=== PATIENT | female | born 1945 | race Caucasian/White ===

== ENCOUNTER 2017-03-22 11:49 | Inpatient (IN) | payer BC, OTHER ==
[~2017-03-22] VITALS: Ht 167.6 cm; Wt 63.1 kg
[~2017-03-22 11:49] MED LIST: AMOX500T PO; BENA20TA14 PO; METF-384 PO; METO50TA16 PO; VENL-273 PO; WLLSR150 PO
--- NOTE | 2017-03-22 13:03 | DIAGNOSTIC IMAGING REPORT ---
CHEST ONE VIEW PORTABLE CLINICAL HISTORY: Sepsis dyspnea COMPARISON STUDY: 08/24/2016 FINDINGS: Moderate stable cardiomegaly. Central catheters in the superior vena cava. Increased bilateral interstitial prominence. Potential developing parenchymal infiltrate medial right base. IMPRESSION: Developing interstitial edema versus interstitial inflammatory change throughout both hemithoraces and medial right base Electronically signed by: Adan Santana M.D. 03/22/2017 1:02 PM Dictated Date/Time: 03/22/2017 12:58 PM
[2017-03-22] MEDS ORDERED: BUPR75TA20 PO (13:14)
[2017-03-22] MEDS ORDERED: VNTHFA/IN INH (13:14)
[2017-03-22] MEDS ORDERED: METO25TA56 PO (13:14)
[2017-03-22] MEDS ORDERED: LIDO1CRE TOP (13:14)
[2017-03-22] MEDS ORDERED: MAGN400T6 PO (13:14)
[2017-03-22] MEDS ORDERED: SENN-61 PO (13:14)
[2017-03-22] MEDS ORDERED: ALPR-411 PO (13:14)
[2017-03-22] MEDS ORDERED: FRS/40 PO (13:14)
[2017-03-22] MEDS ORDERED: NICO7DIS7 TD (13:14)
[2017-03-22] MEDS ORDERED: LEVO-17 PO (13:14)
[2017-03-22] MEDS ORDERED: VENL-271 PO (13:14)
[2017-03-22] MEDS ORDERED: ACET-1256 PO (13:14)
[2017-03-22] MEDS ORDERED: INSDGI SC (13:17)
[2017-03-22 13:27] LABS: BASO % 0.3 %; BASO ABS # 0.03 K/uL (0-0.2); COMPLETE YES; EOS % 0.1 %; HEMATOCRIT 31.9 % (37-47); IG% 0.2 %; LYMPH % 9.7 %; LYMPH ABS # 0.91 K/uL (1.2-3.4); MEAN CELL VOLUME 81.4 fL (80-100); MEAN CORPUSCULAR HEMOGLOBIN 26.5 pg (25-34); MEAN CORPUSCULAR HGB CONC 32.6 g/dl (32-36); MEAN PLATELET VOLUME 9.1 fL (7.4-10.4); MONO % 8.2 %; NEUT % 81.5 %; PLATELET COUNT 245 K/uL (130-400); RED BLOOD COUNT 3.92 M/uL (4.2-5.4); WHITE BLOOD COUNT 9.34 K/uL (4.8-10.8)
[2017-03-22 13:40] LABS: INR 1.2 (0.9-1.1); PARTIAL THROMBOPLASTIN RATIO 1.2; PROTHROMBIN TIME (PATIENT) 12.6 SECONDS (9.0-12.0)
[2017-03-22 13:47] LABS: BUN/CREATININE RATIO 12.5 (10-20); CALCIUM 8.8 mg/dl (8.5-10.1); CREATININE 1.3 mg/dl (0.60-1.20); POTASSIUM 3.4 mmol/L (3.5-5.1)
[2017-03-22 13:56] LABS: ALB/GLOB RATIO 0.5 (0.9-2)
[2017-03-22] MEDS ORDERED: OPTIRAY 320 IV PRN (14:30)
--- NOTE | 2017-03-22 14:45 | DIAGNOSTIC IMAGING REPORT ---
CT ANGIOGRAM OF THE CHEST CLINICAL HISTORY: Shortness of breath. Hypoxia COMPARISON STUDY: Chest x-ray dated 03/22/2017 TECHNIQUE: Following the IV administration of 77 mL of Optiray-320, CT angiogram of the thorax was performed from the thoracic inlet to the lung bases utilizing the pulmonary embolus protocol. Images are reviewed in the axial, sagittal, and coronal planes. IV contrast was administered without complication. MIP imaging was performed. CT DOSE: 415.76 mGy.cm FINDINGS: Within the upper abdomen, there is visualization of a 9 mm left renal nodule with peripheral calcification. There are mildly enlarged prevascular and right paratracheal lymph nodes measuring up to 12 mm in short axis. There was no evidence of thoracic aortic dilatation. There is respiratory motion artifact. There are no filling defects to indicate acute pulmonary embolism. There are small bilateral pleural effusions. There are extensive bilateral airspace opacities. Clinical correlation will be necessary to differentiate pulmonary edema superimposed on chronic lung disease versus a bilateral inflammatory/infectious process IMPRESSION: 1. No evidence of acute pulmonary embolism 2. Mild mediastinal adenopathy 3. Small bilateral pleural effusions 4. Bilateral mixed interstitial and alveolar airspace opacities. Clinical correlation will be necessary to differentiate pulmonary edema superimposed on chronic lung disease versus a bilateral inflammatory/infectious process Electronically signed by: Sherwin Boone M.D. 03/22/2017 2:43 PM Dictated Date/Time: 03/22/2017 2:39 PM
[2017-03-22] MEDS ORDERED: PIPERACILLIN/TAZOBACTAM 4.5 GM/100ML D5W IV STA (14:47)
[2017-03-22] MEDS ORDERED: SODIUM CHLORIDE 0.9% 1000ML 1,000 ML IV SCH (15:16)
[2017-03-22] MEDS ORDERED: POLYETHYLENE (MIRALAX) 17 GM PACK PO PRN (15:30)
[2017-03-22] MEDS ORDERED: MAGNESIUM HYDROXIDE SUSP 30 ML UDC PO PRN (15:30)
[2017-03-22] MEDS ORDERED: ALUMINUM/MAGNESIUM/SIMETH (MAALOX MAX) 30 ML UDC PO PRN (15:30)
[2017-03-22] MEDS ORDERED: PIPERACILL/TAZOBAC CONSULT ACTIVE PRN (15:45)
[2017-03-22] MEDS ORDERED: VANCOMYCIN CONSULT ACTIVE PRN (15:45)
--- NOTE | 2017-03-22 15:45 | EMERGENCY ROOM VISIT NOTE ---
History Report prepared by Jennifer: Geraldine Martinez Under the Supervision of: Dr. Ryan Hough M.D. First contact with patient: 12:25 Chief Complaint: RESPIRATORY PROBLEMS Stated Complaint: SOB /[facility] Nursing Triage Summary: pt is resident at [facility] pt dx with Pneumonia yesterday and started on Levaquin today was first dose today pt more sob, room air sat 77 pt productive cough with yellow sputum no pain no fever History of Present Illness The patient is a 71 year old female who presents to the Emergency Room with complaints of respiratory problems. The patient was diagnosed with pneumonia yesterday and was placed on Levaquin. She reports that she has been short of breath since September. She states that she is unsure how long she has been coughing for, but does have a cough. She denies having chest pain, fevers, and lower extremity pain and edema. Source of History: patient Onset: September Position: other (global) Symptom Intensity: severe Quality: other (shortness of breath) Timing: constant Modifying Factors (Relieving): oxygen Associated Symptoms: + cough, + SOB, No fevers, No chest pain Note: also denies: lower extremity pain and edema Review of Systems See HPI for pertinent positives & negatives. A total of 10 systems reviewed and were otherwise negative. Past Medical & Surgical Medical Problems: (1) HCAP (healthcare-associated pneumonia) (2) Skin problem Family History Cancer Social History Smoking Status: Former Smoker Marital Status: Current/Historical Medications Scheduled Bupropion (Wellbutrin), 75 MG PO TID Furosemide (Lasix), 40 MG PO QAM Insulin Glargine (Lantus), 5 UNITS SC HS Levofloxacin (Levaquin), 250 MG PO Q2D Lidocaine (Anorectal) (Lc-5 Lidocaine), 1 APPLN TOP TID Magnesium Oxide (Mag-Ox), 400 MG PO DAILY Metoprolol Tartrate (Lopressor) (Lopressor), 25 MG PO BID Nicotine (Nicoderm Cq 7 Mg Patch), 7 MG TD DAILY Senna (Senokot), 1 TAB PO HS Venlafaxine Hcl (Venlafaxine Hcl Er), 1 TAB PO DAILY Scheduled PRN Acetaminophen (Tylenol), 2 TAB PO Q8 PRN for Mild Pain Albuterol Hfa (Ventolin Hfa), 2-4 PUFFS INH Q4 PRN for SOB/Wheezing Alprazolam (Xanax), 0.5 TAB PO Q6H PRN for Anxiety Allergies Coded Allergies: Nickel (Unverified Allergy, Unknown, ., 03/22/17) Physical Exam Vital Signs Date Time Temp Pulse Resp B/P (MAP) Pulse Ox O2 Delivery O2 Flow Rate FiO2 03/22/17 13:15 79 24 103/60 89 Nasal Cannula 4.0 03/22/17 12:02 100 15.0 03/22/17 11:57 37.0 100 27 117/66 80 Room Air 03/22/17 11:57 100 Non-Rebreather 15.0 Physical Exam Constitutional: Vital signs reviewed. Pulse oximeter 80% room air. 92% on 4L. Eyes: Pupils are equal round reactive to light. Conjunctiva are noninjected. ENT: Pharynx is clear without erythema or exudate. Mucous membranes are moist. Neck supple without meningeal signs. Respiratory: Clear to auscultation bilaterally. Breath sounds are equal bilaterally. Cardiovascular: Regular rate and rhythm. No rubs or gallops. GI: Soft, nondistended and nontender. Bowel sounds are present. Musculoskeletal: No peripheral edema. No lower extremity tenderness. Integumentary: No cyanosis. Neurological: The patient is awake and alert. No focal deficits. Psychiatric: Normal affect. Medical Decision & Procedures ER Provider Diagnostic Interpretation: X-ray results as stated below per interpretation by me and the radiologist: CHEST ONE VIEW PORTABLE CLINICAL HISTORY: Sepsis dyspnea COMPARISON STUDY: 08/24/2016 FINDINGS: Moderate stable cardiomegaly. Central catheters in the superior vena cava. Increased bilateral interstitial prominence. Potential developing parenchymal infiltrate medial right base. IMPRESSION: Developing interstitial edema versus interstitial inflammatory change throughout both hemithoraces and medial right base Electronically signed by: Adan Santana M.D. 03/22/2017 1:02 PM Dictated Date/Time: 03/22/2017 12:[address] results as stated below per my review and radiologist interpretation. CT ANGIOGRAM OF THE CHEST CLINICAL HISTORY: Shortness of breath. Hypoxia COMPARISON STUDY: Chest x-ray dated 03/22/2017 TECHNIQUE: Following the IV administration of 77 mL of Optiray-320, CT angiogram of the thorax was performed from the thoracic inlet to the lung bases utilizing the pulmonary embolus protocol. Images are reviewed in the axial, sagittal, and coronal planes. IV contrast was administered without complication. MIP imaging was performed. CT DOSE: 415.76 mGy.cm FINDINGS: Within the upper abdomen, there is visualization of a 9 mm left renal nodule with peripheral calcification. There are mildly enlarged prevascular and right paratracheal lymph nodes measuring up to 12 mm in short axis. There was no evidence of thoracic aortic dilatation. There is respiratory motion artifact. There are no filling defects to indicate acute pulmonary embolism. There are small bilateral pleural effusions. There are extensive bilateral airspace opacities. Clinical correlation will be necessary to differentiate pulmonary edema superimposed on chronic lung disease versus a bilateral inflammatory/infectious process IMPRESSION: 1. No evidence of acute pulmonary embolism 2. Mild mediastinal adenopathy 3. Small bilateral pleural effusions 4. Bilateral mixed interstitial and alveolar airspace opacities. Clinical correlation will be necessary to differentiate pulmonary edema superimposed on chronic lung disease versus a bilateral inflammatory/infectious process Electronically signed by: Sherwin Boone M.D. 03/22/2017 2:43 PM Dictated Date/Time: 03/22/2017 2:39 PM Laboratory Results 03/22/17 13:10 Red Blood Count 3.92, Mean Corpuscular Volume 81.4, Mean Corpuscular Hemoglobin 26.5, Mean Corpuscular Hemoglobin Concent 32.6, Mean Platelet Volume 9.1, Neutrophils (%) (Auto) 81.5, Lymphocytes (%) (Auto) 9.7, Monocytes (%) (Auto) 8.2, Eosinophils (%) (Auto) 0.1, Basophils (%) (Auto) 0.3, Neutrophils # (Auto) 7.60, Lymphocytes # (Auto) 0.91, Monocytes # (Auto) 0.77, Eosinophils # (Auto) 0.01, Basophils # (Auto) 0.03 03/22/17 13:10 Test 03/22/17 13:10 03/22/17 13:16 White Blood Count 9.34 K/uL (4.8-10.8) Red Blood Count 3.92 M/uL (4.2-5.4) Hemoglobin 10.4 g/dL (12.0-16.0) Hematocrit 31.9 % (37-47) Mean Corpuscular Volume 81.4 fL (80-100) Mean Corpuscular Hemoglobin 26.5 pg (25-34) Mean Corpuscular Hemoglobin Concent 32.6 g/dl (32-36) Platelet Count 245 K/uL (130-400) Mean Platelet Volume 9.1 fL (7.4-10.4) Neutrophils (%) (Auto) 81.5 % Lymphocytes (%) (Auto) 9.7 % Monocytes (%) (Auto) 8.2 % Eosinophils (%) (Auto) 0.1 % Basophils (%) (Auto) 0.3 % Neutrophils # (Auto) 7.60 K/uL (1.4-6.5) Lymphocytes # (Auto) 0.91 K/uL (1.2-3.4) Monocytes # (Auto) 0.77 K/uL (0.11-0.59) Eosinophils # (Auto) 0.01 K/uL (0-0.5) Basophils # (Auto) 0.03 K/uL (0-0.2) RDW Standard Deviation 56.7 fL (36.4-46.3) RDW Coefficient of Variation 19.0 % (11.5-14.5) Immature Granulocyte % (Auto) 0.2 % Immature Granulocyte # (Auto) 0.02 K/uL (0.00-0.02) Prothrombin Time 12.6 SECONDS (9.0-12.0) Prothromb Time International Ratio 1.2 (0.9-1.1) Activated Partial Thromboplast Time 31.3 SECONDS (21.0-31.0) Partial Thromboplastin Ratio 1.2 Anion Gap 10.0 mmol/L (3-11) Est Creatinine Clear Calc Drug Dose 36.6 ml/min Estimated GFR () 47.5 Estimated GFR (Non- 41.0 BUN/Creatinine Ratio 12.5 (10-20) Calcium Level 8.8 mg/dl (8.5-10.1) Total Bilirubin 0.9 mg/dl (0.2-1) Aspartate Amino Transf (AST/SGOT) 44 U/L (15-37) Alanine Aminotransferase (ALT/SGPT) 68 U/L (12-78) Alkaline Phosphatase 119 U/L (45-117) Troponin I < 0.015 ng/ml (0-0.045) Pro-B-Type Natriuretic Peptide 16114 pg/ml (0-900) Total Protein 7.1 gm/dl (6.4-8.2) Albumin 2.4 gm/dl (3.4-5.0) Globulin 4.7 gm/dl (2.5-4.0) Albumin/Globulin Ratio 0.5 (0.9-2) Bedside Lactic Acid Venous 2.12 mmol/L (0.90-1.70) Laboratory results as reviewed by me. ECG Indication: SOB/dyspnea Rate (beats per minute): 98 Rhythm: normal sinus Findings: LBBB, no ectopy, other (the LBBB is old; looked at previous ECG ) ED Course 1228: The patient was evaluated in room A9B. A complete history and physical exam was performed. 1421: I talked to the patient and her daughter about CT scan. I discussed risks of renal injury from the IV dye and they agreed to the CT scan. 1440: I spoke with Dr. Church of [facility]. We discussed the patient and her results. 1447: Ordered Zosyn Iv 4.5 gm IV. 1500: I spoke about her CT results. Her daughter said that she had a bad reaction to antibiotics at [place] at last admission so I will cancel her antibiotic treatment until we find out more information. 1510: The patient will be further evaluated by Dr. Church. Medical Decision This is a 71-year-old female who presents with dyspnea. Differential diagnosis includes pulmonary embolism, CHF, pleural effusion, COPD, pneumonia, sepsis. I did perform a limited focused review of portions of the patient's old chart on the electronic medical record. The patient has had no recent pertinent visits to this hospital. Blood Pressure Screening: Patient was found to have normal blood pressure on screening and does not require follow-up. Medication Reconciliation: I attest that I have personally reviewed the patient' s current medication list. I did evaluate the patient as noted above. I did obtain history from the patient as well as from her daughter who later came to the emergency department. She stated that the patient was recently hospitalized at [facility] and had a reaction to an unknown antibiotic. IV access was established. The patient was placed on a continuous environmental monitoring technician. I did order and personally review the patient's 12-lead EKG and chest x-ray as described above. She has either edema or pneumonia on x-ray. I did order and review the patient's blood work as noted in the electronic medical record. Her white blood cell count is not elevated but she does have an increased lactic acid. BNP is also significantly elevated. Because of her significant hypoxia and recent hospitalization I was concerned about pulmonary embolism. After discussion with the patient and her daughter, I did order a CT of the chest CT. I did review the images myself as well as the radiology report as described above. There is no pulmonary embolism. She does have either pneumonia or edema on CT scanning. She did have a low-grade temperature but also has an elevated BNP. Initially ordered Zosyn but I wanted to obtain more information from [facility] about the antibiotic that she had a severe reaction to. I therefore canceled it. I did discuss case with the [facility] hospitalist and social work case manager. I did discuss the test results with the patient and her daughter. Consults Time Called: 1420 Consulting Physician: Dr. Church Returned Call: [address] Church of [facility]. We discussed the patient and her results. The patient will be further evaluated by Dr. Church. Impression Primary Impression: Hypoxia Scribe Attestation The scribe's documentation has been prepared under my direct and personally reviewed by me in its entirety. I confirm that the note above accurately reflects all work, treatment, procedures, and medical decision making performed by me. Departure Information Dispostion Being Evaluated By Hospitalist Armin Johnson M.D. (PCP) Patient Instructions My [facility]
--- NOTE | 2017-03-22 15:54 | Pharmacy Progress Note ---
Pharmacy Abx Initial Consult Date of Service Mar 22, 2017. Pharmacy Dosing Scope Date of Consult: 03/22/17 Consultation requested by: Dr. Church Pharmacy is consulted to initiate Vancomycin and Zosyn IV dosing therapy, order appropriate labs and adjust drug dose/frequency. Subjective The patient is a 71 year old female admitted on 03/22/17 with pneumonia, started on PO Levaquin for Pneumonia yesterday as outpatient at [facility], came to ED with worsening symptoms. Objective Height (Feet): 5 Height (Inches): 6 Weight (Kilograms): 69.60 Vital Signs (Past 12Hrs) Vital Signs Past 12 Hours Date Time Temp Pulse Resp B/P (MAP) Pulse Ox O2 Delivery O2 Flow Rate FiO2 03/22/17 13:15 79 24 103/60 89 Nasal Cannula 4.0 03/22/17 12:02 100 15.0 03/22/17 11:57 37.0 100 27 117/66 80 Room Air 03/22/17 11:57 100 Non-Rebreather 15.0 Lab Results (24Hrs) Item Value Date Time Creatinine 1.30 mg/dl H 03/22/17 1310 Est Creatinine Clear Calc Drug Dose 36.6 ml/min 03/22/17 1310 Laboratory Tests (24 Hours) Test 03/22/17 13:10 White Blood Count 9.34 K/uL (4.8-10.8) Red Blood Count 3.92 M/uL (4.2-5.4) L Hemoglobin 10.4 g/dL (12.0-16.0) L Hematocrit 31.9 % (37-47) L Mean Corpuscular Volume 81.4 fL (80-100) Mean Corpuscular Hemoglobin 26.5 pg (25-34) Mean Corpuscular Hemoglobin Concent 32.6 g/dl (32-36) Platelet Count 245 K/uL (130-400) Mean Platelet Volume 9.1 fL (7.4-10.4) Neutrophils (%) (Auto) 81.5 % Lymphocytes (%) (Auto) 9.7 % Monocytes (%) (Auto) 8.2 % Eosinophils (%) (Auto) 0.1 % Basophils (%) (Auto) 0.3 % Neutrophils # (Auto) 7.60 K/uL (1.4-6.5) H Lymphocytes # (Auto) 0.91 K/uL (1.2-3.4) L Monocytes # (Auto) 0.77 K/uL (0.11-0.59) H Eosinophils # (Auto) 0.01 K/uL (0-0.5) Basophils # (Auto) 0.03 K/uL (0-0.2) Micro Results Date/Time Source Procedure Growth Status 03/22/17 13:47 Blood Blood Culture Pending Received 03/22/17 13:10 Blood Blood Culture Pending Received Risk Factors for Resistance * Resident in a senior living or extended-care facility (patient came from [facility]) * Antimicrobial use within the last 90 days Levaquin PO today Assessment & Plan Assessment 71 year old female admitted with pneumonia from [facility], recent admission at [facility]. Pt did report to have adverse drug reaction to an antibiotic, unknown antibiotic at this time. After discussion with Dr Church, we will HOLD Zosyn at this time, and then restart after we receive records. Patient does have a dose of Levaquin on board today. Plan Vancomycin for treatment of pneumonia (HCAP) Vancomycin IV * Loading dose: 1750 mg (25 mg/kg) * Maintenance dose: 1000 mg IV (15 mg/kg) every 24 hours * Estimated pharmacokinetic parameters: T1/2 = 19.8hrs, Akil = 0.035/hr, Vd = 0.7L/Kg * Goal trough level for HCAP : 15 to 20 mcg/mL * Trough level ordered for 03/25/17 Piperacillin/tazobactam - ON HOLD * 3.375 g bolus administered over 30 minutes, then 3.375 g IV extended infusion every 8 hours for CrCl greater than 20 mL/min Pharmacy will continue to follow and will adjust dose/frequency as necessary. Thank you.
[2017-03-22] MEDS ORDERED: VANCOMYCIN INJ 1,750 MG in SODIUM CHLORIDE 0.9% 500ML 500 ML IV ONE (16:00)
[2017-03-22] MEDS ORDERED: PIPERACILL/TAZOBAC IV 3.375 GM in DEXTROSE 5% 100ML IV ONE (16:00)
[2017-03-22 16:18] VITALS: BP 90/62; PULSE 87; TEMP 37; O2SAT 94; Ht 167.6 cm; Wt 63.1 kg
[2017-03-22 16:42] VITALS: BP 95/60; PULSE 87; TEMP 36.9; O2SAT 90
[2017-03-22 19:12] VITALS: BP 100/64; PULSE 86; TEMP 37; O2SAT 96
--- NOTE | 2017-03-22 19:26 | History and Physical ---
History & Physical Date & Time of Service: Mar 22, 2017 at 18:58 Chief Complaint: HCAP Primary Care Physician: Armin Sheth M.D. History of Present Illness Source: patient, family, clinic records, hospital records This is a 71 year old female with a PMH of colorectal CA s/p resection and colostomy, DM2, depression/anxiety, HTN presents from [facility] secondary to hypoxia and possible pneumonia; she had a CXR done one day prior to arrival which was suggestive of pneumonia and was prescribed Levaquin. She had a cough and hypoxia noted and was therefore sent over to [facility]. As per family member, she has had numerous visits to the hospital recently; was at [facility] for a possible R hip infection and was on long-term antibiotics; she was also at [place] at the end of February for an infection; which was again, for a possible R hip infection as well as a pneumonia. She was discharged to [facility] last week. As per records, she was allergic to possibly Ertapenem or Vancomycin as she was on both of these medications as outpatient. Noted to have elevated LFTs last week, possibly secondary to antibiotic side effect. Currently , she is answering questions appropriately; has oxygen mask on and is saturating fine; no chest pain, no fevers/chills noted. Family History Cancer Social History Smoking Status: Former Smoker Marital Status: Multi-Drug Resistant Organisms History of MDRO: No Allergies Coded Allergies: Nickel (Unverified Allergy, Unknown, ., 03/22/17) Ertapenem (Unverified Adverse Reaction, Intermediate, may have had elevated LFT's secondary to ertapenem..., 03/22/17) Patient received Vancomycin + Ertapenem in past for septic joint. She developed LFT elevations on this therapy. She had experienced ADHF, cardiogenic shock just prior to LFT elevation. Provider felt LFT elevations most likely due to shock, hepatic congestion but could not exclude ertapenem + venlafaxine as possible causes. Ertapenem was held and vanco was continued with Rocephin. LFTs improved. Home Medications Scheduled Bupropion (Wellbutrin), 75 MG PO TID Furosemide (Lasix), 40 MG PO QAM Insulin Glargine (Lantus), 5 UNITS SC HS Levofloxacin (Levaquin), 250 MG PO Q2D Lidocaine (Anorectal) (Lc-5 Lidocaine), 1 APPLN TOP TID Magnesium Oxide (Mag-Ox), 400 MG PO DAILY Metoprolol Tartrate (Lopressor) (Lopressor), 25 MG PO BID Nicotine (Nicoderm Cq 7 Mg Patch), 7 MG TD DAILY Senna (Senokot), 1 TAB PO HS Venlafaxine Hcl (Venlafaxine Hcl Er), 1 TAB PO DAILY Scheduled PRN Acetaminophen (Tylenol), 2 TAB PO Q8 PRN for Mild Pain Albuterol Hfa (Ventolin Hfa), 2-4 PUFFS INH Q4 PRN for SOB/Wheezing Alprazolam (Xanax), 0.5 TAB PO Q6H PRN for Anxiety Physical Exam Vital Signs Date Time Temp Pulse Resp B/P (MAP) Pulse Ox O2 Delivery O2 Flow Rate FiO2 03/22/17 16:42 36.9 87 20 95/60 (72) 90 Oxymask 6.0 03/22/17 16:31 37.0 87 29 90/62 94 03/22/17 16:18 37.0 87 29 90/62 94 Mask 10.0 03/22/17 16:01 87 90/62 96 Mask 4.0 03/22/17 15:54 92 29 96 03/22/17 15:24 89 27 95 03/22/17 15:19 91 26 96 Mask 10.0 03/22/17 15:02 97/59 03/22/17 14:49 89 21 95 03/22/17 14:19 94 30 93 03/22/17 14:01 104/62 03/22/17 13:49 95 26 03/22/17 13:19 93 30 92 03/22/17 13:15 79 24 103/60 89 Nasal Cannula 4.0 03/22/17 13:13 103/60 03/22/17 12:49 98 31 96 03/22/17 12:19 99 32 97 03/22/17 12:02 100 15.0 03/22/17 11:57 37.0 100 27 117/66 80 Room Air 03/22/17 11:57 100 Non-Rebreather 15.0 Diagnostics Laboratory Results Results Past 24 Hours Test 03/22/17 13:10 03/22/17 13:16 03/22/17 16:12 Range/Units White Blood Count 9.34 4.8-10.8 K/uL Red Blood Count 3.92 4.2-5.4 M/uL Hemoglobin 10.4 12.0-16.0 g/dL Hematocrit 31.9 37-47 % Mean Corpuscular Volume 81.4 80-100 fL Mean Corpuscular Hemoglobin 26.5 25-34 pg Mean Corpuscular Hemoglobin Concent 32.6 32-36 g/dl Platelet Count 245 130-400 K/uL Mean Platelet Volume 9.1 7.4-10.4 fL Neutrophils (%) (Auto) 81.5 % Lymphocytes (%) (Auto) 9.7 % Monocytes (%) (Auto) 8.2 % Eosinophils (%) (Auto) 0.1 % Basophils (%) (Auto) 0.3 % Neutrophils # (Auto) 7.60 1.4-6.5 K/uL Lymphocytes # (Auto) 0.91 1.2-3.4 K/uL Monocytes # (Auto) 0.77 0.11-0.59 K/uL Eosinophils # (Auto) 0.01 0-0.5 K/uL Basophils # (Auto) 0.03 0-0.2 K/uL RDW Standard Deviation 56.7 36.4-46.3 fL RDW Coefficient of Variation 19.0 11.5-14.5 % Immature Granulocyte % (Auto) 0.2 % Immature Granulocyte # (Auto) 0.02 0.00-0.02 K/uL Prothrombin Time 12.6 9.0-12.0 SECONDS Prothromb Time International Ratio 1.2 0.9-1.1 Activated Partial Thromboplast Time 31.3 21.0-31.0 SECONDS Partial Thromboplastin Ratio 1.2 Sodium Level 135 136-145 mmol/L Potassium Level 3.4 3.5-5.1 mmol/L Chloride Level 100 98-107 mmol/L Carbon Dioxide Level 25 21-32 mmol/L Anion Gap 10.0 3-11 mmol/L Blood Urea Nitrogen 16 7-18 mg/dl Creatinine 1.30 0.60-1.20 mg/dl Est Creatinine Clear Calc Drug Dose 36.6 ml/min Estimated GFR () 47.5 Estimated GFR (Non- 41.0 BUN/Creatinine Ratio 12.5 10-20 Random Glucose 202 70-99 mg/dl Calcium Level 8.8 8.5-10.1 mg/dl Total Bilirubin 0.9 0.2-1 mg/dl Aspartate Amino Transf (AST/SGOT) 44 15-37 U/L Alanine Aminotransferase (ALT/SGPT) 68 12-78 U/L Alkaline Phosphatase 119 45-117 U/L Troponin I < 0.015 0-0.045 ng/ml Pro-B-Type Natriuretic Peptide 27537 0-900 pg/ml Total Protein 7.1 6.4-8.2 gm/dl Albumin 2.4 3.4-5.0 gm/dl Globulin 4.7 2.5-4.0 gm/dl Albumin/Globulin Ratio 0.5 0.9-2 Hepatitis C Antibody Screen NEG NEG Bedside Lactic Acid Venous 2.12 0.90-1.70 mmol/L Lactic Acid Level 1.4 0.4-2.0 mmol/L Microbiology Results 03/22/17 Blood Culture, Received Pending 03/22/17 Blood Culture, Received Pending Diagnostic Radiology CT ANGIOGRAM OF THE CHEST CLINICAL HISTORY: Shortness of breath. Hypoxia COMPARISON STUDY: Chest x-ray dated 03/22/2017 TECHNIQUE: Following the IV administration of 77 mL of Optiray-320, CT angiogram of the thorax was performed from the thoracic inlet to the lung bases utilizing the pulmonary embolus protocol. Images are reviewed in the axial, sagittal, and coronal planes. IV contrast was administered without complication. MIP imaging was performed. CT DOSE: 415.76 mGy.cm FINDINGS: Within the upper abdomen, there is visualization of a 9 mm left renal nodule with peripheral calcification. There are mildly enlarged prevascular and right paratracheal lymph nodes measuring up to 12 mm in short axis. There was no evidence of thoracic aortic dilatation. There is respiratory motion artifact. There are no filling defects to indicate acute pulmonary embolism. There are small bilateral pleural effusions. There are extensive bilateral airspace opacities. Clinical correlation will be necessary to differentiate pulmonary edema superimposed on chronic lung disease versus a bilateral inflammatory/infectious process IMPRESSION: 1. No evidence of acute pulmonary embolism 2. Mild mediastinal adenopathy 3. Small bilateral pleural effusions 4. Bilateral mixed interstitial and alveolar airspace opacities. Clinical correlation will be necessary to differentiate pulmonary edema superimposed on chronic lung disease versus a bilateral inflammatory/infectious process EKG Normal sinus rhythm Left bundle branch block Abnormal ECG Impression Assessment and Plan This is a 71 year old female with a PMH of colorectal CA s/p resection and colostomy, DM2, depression/anxiety, HTN presents from [facility] secondary to hypoxia and possible pneumonia Pneumonia CXR Bilateral mixed interstitial and alveolar airspace opacities. Clinical correlation will be necessary to differentiate pulmonary edema superimposed on chronic lung disease versus a bilateral inflammatory/infectious process hypoxia on presentation requiring supplemental O2 recent hospital stay questionable penicillin allergy, will obtain records ordered Vanco + Levaquin lactic acid trending down to 1.4 Hx. of colorectal CA s/p resection/colostomy patient with colostomy, draining well, no foul-smelling stool no abdominal pain, no other issues to note Cardiomyopathy patient with a hx. of cardiomyopathy no recent echo noted, though records are pending BNP elevated, will stop IVFs can restart Lasix in AM Acute Kidney Injury received IVFs in the ER holding IVFs now due possible fluid overload restart Lasix in AM (03/23) avoid nephrotoxic agents when able DM2 BSGs ACHS insulin sliding scale DVT ppx subq heparin FULL CODE Advanced Directives Existing Living Will: No Existing Power of Order Analyst: No VTE Prophylaxis VTE Risk Assessment Done? Y/N: Yes Risk Level: Moderate
[2017-03-22] MEDS ORDERED: GLUCAGON FOR INJ 1 MG VIAL SQ PRN (19:30)
[2017-03-22] MEDS ORDERED: GLUCOSE 40% GEL 15 GM TUBE PO PRN (19:30)
[2017-03-22] MEDS ORDERED: DEXTROSE 50% 50 ML SYR IV PRN (19:30)
[2017-03-22] MEDS ORDERED: GLUCOSE 10 TABS/TUBE PO PRN (19:30)
[2017-03-22] MEDS: INSULIN ASPART 100 UNITS/ML 3 ML PEN SC SCH (21:00)
[2017-03-22] MEDS: SENNA 8.6 MG TAB PO SCH (21:19)
[2017-03-22] MEDS: METOPROLOL TARTRATE 25 MG TAB PO SCH (21:19)
[2017-03-22] MEDS: HEPARIN SOD 5000 UNIT/0.5 ML CARP SQ SCH (22:56)
[2017-03-22] MEDS ORDERED: LIDOCAINE 5% EXT SCH (23:00)
[2017-03-22 23:37] VITALS: BP 85/54; PULSE 71; TEMP 36.8; O2SAT 92
[2017-03-23] VITALS (9 sets, daily range): BP systolic 89–97; BP diastolic 52–61; PULSE 76–87; TEMP 36.5–37.2; O2SAT 81–95
[2017-03-23] MEDS ORDERED: PIPERACILL/TAZOBAC IV 3.375 GM in DEXTROSE 5% 100ML 100 ML IV SCH ×2
[2017-03-23] MEDS: HEPARIN SOD 5000 UNIT/0.5 ML CARP SQ SCH ×3 (06:11→21:49)
[2017-03-23 06:49] LABS: HEMATOCRIT 32.5 % (37-47); MEAN CELL VOLUME 81.7 fL (80-100); MEAN CORPUSCULAR HEMOGLOBIN 24.9 pg (25-34); MEAN CORPUSCULAR HGB CONC 30.5 g/dl (32-36); MEAN PLATELET VOLUME 8.6 fL (7.4-10.4); PLATELET COUNT 253 K/uL (130-400); RED BLOOD COUNT 3.98 M/uL (4.2-5.4); WHITE BLOOD COUNT 10.57 K/uL (4.8-10.8)
[2017-03-23] MEDS: INSULIN ASPART 100 UNITS/ML 3 ML PEN SC SCH ×4 (07:00→20:39)
[2017-03-23 07:21] LABS: CALCIUM 8.8 mg/dl (8.5-10.1); CREATININE 1.3 mg/dl (0.60-1.20); MAGNESIUM 1.6 mg/dl (1.8-2.4); POTASSIUM 3.7 mmol/L (3.5-5.1)
[2017-03-23] MEDS: VENLAFAXINE HCL XR 37.5 MG CAPXR PO SCH (08:29)
[2017-03-23] MEDS: MAGNESIUM OXIDE 400 MG TAB PO SCH (08:30)
[2017-03-23] MEDS: FUROSEMIDE 40 MG TAB PO SCH (08:30)
[2017-03-23] MEDS: METOPROLOL TARTRATE 25 MG TAB PO SCH ×2 (08:30→20:13)
[2017-03-23] MEDS: NICOTINE 7 MG/24 HR TDSY TD SCH (08:31)
--- NOTE | 2017-03-23 09:18 | Medical Consult ---
Consultation Date of Consultation: Mar 23, 2017. Attending Physician: Hugo Cummings M.D. History of Present Illness pt admitted from [facility] for suspected pna. cxr in er with edema, ct b/l opacities. denies h/o lung disease. Now on O2 mask, does not wear O2 at home. has had multiple recent hospitalizations in [facility], [place] for hip infection, on prolonged abx. recently stopped. no hip pain. no f/c. denies sob, wheeze, intermittent cough, increased recently, no blooed. no pleuritic cp. no n/v/d/ abd pain. no gu symptoms. states she feels better today, placed on vanco and zosyn, zosyn was stopped, levaquin to start per h&p. blood cultures pending. wbc nml. All remaining ros reviewed and are negative. Past Medical/Surgical History Medical Problems: (1) Epigastric abdominal pain Status: Acute (2) Hypoxia Status: Acute (3) Vomiting Status: Acute Family History Cancer Social History Smoking Status: Former Smoker Marital Status: Allergies Coded Allergies: Nickel (Unverified Allergy, Unknown, ., 03/22/17) Ertapenem (Unverified Adverse Reaction, Intermediate, may have had elevated LFT's secondary to ertapenem..., 03/22/17) Patient received Vancomycin + Ertapenem in past for septic joint. She developed LFT elevations on this therapy. She had experienced ADHF, cardiogenic shock just prior to LFT elevation. Provider felt LFT elevations most likely due to shock, hepatic congestion but could not exclude ertapenem + venlafaxine as possible causes. Ertapenem was held and vanco was continued with Rocephin. LFTs improved. Current Inpatient Medications Current Inpatient Medications Medications (Trade) Dose Ordered Sig/Lorenzo Route Start Time Stop Time Status Last Admin Dose Admin Ioversol (Optiray 320) 111 ml UD PRN IV 03/22/17 14:30 03/26/17 14:29 Piperacillin Sod/ Tazobactam Sod 3.375 gm/Dextrose 115 ml @ 28.75 mls/ hr Q8@0000,0800,1600 IV 03/23/17 00:00 03/29/17 15:59 Future Hold 03/22/17 15:58 28.75 MLS/HR Vancomycin HCl 1000 mg/Sodium Chloride 270 ml @ 125 mls/hr DAILY@1400 IV 03/23/17 14:00 03/28/17 16:10 Alprazolam (Xanax Tab) 0.25 mg Q6H PRN PO 03/22/17 15:15 04/21/17 15:14 Bupropion HCl (Wellbutrin Tab) 75 mg TID@0700,1500,2300 PO 03/22/17 23:00 04/21/17 22:59 03/23/17 06:08 75 MG Furosemide (Lasix Tab) 40 mg QAM PO 03/23/17 09:00 04/22/17 08:59 03/23/17 08:30 40 MG Magnesium Oxide (Mag-Ox Tab) 400 mg DAILY PO 03/23/17 09:00 04/22/17 08:59 03/23/17 08:30 400 MG Metoprolol Tartrate (Lopressor Tab) 25 mg BID PO 03/22/17 21:00 04/21/17 20:59 03/22/17 21:19 25 MG Nicotine (Nicoderm Cq 7 Mg Patch) 1 patch DAILY TD 03/23/17 09:00 04/22/17 08:59 03/23/17 08:31 1 PATCH Senna (Senokot Tab) 8.6 mg HS PO 03/22/17 21:00 04/21/17 20:59 03/22/17 21:19 8.6 MG Venlafaxine HCl (effeXOR EXTENDED REL CAP) 37.5 mg DAILY PO 03/23/17 09:00 04/22/17 08:59 03/23/17 08:29 37.5 MG Heparin Sodium (Porcine) (Heparin Sq 5000 Unit/0.5ml) 5,000 unit Q8 SQ 03/22/17 22:00 04/21/17 21:59 03/23/17 06:11 5,000 UNIT Acetaminophen (Tylenol Tab) 650 mg Q4H PRN PO 03/22/17 15:30 04/21/17 15:29 Al Hydrox/Mg Hydrox/Simethicone (Maalox Max Susp) 15 ml Q4H PRN PO 03/22/17 15:30 04/21/17 15:29 Magnesium Hydroxide (Milk Of Magnesia Susp) 30 ml Q12H PRN PO 03/22/17 15:30 04/21/17 15:29 Ondansetron HCl (Zofran Inj) 4 mg Q6H PRN IV 03/22/17 15:30 04/21/17 15:29 Polyethylene (Miralax Powder Packet) 17 gm DAILY PRN PO 03/22/17 15:30 04/21/17 15:29 Vancomycin HCl (Consult) 1 ea UD PRN N/A 03/22/17 15:45 04/21/17 15:44 Piperacillin Sod/ Tazobactam Sod (Consult) 1 ea UD PRN N/A 03/22/17 15:45 04/21/17 15:44 Future Hold Insulin Aspart (novoLOG ASPART) SLIDING SCALE If C... ACHS SC 03/22/17 21:00 04/21/17 20:59 Glucose (Glucose 40% Gel) 15-30 GRAMS 15 GRAMS... UD PRN PO 03/22/17 19:30 04/21/17 19:29 Glucose (Glucose Chew Tab) 4-8 Tablets 4 Tabl... UD PRN PO 03/22/17 19:30 04/21/17 19:29 Dextrose (Dextrose 50% 50ML Syringe) 25-50ML OF 50% DW IV FOR... UD PRN IV 03/22/17 19:30 04/21/17 19:29 Glucagon (Glucagon Inj) 1 mg UD PRN SQ 03/22/17 19:30 04/21/17 19:29 Miscellaneous Information (Order Awaiting Action) 1 ea QS N/A 03/23/17 08:00 04/22/17 07:59 Magnesium Sulfate 1 gm/Prmx 100 ml @ 100 mls/hr 0930 ONCE IV 03/23/17 09:30 03/23/17 10:29 Physical Exam Date Time Temp Pulse Resp B/P (MAP) Pulse Ox O2 Delivery O2 Flow Rate FiO2 03/23/17 07:28 37.2 84 19 93/60 (71) 95 6.0 03/23/17 04:49 36.9 76 20 93/59 (70) 90 Oxymask 03/23/17 04:00 94 Oxymask 6.0 03/23/17 04:00 37.2 77 16 95/60 (72) 90 Oxymask 6.0 03/23/17 00:00 94 Oxymask 6.0 03/22/17 23:37 36.8 71 18 85/54 (64) 92 6.0 03/22/17 19:12 37.0 86 21 100/64 (76) 96 Nasal Cannula 5.0 03/22/17 16:42 36.9 87 20 95/60 (72) 90 Oxymask 6.0 03/22/17 16:31 37.0 87 29 90/62 94 03/22/17 16:18 37.0 87 29 90/62 94 Mask 10.0 03/22/17 16:01 87 90/62 96 Mask 4.0 03/22/17 15:54 92 29 96 03/22/17 15:24 89 27 95 03/22/17 15:19 91 26 96 Mask 10.0 03/22/17 15:02 97/59 03/22/17 14:49 89 21 95 03/22/17 14:19 94 30 93 03/22/17 14:01 104/62 03/22/17 13:49 95 26 03/22/17 13:19 93 30 92 03/22/17 13:15 79 24 103/60 89 Nasal Cannula 4.0 03/22/17 13:13 103/60 03/22/17 12:49 98 31 96 03/22/17 12:19 99 32 97 03/22/17 12:02 100 15.0 03/22/17 11:57 37.0 100 27 117/66 80 Room Air 03/22/17 11:57 100 Non-Rebreather 15.0 General Appearance: WD/WN, no apparent distress Head: normocephalic, atraumatic Eyes: normal inspection, EOMI Neck: supple Respiratory/Chest: lungs clear, normal breath sounds, no respiratory distress Cardiovascular: regular rate, rhythm, no edema Abdomen/GI: non tender, soft Extremities/Musculoskelatal: no calf tenderness, no pedal edema Neurologic/Psych: alert, oriented x 3 Skin: normal color Laboratory Results Last 24 Hours Test 03/22/17 13:10 03/22/17 13:16 03/22/17 16:12 03/22/17 20:12 White Blood Count 9.34 K/uL Red Blood Count 3.92 M/uL Hemoglobin 10.4 g/dL Hematocrit 31.9 % Mean Corpuscular Volume 81.4 fL Mean Corpuscular Hemoglobin 26.5 pg Mean Corpuscular Hemoglobin Concent 32.6 g/dl Platelet Count 245 K/uL Mean Platelet Volume 9.1 fL Neutrophils (%) (Auto) 81.5 % Lymphocytes (%) (Auto) 9.7 % Monocytes (%) (Auto) 8.2 % Eosinophils (%) (Auto) 0.1 % Basophils (%) (Auto) 0.3 % Neutrophils # (Auto) 7.60 K/uL Lymphocytes # (Auto) 0.91 K/uL Monocytes # (Auto) 0.77 K/uL Eosinophils # (Auto) 0.01 K/uL Basophils # (Auto) 0.03 K/uL RDW Standard Deviation 56.7 fL RDW Coefficient of Variation 19.0 % Immature Granulocyte % (Auto) 0.2 % Immature Granulocyte # (Auto) 0.02 K/uL Prothrombin Time 12.6 SECONDS Prothromb Time International Ratio 1.2 Activated Partial Thromboplast Time 31.3 SECONDS Partial Thromboplastin Ratio 1.2 Sodium Level 135 mmol/L Potassium Level 3.4 mmol/L Chloride Level 100 mmol/L Carbon Dioxide Level 25 mmol/L Anion Gap 10.0 mmol/L Blood Urea Nitrogen 16 mg/dl Creatinine 1.30 mg/dl Est Creatinine Clear Calc Drug Dose 36.6 ml/min Estimated GFR () 47.5 Estimated GFR (Non- 41.0 BUN/Creatinine Ratio 12.5 Random Glucose 202 mg/dl Calcium Level 8.8 mg/dl Total Bilirubin 0.9 mg/dl Aspartate Amino Transf (AST/SGOT) 44 U/L Alanine Aminotransferase (ALT/SGPT) 68 U/L Alkaline Phosphatase 119 U/L Troponin I < 0.015 ng/ml Pro-B-Type Natriuretic Peptide 65346 pg/ml Total Protein 7.1 gm/dl Albumin 2.4 gm/dl Globulin 4.7 gm/dl Albumin/Globulin Ratio 0.5 Hepatitis C Antibody Screen NEG Bedside Lactic Acid Venous 2.12 mmol/L Lactic Acid Level 1.4 mmol/L 1.6 mmol/L Test 03/22/17 20:36 03/22/17 23:57 03/23/17 06:31 03/23/17 06:38 Bedside Glucose 147 mg/dl 134 mg/dl Lactic Acid Level 2.1 mmol/L White Blood Count 10.57 K/uL Red Blood Count 3.98 M/uL Hemoglobin 9.9 g/dL Hematocrit 32.5 % Mean Corpuscular Volume 81.7 fL Mean Corpuscular Hemoglobin 24.9 pg Mean Corpuscular Hemoglobin Concent 30.5 g/dl RDW Standard Deviation 56.7 fL RDW Coefficient of Variation 18.8 % Platelet Count 253 K/uL Mean Platelet Volume 8.6 fL Sodium Level 136 mmol/L Potassium Level 3.7 mmol/L Chloride Level 100 mmol/L Carbon Dioxide Level 26 mmol/L Anion Gap 10.0 mmol/L Blood Urea Nitrogen 17 mg/dl Creatinine 1.30 mg/dl Est Creatinine Clear Calc Drug Dose 36.6 ml/min Estimated GFR () 47.5 Estimated GFR (Non- 41.0 BUN/Creatinine Ratio 13.0 Random Glucose 125 mg/dl Calcium Level 8.8 mg/dl Magnesium Level 1.6 mg/dl Assessment & Plan (1) HCAP (healthcare-associated pneumonia) Assessment & Plan: continue broad spectrum abx, will need 7 days. obtain sputum culture, if able to produce specimen. blood cultures pending, continue supportive care.
[2017-03-23] MEDS ORDERED: MAGNESIUM SULFATE 1GM / D5W 1 GM in PREMIXED IN D5W 100 ML IV ONE (09:30)
--- NOTE | 2017-03-23 12:48 | Clinical Documentation Query ---
QUERY 1 OF [address] MONTANEZ, In your clinical opinion is this patient being managed for: ( ) possible MRSA pneumonia in the setting of recent hospitalization being treated with IV vancomcyin ( ) Other explanation of clinical findings (Please Explain) ( X ) Unable to determine (Please Define) ( ) Need to Discuss ( ) Not Agree The medical record reflects the following clinical findings, treatment, and risk factors. Clinical Indicators: 71 yo female presenting with pneumonia, following recent hospital stay. Sputum reported to be yellow. Pulse ox 80% on RA Treatment: IV vancomycin, pending MRSA swab, pending blood cultures, O2 support, tele Risk Factors: age, DM, recent hospital stay QUERY 2 OF 3 In your clinical opinion is this patient being managed for: ( X) Acute hypoxic respiratory failure ( ) Other explanation of clinical findings (Please Explain) ( ) Unable to determine (Please Define) ( ) Need to Discuss ( ) Not Agree The medical record reflects the following clinical findings, treatment, and risk factors. Clinical Indicators:71 yo female presenting with pneumonia. O2 sat 80% on RA, tachypneic with resp rate of 27-32 Treatment: O2 support-initially NRB, now on oxymask, IV vancomycin, tele, IV zosyn, Risk Factors: age, pneumonia, hx chronic systolic CHF QUERY 3 OF 3 In your clinical opinion is this patient being managed for: ( ) Chronic systolic CHF ( ) Other explanation of clinical findings (Please Explain) ( X ) Unable to determine (Please Define) ( ) Need to Discuss ( ) Not Agree The medical record reflects the following clinical findings, treatment, and risk factors. Clinical Indicators: Noted documentation of chronic systolic CHF in [facility] scanned documents Treatment: po lasix, lopressor Risk Factors: age, DM, COPD, HTN Please clarify and document your clinical opinion in the progress notes and discharge summary. Terms such as "probable", "suspected", "likely", "questionable", "possible", or "still to be ruled out" are acceptable. IF IN AGREEMENT, YOU MUST DOCUMENT ABOVE DIAGNOSTIC STATEMENT IN DAILY PROGRESS NOTES AND DISCHARGE SUMMARY. This document is not part of the patient's record. Thank You, Freya Steele RN [phone]
--- NOTE | 2017-03-23 14:30 | Progress Note ---
Internal Med Progress Note Date of Service: Mar 23, 2017. Provider Documentation: SUBJECTIVE: The patient was seen and examined Admitted with sudden onset SOB with cough from [facility] Recent discharge from [facility] following an episode of Increased LFTs and noted to have CMP with EF 20-25% No fever,chills Generally weak and lethargic OBJECTIVE: Vital Signs-as noted below Exam: General-Moderate distress at rest Eyes-Normal ENT-normal Neck-supple Lungs-decreased breath sound at the bases Heart-Regular Abdomen-Benign,colostomy site intact Extremities-Trace edema bilaterally Neuro-AAOx3 Generally weak and lethargic Lab data as noted below. ASSESSMENT & PLAN: Bibasilar Pneumonia CXR Bilateral mixed interstitial and alveolar airspace opacities. Clinical correlation will be necessary to differentiate pulmonary edema superimposed on chronic lung disease versus a bilateral inflammatory/infectious process Hypoxia on presentation requiring supplemental O2 Recent hospital stay in [facility] Has been on Vanco + Levaquin for now Appreciate ID input Hx. of colorectal CA s/p resection/colostomy Has Presacral Mass -patient with colostomy, draining well, no foul-smelling stool -no abdominal pain, no other issues to note -No acute issue Cardiomyopathy.EF ~20% -Patient with a hx. of cardiomyopathy -Multiple wall motion abnormality with EF of 20-25% and grade ii Diastolic Dysfunction on ECHO week of March -BNP elevated, will stop IVFs -Can restart Lasix in AM will change to IV Acute Kidney Injury with h/o CKD -Received IVFs in the ER -Hold IVFs to avoid Fluid Overload -Avoid Nephrotoxic agent DM2 -BSGs ACHS -insulin sliding scale DVT ppx -subq heparin FULL CODE Discussed with The Daughter Vital Signs: Date Time Temp Pulse Resp B/P (MAP) Pulse Ox O2 Delivery O2 Flow Rate FiO2 03/23/17 12:00 Oxymask 6.0 03/23/17 11:30 36.5 82 18 89/52 (64) 95 Nasal Cannula 6.0 03/23/17 08:00 Oxymask 6.0 03/23/17 07:28 37.2 84 19 93/60 (71) 95 6.0 03/23/17 04:49 36.9 76 20 93/59 (70) 90 Oxymask 03/23/17 04:00 94 Oxymask 6.0 03/23/17 04:00 37.2 77 16 95/60 (72) 90 Oxymask 6.0 03/23/17 00:00 94 Oxymask 6.0 03/22/17 23:37 36.8 71 18 85/54 (64) 92 6.0 03/22/17 19:12 37.0 86 21 100/64 (76) 96 Nasal Cannula 5.0 03/22/17 16:42 36.9 87 20 95/60 (72) 90 Oxymask 6.0 03/22/17 16:31 37.0 87 29 90/62 94 03/22/17 16:18 37.0 87 29 90/62 94 Mask 10.0 03/22/17 16:01 87 90/62 96 Mask 4.0 03/22/17 15:54 92 29 96 03/22/17 15:24 89 27 95 03/22/17 15:19 91 26 96 Mask 10.0 03/22/17 15:02 97/59 03/22/17 14:49 89 21 95 03/22/17 14:19 94 30 93 Lab Results: Results Past 24 Hours Test 03/22/17 16:12 03/22/17 20:12 03/22/17 20:36 03/22/17 23:57 Range/Units Lactic Acid Level 1.4 1.6 2.1 0.4-2.0 mmol/L Bedside Glucose 147 70-90 mg/dl Test 03/23/17 06:31 03/23/17 06:38 Range/Units Bedside Glucose 134 70-90 mg/dl White Blood Count 10.57 4.8-10.8 K/uL Red Blood Count 3.98 4.2-5.4 M/uL Hemoglobin 9.9 12.0-16.0 g/dL Hematocrit 32.5 37-47 % Mean Corpuscular Volume 81.7 80-100 fL Mean Corpuscular Hemoglobin 24.9 25-34 pg Mean Corpuscular Hemoglobin Concent 30.5 32-36 g/dl RDW Standard Deviation 56.7 36.4-46.3 fL RDW Coefficient of Variation 18.8 11.5-14.5 % Platelet Count 253 130-400 K/uL Mean Platelet Volume 8.6 7.4-10.4 fL Sodium Level 136 136-145 mmol/L Potassium Level 3.7 3.5-5.1 mmol/L Chloride Level 100 98-107 mmol/L Carbon Dioxide Level 26 21-32 mmol/L Anion Gap 10.0 3-11 mmol/L Blood Urea Nitrogen 17 7-18 mg/dl Creatinine 1.30 0.60-1.20 mg/dl Est Creatinine Clear Calc Drug Dose 36.6 ml/min Estimated GFR () 47.5 Estimated GFR (Non- 41.0 BUN/Creatinine Ratio 13.0 10-20 Random Glucose 125 70-99 mg/dl Calcium Level 8.8 8.5-10.1 mg/dl Magnesium Level 1.6 1.8-2.4 mg/dl
[2017-03-23] MEDS: VANCOMYCIN INJ 1,000 MG in SODIUM CHLORIDE 0.9% 250ML 250 ML IV SCH (14:36)
[2017-03-23] MEDS: DOXYCYCLINE HYCLATE 100 MG in DEXTROSE 5% 100ML IV SCH (16:11)
[2017-03-23] MEDS ORDERED: FUROSEMIDE INJ 40 MG in SYRINGE 0 ML IV ONE (20:00)
[2017-03-23] MEDS: SENNA 8.6 MG TAB PO SCH (20:13)
--- NOTE | 2017-03-23 20:14 | DIAGNOSTIC IMAGING REPORT ---
CHEST ONE VIEW PORTABLE CLINICAL HISTORY: shortness of breath dyspnea COMPARISON STUDY: 03/22/2017 FINDINGS: Findings of mildly progressive pulmonary edematous-type change. Heart is moderately enlarged. There is central catheter ends. Cava. IMPRESSION: Mild/moderate progression of the patient's pulmonary edematous change The above report was generated using voice recognition software. It may contain grammatical, syntax or spelling errors. Electronically signed by: Adan Santana M.D. 03/23/2017 8:12 PM Dictated Date/Time: 03/23/2017 8:12 PM
[2017-03-23 20:20] LABS: ALLEN TEST POS (POS); ARTERIAL BLD GAS O2 SATURATION 93.3 % (90-95); ARTERIAL BLOOD GAS BASE EXCESS -1.3 mEq/L (-9-1.8); ARTERIAL BLOOD GAS HCO3 22 mmol/L (19-24); ARTERIAL BLOOD GAS PO2 74 mm/Hg (80-95); ARTERIAL BLOOD GAS pH 7.48 (7.35-7.45); O2 ADMINISTRATION 15 LITERS
[2017-03-24] VITALS (8 sets, daily range): BP systolic 87–100; BP diastolic 54–64; PULSE 76–109; TEMP 36.4–37.2; O2SAT 90–98
[2017-03-24] MEDS ORDERED: FUROSEMIDE INJ 20 MG in SYRINGE 0 ML IV STA (02:12)
[2017-03-24] MEDS ORDERED: POTASSIUM CHLORIDE 20 MEQ TABCR PO STA (02:13)
[2017-03-24] MEDS ORDERED: MAG SULFATE IV STA (02:14)
[2017-03-24] MEDS ORDERED: DEXTROSE 5% IV STA (02:14)
[2017-03-24] MEDS: DOXYCYCLINE HYCLATE 100 MG in DEXTROSE 5% 100ML IV SCH ×2 (03:56→16:21)
[2017-03-24] MEDS: HEPARIN SOD 5000 UNIT/0.5 ML CARP SQ SCH ×3 (05:38→21:04)
[2017-03-24] MEDS: INSULIN ASPART 100 UNITS/ML 3 ML PEN SC SCH ×4 (07:00→23:57)
[2017-03-24] MEDS: VENLAFAXINE HCL XR 37.5 MG CAPXR PO SCH (07:23)
[2017-03-24] MEDS: MAGNESIUM OXIDE 400 MG TAB PO SCH ×2 (07:24→21:01)
[2017-03-24] MEDS: METOPROLOL TARTRATE 25 MG TAB PO SCH ×2 (07:24→21:00)
[2017-03-24] MEDS: NICOTINE 7 MG/24 HR TDSY TD SCH (07:25)
[2017-03-24 07:48] LABS: HEMATOCRIT 31.9 % (37-47); MEAN CELL VOLUME 80.6 fL (80-100); MEAN CORPUSCULAR HEMOGLOBIN 25.8 pg (25-34); MEAN PLATELET VOLUME 9.3 fL (7.4-10.4); PLATELET COUNT 262 K/uL (130-400); RED BLOOD COUNT 3.96 M/uL (4.2-5.4); WHITE BLOOD COUNT 10.27 K/uL (4.8-10.8)
[2017-03-24 07:59] LABS: BUN/CREATININE RATIO 12.6 (10-20); CREATININE 1.5 mg/dl (0.60-1.20); MAGNESIUM 2.3 mg/dl (1.8-2.4); POTASSIUM 3.5 mmol/L (3.5-5.1)
[2017-03-24 08:01] LABS: ALB/GLOB RATIO 0.5 (0.9-2); PHOSPHORUS 3.3 mg/dl (2.5-4.9)
[2017-03-24] MEDS ORDERED: MAGNESIUM OXIDE 400 MG TAB PO ONE (10:57)
[2017-03-24] MEDS: VANCOMYCIN INJ 1,000 MG in SODIUM CHLORIDE 0.9% 250ML 250 ML IV SCH (13:34)
[2017-03-24] MEDS: LEVALBUTEROL 0.31MG/3 ML VIAL INH SCH ×2 (13:46→19:12)
--- NOTE | 2017-03-24 15:08 | Progress Note ---
Internal Med Progress Note Date of Service: Mar 24, 2017. Provider Documentation: SUBJECTIVE: The patient was seen and examined Admitted with sudden onset SOB with cough from [facility] Recent discharge from [facility] following an episode of Increased LFTs and noted to have CMP with EF 20-25% No fever,chills Generally weak and lethargic Has had Acute SOB last evening-ttreated with IV lasix Much better this Morning OBJECTIVE: Vital Signs-as noted below Exam: General-Moderate distress at rest Eyes-Normal ENT-normal Neck-supple Lungs-decreased breath sound at the bases Minimal Bibasilar crackles Heart-Regular Abdomen-Benign,colostomy site intact Extremities-Trace edema bilaterally Neuro-AAOx3 Generally weak and lethargic Lab data as noted below. ASSESSMENT & PLAN: Bibasilar Pneumonia CXR Bilateral mixed interstitial and alveolar airspace opacities. Clinical correlation will be necessary to differentiate pulmonary edema superimposed on chronic lung disease versus a bilateral inflammatory/infectious process Hypoxia on presentation requiring supplemental O2 Recent hospital stay in [facility] Has been on Vanco + Levaquin for now Appreciate ID input No fever or chills ,no increase in WCC Blood culture -negative and No MRSA D/C Vancomycin and continue with Doxy Hx. of colorectal CA s/p resection/colostomy Has Presacral Mass -patient with colostomy, draining well, no foul-smelling stool -no abdominal pain, no other issues to note -No acute issue Cardiomyopathy.EF ~20% -Patient with a hx. of cardiomyopathy -Multiple wall motion abnormality with EF of 20-25% and grade ii Diastolic Dysfunction on ECHO week of March -BNP elevated, will stop IVFs -Can restart Lasix in AM will change to IV -Received IV Lasix for an attack of CHF Clinically better Continue IV Lasix for now Acute Kidney Injury with h/o CKD -Received IVFs in the ER -Hold IVFs to avoid Fluid Overload -Avoid Nephrotoxic agent -Creatinine is slightly worse -likely due to use of Lasix DM2 -BSGs ACHS -insulin sliding scale DVT ppx -subq heparin FULL CODE Discussed with The Daughter Vital Signs: Date Time Temp Pulse Resp B/P (MAP) Pulse Ox O2 Delivery O2 Flow Rate FiO2 03/24/17 13:47 81 18 94 Diffusion Mask 12.0 03/24/17 12:09 37.1 83 19 100/64 (76) 94 Mask 6.0 03/24/17 12:00 Oxymask 03/24/17 08:00 Oxymask 03/24/17 07:47 36.7 81 20 87/55 (66) 98 Mask 8.0 03/24/17 04:05 36.7 76 24 89/54 (66) 91 Oxymask 15.0 03/24/17 04:00 Oxymask 15.0 03/24/17 00:01 Oxymask 15.0 03/23/17 23:10 36.9 81 18 90/55 (67) 95 Oxymask 15.0 03/23/17 21:48 93/56 (68) 03/23/17 20:00 Oxymask 15.0 03/23/17 19:10 36.8 83 20 92/54 (67) 81 Nasal Cannula 6.0 03/23/17 16:00 Oxymask 6.0 03/23/17 16:00 36.6 87 23 97/61 (73) 89 Nasal Cannula 6.0 Lab Results: Results Past 24 Hours Test 03/23/17 16:22 03/23/17 19:52 03/23/17 20:25 03/24/17 04:03 Range/Units Bedside Glucose 283 217 140 70-90 mg/dl Arterial Blood pH 7.48 7.35-7.45 Arterial Blood Partial Pressure CO2 30 35-46 mmHg Arterial Blood Partial Pressure O2 74 80-95 mm/Hg Arterial Blood HCO3 22 19-24 mmol/L Arterial Blood Oxygen Saturation 93.3 90-95 % Arterial Blood Base Excess -1.3 -9-1.8 mEq/L Arterial Blood Gas Delivery 15 LITERS Gabriele Test POS POS Test 03/24/17 06:45 03/24/17 06:52 03/24/17 07:20 03/24/17 11:10 Range/Units Sodium Level 134 136-145 mmol/L Potassium Level 3.5 3.5-5.1 mmol/L Chloride Level 97 98-107 mmol/L Carbon Dioxide Level 26 21-32 mmol/L Anion Gap 11.0 3-11 mmol/L Blood Urea Nitrogen 19 7-18 mg/dl Creatinine 1.50 0.60-1.20 mg/dl Est Creatinine Clear Calc Drug Dose 31.7 ml/min Estimated GFR () 39.9 Estimated GFR (Non- 34.4 BUN/Creatinine Ratio 12.6 10-20 Random Glucose 140 70-99 mg/dl Calcium Level 9.0 8.5-10.1 mg/dl Phosphorus Level 3.3 2.5-4.9 mg/dl Magnesium Level 2.3 1.8-2.4 mg/dl Total Bilirubin 0.8 0.2-1 mg/dl Aspartate Amino Transf (AST/SGOT) 29 15-37 U/L Alanine Aminotransferase (ALT/SGPT) 46 12-78 U/L Alkaline Phosphatase 128 45-117 U/L Total Protein 7.0 6.4-8.2 gm/dl Albumin 2.2 3.4-5.0 gm/dl Globulin 4.8 2.5-4.0 gm/dl Albumin/Globulin Ratio 0.5 0.9-2 White Blood Count 10.27 4.8-10.8 K/uL Red Blood Count 3.96 4.2-5.4 M/uL Hemoglobin 10.2 12.0-16.0 g/dL Hematocrit 31.9 37-47 % Mean Corpuscular Volume 80.6 80-100 fL Mean Corpuscular Hemoglobin 25.8 25-34 pg Mean Corpuscular Hemoglobin Concent 32.0 32-36 g/dl RDW Standard Deviation 54.3 36.4-46.3 fL RDW Coefficient of Variation 18.5 11.5-14.5 % Platelet Count 262 130-400 K/uL Mean Platelet Volume 9.3 7.4-10.4 fL Bedside Glucose 158 148 70-90 mg/dl Microbiology Results 03/23/17 Gram Stain - Final, Resulted 03/23/17 Sputum Culture - Preliminary, Resulted LIGHT NORMAL KEESHA Present, Final Rep...
[2017-03-24] MEDS ORDERED: NURSING VERBAL MED ORDER ONE (17:30)
--- NOTE | 2017-03-24 17:41 | DIAGNOSTIC IMAGING REPORT ---
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 No significant changes compared to the prior study. Central catheter remains in this. Vena cava. IMPRESSION: Unchanging diffuse bilateral parenchymal infiltrative changes versus pulmonary edema The above report was generated using voice recognition software. It may contain grammatical, syntax or spelling errors. Electronically signed by: Adan Santana M.D. 03/24/2017 5:40 PM Dictated Date/Time: 03/24/2017 5:39 PM
[2017-03-24] MEDS ORDERED: FUROSEMIDE INJ 20 MG in SYRINGE 0 ML IV ONE (18:00)
[2017-03-24] MEDS: SENNA 8.6 MG TAB PO SCH (20:58)
[2017-03-24] MEDS ORDERED: INSULIN ASPART 100 UNITS/ML 3 ML PEN SC SCH (21:00)
[2017-03-25] VITALS (14 sets, daily range): BP systolic 86–100; BP diastolic 53–67; PULSE 80–115; TEMP 36.4–36.7; O2SAT 78–100
[2017-03-25] MEDS: LEVALBUTEROL 0.31MG/3 ML VIAL INH SCH ×4 (02:02→19:47)
[2017-03-25] MEDS: DOXYCYCLINE HYCLATE 100 MG in DEXTROSE 5% 100ML IV SCH ×2 (04:14→16:33)
[2017-03-25] MEDS: INSULIN ASPART 100 UNITS/ML 3 ML PEN SC SCH ×4 (05:45→20:37)
[2017-03-25] MEDS: HEPARIN SOD 5000 UNIT/0.5 ML CARP SQ SCH ×3 (05:51→20:41)
[2017-03-25 06:52] LABS: CREATININE 1.3 mg/dl (0.60-1.20)
[2017-03-25] MEDS: METOPROLOL TARTRATE 25 MG TAB PO SCH ×2 (08:11→20:40)
[2017-03-25] MEDS: FUROSEMIDE INJ 40 MG in SYRINGE 0 ML IV SCH ×2 (08:31→09:00)
[2017-03-25] MEDS: VENLAFAXINE HCL XR 37.5 MG CAPXR PO SCH (08:33)
[2017-03-25] MEDS: NICOTINE 7 MG/24 HR TDSY TD SCH (08:34)
[2017-03-25] MEDS: MAGNESIUM OXIDE 400 MG TAB PO SCH ×2 (08:34→20:40)
[2017-03-25] MEDS: ONDANSETRON INJ 2 MG/ML 2 ML VIAL IV PRN (10:27)
--- NOTE | 2017-03-25 13:06 | Progress Note ---
Internal Med Progress Note Date of Service: Mar 25, 2017. Provider Documentation: SUBJECTIVE: The patient was seen and examined Admitted with sudden onset SOB with cough from [facility] Recent discharge from [facility] following an episode of Increased LFTs and noted to have CMP with EF 20-25% No fever,chills Remains Generally weak and lethargic Diuresing well -clinically not any better OBJECTIVE: Vital Signs-as noted below Exam: General-Moderate distress at rest Requiring more Oxygen to maintain saturation Eyes-Normal ENT-normal Neck-supple Lungs-decreased breath sound at the bases Minimal Bibasilar crackles Heart-Regular Abdomen-Benign,colostomy site intact Extremities-Trace edema bilaterally Neuro-AAOx3 Generally weak and lethargic Lab data as noted below. ASSESSMENT & PLAN: Bibasilar Pneumonia CXR Bilateral mixed interstitial and alveolar airspace opacities. Clinical correlation will be necessary to differentiate pulmonary edema superimposed on chronic lung disease versus a bilateral inflammatory/infectious process Hypoxia on presentation requiring supplemental O2 Recent hospital stay in [facility] Has been on Vanco + Levaquin for now Appreciate ID input No fever or chills ,no increase in WCC Blood culture -negative and No MRSA D/C Vancomycin and continue with Doxy Slow improvement Repeat CXR: Unchanging diffuse bilateral parenchymal infiltrative changes versus pulmonary edema Continue Antibiotic and Lasix Hx. of colorectal CA s/p resection/colostomy Has Presacral Mass -patient with colostomy, draining well, no foul-smelling stool -no abdominal pain, no other issues to note -No acute issue Cardiomyopathy.EF ~20% -Patient with a hx. of cardiomyopathy -Multiple wall motion abnormality with EF of 20-25% and grade ii Diastolic Dysfunction on ECHO week of March -BNP elevated, will stop IVFs -Can restart Lasix in AM will change to IV -Received IV Lasix for an attack of CHF Clinically better Continue IV Lasix for now Cardiac function may have been worse Acute Kidney Injury with h/o CKD -Received IVFs in the ER -Hold IVFs to avoid Fluid Overload -Avoid Nephrotoxic agent -Creatinine is slightly worse -likely due to use of Lasix -Remmains high but stable DM2 -BSGs ACHS -insulin sliding scale DVT ppx -subq heparin FULL CODE Discussed with The Daughter Patient was DNR before and after discussion with the Daughter she is made DNR again Vital Signs: Date Time Temp Pulse Resp B/P (MAP) Pulse Ox O2 Delivery O2 Flow Rate FiO2 03/25/17 12:04 36.6 85 18 86/58 (67) 94 Mask 13.0 03/25/17 08:35 95/60 (72) 03/25/17 08:03 36.4 96 19 88/53 (65) 99 Mask 13.0 03/25/17 08:00 Diffusion Mask 11.0 03/25/17 07:14 100 18 100 Non-Rebreather 15.0 03/25/17 04:00 Non-Rebreather 15.0 03/25/17 03:35 36.4 101 18 94/60 (71) 94 Non-Rebreather 15.0 03/25/17 02:02 98 18 92 Non-Rebreather 15.0 03/25/17 00:00 Diffusion Mask 12.0 03/24/17 23:44 37.2 88 24 95/63 (74) 97 Diffusion Mask 12.0 03/24/17 20:00 Diffusion Mask 11.0 03/24/17 19:12 98 18 90 Diffusion Mask 12.0 03/24/17 19:02 37.0 109 23 96/61 (73) 92 Mask 11.0 03/24/17 16:00 Oxymask 03/24/17 15:43 36.4 81 18 92/54 (67) 93 Mask 12.0 03/24/17 13:47 81 18 94 Diffusion Mask 12.0 Lab Results: Results Past 24 Hours Test 03/24/17 17:50 03/24/17 23:54 03/25/17 05:44 03/25/17 05:58 Range/Units Bedside Glucose 109 197 141 70-90 mg/dl Creatinine 1.30 0.60-1.20 mg/dl Est Creatinine Clear Calc Drug Dose 36.6 ml/min Estimated GFR () 47.5 Estimated GFR (Non- 41.0
[2017-03-25] MEDS ORDERED: VANCOMYCIN TROUGH SCH (13:30)
[2017-03-25] MEDS ORDERED: NURSING VERBAL MED ORDER ONE (14:30)
[2017-03-25] MEDS: SENNA 8.6 MG TAB PO SCH (20:38)
[2017-03-25] MEDS ORDERED: FUROSEMIDE INJ 40 MG in SYRINGE 0 ML IV STA (21:53)
--- NOTE | 2017-03-25 22:19 | DIAGNOSTIC IMAGING REPORT ---
CHEST ONE VIEW PORTABLE CLINICAL HISTORY: worsening SOB and unable to oxygenate well dyspnea COMPARISON STUDY: 03/24/2017 FINDINGS: Unchanged study of the chest. Diffuse bilateral parenchymal infiltrative change. Mild stable cardia megaly. IMPRESSION: Stable exam. No change compared to the prior study. The above report was generated using voice recognition software. It may contain grammatical, syntax or spelling errors. Electronically signed by: Adan Santana M.D. 03/25/2017 10:18 PM Dictated Date/Time: 03/25/2017 10:17 PM
[2017-03-25] MEDS ORDERED: CONSULT PHARMACY STA (22:31)
[2017-03-25] MEDS ORDERED: PIPERACILL/TAZOBAC IV 3.375 GM in DEXTROSE 5% 100ML IV ONE (23:00)
[2017-03-25] MEDS ORDERED: PIPERACILL/TAZOBAC IV 3.375 GM in DEXTROSE 5% 50ML 50 ML IV ONE (23:00)
[2017-03-25] MEDS ORDERED: PIPERACILL/TAZOBAC CONSULT ACTIVE PRN (23:00)
[2017-03-25] MEDS ORDERED: VANCOMYCIN CONSULT ACTIVE PRN (23:30)
--- NOTE | 2017-03-25 23:41 | Progress Note ---
Progress Note Date of Service Mar 25, 2017. Progress Note Contacted by nursing staff around 9:40pm stating she cannot oxygenate patient with sat dropping to 85%. On arrival to bedside, vitals were 100/66, P 80, O2 sat was 90% on NRB at 15L but was tracked as ranging 78-85%. She was lying supine in bed and was mentating alright but appeared to move and respond somewhat slowly, possibly consistent with hypoxia. Her HOB was raised to 45 degrees or more per order. As I was familiar with this patient from two nights ago, I ordered stat Lasix 40 IV, CXR, and stat BIPAP to be started for respiratory support. She was made NPO. I spoke w the respiratory therapists who were at the bedside within ten minutes. CXR reveal no real changes to her pulmonary edema and bilateral infiltrates consistent with HCAP from yesterday. On exam she was exhibiting mild respiratory distress and some conversational dyspnea, but had also just woken up from sleep. No JVD was present and lung exam revealed diffuse prominent crackles throughout entire lung hyatt to apices. Heart sounds were distant. Palomino in place. HISTORY: She has a h/o rectal cancer s/p resection and diverting sigmoid colostomy s/p XRT and chemo, presumed non-ischemic cardiomyopathy with an EF 25% which was a new diagnosis in January 2017, endometrial cancer s/p LORENA and chemo who has been in and out of [facility] over the last few months 2/2 septic arthritis of her R hip. She was discharged from [facility] on 02/02 on IV Vanc and Ertapenem x 6 weeks, however, due to inflammatory markers and an MRI suggestive of microabscesses her abx were extended an additional two weeks. During this time she was a resident of [facility]. She returned to [facility] after labwork revealed elevated LFTs with ALT 814 an, AST 995, ALP 135 and an ammonia of 60. CT abd revealed fatty liver, a presacral mass and soft tissue attenuation of her R hip. Withholding Ertapenem lead to resolution of transaminitis. The etiology of this elevation was thought 2/2 drug and/or congestive hepatopathy. An inpatient ID consult could not be obtained, so the hospitalist consulted with an outpatient ID physician who knew the patient (Dr. Portillo) who agreed that further Vancomycin should be stopped for her hip infection based on the fact that the fluid collection on MRI was nonspecific, she had no hip pain, fever, or leukocytosis, the drugs may have just caused some liver injury, and she had already received 7 weeks of antibiotics. On 03/10 she was noted to have confusion and agitation with workup revealing an elevated ammonia level. Her mental status improved after a dose of lactulose, and was thought 10/12 from her hospital stay. No CXR was ordered. Oncology had also been contacted for the presacral mass seen on imaging and hussain a CEA level which was mildly elevated. They recommended follow-up as an outpatient. At this point she was transferred back to [facility]. A physician saw her on 03/15 and at the [facility] and documented she was oxygenating well on room air and was afebrile. Then a CXR was ordered in 03/21 for SOB and cough and revealed some congestion and a DARCY infiltrate. She was started on Levaquin the morning of , however, because of continued respiratory distress EMS was contacted to bring her to [facility] later that day. She was admitted to this hospital on 03/22. A CTA of the chest revealed no PE, small bilateral pleural effusions and bilateral airspace disease consistent with pneumonia, inflammation vs pulmonary edema. She had a LBBB on EKG which was present on EKG from 08/25. She was not septic but was requiring supplemental oxygen. Zosyn was ordered but was initially delayed approx. 1-2 hours until further information from [facility] could be obtained. Per her daughter, she had recently had a reaction to antibiotics. She was admitted to telemetry and Vancomycin was added for treatment of HCAP. IF was consulted, who agreed with continuing broad spectrum antibiotics. On the evening of 03/23 she developed acute decompensated heart failure with significant pulmonary edema. A Palomino was placed and Lasix 40 IV was given, with an additional 20 IV 6 hours later. Good output was measured and she appeared to improve clinically. IV diuretics were continued, but based on hold parameters were not given. Tonight she had the issue described above and it was noted that her Lasix had not been given today, with last dose yesterday around 6pm. Cardiology will be consulted for assistance with management to improve her cardiac output and consideration of ICD/FORK ASSEMBLER therapy in setting of LBBB and low EF. GOALS of therapy at this point include: 1. Reverse decompensated heart failure, reassess with ECHO in am, appreciate Cards eval. For now will give Lasix as BP cannot support vasodilater therapy with Nitro/Morphine. BIPAP for support and pt made strict NPO until respiratory status improves. She is DNR. 2. Broaden antibiotics from doxycycline back to Vanc and zosyn with concentrated IVF to reduce fluid load; this is in the setting of worsening hypoxia and chronic iinfectious course with multiple hospital stays. Would cont broad abx until hypoxia improves 3. Follow-up R septic arthritis 4. Follow-up presacral mass with elevated CEA. Masha Domínguez DO [facility] Hospitalist
[2017-03-26] VITALS (19 sets, daily range): BP systolic 84–100; BP diastolic 56–67; PULSE 69–102; TEMP 35.9–36.8; O2SAT 80–98
[2017-03-26] MEDS ORDERED: VANCOMYCIN IV SCH ×2
[2017-03-26] MEDS ORDERED: SODIUM CHLORIDE 0.9% IV SCH ×2
[2017-03-26] MEDS ORDERED: FUROSEMIDE INJ 40 MG in SYRINGE 0 ML IV STA (01:59)
[2017-03-26] MEDS: LEVALBUTEROL 0.31MG/3 ML VIAL INH SCH ×4 (02:38→19:35)
[2017-03-26] MEDS ORDERED: FUROSEMIDE INJ 40 MG in SYRINGE 0 ML IV SCH (04:00)
[2017-03-26] MEDS ORDERED: PIPERACILL/TAZOBAC IV 3.375 GM in DEXTROSE 5% 100ML IV SCH (04:00)
[2017-03-26] MEDS: PIPERACILL/TAZOBAC IV 3.375 GM in DEXTROSE 5% 50ML 50 ML IV SCH ×3 (04:33→20:35)
[2017-03-26] MEDS: HEPARIN SOD 5000 UNIT/0.5 ML CARP SQ SCH ×3 (06:13→21:30)
[2017-03-26 06:18] LABS: BASO % 0.3 %; BASO ABS # 0.02 K/uL (0-0.2); COMPLETE YES; HEMATOCRIT 30.8 % (37-47); IG% 0.4 %; LYMPH % 14.9 %; LYMPH ABS # 1.04 K/uL (1.2-3.4); MEAN CELL VOLUME 81.9 fL (80-100); MEAN CORPUSCULAR HEMOGLOBIN 26.1 pg (25-34); MEAN CORPUSCULAR HGB CONC 31.8 g/dl (32-36); MEAN PLATELET VOLUME 9.2 fL (7.4-10.4); MONO % 10.1 %; NEUT % 73.3 %; PLATELET COUNT 275 K/uL (130-400); RED BLOOD COUNT 3.76 M/uL (4.2-5.4); WHITE BLOOD COUNT 6.96 K/uL (4.8-10.8)
[2017-03-26 06:47] LABS: BUN/CREATININE RATIO 16.8 (10-20); CALCIUM 8.8 mg/dl (8.5-10.1); CREATININE 1.3 mg/dl (0.60-1.20); MAGNESIUM 1.8 mg/dl (1.8-2.4); POTASSIUM 3.3 mmol/L (3.5-5.1)
--- NOTE | 2017-03-26 06:53 | Clinical Documentation Query ---
CLINICAL DOCUMENTATION QUERY Dr. CHESTER, In your clinical opinion is this patient being managed for: ( + ) Acute respiratory failure due to acute on chronic combined systolic and diastolic CHF ( ) Other explanation of clinical findings (Please Explain) ( ) Unable to determine (Please Define) ( ) Need to Discuss ( ) Not Agree The medical record reflects the following clinical findings, treatment, and risk factors. Clinical Indicators:71 yo female presenting with pneumonia. Per progress note on 03/25, pt with O2 sats dropping to 85%. VS HR 80, BP 100/66, O2 sat 90% on 15L NRB. Lungs with diffuse prominent crackles throughout. Pt exhibited respiratory distress and conversational dyspnea. Treatment: stat IV lasix, BIPAP, CXR, repeat ECHO in AM, cardiology consult, I/O, daily wts Risk Factors: age, DM, HTN, Please clarify and document your clinical opinion in the progress notes and discharge summary. Terms such as "probable", "suspected", "likely", "questionable", "possible", or "still to be ruled out" are acceptable. IF IN AGREEMENT, YOU MUST DOCUMENT ABOVE DIAGNOSTIC STATEMENT IN DAILY PROGRESS NOTES AND DISCHARGE SUMMARY. This document is not part of the patient's record. Thank You, Freya Steele, JOVANI [phone]
[2017-03-26] MEDS: INSULIN ASPART 100 UNITS/ML 3 ML PEN SC SCH ×4 (07:00→21:00)
[2017-03-26] MEDS ORDERED: POTASSIUM CHLORIDE 20 MEQ TABCR PO STA (08:43)
[2017-03-26] MEDS: NICOTINE 7 MG/24 HR TDSY TD SCH (09:00)
[2017-03-26] MEDS: MAGNESIUM OXIDE 400 MG TAB PO SCH ×2 (09:00→21:00)
[2017-03-26] MEDS: VENLAFAXINE HCL XR 37.5 MG CAPXR PO SCH (09:00)
--- NOTE | 2017-03-26 09:31 | Cardiology Consultation ---
Cardiology Consultation Date of Consultation: Mar 26, 2017 Requesting Physician: Dr. Domínguez Attending Shell Molding Roller Blast Operator: Dr. Choi (Luz Marina Sullivan PA-C) History of Present Illness Patient is a 71 year old female with a very complex history. All information is obtained from medical records. She has a history of rectal cancer s/p resection and sigmoid colostomy s/p XRT and chemo therapy, now rectal mass with mildly elevated CEA levels, history of endometrial CA s/p LORENA and chemo. She has been in and out of the hospital most recently due to septic arthritis of the Right Hip. She was in [facility] and [facility]. During one admission in January 2017 she was found to have new cardiomyopathy LVEF 25%, presumed nonischemic. Full echo report not available. She has a chronic LBBB, dating back to at least 2015 per EKG at [facility]. She has been treated with IV antibiotics for septic arthritis over the last 6+ weeks. Unfortunately readmitted beginning of March to [place] due to elevated LFT's, likely from antibiotic therapy. She was ultimately discharged to [facility] for rehab and continued IV antibiotic therapy. She was evaluated by provider at nursing facility on 03/21 for SOB, found to have new infiltrates. Started on outpatient antibiotic Levaquin. Due to worsening respiratory status, she was admitted to [facility] on 03/22. Since her admission, diuretics and antibiotic therapy has been titrated. She has required BiPap due to hypoxia. She remains borderline hypotensive. Echo report pending. Urine outputs slowly increasing. Creatinine remains stable. At time of consult, patient lethargic and drowsy. Wearing Bipap. Unable to provide a great deal of history. States she feels better than last night. No chest pain. SOB mildly improving (Luz Marina Sullivan PA-C) Past Medical/Surgical History Problem List: Medical Problems: (1) HCAP (healthcare-associated pneumonia) (2) Skin problem 3. Septic arthritis of right hip 4. history of colon CA 5. History of endometrial CA 6. LBBB 7. Presumed non ischemic cardiomyopathy in January 2017 (Luz Marina Sullivan PA-C) Family History unobtainable (Luz Marina Sullivan PA-C) Cancer (Ryan Choi DO) Social History Smoking Status: Former Smoker Marital Status: (Luz Marina Sullivan PA-C) Review Of Systems ROS limited due to Bipap therapy. See HPI for pertinent positives. (Luz Marina Sullivan PA-C) Allergies Coded Allergies: Nickel (Unverified Allergy, Unknown, ., 03/22/17) Ertapenem (Unverified Adverse Reaction, Intermediate, may have had elevated LFT's secondary to ertapenem..., 03/22/17) Patient received Vancomycin + Ertapenem in past for septic joint. She developed LFT elevations on this therapy. She had experienced ADHF, cardiogenic shock just prior to LFT elevation. Provider felt LFT elevations most likely due to shock, hepatic congestion but could not exclude ertapenem + venlafaxine as possible causes. Ertapenem was held and vanco was continued with Rocephin. LFTs improved. Medications Reported Home Medications Medications Dose Route/Sig Max Daily Dose Days Date Category Dose Instructions Lantus (Insulin Glargine) 100 Unit/Ml Inj 5 Units SC HS 03/22/17 Reported 2100 Ventolin Hfa (Albuterol) 200 Puffs/03743 Mcg Aers 2-4 Puffs INH Q4 PRN 03/22/17 Reported Tylenol (Acetaminophen) 500 Mg Tab 2 Tab PO Q8 PRN 03/22/17 Reported Venlafaxine Hcl Er (Venlafaxine Hcl) 37.5 Mg Tab 1 Tab PO DAILY 03/22/17 Reported 0900 Senokot (Senna) 8.6 Mg Tab 1 Tab PO HS 03/22/17 Reported 2100 Nicoderm Cq 7 Mg Patch (Nicotine) 7 Mg/24 Hr Dis 7 Mg TD DAILY 03/22/17 Reported 0900 Lc-5 Lidocaine (Lidocaine (Anorectal)) 5 % Cre 1 Appln TOP TID 03/22/17 Reported APPLY TO RIGHT HIP AT [phone] Levaquin (Levofloxacin) 250 Mg Tab 250 Mg PO Q2D 03/22/17 Reported STARTS 03-21-17 ENDS 03-31-17 1 TAB PO Q2D X5 DOSES AT 0900 Xanax (Alprazolam) 0.5 Mg Tab 0.5 Tab PO Q6H PRN 03/22/17 Reported Lopressor (Metoprolol Tartrate) 25 Mg Tab 25 Mg PO BID 03/22/17 Reported [id number] *HOLD IF SYS BP IS LESS THAN 100 OR HR IS LESS THAN 60. Mag-Ox (Magnesium Oxide) 400 Mg Tab 400 Mg PO DAILY 03/22/17 Reported 1200 Lasix (Furosemide) 40 Mg Tab 40 Mg PO QAM 03/22/17 Reported 0800 *HOLD IF SYS BP IS LESS THAN 110 Wellbutrin (Bupropion HCl) 75 Mg Tab 75 Mg PO TID 03/22/17 Reported [id number] (Luz Marina Sullivan PA-C) Physical Exam Vital Signs (Last 8hrs): Last 8 Hrs Date Time Temp Pulse Resp B/P (MAP) Pulse Ox O2 Delivery O2 Flow Rate FiO2 03/26/17 07:14 92 26 87 Nasal Cannula 50.0 70 03/26/17 05:43 98 22 93 High Flow Oxygen 50.0 70 03/26/17 04:23 36.7 101 22 88/58 (68) 91 High Flow Oxygen 50.0 70 03/26/17 04:02 High Flow Oxygen 50.0 70 03/26/17 02:41 25 85 High Flow Oxygen 50.0 70 03/26/17 02:38 102 24 92 BiPAP/CPAP 60 03/26/17 02:15 88 22 84/56 (65) 93 BiPAP 03/26/17 02:05 102 94 BiPAP 03/26/17 01:04 79 22 95 BiPAP General Appearance: Lethargic. Bipap in place Neck: Supple. No carotid bruits noted. No JVD at 45 degrees. No HJD. Respiratory: Bibasilar rales and rhonchi present. Cardiovascular: Reg rate and rhythm.. No audible murmurs Abdomen: soft, nontender. Colostomy in place Extremities: No edema, no clubbing or cyanosis. distal pulses 2/4 bilaterally. Neuro: Lethargic (Luz Marina Sullivan PA-C) Data Last 24 Hours Test 03/25/17 12:58 03/25/17 13:43 03/25/17 16:22 03/25/17 20:18 Bedside Glucose 223 mg/dl 262 mg/dl 126 mg/dl Vancomycin Level Trough 18.2 mcg/ml Test 03/26/17 06:05 03/26/17 07:05 White Blood Count 6.96 K/uL Red Blood Count 3.76 M/uL Hemoglobin 9.8 g/dL Hematocrit 30.8 % Mean Corpuscular Volume 81.9 fL Mean Corpuscular Hemoglobin 26.1 pg Mean Corpuscular Hemoglobin Concent 31.8 g/dl Platelet Count 275 K/uL Mean Platelet Volume 9.2 fL Neutrophils (%) (Auto) 73.3 % Lymphocytes (%) (Auto) 14.9 % Monocytes (%) (Auto) 10.1 % Eosinophils (%) (Auto) 1.0 % Basophils (%) (Auto) 0.3 % Neutrophils # (Auto) 5.10 K/uL Lymphocytes # (Auto) 1.04 K/uL Monocytes # (Auto) 0.70 K/uL Eosinophils # (Auto) 0.07 K/uL Basophils # (Auto) 0.02 K/uL RDW Standard Deviation 54.6 fL RDW Coefficient of Variation 18.1 % Immature Granulocyte % (Auto) 0.4 % Immature Granulocyte # (Auto) 0.03 K/uL Sodium Level 138 mmol/L Potassium Level 3.3 mmol/L Chloride Level 98 mmol/L Carbon Dioxide Level 30 mmol/L Anion Gap 10.0 mmol/L Blood Urea Nitrogen 22 mg/dl Creatinine 1.30 mg/dl Est Creatinine Clear Calc Drug Dose 36.6 ml/min Estimated GFR () 47.5 Estimated GFR (Non- 41.0 BUN/Creatinine Ratio 16.8 Random Glucose 128 mg/dl Calcium Level 8.8 mg/dl Magnesium Level 1.8 mg/dl Bedside Glucose 127 mg/dl Imaging: Chest xray 03/25/17 FINDINGS: Unchanged study of the chest. Diffuse bilateral parenchymal infiltrative change. Mild stable cardiomegaly. IMPRESSION: Stable exam. No change compared to the prior study. Chest CT on admission 03/22/17: IMPRESSION: 1. No evidence of acute pulmonary embolism 2. Mild mediastinal adenopathy 3. Small bilateral pleural effusions 4. Bilateral mixed interstitial and alveolar airspace opacities. Clinical correlation will be necessary to differentiate pulmonary edema superimposed on chronic lung disease versus a bilateral inflammatory/infectious process EKG on admission Normal sinus rhythm Left bundle branch block Unchanged for prior Telemetry reviewed: NSR with conduction delay, consistent wiht LBBB. (Luz Marina Sullivan, PALetiC) Assessment & Plan ASSESSMENT 1. Acute respiratory distress with hypoxia, multifactorial secondary to HCAP and questionable CHF. However she does not overtly examine as volume overload. 2. Cardiomyopathy, LVEF 25% per echo in January 2017 at outside facility. 3. Chronic LBBB 4. History of R septic knee with recurrent admission and alf IV antibiotic therapy January/February/March 2017 5. History of colon CA s/p resection. History of endometrial CA. new presacral mass on CT scan last month. PLAN: Update 2D echo Continue aggressive diuresis until creatinine rises and as BP allows. Increase furosemide to 40 mg BID Consider adding dobutamine if she remains hypotensive. Change metoprolol tartrate to Toprol XL 12.5 mg daily. However, will wait until BP improves to beta vandana therapy. Recommend pulm consult for further evaluation of continued hypoxia despite current treatment. Case discussed with Dr. Choi. Will follow. (Luz Marina Sullivan PA-C) Cardiology attending physician: Patient seen and examined at the bedside on BiPAP. Currently BiPAP dependent with rapid desaturations with the BiPAP is removed. Family declined intubation. The patient appears comfortable and answers yes and no questions. Denies pain or shortness of breath currently. She has been diuresed over the past few days with more than 4 L negative fluid balance. Respiratory status is not significantly improved. Her mucous membranes appear dry. Her neck veins are difficult to assess due to positive airway pressure. There is no peripheral edema. Her weight is down within 5 kg since admission. Renal function remained stable. Her repeat resting 2-D transthoracic echo demonstrates severe ischemic cardio myopathy. PE: VSS with borderline hypotension.Gen: NAD, chronically ill. Neck: no bruit. unable to assess JVD due to CPAP. Heart: Reg, no murmur. Lungs: coarse breath sounds B/L ro wheeze or rales appreciated anteriorly. ABD: Soft nontender, no rebound or guarding. Ext: No edema. A/P: Agree with above PAC history, physical exam, assessment and plan. Patient does not appear volume overloaded on examination. I believe she is approaching intravascular volume depletion with decline in systolic blood pressure. We'll continue to follow renal function closely. I suspect continued respiratory insufficiency secondary to underlying infectious/inflammatory process superimposed on interstitial lung disease. Will reassess volume status throughout the day and in the a.m. tomorrow prior to administering more Lasix. I will continue to follow telemetry and patient closely during hospitalization. Thank you for allowing me to take part in the care of your patient. Zoran Choi DO, FACC (Ryan Choi DO)
--- NOTE | 2017-03-26 09:34 | Progress Note ---
Subjective Date of Service: Mar 26, 2017. Subjective pt seen in follow up, events noted, resp distress at time during the weekend, lasix given, ? aspiration events. Now on mask breathing, lethargic but comfortable on my exam. tolerating abx. sputum culture with nml jo only. blood cultures negative to date. afebrile. no complaints on my exam but resting and somewhat lethargic. Problem List Medical Problems: (1) Epigastric abdominal pain Status: Acute (2) Hypoxia Status: Acute (3) Vomiting Status: Acute Objective Vital Signs Date Time Temp Pulse Resp B/P (MAP) Pulse Ox O2 Delivery O2 Flow Rate FiO2 03/26/17 07:55 36.0 89 20 91/60 (70) 94 BiPAP 03/26/17 07:14 92 26 87 Nasal Cannula 50.0 70 03/26/17 05:43 98 22 93 High Flow Oxygen 50.0 70 03/26/17 04:23 36.7 101 22 88/58 (68) 91 High Flow Oxygen 50.0 70 03/26/17 04:02 High Flow Oxygen 50.0 70 03/26/17 02:41 25 85 High Flow Oxygen 50.0 70 03/26/17 02:38 102 24 92 BiPAP/CPAP 60 03/26/17 02:15 88 22 84/56 (65) 93 BiPAP 03/26/17 02:05 102 94 BiPAP 03/26/17 01:04 79 22 95 BiPAP 03/26/17 00:30 26 80 Non-Rebreather 15.0 03/26/17 00:00 BiPAP 03/25/17 23:54 87 Non-Rebreather 15.0 03/25/17 23:50 36.5 80 18 97/67 (77) 93 BiPAP 03/25/17 22:05 80 93 60 03/25/17 21:49 80 78 Non-Rebreather 15.0 03/25/17 20:39 115 100/66 (77) 03/25/17 20:00 Non-Rebreather 15.0 03/25/17 19:47 36.7 97 20 97/65 (76) 88 Non-Rebreather 15.0 03/25/17 19:47 97 20 88 Non-Rebreather 15.0 03/25/17 16:00 Non-Rebreather 15.0 03/25/17 15:48 36.6 102 21 97/62 (74) 96 Non-Rebreather 15.0 03/25/17 14:22 106 18 94 Non-Rebreather 15.0 03/25/17 12:04 36.6 85 18 86/58 (67) 94 Mask 13.0 03/25/17 12:00 Diffusion Mask 11.0 Physical Exam General Appearance: no apparent distress Neck: supple Respiratory/Chest: normal breath sounds, no respiratory distress, + decreased breath sounds Cardiovascular: regular rate, rhythm, no edema Abdomen: soft Extremities: no pedal edema Neurologic/Psychiatric: + pertinent finding (lethargic) Skin: normal color, warm/dry, no rash Laboratory Results Item Value Date Time Gram Stain - Final Complete 03/23/17 1530 Sputum Expectorated Sputum Blood Culture - Preliminary Resulted 03/22/17 1347 Blood NO GROWTH TO DATE. Blood Culture - Preliminary Resulted 03/22/17 1310 Blood NO GROWTH TO DATE. Last 24 Hours Test 03/25/17 12:58 03/25/17 13:43 03/25/17 16:22 03/25/17 20:18 Bedside Glucose 223 mg/dl 262 mg/dl 126 mg/dl Vancomycin Level Trough 18.2 mcg/ml Test 03/26/17 06:05 03/26/17 07:05 03/26/17 09:12 White Blood Count 6.96 K/uL Red Blood Count 3.76 M/uL Hemoglobin 9.8 g/dL Hematocrit 30.8 % Mean Corpuscular Volume 81.9 fL Mean Corpuscular Hemoglobin 26.1 pg Mean Corpuscular Hemoglobin Concent 31.8 g/dl Platelet Count 275 K/uL Mean Platelet Volume 9.2 fL Neutrophils (%) (Auto) 73.3 % Lymphocytes (%) (Auto) 14.9 % Monocytes (%) (Auto) 10.1 % Eosinophils (%) (Auto) 1.0 % Basophils (%) (Auto) 0.3 % Neutrophils # (Auto) 5.10 K/uL Lymphocytes # (Auto) 1.04 K/uL Monocytes # (Auto) 0.70 K/uL Eosinophils # (Auto) 0.07 K/uL Basophils # (Auto) 0.02 K/uL RDW Standard Deviation 54.6 fL RDW Coefficient of Variation 18.1 % Immature Granulocyte % (Auto) 0.4 % Immature Granulocyte # (Auto) 0.03 K/uL Sodium Level 138 mmol/L Potassium Level 3.3 mmol/L Chloride Level 98 mmol/L Carbon Dioxide Level 30 mmol/L Anion Gap 10.0 mmol/L Blood Urea Nitrogen 22 mg/dl Creatinine 1.30 mg/dl Est Creatinine Clear Calc Drug Dose 36.6 ml/min Estimated GFR () 47.5 Estimated GFR (Non- 41.0 BUN/Creatinine Ratio 16.8 Random Glucose 128 mg/dl Calcium Level 8.8 mg/dl Magnesium Level 1.8 mg/dl Bedside Glucose 127 mg/dl Assessment and Plan (1) HCAP (healthcare-associated pneumonia) Assessment & Plan: continue current abx, concerned fro aspiration, zosyn appropriate. HOB at 30 decgrees. ? swallow eval.
--- NOTE | 2017-03-26 09:40 | ECHOCARDIOGRAM REPORT ---
*NOTICE TO RECEIVING CONSTITUTION PARTY AGENCY This information is strictly Confidential and protected under [place] law. [place] law prohibits you from making any further disclosure of this information unless further disclosure is expressly permitted by the written consent of the person to whom it pertains or is authorized by law. A general authorization for the release of medical or other information is not sufficient for this purpose. Hospital accepts no responsibility if the information is made available to any other person, INCLUDING THE PATIENT. Interpretation Summary * Name: EPIFANIO SOTO Study Date: 03/26/2017 06:38 AM BP: 88/58 mmHg * Patient Location: C.2T\S\S243\S\1 HR: 98 * : 1945 (M/d/yyyy) Gender: Female Height: 66 in * Age: 71 yrs Ethnicity: CA Weight: 148 lb * Ordering Physician: Masha Domínguez * Performed By: Pam Estes * * Reason For Study: CHF * BSA: 1.8 m2 * The study was technically adequate. * There is no comparison study available. * -- Conclusions -- * The left ventricle is mildly dilated. * Ejection Fraction = 20-25%. * Regional wall motion abnormalities indicative of severe ischemic cardiomyopathy. * The right ventricular cavity size is normal (basal dimension <4.2 cm in right ventricular apical 4-chamber view). * The right ventricular systolic function is normal. * Aortic valve sclerosis mild, without significant aortic valvular stenosis. * There is mild mitral regurgitation. * There is mild tricuspid regurgitation. * The estimated systolic PAP is 46mmHg. Procedure Details * A complete two-dimensional transthoracic echocardiogram was performed (2D, M-mode, Doppler and color flow Doppler). * There were technical limitations due to patient'sinability to cooperate Left Ventricle * The left ventricle is mildly dilated. * The left ventricular apex is not well visualized. * Normal LV wall tickness in segments with normal wall motion. * Ejection Fraction = 20-25%. * Regional wall motion abnormalities indicative of severe ischemic cardiomyopathy. Right Ventricle * The right ventricular cavity size is normal (basal dimension <4.2 cm in right ventricular apical 4-chamber view). * The right ventricular systolic function is normal. * The right ventricular systolic function is normal as assessed by tricuspid annular plane systolic excursion (TAPSE) (normal >1.5 cm). Atria * The left atrium is mildly dilated. * Right atrial size is normal. Mitral Valve * The mitral valve anatomy is normal. * There is no mitral valve stenosis. * There is mild mitral regurgitation. Tricuspid Valve * The tricuspid valve is not well visualized. * The tricuspid valve leaflets are thickened and/or calcified, but open well. * There is mild tricuspid regurgitation. * The estimated systolic PAP is 46mmHg. Aortic Valve * The aortic valve is trileaflet. * Aortic valve sclerosis mild, without significant aortic valvular stenosis. * No hemodynamically significant valvular aortic stenosis. * There is no significant aortic regurgitation. Pulmonic Valve * The pulmonary valve is not well seen, but the Doppler examination is normal without significant regurgitation or stenosis. Great Vessels * The aortic root is normal size. Pericardium/Pleural * There is no pericardial effusion. Left Ventricular Diastolic Function * Pulse wave TDI of the anterior and posterior mitral annulas demonstrates abnormal LV relaxation MMode 2D Measurements and Calculations IVSd 1.1 cm IVSs 1.4 cm LVIDd 5.5 cm LVIDs 4.8 cm LVPWd 1.2 cm LVPWs 1.8 cm IVS/LVPW 0.86 FS 11.7 % EDV(Teich) 145.7 ml ESV(Teich) 109.1 ml EF(Teich) 25.1 % EDV(cubed) 163.8 ml ESV(cubed) 112.7 ml EF(cubed) 31.2 % % IVS thick 29.8 % % LVPW thick 44.5 % LV mass(C)d 258.7 grams LV mass(C)dI 147.0 grams/m\S\2 LV mass(C)s 338.0 grams LV mass(C)sI 192.1 grams/m\S\2 SV(Teich) 36.6 ml SI(Teich) 20.8 ml/m\S\2 SV(cubed) 51.1 ml SI(cubed) 29.0 ml/m\S\2 EPSS 2.7 cm ACS 1.6 cm LA dimension 3.9 cm asc Aorta Diam 2.8 cm LVOT diam 1.8 cm LVOT area 2.5 cm\S\2 LVAd ap4 32.4 cm\S\2 LVLd ap4 8.5 cm EDV(MOD-sp4) 104.4 ml EDV(sp4-el) 104.8 ml LVAs ap4 25.4 cm\S\2 LVLs ap4 7.3 cm ESV(MOD-sp4) 75.5 ml ESV(sp4-el) 75.7 ml EF(MOD-sp4) 27.7 % EF(sp4-el) 27.7 % LVAd ap2 35.6 cm\S\2 LVLd ap2 8.3 cm EDV(MOD-sp2) 135.8 ml EDV(sp2-el) 129.9 ml LVAs ap2 29.6 cm\S\2 LVLs ap2 7.6 cm ESV(MOD-sp2) 97.7 ml ESV(sp2-el) 97.3 ml EF(MOD-sp2) 28.1 % EF(sp2-el) 25.1 % LVLd %diff -2.99 % EDV(MOD-bp) 117.4 ml LVLs %diff 4.9 % ESV(MOD-bp) 89.3 ml EF(MOD-bp) 23.9 % SV(MOD-sp4) 29.0 ml SI(MOD-sp4) 16.5 ml/m\S\2 SV(MOD-sp2) 38.1 ml SI(MOD-sp2) 21.7 ml/m\S\2 SV(MOD-bp) 28.1 ml SI(MOD-bp) 16.0 ml/m\S\2 SV(sp4-el) 29.0 ml SI(sp4-el) 16.5 ml/m\S\2 SV(sp2-el) 32.7 ml SI(sp2-el) 18.6 ml/m\S\2 Doppler Measurements and Calculations MV E max oliver 146.2 cm/sec MV dec time 0.10 sec Ao V2 max 165.0 cm/sec Ao max PG 10.9 mmHg Ao max PG (full) 8.5 mmHg RIYA(V,A) 1.2 cm\S\2 RIYA(V,D) 1.2 cm\S\2 LV V1 max PG 2.4 mmHg LV V1 max 78.1 cm/sec MR max oliver 428.0 cm/sec MR max PG 73.3 mmHg PA V2 max 58.2 cm/sec PA max PG 1.4 mmHg
[2017-03-26 09:49] LABS: ARTERIAL BLD GAS O2 SATURATION 98.2 % (90-95); ARTERIAL BLOOD GAS BASE EXCESS 4.9 mEq/L (-9-1.8); ARTERIAL BLOOD GAS HCO3 29 mmol/L (19-24); ARTERIAL BLOOD GAS PO2 129 mm/Hg (80-95); ARTERIAL BLOOD GAS pH 7.46 (7.35-7.45)
[2017-03-26 09:52] LABS: O2 ADMINISTRATION 70%
[2017-03-26 09:53] LABS: ALLEN TEST POS (POS)
[2017-03-26] MEDS ORDERED: POTASSIUM CHLR 10 MEQ / WTR 10 MEQ in PREMIXED WATER 100 ML IV ONE (10:30)
[2017-03-26] MEDS: FUROSEMIDE INJ 40 MG in SYRINGE 0 ML IV SCH ×2 (11:10→20:36)
--- NOTE | 2017-03-26 11:11 | Pulmonary Consultation ---
History General Date of Service: Mar 26, 2017. Stated Complaint: HCAP HPI The patient is a 71 year old female who presents to [facility] with complaints of HCAP. The patient's primary care provider is Armin Sheth M.D.. Ms. Shields is a 71-year-old female with past medical history of colorectal cancer status post resection and colostomy, diabetes type 2, hypertension with a complicated medical history over the last several months with several admissions for right hip infection and pneumonias. She was admitted to our facility on 03/22/2017 with worsening shortness of breath associated with cough and productive whitish sputum. She is currently being treated with vancomycin and Zosyn for hospital-acquired pneumonia. Today I was consulted for worsening hypoxia and respiratory failure. Patient is now on BiPAP. At the time of my evaluation, she is afebrile at 36C, blood pressure 91/60, pulse 89, saturating 94% on BiPAP 12 over 5, 70% FiO2 with a respiratory rate of 27 and tidal volumes of 420-450 ml. Her cumulative in and outs are 4700 mL since admission. Laboratory data reviewed and documented below. Initial BNP was 17,000. Her ABG on BiPAP this morning is pH of 7.46/PCO2 of 42, PO2 of 129 and bicarbonate is 29, SaO2 is 98.2 on BiPAP of 70% FiO2. Sputum cultures from 03/23/2017 showed heavy normal jo. Chest x-ray 03/25/2017 shows diffuse bilateral parenchymal infiltrative change. Mild stable cardiomegaly. Historian: family Onset: last week Complaint Status: worsened Modifying Factors: none Review of Systems Constitutional: reports: no symptoms, as stated in HPI, malaise, weakness Cardiovascular: reports: no symptoms, denies: chest pain, chest pressure, chest tightness Respiratory: reports: orthopnea, stridor, sputum production, VERA, PND, denies: cough, shortness of breath, wheezing, cyanosis, hemoptysis Gastrointestinal: reports: no symptoms Genitourinary - Female: reports: no symptoms Musculoskeletal: reports: joint pain Integumentary: reports: no symptoms Neurologic: reports: no symptoms Psychiatric: reports: no symptoms Endocrine: no symptoms Hematologic / Lymphatic: no symptoms Allergic / Immunologic: no symptoms All Other Symptoms All Other Systems: Reviewed and Negative Past Medical History Past Medical History: Past medical and surgical history Congestive Heart failure ( EF of 25%) Ischemic cardiomyopathy Type 2 diabetes COPD GERD Rectal cancer status post resection and diverting sigmoid colostomy status post chemotherapy and radiation therapy Endometrial cancer status post total hysterectomy/chemotherapy Cholecystectomy Depression Septic right hip Pneumonia Past Surgical History: See above. Family History Cancer Social History Patient states that she smoked for 59 years 1-2 packs per day quit 3 months ago. Hx Tobacco Use In Past Year?: No Smoking Status: Former Smoker Marital status: History of MDRO History of MDRO: No Allergies Coded Allergies: Nickel (Unverified Allergy, Unknown, ., 03/22/17) Ertapenem (Unverified Adverse Reaction, Intermediate, may have had elevated LFT's secondary to ertapenem..., 03/22/17) Patient received Vancomycin + Ertapenem in past for septic joint. She developed LFT elevations on this therapy. She had experienced ADHF, cardiogenic shock just prior to LFT elevation. Provider felt LFT elevations most likely due to shock, hepatic congestion but could not exclude ertapenem + venlafaxine as possible causes. Ertapenem was held and vanco was continued with Rocephin. LFTs improved. Current Medications Reported Home Medications Medications Dose Route/Sig Max Daily Dose Days Date Category Dose Instructions Lantus (Insulin Glargine) 100 Unit/Ml Inj 5 Units SC HS 03/22/17 Reported 2100 Ventolin Hfa (Albuterol) 200 Puffs/60650 Mcg Aers 2-4 Puffs INH Q4 PRN 03/22/17 Reported Tylenol (Acetaminophen) 500 Mg Tab 2 Tab PO Q8 PRN 03/22/17 Reported Venlafaxine Hcl Er (Venlafaxine Hcl) 37.5 Mg Tab 1 Tab PO DAILY 03/22/17 Reported 0900 Senokot (Senna) 8.6 Mg Tab 1 Tab PO HS 03/22/17 Reported 2100 Nicoderm Cq 7 Mg Patch (Nicotine) 7 Mg/24 Hr Dis 7 Mg TD DAILY 03/22/17 Reported 0900 Lc-5 Lidocaine (Lidocaine (Anorectal)) 5 % Cre 1 Appln TOP TID 03/22/17 Reported APPLY TO RIGHT HIP AT [id number] Levaquin (Levofloxacin) 250 Mg Tab 250 Mg PO Q2D 03/22/17 Reported STARTS 03-21-17 ENDS 03-31-17 1 TAB PO Q2D X5 DOSES AT 0900 Xanax (Alprazolam) 0.5 Mg Tab 0.5 Tab PO Q6H PRN 03/22/17 Reported Lopressor (Metoprolol Tartrate) 25 Mg Tab 25 Mg PO BID 03/22/17 Reported [id number] *HOLD IF SYS BP IS LESS THAN 100 OR HR IS LESS THAN 60. Mag-Ox (Magnesium Oxide) 400 Mg Tab 400 Mg PO DAILY 03/22/17 Reported 1200 Lasix (Furosemide) 40 Mg Tab 40 Mg PO QAM 03/22/17 Reported 0800 *HOLD IF SYS BP IS LESS THAN 110 Wellbutrin (Bupropion HCl) 75 Mg Tab 75 Mg PO TID 03/22/17 Reported [id number] Physical Physical Exam Vital Signs: Date Time Temp Pulse Resp B/P (MAP) Pulse Ox O2 Delivery O2 Flow Rate FiO2 03/26/17 07:55 36.0 89 20 91/60 (70) 94 BiPAP 03/26/17 07:14 92 26 87 Nasal Cannula 50.0 70 03/26/17 05:43 98 22 93 High Flow Oxygen 50.0 70 03/26/17 04:23 36.7 101 22 88/58 (68) 91 High Flow Oxygen 50.0 70 03/26/17 04:02 High Flow Oxygen 50.0 70 03/26/17 02:41 25 85 High Flow Oxygen 50.0 70 03/26/17 02:38 102 24 92 BiPAP/CPAP 60 03/26/17 02:15 88 22 84/56 (65) 93 BiPAP 03/26/17 02:05 102 94 BiPAP 03/26/17 01:04 79 22 95 BiPAP 03/26/17 00:30 26 80 Non-Rebreather 15.0 03/26/17 00:00 BiPAP 03/25/17 23:54 87 Non-Rebreather 15.0 03/25/17 23:50 36.5 80 18 97/67 (77) 93 BiPAP 03/25/17 22:05 80 93 60 03/25/17 21:49 80 78 Non-Rebreather 15.0 03/25/17 20:39 115 100/66 (77) 03/25/17 20:00 Non-Rebreather 15.0 03/25/17 19:47 36.7 97 20 97/65 (76) 88 Non-Rebreather 15.0 03/25/17 19:47 97 20 88 Non-Rebreather 15.0 03/25/17 16:00 Non-Rebreather 15.0 03/25/17 15:48 36.6 102 21 97/62 (74) 96 Non-Rebreather 15.0 03/25/17 14:22 106 18 94 Non-Rebreather 15.0 03/25/17 12:04 36.6 85 18 86/58 (67) 94 Mask 13.0 03/25/17 12:00 Diffusion Mask 11.0 General Appearance: uncomfortable, mild distress Head: NORMOCEPHALIC, ATRAUMATIC Eyes: PERRLA, EOMI, SCLERAE NORMAL Neck: NORMAL RANGE OF MOTION, NO TENDERNESS, SUPPLE Respiratory: NO RESPIRATORY DISTRESS, NO TENDERNESS, rhonchi Cardiovasular: REGULAR RATE/RHYTHM, NORMAL S1S2 Abdomen: NON TENDER, NORMAL BOWEL SOUNDS Back: NORMAL INSPECTION Upper Extremities: NO EDEMA Lower Extremities: other (trace lower extremity edema.) Neuro: ALERT, ORIENTED x 3 Diagnostics Labs Results Past 24 Hours Test 03/25/17 12:58 03/25/17 13:43 03/25/17 16:22 03/25/17 20:18 Range/Units Bedside Glucose 223 262 126 70-90 mg/dl Vancomycin Level Trough 18.2 SEE COMMENT mcg/ml Test 03/26/17 06:05 03/26/17 07:05 03/26/17 09:38 Range/Units White Blood Count 6.96 4.8-10.8 K/uL Red Blood Count 3.76 4.2-5.4 M/uL Hemoglobin 9.8 12.0-16.0 g/dL Hematocrit 30.8 37-47 % Mean Corpuscular Volume 81.9 80-100 fL Mean Corpuscular Hemoglobin 26.1 25-34 pg Mean Corpuscular Hemoglobin Concent 31.8 32-36 g/dl Platelet Count 275 130-400 K/uL Mean Platelet Volume 9.2 7.4-10.4 fL Neutrophils (%) (Auto) 73.3 % Lymphocytes (%) (Auto) 14.9 % Monocytes (%) (Auto) 10.1 % Eosinophils (%) (Auto) 1.0 % Basophils (%) (Auto) 0.3 % Neutrophils # (Auto) 5.10 1.4-6.5 K/uL Lymphocytes # (Auto) 1.04 1.2-3.4 K/uL Monocytes # (Auto) 0.70 0.11-0.59 K/uL Eosinophils # (Auto) 0.07 0-0.5 K/uL Basophils # (Auto) 0.02 0-0.2 K/uL RDW Standard Deviation 54.6 36.4-46.3 fL RDW Coefficient of Variation 18.1 11.5-14.5 % Immature Granulocyte % (Auto) 0.4 % Immature Granulocyte # (Auto) 0.03 0.00-0.02 K/uL Sodium Level 138 136-145 mmol/L Potassium Level 3.3 3.5-5.1 mmol/L Chloride Level 98 98-107 mmol/L Carbon Dioxide Level 30 21-32 mmol/L Anion Gap 10.0 3-11 mmol/L Blood Urea Nitrogen 22 7-18 mg/dl Creatinine 1.30 0.60-1.20 mg/dl Est Creatinine Clear Calc Drug Dose 36.6 ml/min Estimated GFR () 47.5 Estimated GFR (Non- 41.0 BUN/Creatinine Ratio 16.8 10-20 Random Glucose 128 70-99 mg/dl Calcium Level 8.8 8.5-10.1 mg/dl Magnesium Level 1.8 1.8-2.4 mg/dl Bedside Glucose 127 70-90 mg/dl Arterial Blood pH 7.46 7.35-7.45 Arterial Blood Partial Pressure CO2 42 35-46 mmHg Arterial Blood Partial Pressure O2 129 80-95 mm/Hg Arterial Blood HCO3 29 19-24 mmol/L Arterial Blood Oxygen Saturation 98.2 90-95 % Arterial Blood Base Excess 4.9 -9-1.8 mEq/L Arterial Blood Gas Delivery 70% Gabriele Test POS POS Diagnostic Radiology Chest x-ray 03/25/2017 Diffuse bilateral parenchymal infiltrative change. Mild stable cardia megaly. Chest/thorax CTA 03/22/2017 There are small bilateral pleural effusions. There are extensive bilateral airspace opacities. Clinical correlation will be necessary to differentiate pulmonary edema superimposed on chronic lung disease versus a bilateral inflammatory/infectious process IMPRESSION: 1. No evidence of acute pulmonary embolism 2. Mild mediastinal adenopathy 3. Small bilateral pleural effusions 4. Bilateral mixed interstitial and alveolar airspace opacities. Clinical correlation will be necessary to differentiate pulmonary edema superimposed on chronic lung disease versus a bilateral inflammatory/infectious process Transthoracic echo 03/26/2017 -- Conclusions -- * The left ventricle is mildly dilated. * Ejection Fraction = 20-25%. * Regional wall motion abnormalities indicative of severe ischemic cardiomyopathy. * The right ventricular cavity size is normal (basal dimension <4.2 cm in right ventricular apical 4-chamber view). * The right ventricular systolic function is normal. * Aortic valve sclerosis mild, without significant aortic valvular stenosis. * There is mild mitral regurgitation. * There is mild tricuspid regurgitation. * The estimated systolic PAP is 46mmHg. Impression Assessment and Plan Acute hypoxic respiratory failure Hospital-acquired pneumonia Systolic CHF exacerbation, with an EF 20-25% Hypoalbuminemia Diastolic dysfunction Elevated pulmonary artery pressure Patient has had complicated course over the last several months. The patient has had progressive decline in respiratory status over the last few weeks. I believe it is multifactorial in nature. She has evidence of systolic heart failure, diastolic dysfunction, hospital-acquired pneumonia, and overall poor nutritional which are all contributing to her symptoms.Patient most likely has pulmonary hypertension type II and type III in etiology. I would optimize her with BiPAP to maintain a SaO2 between 88-92%. This should help with the work of breathing. Currently she is on 70% FiO2. Continue with empiric antibiotics to cover for hospital-acquired pneumonia. I would optimize her cardiac medications as tolerated, as she is borderline hypotensive at this time. Diurese when able. I spoke with daughter Arabella Gibbs who states that she would only like a trial off BiPAP at this point in time. If her mother should further decompensate and she would like to opt for comfort care measures only. Patient's overall prognosis is guarded. I appreciate the consult and will continue to follow with you.
--- NOTE | 2017-03-26 11:12 | Progress Note ---
Internal Med Progress Note Date of Service: Mar 26, 2017. Provider Documentation: SUBJECTIVE: The patient was seen and examined Admitted with sudden onset SOB with cough from [facility] Recent discharge from [facility], [facility] following an episode of Increased LFTs and noted to have CMP with EF 20-25% No fever,chills Remains Generally weak and lethargic Condition got worse last night -did not receive any Lasix for Low BP Requiring BIPAP this AM OBJECTIVE: Vital Signs-as noted below Exam: General-Moderate distress at rest Requiring BIPAP Eyes-Normal ENT-normal Neck-supple Lungs-decreased breath sound bilaterally Minimal Bibasilar crackles Heart-Regular Abdomen-Benign,colostomy site intact Extremities-Trace edema bilaterally Neuro-AAOx3 Generally weak and lethargic Lab data as noted below. ASSESSMENT & PLAN: Bibasilar Pneumonia CXR Bilateral mixed interstitial and alveolar airspace opacities. Clinical correlation will be necessary to differentiate pulmonary edema superimposed on chronic lung disease versus a bilateral inflammatory/infectious process Hypoxia on presentation requiring supplemental O2 Recent hospital stay in [facility] Has been on Vanco + Levaquin for now Appreciate ID input No fever or chills ,no increase in WCC Blood culture -negative and No MRSA D/C Vancomycin and continue with Doxy Slow improvement Repeat CXR: Unchanging diffuse bilateral parenchymal infiltrative changes, versus pulmonary edema Condition got worse last nig Received More Lasix and Broad spectrum antibiotics with Vanco and Zosyn added Acute respiratory failure due to acute on chronic combined systolic and diastolic CHF Complicated by bibasilar Pneumonia Requiring BIPAP ABG -noted ,no CO2 retention Pulmonary consulted Hx. of colorectal CA s/p resection/colostomy Has Presacral Mass -patient with colostomy, draining well, no foul-smelling stool -no abdominal pain, no other issues to note -No acute issue -CEA is mildly high -likely to have OP follow up Cardiomyopathy.EF ~20% -Patient with a hx. of cardiomyopathy -Multiple wall motion abnormality with EF of 20-25% and grade ii Diastolic Dysfunction on ECHO 1st week of March -BNP elevated, will stop IVFs -Can restart Lasix in AM will change to IV -Received IV Lasix for an attack of CHF Clinically better Continue IV Lasix for now Cardiac function may have been worse ECHO::The left ventricle is mildly dilated. * Ejection Fraction = 20-25%. * Regional wall motion abnormalities indicative of severe ischemic cardiomyopathy. * The right ventricular cavity size is normal (basal dimension <4.2 cm in right ventricular apical 4-chamber view). * The right ventricular systolic function is normal. * Aortic valve sclerosis mild, without significant aortic valvular stenosis. * There is mild mitral regurgitation. * There is mild tricuspid regurgitation. * The estimated systolic PAP is 46mmHg. Cardiology consulted and appreciate Input May need Ionotropic support Acute Kidney Injury with h/o CKD -Received IVFs in the ER -Hold IVFs to avoid Fluid Overload -Avoid Nephrotoxic agent -Creatinine is slightly worse -likely due to use of Lasix -Remains high but stable DM2 -BSGs ACHS -insulin sliding scale DVT ppx -subq heparin FULL CODE Discussed with The Daughter Patient was DNR before and after discussion with the Daughter she is made DNR again Discussed with the Daughter Will continue aggressive therapy for a day or two,if no improvement will go for comfort care Vital Signs: Date Time Temp Pulse Resp B/P (MAP) Pulse Ox O2 Delivery O2 Flow Rate FiO2 03/26/17 07:55 36.0 89 20 91/60 (70) 94 BiPAP 03/26/17 07:14 92 26 87 Nasal Cannula 50.0 70 03/26/17 05:43 98 22 93 High Flow Oxygen 50.0 70 03/26/17 04:23 36.7 101 22 88/58 (68) 91 High Flow Oxygen 50.0 70 03/26/17 04:02 High Flow Oxygen 50.0 70 03/26/17 02:41 25 85 High Flow Oxygen 50.0 70 03/26/17 02:38 102 24 92 BiPAP/CPAP 60 03/26/17 02:15 88 22 84/56 (65) 93 BiPAP 03/26/17 02:05 102 94 BiPAP 03/26/17 01:04 79 22 95 BiPAP 03/26/17 00:30 26 80 Non-Rebreather 15.0 03/26/17 00:00 BiPAP 03/25/17 23:54 87 Non-Rebreather 15.0 03/25/17 23:50 36.5 80 18 97/67 (77) 93 BiPAP 03/25/17 22:05 80 93 60 03/25/17 21:49 80 78 Non-Rebreather 15.0 03/25/17 20:39 115 100/66 (77) 7/16/17 20:00 Non-Rebreather 15.0 03/25/17 19:47 36.7 97 20 97/65 (76) 88 Non-Rebreather 15.0 03/25/17 19:47 97 20 88 Non-Rebreather 15.0 03/25/17 16:00 Non-Rebreather 15.0 03/25/17 15:48 36.6 102 21 97/62 (74) 96 Non-Rebreather 15.0 03/25/17 14:22 106 18 94 Non-Rebreather 15.0 03/25/17 12:04 36.6 85 18 86/58 (67) 94 Mask 13.0 03/25/17 12:00 Diffusion Mask 11.0 Lab Results: Results Past 24 Hours Test 03/25/17 12:58 03/25/17 13:43 03/25/17 16:22 03/25/17 20:18 Range/Units Bedside Glucose 223 262 126 70-90 mg/dl Vancomycin Level Trough 18.2 SEE COMMENT mcg/ml Test 03/26/17 06:05 03/26/17 07:05 03/26/17 09:38 Range/Units White Blood Count 6.96 4.8-10.8 K/uL Red Blood Count 3.76 4.2-5.4 M/uL Hemoglobin 9.8 12.0-16.0 g/dL Hematocrit 30.8 37-47 % Mean Corpuscular Volume 81.9 80-100 fL Mean Corpuscular Hemoglobin 26.1 25-34 pg Mean Corpuscular Hemoglobin Concent 31.8 32-36 g/dl Platelet Count 275 130-400 K/uL Mean Platelet Volume 9.2 7.4-10.4 fL Neutrophils (%) (Auto) 73.3 % Lymphocytes (%) (Auto) 14.9 % Monocytes (%) (Auto) 10.1 % Eosinophils (%) (Auto) 1.0 % Basophils (%) (Auto) 0.3 % Neutrophils # (Auto) 5.10 1.4-6.5 K/uL Lymphocytes # (Auto) 1.04 1.2-3.4 K/uL Monocytes # (Auto) 0.70 0.11-0.59 K/uL Eosinophils # (Auto) 0.07 0-0.5 K/uL Basophils # (Auto) 0.02 0-0.2 K/uL RDW Standard Deviation 54.6 36.4-46.3 fL RDW Coefficient of Variation 18.1 11.5-14.5 % Immature Granulocyte % (Auto) 0.4 % Immature Granulocyte # (Auto) 0.03 0.00-0.02 K/uL Sodium Level 138 136-145 mmol/L Potassium Level 3.3 3.5-5.1 mmol/L Chloride Level 98 98-107 mmol/L Carbon Dioxide Level 30 21-32 mmol/L Anion Gap 10.0 3-11 mmol/L Blood Urea Nitrogen 22 7-18 mg/dl Creatinine 1.30 0.60-1.20 mg/dl Est Creatinine Clear Calc Drug Dose 36.6 ml/min Estimated GFR () 47.5 Estimated GFR (Non- 41.0 BUN/Creatinine Ratio 16.8 10-20 Random Glucose 128 70-99 mg/dl Calcium Level 8.8 8.5-10.1 mg/dl Magnesium Level 1.8 1.8-2.4 mg/dl Bedside Glucose 127 70-90 mg/dl Arterial Blood pH 7.46 7.35-7.45 Arterial Blood Partial Pressure CO2 42 35-46 mmHg Arterial Blood Partial Pressure O2 129 80-95 mm/Hg Arterial Blood HCO3 29 19-24 mmol/L Arterial Blood Oxygen Saturation 98.2 90-95 % Arterial Blood Base Excess 4.9 -9-1.8 mEq/L Arterial Blood Gas Delivery 70% Gabriele Test POS POS
--- NOTE | 2017-03-26 11:15 | Pharmacy Progress Note ---
Pharmacy Abx Initial Consult Date of Service Mar 26, 2017. Pharmacy Dosing Scope Date of Consult: 03/26/2017 Consultation requested by: Dr. Domínguez Pharmacy is consulted to initiate Vancomycin & Zosyn IV dosing therapy, order appropriate labs and adjust drug dose/frequency. Subjective The patient is a 71 year old female admitted on Mar 22, 2017 at 15:17. Objective Height (Feet): 5 Height (Inches): 6.00 Weight (Kilograms): 64.000 Vital Signs (Past 12Hrs) Vital Signs Past 12 Hours Date Time Temp Pulse Resp B/P (MAP) Pulse Ox O2 Delivery O2 Flow Rate FiO2 03/26/17 07:55 36.0 89 20 91/60 (70) 94 BiPAP 03/26/17 07:14 92 26 87 Nasal Cannula 50.0 70 03/26/17 05:43 98 22 93 High Flow Oxygen 50.0 70 03/26/17 04:23 36.7 101 22 88/58 (68) 91 High Flow Oxygen 50.0 70 03/26/17 04:02 High Flow Oxygen 50.0 70 03/26/17 02:41 25 85 High Flow Oxygen 50.0 70 03/26/17 02:38 102 24 92 BiPAP/CPAP 60 03/26/17 02:15 88 22 84/56 (65) 93 BiPAP 03/26/17 02:05 102 94 BiPAP 03/26/17 01:04 79 22 95 BiPAP 03/26/17 00:30 26 80 Non-Rebreather 15.0 03/26/17 00:00 BiPAP 03/25/17 23:54 87 Non-Rebreather 15.0 03/25/17 23:50 36.5 80 18 97/67 (77) 93 BiPAP Lab Results (24Hrs) Laboratory Tests (24 Hours) Test 03/26/17 06:05 White Blood Count 6.96 K/uL (4.8-10.8) Red Blood Count 3.76 M/uL (4.2-5.4) L Hemoglobin 9.8 g/dL (12.0-16.0) L Hematocrit 30.8 % (37-47) L Mean Corpuscular Volume 81.9 fL (80-100) Mean Corpuscular Hemoglobin 26.1 pg (25-34) Mean Corpuscular Hemoglobin Concent 31.8 g/dl (32-36) L Platelet Count 275 K/uL (130-400) Mean Platelet Volume 9.2 fL (7.4-10.4) Neutrophils (%) (Auto) 73.3 % Lymphocytes (%) (Auto) 14.9 % Monocytes (%) (Auto) 10.1 % Eosinophils (%) (Auto) 1.0 % Basophils (%) (Auto) 0.3 % Neutrophils # (Auto) 5.10 K/uL (1.4-6.5) Lymphocytes # (Auto) 1.04 K/uL (1.2-3.4) L Monocytes # (Auto) 0.70 K/uL (0.11-0.59) H Eosinophils # (Auto) 0.07 K/uL (0-0.5) Basophils # (Auto) 0.02 K/uL (0-0.2) Micro Results Date/Time Source Procedure Growth Status 03/22/17 13:47 Blood Blood Culture - Preliminary NO GROWTH TO DATE. Resulted 03/22/17 13:10 Blood Blood Culture - Preliminary NO GROWTH TO DATE. Resulted 03/23/17 14:44 Nasal MRSA DNA Surveillance Screen - Final Specimen Negative for MRSA by DNA Probe Complete 03/23/17 15:30 Sputum Expectorated Sputum Gram Stain - Final Complete 03/23/17 15:30 Sputum Expectorated Sputum Sputum Culture - Final HEAVY NORMAL KEESHA Complete Risk Factors for Resistance * Resident in a skilled nursing or extended-care facility * Hospitalization for 48 hours or more within the past 90 days * Antimicrobial use within the last 90 days : Levaquin, failed treatment. Assessment & Plan Assessment 71 year old female admitted with pneumonia from [facility], recent admission at [facility]. * Patient admitted on 03/22 started on vancomycin & zosyn. Latter therapy discontinued on 03/25 then restarted on 03/26 secondary to decompensation. Plan Vancomycin for treatment of pneumonia (HAP) Vancomycin IV * Loading dose: 1650 mg (24.5 mg/kg). Necessary to reload since therapy had been discontinued 03/25. * Maintenance dose: 1000 mg IV (15 mg/kg) every 24 hours * Estimated pharmacokinetic parameters: T1/2 = 19.8hrs, Akil = 0.035/hr, Vd = 0.7L/Kg * Goal trough level for HCAP : 15 to 20 mcg/mL * Trough level ordered for 03/29/17 @00:30 Piperacillin/tazobactam - * 3.375 g bolus administered over 30 minutes, then 3.375 g IV extended infusion every 8 hours for CrCl greater than 20 mL/min Pharmacy will continue to follow and will adjust dose/frequency as necessary. Thank you.
[2017-03-26] MEDS: METOPROLOL TARTRATE 1 MG/ML VIAL IV. SCH ×3 (12:00→23:51)
[2017-03-26] MEDS: METOPROLOL TARTRATE 25 MG TAB PO SCH (12:39)
[2017-03-26] MEDS: SENNA 8.6 MG TAB PO SCH (21:00)
[2017-03-26] MEDS ORDERED: ACETAMINOPHEN IV 650 MG in EMPTY BAG 0 ML IV PRN (23:30)
[2017-03-27] VITALS (12 sets, daily range): BP systolic 86–118; BP diastolic 55–85; PULSE 65–120; TEMP 36.1–37.2; O2SAT 58–99
[2017-03-27] MEDS ORDERED: VANCOMYCIN INJ 1,000 MG in SODIUM CHLORIDE 0.9% 250ML 250 ML IV SCH (01:00)
[2017-03-27] MEDS: LEVALBUTEROL 0.31MG/3 ML VIAL INH SCH ×4 (02:22→19:27)
[2017-03-27] MEDS: PIPERACILL/TAZOBAC IV 3.375 GM in DEXTROSE 5% 50ML 50 ML IV SCH ×3 (03:43→21:21)
[2017-03-27] MEDS: METOPROLOL TARTRATE 1 MG/ML VIAL IV. SCH ×4 (05:32→23:21)
[2017-03-27] MEDS: HEPARIN SOD 5000 UNIT/0.5 ML CARP SQ SCH ×3 (05:34→21:23)
[2017-03-27] MEDS: INSULIN ASPART 100 UNITS/ML 3 ML PEN SC SCH ×4 (07:00→21:46)
[2017-03-27 08:19] LABS: HEMATOCRIT 34.9 % (37-47); MEAN CELL VOLUME 82.5 fL (80-100); MEAN CORPUSCULAR HEMOGLOBIN 25.5 pg (25-34); MEAN CORPUSCULAR HGB CONC 30.9 g/dl (32-36); PLATELET COUNT 307 K/uL (130-400); RED BLOOD COUNT 4.23 M/uL (4.2-5.4); WHITE BLOOD COUNT 6.49 K/uL (4.8-10.8)
[2017-03-27 08:41] LABS: BUN/CREATININE RATIO 17.3 (10-20); CALCIUM 9.1 mg/dl (8.5-10.1); CREATININE 1.8 mg/dl (0.60-1.20); MAGNESIUM 1.8 mg/dl (1.8-2.4); POTASSIUM 3.3 mmol/L (3.5-5.1)
[2017-03-27] MEDS: FUROSEMIDE INJ 40 MG in SYRINGE 0 ML IV SCH ×2 (09:00→17:00)
[2017-03-27] MEDS: MAGNESIUM OXIDE 400 MG TAB PO SCH ×2 (09:00→21:21)
[2017-03-27] MEDS: VENLAFAXINE HCL XR 37.5 MG CAPXR PO SCH (09:00)
[2017-03-27] MEDS: NICOTINE 7 MG/24 HR TDSY TD SCH (09:00)
[2017-03-27] MEDS ORDERED: POTASSIUM CHLR 10 MEQ / WTR 10 MEQ in PREMIXED WATER 100 ML IV ONE (10:30)
--- NOTE | 2017-03-27 15:12 | Cardiology Follow-Up ---
Subjective General Date of Service: Mar 27, 2017. Pt evaluation today including: conversation w/ patient, physical exam, chart review, lab review, review of studies, review of inpatient medication list History of Present Illness The patient is a 71 year old female seen in follow-up. BiPAP discontinued earlier today. Currently on high flow oxygen, 60%. She appears more alert at this time. Denies shortness of breath. No dysrhythmias on telemetry. Denies any chest discomfort. Creatinine bumped up to 1.8 today. A.m. dose of Lasix placed on hold. Denies orthopnea or PND. No lower exam edema. Offers no other complaints at this time. Allergies Coded Allergies: Nickel (Unverified Allergy, Unknown, ., 03/22/17) Ertapenem (Unverified Adverse Reaction, Intermediate, may have had elevated LFT's secondary to ertapenem..., 03/22/17) Patient received Vancomycin + Ertapenem in past for septic joint. She developed LFT elevations on this therapy. She had experienced ADHF, cardiogenic shock just prior to LFT elevation. Provider felt LFT elevations most likely due to shock, hepatic congestion but could not exclude ertapenem + venlafaxine as possible causes. Ertapenem was held and vanco was continued with Rocephin. LFTs improved. Social History Smoking Status: Former Smoker Hx Tobacco Use In Past Year?: No Hx Alcohol Use - Type And Amou: No Hx Substance Use - Type And Am: No Problem List Medical Problems: (1) Epigastric abdominal pain Status: Acute (2) Hypoxia Status: Acute (3) Vomiting Status: Acute Review of Systems Respiratory: + cough, + dyspnea on exertion, No sputum, No wheezing, No shortness of breath, No dyspnea at rest Cardiac: No chest pain, No orthopnea, No PND, No edema, No claudication, No palpitations Physical Exam Vital Signs Last Vital Signs Documentation Date Time Temp Pulse Resp B/P (MAP) Pulse Ox O2 Delivery O2 Flow Rate FiO2 03/27/17 14:15 71 20 90 Nasal Cannula 50.0 60 03/27/17 12:22 103/66 03/27/17 12:00 36.6 Physical Exam Constitutional: General Apperance: too thin Level of Distress: chronically ill Lungs: Auscultation: no wheezing, dry rales/crackles Cardiovascular: Heart Auscultation: RRR, no murmurs, tachycardia Peripheral Pulses: Radial Pulse: normal on the right Abdomen: Bowel Sounds: normal Inspection & Palpation: soft, non-distended, no tenderness, guarding & rebound Extremities: no cyanosis, no edema, no clubbing, no ulcers Neurologic: Cranial Nerves: grossly intact Assessment and Plan Assessment and Plan ASSESSMENT 1. Multi-factorial respiratory failure secondary to healthcare acquired pneumonia, possible interstitial lung disease, as well as acute on chronic systolic heart failure. - Fluid balance is more than 4.5 L negative. Her creatinine has increased today with borderline resting hypotension suggesting volume depletion. Lasix on hold. 2. Ischemic myopathy with ejection fraction of 20-25% 3. Chronic LBBB 4. Acute on chronic renal insufficiency secondary to volume depletion, diuretic therapy 5. 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 History of colon CA s/p resection. History of endometrial CA. new presacral mass on CT scan last month. PLAN: Diuretic therapy will be remain on hold at this time. Reassess volume status, renal function, fluid balance daily. Continue intravenous Lopressor while nothing by mouth. Transition back to Lopressor 25 mg twice daily when able to take oral medications. No SUNG inhibitor or ARB at this time with acute renal insufficiency. Will continue to follow during hospitalization. Laboratory Results Last 24 Hours Test 03/26/17 16:27 03/26/17 20:47 03/27/17 08:04 03/27/17 12:25 Bedside Glucose 112 mg/dl 118 mg/dl 124 mg/dl White Blood Count 6.49 K/uL Red Blood Count 4.23 M/uL Hemoglobin 10.8 g/dL Hematocrit 34.9 % Mean Corpuscular Volume 82.5 fL Mean Corpuscular Hemoglobin 25.5 pg Mean Corpuscular Hemoglobin Concent 30.9 g/dl RDW Standard Deviation 54.6 fL RDW Coefficient of Variation 18.1 % Platelet Count 307 K/uL Mean Platelet Volume 9.0 fL Sodium Level 138 mmol/L Potassium Level 3.3 mmol/L Chloride Level 98 mmol/L Carbon Dioxide Level 32 mmol/L Anion Gap 8.0 mmol/L Blood Urea Nitrogen 31 mg/dl Creatinine 1.80 mg/dl Est Creatinine Clear Calc Drug Dose 26.4 ml/min Estimated GFR () 32.0 Estimated GFR (Non- 27.6 BUN/Creatinine Ratio 17.3 Random Glucose 124 mg/dl Calcium Level 9.1 mg/dl Magnesium Level 1.8 mg/dl
[2017-03-27] MEDS: ACETAMINOPHEN 325 MG TAB PO PRN (16:13)
--- NOTE | 2017-03-27 19:13 | Pulmonology Progress Note ---
Pulmonary Progress Note Date of Service Mar 27, 2017. Attending Dr. Palomino Subjective Patient seen and examined this morning. States that she would like to be off BiPAP. She feels a little bit better today and is hungry. Objective Vital signs reviewed and listed below General Appearance: Patient awake, alert oriented 3. Neck: Supple. No JVD, nontender. Respiratory: Bibasilar rales and rhonchi present. Cardiovascular: Reg rate and rhythm. Tachycardic. No audible murmurs Abdomen: soft, nontender. Colostomy in place Extremities: No edema, no clubbing or cyanosis. Neuro: More awake today Assessment & Plan Acute hypoxic respiratory failure Hospital-acquired pneumonia Systolic CHF exacerbation, with an EF 20-25% Hypoalbuminemia Diastolic dysfunction Elevated pulmonary artery pressure Patient has had complicated course over the last several months. The patient has had progressive decline in respiratory status over the last few weeks. I believe it is multifactorial in nature. She has evidence of systolic heart failure, diastolic dysfunction, hospital-acquired pneumonia, and overall poor nutritional which are all contributing to her symptoms.Patient most likely has pulmonary hypertension type II and type III in etiology. I switched patient to high flow nasal cannula this morning and she seems to be tolerating well. Try to maintain SaO2 above 92%. Continue with BiPAP to maintain a SaO2 between 88-92% at night and when needed during the day. This should help with the work of breathing. Continue with empiric antibiotics to cover for hospital-acquired pneumonia. Continue to diuresis as kidney function tolerates. She is currently about 6 L negative. However creatinine bumped to 1.8 today. Lasix is now on hold. Cardiology is on board and optimizing cardiac medications. I spoke with daughter Arabella Gibbs today and we discussed titrating patient off BiPAP. I told her that her mom's respiratory status still tenuous as she is still requiring high oxygen FiO2. We will titrate as tolerated. I appreciate the consult and will continue to follow with you. Data Medications: Current Inpatient Medications Medications (Trade) Dose Ordered Sig/Lorenzo Route Start Time Stop Time Status Last Admin Dose Admin Alprazolam (Xanax Tab) 0.25 mg Q6H PRN PO 03/22/17 15:15 04/21/17 15:14 Bupropion HCl (Wellbutrin Tab) 75 mg TID@0700,1500,2300 PO 03/22/17 23:00 04/21/17 22:59 03/27/17 16:13 75 MG Furosemide (Lasix Tab) 40 mg QAM PO 03/23/17 09:00 04/22/17 08:59 Future Hold 03/23/17 08:30 40 MG Metoprolol Tartrate (Lopressor Tab) 25 mg BID PO 03/22/17 21:00 04/21/17 20:59 Future Hold 03/25/17 20:40 25 MG Nicotine (Nicoderm Cq 7 Mg Patch) 1 patch DAILY TD 03/23/17 09:00 04/22/17 08:59 03/25/17 08:34 1 PATCH Senna (Senokot Tab) 8.6 mg HS PO 03/22/17 21:00 04/21/17 20:59 03/23/17 20:13 8.6 MG Venlafaxine HCl (effeXOR EXTENDED REL CAP) 37.5 mg DAILY PO 03/23/17 09:00 04/22/17 08:59 03/25/17 08:33 37.5 MG Heparin Sodium (Porcine) (Heparin Sq 5000 Unit/0.5ml) 5,000 unit Q8 SQ 03/22/17 22:00 04/21/17 21:59 03/27/17 14:00 5,000 UNIT Acetaminophen (Tylenol Tab) 650 mg Q4H PRN PO 03/22/17 15:30 04/21/17 15:29 03/27/17 16:13 650 MG Al Hydrox/Mg Hydrox/Simethicone (Maalox Max Susp) 15 ml Q4H PRN PO 03/22/17 15:30 04/21/17 15:29 Magnesium Hydroxide (Milk Of Magnesia Susp) 30 ml Q12H PRN PO 03/22/17 15:30 04/21/17 15:29 Ondansetron HCl (Zofran Inj) 4 mg Q6H PRN IV 03/22/17 15:30 04/21/17 15:29 03/25/17 10:27 4 MG Polyethylene (Miralax Powder Packet) 17 gm DAILY PRN PO 03/22/17 15:30 04/21/17 15:29 Glucose (Glucose 40% Gel) 15-30 GRAMS 15 GRAMS... UD PRN PO 03/22/17 19:30 04/21/17 19:29 Glucose (Glucose Chew Tab) 4-8 Tablets 4 Tabl... UD PRN PO 03/22/17 19:30 04/21/17 19:29 Dextrose (Dextrose 50% 50ML Syringe) 25-50ML OF 50% DW IV FOR... UD PRN IV 03/22/17 19:30 04/21/17 19:29 Glucagon (Glucagon Inj) 1 mg UD PRN SQ 03/22/17 19:30 04/21/17 19:29 Miscellaneous Information (Order Awaiting Action) 1 ea QS N/A 03/23/17 08:00 04/22/17 07:59 Magnesium Oxide (Mag-Ox Tab) 400 mg BID PO 03/24/17 21:00 04/23/17 20:59 03/25/17 20:40 400 MG Levalbuterol (Xopenex 0.31MG/ 3ML Neb) 0.31 mg Q6R INH 03/24/17 15:00 04/23/17 14:59 03/27/17 14:15 0.31 MG Insulin Aspart (novoLOG ASPART) SLIDING SCALE If C... ACHS SC 03/25/17 16:15 04/24/17 16:14 03/25/17 17:19 4 UNITS Piperacillin Sod/ Tazobactam Sod (Consult) 1 ea UD PRN N/A 03/25/17 23:00 04/24/17 22:59 Piperacillin Sod/ Tazobactam Sod 3.375 gm/Dextrose 65 ml @ 16 mls/hr Q8H IV 03/26/17 04:00 04/02/17 03:59 03/27/17 12:21 16 MLS/HR Vancomycin HCl (Consult) 1 ea UD PRN N/A 03/25/17 23:30 04/24/17 23:29 Vancomycin HCl 1000 mg/Sodium Chloride 270 ml @ 125 mls/hr DAILY@0100 IV 03/27/17 01:00 04/02/17 00:59 Future Hold 03/27/17 00:38 125 MLS/HR Metoprolol Tartrate (Lopressor Iv) 2.5 mg Q6 IV. 03/26/17 12:00 04/25/17 11:59 03/27/17 12:22 2.5 MG Furosemide 40 mg/ Syringe 4 ml @ 4 mls/min BID17 IV 03/26/17 21:00 04/25/17 20:59 03/26/17 20:36 4 MLS/MIN Acetaminophen 650 mg/Empty Bag 65 ml @ 260 mls/hr Q6H PRN IV 03/26/17 23:30 04/25/17 23:29 03/27/17 00:17 260 MLS/HR I & O: 24-Hour Column 03/28/17 08:00 Output Total 250 ml Balance -250 ml Vital Signs: Date Time Temp Pulse Resp B/P (MAP) Pulse Ox O2 Delivery O2 Flow Rate FiO2 03/27/17 16:00 High Flow Oxygen 50 03/27/17 15:45 37.2 120 22 118/85 (96) 98 Nasal Cannula 6.0 03/27/17 15:16 36.1 65 24 86/55 (65) 91 High Flow Oxygen 03/27/17 14:15 71 20 90 Nasal Cannula 50.0 60 03/27/17 12:22 93 103/66 03/27/17 12:00 36.6 73 18 103/66 (78) 95 Free Flow/Blowby 03/27/17 12:00 High Flow Oxygen 60 03/27/17 08:06 36.6 68 18 87/56 (66) 99 BiPAP 03/27/17 08:00 BiPAP 60 03/27/17 07:28 58 Room Air 03/27/17 07:03 86 96 60 03/27/17 07:03 86 23 96 BiPAP/CPAP 60 03/27/17 05:32 68 93/61 03/27/17 04:19 36.1 105 24 94/62 (73) 98 BiPAP 60 03/27/17 04:00 BiPAP 03/27/17 02:22 100 92 60 03/27/17 02:22 100 24 92 BiPAP/CPAP 60 03/27/17 00:00 BiPAP 03/26/17 23:51 114 95/65 03/26/17 23:32 35.9 99 26 95/65 (75) 93 BiPAP 60 03/26/17 22:18 88 97 60 03/26/17 20:00 BiPAP 03/26/17 19:35 96 20 96 BiPAP/CPAP 60 03/26/17 19:35 96 96 60 03/26/17 19:32 36.8 91 20 94/59 (72) 91 BiPAP Laboratory Results: Last 24 Hours Test 03/26/17 20:47 03/27/17 08:04 03/27/17 12:25 03/27/17 16:04 Bedside Glucose 118 mg/dl 124 mg/dl 116 mg/dl White Blood Count 6.49 K/uL Red Blood Count 4.23 M/uL Hemoglobin 10.8 g/dL Hematocrit 34.9 % Mean Corpuscular Volume 82.5 fL Mean Corpuscular Hemoglobin 25.5 pg Mean Corpuscular Hemoglobin Concent 30.9 g/dl RDW Standard Deviation 54.6 fL RDW Coefficient of Variation 18.1 % Platelet Count 307 K/uL Mean Platelet Volume 9.0 fL Sodium Level 138 mmol/L Potassium Level 3.3 mmol/L Chloride Level 98 mmol/L Carbon Dioxide Level 32 mmol/L Anion Gap 8.0 mmol/L Blood Urea Nitrogen 31 mg/dl Creatinine 1.80 mg/dl Est Creatinine Clear Calc Drug Dose 26.4 ml/min Estimated GFR () 32.0 Estimated GFR (Non- 27.6 BUN/Creatinine Ratio 17.3 Random Glucose 124 mg/dl Calcium Level 9.1 mg/dl Magnesium Level 1.8 mg/dl
--- NOTE | 2017-03-27 19:28 | Progress Note ---
Medicine Progress Note Date & Time of Visit: Mar 27, 2017 at 19:06. Subjective Pt was seen and examined Lying in bed with no distress with bipap on Pt said that she feels ok She said that she does not have any SOB while on BIPAP denies any fever, palpitation an chest pain Objective Last 8 Hrs Date Time Temp Pulse Resp B/P (MAP) Pulse Ox O2 Delivery O2 Flow Rate FiO2 03/27/17 16:00 High Flow Oxygen 50 03/27/17 15:45 37.2 120 22 118/85 (96) 98 Nasal Cannula 6.0 03/27/17 15:16 36.1 65 24 86/55 (65) 91 High Flow Oxygen 03/27/17 14:15 71 20 90 Nasal Cannula 50.0 60 03/27/17 12:22 93 103/66 03/27/17 12:00 36.6 73 18 103/66 (78) 95 Free Flow/Blowby 03/27/17 12:00 High Flow Oxygen 60 Physical Exam: General- No acute distress Head- atraumatic Eyes- PERRL, EOMI ENT- oropharynx clear Neck- supple, no JVD Lungs- clear to auscultation Heart- Tachycardia, no murmur Abdomen- normal bowel sounds, soft Extremities- no calf tenderness Neuro- alert, oriented, PERRL, EOMI Skin- warm & dry Laboratory Results: Last 24 Hours Test 03/26/17 20:47 03/27/17 08:04 03/27/17 12:25 03/27/17 16:04 Bedside Glucose 118 mg/dl 124 mg/dl 116 mg/dl White Blood Count 6.49 K/uL Red Blood Count 4.23 M/uL Hemoglobin 10.8 g/dL Hematocrit 34.9 % Mean Corpuscular Volume 82.5 fL Mean Corpuscular Hemoglobin 25.5 pg Mean Corpuscular Hemoglobin Concent 30.9 g/dl RDW Standard Deviation 54.6 fL RDW Coefficient of Variation 18.1 % Platelet Count 307 K/uL Mean Platelet Volume 9.0 fL Sodium Level 138 mmol/L Potassium Level 3.3 mmol/L Chloride Level 98 mmol/L Carbon Dioxide Level 32 mmol/L Anion Gap 8.0 mmol/L Blood Urea Nitrogen 31 mg/dl Creatinine 1.80 mg/dl Est Creatinine Clear Calc Drug Dose 26.4 ml/min Estimated GFR () 32.0 Estimated GFR (Non- 27.6 BUN/Creatinine Ratio 17.3 Random Glucose 124 mg/dl Calcium Level 9.1 mg/dl Magnesium Level 1.8 mg/dl Assessment & Plan Bibasilar Pneumonia Hypoxia on admission CXR showed bilateral mixed interstitial and alveolar airspace opacities. Recent hospital stay in [facility] Marisol Has been on Vanco + Levaquin for now Appreciate ID input No fever or chills ,no increase in WCC Blood culture -negative and No MRSA, so vanco was d/c On broad coverage with Vanco and Zosyn has been on BIPAP Changed to high flow 02 @60% Pulmonary on board Acute Respiratory Failure due to acute on chronic combined systolic and diastolic CHF with Complication of bibasilar Pneumonia ABG -showed no CO2 retention has been requiring BIPAP, plan to wean off bipap On high flow oxygen now. Lasix on hold today due to increase in creatine Pulmonary consulted Hx. of colorectal CA s/p resection/colostomy Has Presacral Mass patient with colostomy, draining well, no foul-smelling stool no abdominal pain, no other issues to note No acute issue CEA is mildly high likely to have OP follow up Cardiomyopathy. Patient with a hx. of cardiomyopathy BNP elevated has been diuresis, negative 4.5 L Lasix held due to increase in creatine resume Lasix once creatine back to baseline ECHO showed * The left ventricle is mildly dilated. * Ejection Fraction = 20-25%. * Regional wall motion abnormalities indicative of severe ischemic cardiomyopathy. * The right ventricular cavity size is normal (basal dimension <4.2 cm in right ventricular apical 4-chamber view). * The right ventricular systolic function is normal. * Aortic valve sclerosis mild, without significant aortic valvular stenosis. * There is mild mitral regurgitation. * There is mild tricuspid regurgitation. * The estimated systolic PAP is 46mmHg. Cardiology on board May need Ionotropic support Acute Kidney Injury with h/o CKD Creatine on admission 1.3 Creatine today 1.8 has been diuresis by putting out ~4.5 L Avoid Nephrotoxic agent Hold lasix for now DM2 -BSGs ACHS -insulin sliding scale DVT ppx -subq heparin CODE STATUS DNR if no medical improvement, daughter will make comfort care Consultants: cardio Pulmonary Current Inpatient Medications: Current Inpatient Medications Medications (Trade) Dose Ordered Sig/Lorenzo Route Start Time Stop Time Status Last Admin Dose Admin Alprazolam (Xanax Tab) 0.25 mg Q6H PRN PO 03/22/17 15:15 04/21/17 15:14 Bupropion HCl (Wellbutrin Tab) 75 mg TID@0700,1500,2300 PO 03/22/17 23:00 04/21/17 22:59 03/27/17 16:13 75 MG Furosemide (Lasix Tab) 40 mg QAM PO 03/23/17 09:00 04/22/17 08:59 Future Hold 03/23/17 08:30 40 MG Metoprolol Tartrate (Lopressor Tab) 25 mg BID PO 03/22/17 21:00 04/21/17 20:59 Future Hold 03/25/17 20:40 25 MG Nicotine (Nicoderm Cq 7 Mg Patch) 1 patch DAILY TD 03/23/17 09:00 04/22/17 08:59 03/25/17 08:34 1 PATCH Senna (Senokot Tab) 8.6 mg HS PO 03/22/17 21:00 04/21/17 20:59 03/23/17 20:13 8.6 MG Venlafaxine HCl (effeXOR EXTENDED REL CAP) 37.5 mg DAILY PO 03/23/17 09:00 04/22/17 08:59 03/25/17 08:33 37.5 MG Heparin Sodium (Porcine) (Heparin Sq 5000 Unit/0.5ml) 5,000 unit Q8 SQ 03/22/17 22:00 04/21/17 21:59 03/27/17 14:00 5,000 UNIT Acetaminophen (Tylenol Tab) 650 mg Q4H PRN PO 03/22/17 15:30 04/21/17 15:29 03/27/17 16:13 650 MG Al Hydrox/Mg Hydrox/Simethicone (Maalox Max Susp) 15 ml Q4H PRN PO 03/22/17 15:30 04/21/17 15:29 Magnesium Hydroxide (Milk Of Magnesia Susp) 30 ml Q12H PRN PO 03/22/17 15:30 04/21/17 15:29 Ondansetron HCl (Zofran Inj) 4 mg Q6H PRN IV 03/22/17 15:30 04/21/17 15:29 03/25/17 10:27 4 MG Polyethylene (Miralax Powder Packet) 17 gm DAILY PRN PO 03/22/17 15:30 04/21/17 15:29 Glucose (Glucose 40% Gel) 15-30 GRAMS 15 GRAMS... UD PRN PO 03/22/17 19:30 04/21/17 19:29 Glucose (Glucose Chew Tab) 4-8 Tablets 4 Tabl... UD PRN PO 03/22/17 19:30 04/21/17 19:29 Dextrose (Dextrose 50% 50ML Syringe) 25-50ML OF 50% DW IV FOR... UD PRN IV 03/22/17 19:30 04/21/17 19:29 Glucagon (Glucagon Inj) 1 mg UD PRN SQ 03/22/17 19:30 04/21/17 19:29 Miscellaneous Information (Order Awaiting Action) 1 QS N/A 03/23/17 08:00 04/22/17 07:59 Magnesium Oxide (Mag-Ox Tab) 400 mg BID PO 03/24/17 21:00 04/23/17 20:59 03/25/17 20:40 400 MG Levalbuterol (Xopenex 0.31MG/ 3ML Neb) 0.31 mg Q6R INH 03/24/17 15:00 04/23/17 14:59 03/27/17 14:15 0.31 MG Insulin Aspart (novoLOG ASPART) SLIDING SCALE If C... ACHS SC 03/25/17 16:15 04/24/17 16:14 03/25/17 17:19 4 UNITS Piperacillin Sod/ Tazobactam Sod (Consult) 1 UD PRN N/A 03/25/17 23:00 04/24/17 22:59 Piperacillin Sod/ Tazobactam Sod 3.375 gm/Dextrose 65 ml @ 16 mls/hr Q8H IV 03/26/17 04:00 04/02/17 03:59 03/27/17 12:21 16 MLS/HR Vancomycin HCl (Consult) 1 UD PRN N/A 03/25/17 23:30 04/24/17 23:29 Vancomycin HCl 1000 mg/Sodium Chloride 270 ml @ 125 mls/hr DAILY@0100 IV 03/27/17 01:00 04/02/17 00:59 Future Hold 03/27/17 00:38 125 MLS/HR Metoprolol Tartrate (Lopressor Iv) 2.5 mg Q6 IV. 03/26/17 12:00 04/25/17 11:59 03/27/17 12:22 2.5 MG Furosemide 40 mg/ Syringe 4 ml @ 4 mls/min BID17 IV 03/26/17 21:00 04/25/17 20:59 03/26/17 20:36 4 MLS/MIN Acetaminophen 650 mg/Empty Bag 65 ml @ 260 mls/hr Q6H PRN IV 03/26/17 23:30 04/25/17 23:29 03/27/17 00:17 260 MLS/HR
[2017-03-27] MEDS: SENNA 8.6 MG TAB PO SCH (21:21)
[2017-03-28] VITALS (15 sets, daily range): BP systolic 84–99; BP diastolic 57–65; PULSE 71–108; TEMP 36.4–36.9; O2SAT 86–99
[2017-03-28] MEDS: LEVALBUTEROL 0.31MG/3 ML VIAL INH SCH ×4 (02:04→19:15)
[2017-03-28] MEDS: PIPERACILL/TAZOBAC IV 3.375 GM in DEXTROSE 5% 50ML 50 ML IV SCH ×3 (03:19→20:37)
[2017-03-28 05:06] LABS: BUN/CREATININE RATIO 18.6 (10-20); CALCIUM 8.8 mg/dl (8.5-10.1); CREATININE 1.6 mg/dl (0.60-1.20); MAGNESIUM 1.7 mg/dl (1.8-2.4)
[2017-03-28] MEDS: METOPROLOL TARTRATE 1 MG/ML VIAL IV. SCH ×4 (06:30→23:31)
[2017-03-28] MEDS: HEPARIN SOD 5000 UNIT/0.5 ML CARP SQ SCH ×3 (06:30→20:39)
[2017-03-28] MEDS ORDERED: POTASSIUM CHLORIDE PWD 20 MEQ PACK PO ONE (07:45)
[2017-03-28] MEDS ORDERED: MAGNESIUM SULFATE 1GM / D5W 1 GM in PREMIXED IN D5W 100 ML IV ONE (08:00)
[2017-03-28] MEDS: NICOTINE 7 MG/24 HR TDSY TD SCH (08:22)
[2017-03-28] MEDS: VENLAFAXINE HCL XR 37.5 MG CAPXR PO SCH (08:22)
[2017-03-28] MEDS: MAGNESIUM OXIDE 400 MG TAB PO SCH ×2 (08:23→20:37)
[2017-03-28] MEDS: INSULIN ASPART 100 UNITS/ML 3 ML PEN SC SCH ×4 (08:33→20:38)
--- NOTE | 2017-03-28 08:33 | Pharmacy Progress Note ---
Pharmacy Abx Dose Progress Nt Date of Service Mar 28, 2017. Pharmacy Dosing Scope The patient is currently receiving the following antimicrobial agents per Pharmacy consult: Vancomycin 1000 mg IV every 24 hours and Zosyn 3.375 mg IV every 8 hours Objective Height (Feet): 5 Height (Inches): 6.00 Weight (Kilograms): 62.100 Vital Signs (Past 12Hrs) Vital Signs Past 12 Hours Date Time Temp Pulse Resp B/P (MAP) Pulse Ox O2 Delivery O2 Flow Rate FiO2 03/28/17 08:08 36.5 93 18 99/65 (76) 97 Free Flow/Blowby 03/28/17 07:19 71 95 40 03/28/17 07:18 71 20 95 BiPAP/CPAP 40 03/28/17 06:30 73 98/60 03/28/17 04:57 73 99 50 03/28/17 04:24 BiPAP 03/28/17 03:59 36.7 74 18 98/60 (73) 93 BiPAP 5.0 03/28/17 02:05 75 97 60 03/28/17 02:04 75 26 97 BiPAP/CPAP 60 03/28/17 00:26 BiPAP 03/28/17 00:09 36.9 76 20 90/57 (68) 95 BiPAP 03/27/17 23:27 77 91 60 03/27/17 23:21 86 90/57 03/27/17 20:50 High Flow Oxygen 50 Micro Results Date/Time Source Procedure Growth Status 03/22/17 13:47 Blood Blood Culture - Final NO GROWTH Complete 03/22/17 13:10 Blood Blood Culture - Final NO GROWTH Complete 03/23/17 14:44 Nasal MRSA DNA Surveillance Screen - Final Specimen Negative for MRSA by DNA Probe Complete 03/23/17 15:30 Sputum Expectorated Sputum Gram Stain - Final Complete 03/23/17 15:30 Sputum Expectorated Sputum Sputum Culture - Final HEAVY NORMAL KEESHA Complete Risk Factors for Resistance * Resident in a longterm or extended-care facility * Hospitalization for 48 hours or more within the past 90 days * Antimicrobial use within the last 90 days : Levaquin, failed treatment. Assessment & Plan Assessment * 71 year old female admitted with pneumonia from [facility], recent admission at [facility]. * Patient initiated on vancomycin and doxycycline initially. Vancomycin was then d/c'd for negative MRSA swab. Vancomycin restarted and doxycycline changed to Zosyn early 03/26 due to patient worsening and suspected aspiration. * Today is day # 6/7 of vancomycin therapy and day #4/7 Zosyn therapy for HAP. * Vancomycin dose for this AM was placed on hold and random level ordered due to bump in SCr from 03/26 -> 03/27 * SCr improved today so okay to resume vancomycin but will do so once level expected to be in therapeutic range Plan Vancomycin IV * Random level of 23.3 mcg/mL is supratherapeutic * Change to 1000 mg IV every 30 hours - start at 1200 today (when level should be < 20 mcg/mL) * Goal trough level for pneumonia : 15 to 20 mcg/mL * No further levels ordered as tomorrow would be 7 days of therapy Piperacillin/tazobactam * Continue 3.375 g IV extended infusion every 8 hours for CrCl greater than 20 mL/min Pharmacy will continue to follow and will adjust dose/frequency as necessary. Thank you.
[2017-03-28] MEDS ORDERED: POTASSIUM CHLR 20 MEQ / WTR 20 MEQ in PREMIXED WATER 100 ML IV ONE (09:00)
--- NOTE | 2017-03-28 09:58 | Progress Note ---
Medicine Progress Note Date & Time of Visit: Mar 28, 2017 at 09:43. Subjective Pt was seen and examined Lying in bed with no distress Pt said that she feels better today she said that she ate breakfast today she said that her breathing feels better today denies any chest pain, palpitation, dizziness and palpitation Objective Last 8 Hrs Date Time Temp Pulse Resp B/P (MAP) Pulse Ox O2 Delivery O2 Flow Rate FiO2 03/28/17 08:10 High Flow Oxygen 03/28/17 08:08 36.5 93 18 99/65 (76) 97 Free Flow/Blowby 03/28/17 07:19 71 95 40 03/28/17 07:18 71 20 95 BiPAP/CPAP 40 03/28/17 06:30 73 98/60 03/28/17 04:57 73 99 50 03/28/17 04:24 BiPAP 03/28/17 03:59 36.7 74 18 98/60 (73) 93 BiPAP 5.0 03/28/17 02:05 75 97 60 03/28/17 02:04 75 26 97 BiPAP/CPAP 60 Physical Exam: General- No acute distress Head- atraumatic Eyes- PERRL, EOMI ENT- oropharynx clear Neck- supple, no JVD Lungs- clear to auscultation Heart- Tachycardia, no murmur Abdomen- normal bowel sounds, soft Extremities- no calf tenderness Neuro- alert, oriented, PERRL, EOMI Skin- warm & dry Laboratory Results: Last 24 Hours Test 03/27/17 12:25 03/27/17 16:04 03/27/17 20:11 03/28/17 04:18 Bedside Glucose 124 mg/dl 116 mg/dl 284 mg/dl Sodium Level 138 mmol/L Potassium Level 3.0 mmol/L Chloride Level 97 mmol/L Carbon Dioxide Level 35 mmol/L Anion Gap 6.0 mmol/L Blood Urea Nitrogen 30 mg/dl Creatinine 1.60 mg/dl Est Creatinine Clear Calc Drug Dose 29.8 ml/min Estimated GFR () 36.9 Estimated GFR (Non- 31.9 BUN/Creatinine Ratio 18.6 Random Glucose 106 mg/dl Calcium Level 8.8 mg/dl Magnesium Level 1.7 mg/dl Random Vancomycin Level 23.3 mcg/ml Test 03/28/17 06:45 Bedside Glucose 118 mg/dl Assessment & Plan Bibasilar Pneumonia Hypoxia on admission CXR showed bilateral mixed interstitial and alveolar airspace opacities. Recent hospital stay in [facility] Mar[place] Has been on Vanco + Levaquin for now Appreciate ID input No fever or chills ,no increase in WBC Blood culture -negative and No MRSA On broad coverage with Vanco and Zosyn has been on BIPAP Changed to high flow 02 @60% Pulmonary on board 03/28 Clinically improved Off Bipap since yesterday has been on high flow oxygen @40% saturated above 95 will titrate off oxygen slowly to transition to nasal cannula when able Pulmonary on board Acute Respiratory Failure due to acute on chronic combined systolic and diastolic CHF with Complication of bibasilar Pneumonia ABG -showed no CO2 retention has been requiring BIPAP, plan to wean off bipap On high flow oxygen now. Lasix on hold today due to increase in creatine Consider to resume lasix tonight or tomorrow Pulmonary consulted clinically improved significantly Hx. of colorectal CA s/p resection/colostomy Has Presacral Mass patient with colostomy, draining well, no foul-smelling stool no abdominal pain, no other issues to note No acute issue CEA is mildly high likely to have OP follow up Cardiomyopathy. Patient with a hx. of cardiomyopathy BNP elevated has been diuresis, negative 6.5 L Lasix held due to increase in creatine resume Lasix once creatine back to baseline Will discuss with cardio about when to restart the lasix ECHO showed * The left ventricle is mildly dilated. * Ejection Fraction = 20-25%. * Regional wall motion abnormalities indicative of severe ischemic cardiomyopathy. * The right ventricular cavity size is normal (basal dimension <4.2 cm in right ventricular apical 4-chamber view). * The right ventricular systolic function is normal. * Aortic valve sclerosis mild, without significant aortic valvular stenosis. * There is mild mitral regurgitation. * There is mild tricuspid regurgitation. * The estimated systolic PAP is 46mmHg. Cardiology on board May need Ionotropic support Acute Kidney Injury with h/o CKD Creatine on admission 1.3 Creatine today 1.6 has been diuresis by putting out ~6.5 L Avoid Nephrotoxic agent Hold lasix for now DM2 -BSGs ACHS -insulin sliding scale DVT ppx -subq heparin CODE STATUS DNR if no medical improvement, daughter will make comfort care Consultants: cardio Pulmonary Current Inpatient Medications: Current Inpatient Medications Medications (Trade) Dose Ordered Sig/Lorenzo Route Start Time Stop Time Status Last Admin Dose Admin Alprazolam (Xanax Tab) 0.25 mg Q6H PRN PO 03/22/17 15:15 04/21/17 15:14 Bupropion HCl (Wellbutrin Tab) 75 mg TID@0700,1500,2300 PO 03/22/17 23:00 04/21/17 22:59 03/28/17 08:22 75 MG Furosemide (Lasix Tab) 40 mg QAM PO 03/23/17 09:00 04/22/17 08:59 Future Hold 03/23/17 08:30 40 MG Metoprolol Tartrate (Lopressor Tab) 25 mg BID PO 03/22/17 21:00 04/21/17 20:59 Future Hold 03/25/17 20:40 25 MG Nicotine (Nicoderm Cq 7 Mg Patch) 1 patch DAILY TD 03/23/17 09:00 04/22/17 08:59 03/28/17 08:22 1 PATCH Senna (Senokot Tab) 8.6 mg HS PO 03/22/17 21:00 04/21/17 20:59 03/27/17 21:21 8.6 MG Venlafaxine HCl (effeXOR EXTENDED REL CAP) 37.5 mg DAILY PO 03/23/17 09:00 04/22/17 08:59 03/28/17 08:22 37.5 MG Heparin Sodium (Porcine) (Heparin Sq 5000 Unit/0.5ml) 5,000 unit Q8 SQ 03/22/17 22:00 04/21/17 21:59 03/28/17 06:30 5,000 UNIT Acetaminophen (Tylenol Tab) 650 mg Q4H PRN PO 03/22/17 15:30 04/21/17 15:29 03/27/17 16:13 650 MG Al Hydrox/Mg Hydrox/Simethicone (Maalox Max Susp) 15 ml Q4H PRN PO 03/22/17 15:30 04/21/17 15:29 Magnesium Hydroxide (Milk Of Magnesia Susp) 30 ml Q12H PRN PO 03/22/17 15:30 04/21/17 15:29 Ondansetron HCl (Zofran Inj) 4 mg Q6H PRN IV 03/22/17 15:30 04/21/17 15:29 03/25/17 10:27 4 MG Polyethylene (Miralax Powder Packet) 17 gm DAILY PRN PO 03/22/17 15:30 04/21/17 15:29 Glucose (Glucose 40% Gel) 15-30 GRAMS 15 GRAMS... UD PRN PO 03/22/17 19:30 04/21/17 19:29 Glucose (Glucose Chew Tab) 4-8 Tablets 4 Tabl... UD PRN PO 03/22/17 19:30 04/21/17 19:29 Dextrose (Dextrose 50% 50ML Syringe) 25-50ML OF 50% DW IV FOR... UD PRN IV 03/22/17 19:30 04/21/17 19:29 Glucagon (Glucagon Inj) 1 mg UD PRN SQ 03/22/17 19:30 04/21/17 19:29 Miscellaneous Information (Order Awaiting Action) 1 ea QS N/A 03/23/17 08:00 04/22/17 07:59 03/27/17 19:56 1 EA Magnesium Oxide (Mag-Ox Tab) 400 mg BID PO 03/24/17 21:00 04/23/17 20:59 03/28/17 08:23 400 MG Levalbuterol (Xopenex 0.31MG/ 3ML Neb) 0.31 mg Q6R INH 03/24/17 15:00 04/23/17 14:59 03/28/17 07:17 0.31 MG Insulin Aspart (novoLOG ASPART) SLIDING SCALE If C... ACHS SC 03/25/17 16:15 04/24/17 16:14 03/28/17 08:33 3 UNITS Piperacillin Sod/ Tazobactam Sod (Consult) 1 ea UD PRN N/A 03/25/17 23:00 04/24/17 22:59 Piperacillin Sod/ Tazobactam Sod 3.375 gm/Dextrose 65 ml @ 16 mls/hr Q8H IV 03/26/17 04:00 04/02/17 03:59 03/28/17 03:19 16 MLS/HR Vancomycin HCl (Consult) 1 ea UD PRN N/A 03/25/17 23:30 04/24/17 23:29 Metoprolol Tartrate (Lopressor Iv) 2.5 mg Q6 IV. 03/26/17 12:00 04/25/17 11:59 03/28/17 06:30 2.5 MG Furosemide 40 mg/ Syringe 4 ml @ 4 mls/min BID17 IV 03/26/17 21:00 04/25/17 20:59 Future Hold 03/26/17 20:36 4 MLS/MIN Acetaminophen 650 mg/Empty Bag 65 ml @ 260 mls/hr Q6H PRN IV 03/26/17 23:30 04/25/17 23:29 03/27/17 00:17 260 MLS/HR Heparin Sodium (Porcine) (Heparin 100 Unit/ml 5ml Flush) 5 ml PRN PRN IV 03/28/17 01:00 04/27/17 00:59 Potassium Chloride 20 meq/ Prmx 100 ml @ 50 mls/hr ONE ONCE IV 03/28/17 09:00 03/28/17 10:59 Vancomycin HCl 1000 mg/Sodium Chloride 270 ml @ 125 mls/hr Q30H IV 03/28/17 12:00 04/01/17 23:59
--- NOTE | 2017-03-28 10:31 | Cardiology Follow-Up ---
Subjective General Date of Service: Mar 28, 2017. Pt evaluation today including: conversation w/ patient, physical exam, chart review, lab review, review of studies, review of inpatient medication list History of Present Illness Patient feeling better. Oxygenating better. Off Bipap. Denies chest pain or SOB. Notes ongoing fatigue. Denies other complaints. Allergies Coded Allergies: Nickel (Unverified Allergy, Unknown, ., 03/22/17) Ertapenem (Unverified Adverse Reaction, Intermediate, may have had elevated LFT's secondary to ertapenem..., 03/22/17) Patient received Vancomycin + Ertapenem in past for septic joint. She developed LFT elevations on this therapy. She had experienced ADHF, cardiogenic shock just prior to LFT elevation. Provider felt LFT elevations most likely due to shock, hepatic congestion but could not exclude ertapenem + venlafaxine as possible causes. Ertapenem was held and vanco was continued with Rocephin. LFTs improved. Social History Smoking Status: Former Smoker Hx Tobacco Use In Past Year?: No Hx Alcohol Use - Type And Amou: No Hx Substance Use - Type And Am: No Problem List Medical Problems: (1) Epigastric abdominal pain Status: Acute (2) Hypoxia Status: Acute (3) Vomiting Status: Acute Review of Systems Respiratory: No cough, No sputum, No wheezing, No shortness of breath, No dyspnea at rest, No hemoptysis Cardiac: No chest pain, No orthopnea, No PND, No edema, No palpitations Physical Exam Vital Signs Last Vital Signs Documentation Date Time Temp Pulse Resp B/P (MAP) Pulse Ox O2 Delivery O2 Flow Rate FiO2 03/28/17 08:10 High Flow Oxygen 03/28/17 08:08 36.5 93 18 99/65 (76) 97 03/28/17 07:19 40 03/28/17 03:59 5.0 Physical Exam Constitutional: General Apperance: too thin Level of Distress: acutely ill, chronically ill Psychiatric: Mental Status: lethargic Head: normocephalic, atraumatic Eyes: Pupils: PERRLA Neck: supple Lungs: Auscultation: no wheezing, dry rales/crackles Cardiovascular: Heart Auscultation: RRR, no murmurs, tachycardia Peripheral Pulses: Radial Pulse: normal on the right Abdomen: Bowel Sounds: normal Inspection & Palpation: soft, non-distended, no tenderness, guarding & rebound Extremities: no cyanosis, no edema Neurologic: Cranial Nerves: grossly intact Assessment and Plan Assessment and Plan ASSESSMENT 1. Multi-factorial respiratory failure secondary to healthcare acquired pneumonia, possible interstitial lung disease, as well as acute on chronic systolic heart failure. - Fluid balance is more than 5.0 L negative. Furosemide on hold yesterday and today due to rising creatinine. 2. Ischemic cardiomyopathy with ejection fraction of 20-25% 3. Chronic LBBB 4. Acute on chronic renal insufficiency secondary to volume depletion, diuretic therapy 5. History of R septic knee with recurrent admission and intermediate IV antibiotic therapy January/February/March 2017 6. History of colon CA s/p resection. History of endometrial CA. new presacral mass on CT scan last month. PLAN: Hold diuretic therapy again today, unless respiratory status worsens. Creatinine trending down. Consider resuming home diuretic therapy tomorrow. Taking PO meds. Discontinue IV Lopressor. Resume low dose metoprolol tartrate 12.5 mg BID. No SUNG inhibitor or ARB at this time with acute renal insufficiency. Case discussed with Dr. Choi. Will follow. Cardiology Attending Physician: Patient seen and examined at the bedside. Continues to improve clinically. Diuretics on hold today. Tolerating diet. Offers no new complaints this time. PE: VSS. Gen: NAD, chronically ill. On high flow oxygen nasal cannula. Heart: Regular borderline tachycardic no murmur appreciated. Lungs: Scattered rhonchi bilaterally no wheeze. Ext: No edema. A/P: Agree with above PAC history, physical exam, assessment and plan. Transitioned to oral metoprolol today. Reassess renal function and volume status in a.m. Diuretics will remain on hold at this time. Will continue to follow. Zoran Choi DO, [facility] Laboratory Results Last 24 Hours Test 03/27/17 12:25 03/27/17 16:04 03/27/17 20:11 03/28/17 04:18 Bedside Glucose 124 mg/dl 116 mg/dl 284 mg/dl Sodium Level 138 mmol/L Potassium Level 3.0 mmol/L Chloride Level 97 mmol/L Carbon Dioxide Level 35 mmol/L Anion Gap 6.0 mmol/L Blood Urea Nitrogen 30 mg/dl Creatinine 1.60 mg/dl Est Creatinine Clear Calc Drug Dose 29.8 ml/min Estimated GFR () 36.9 Estimated GFR (Non- 31.9 BUN/Creatinine Ratio 18.6 Random Glucose 106 mg/dl Calcium Level 8.8 mg/dl Magnesium Level 1.7 mg/dl Random Vancomycin Level 23.3 mcg/ml Test 03/28/17 06:45 Bedside Glucose 118 mg/dl
[2017-03-28] MEDS: VANCOMYCIN INJ 1,000 MG in SODIUM CHLORIDE 0.9% 250ML 250 ML IV SCH (11:58)
--- NOTE | 2017-03-28 12:11 | Pulmonology Progress Note ---
Pulmonary Progress Note Date of Service Mar 28, 2017. Attending Dr. Palomino Subjective Patient seen and examined this morning. She is feeling better this morning. Denies any chest discomfort or pain, no shortness of breath, dyspnea on exertion or wheezing. Did well on BiPAP overnight and is currently non-nasal cannula. Objective Vital signs: Afebrile, blood pressure 99/65, pulse between 71-93, respiratory rate between 18-26, pulse ox between 93-97 on high flow nasal cannula 40%. She is currently 6500 mL negative General Appearance: Patient awake, alert oriented 3. Neck: Supple. No JVD, nontender. Respiratory: Bibasilar rales and rhonchi present, no acute respiratory distress. Cardiovascular: NORMAL S1S2, NORMAL PERIPHERAL PULSES Abdomen: soft, nontender. Colostomy in place Extremities: No edema, no clubbing or cyanosis bilaterally Assessment & Plan Acute hypoxic respiratory failure Hospital-acquired pneumonia Systolic CHF exacerbation, with an EF 20-25% Hypoalbuminemia Diastolic dysfunction Elevated pulmonary artery pressure Patient has had complicated course over the last several months. The patient has had progressive decline in respiratory status over the last few weeks. I believe it is multifactorial in nature. She has evidence of systolic heart failure, diastolic dysfunction, hospital-acquired pneumonia, and overall poor nutritional which are all contributing to her symptoms.Patient most likely has pulmonary hypertension type II and type III in etiology. Patient tolerated high flow nasal cannula well over the last 24 hours. I will continue this during the day. Try to maintain SaO2 above 92%. Continue with BiPAP to maintain a SaO2 between 88-92% at night and when needed during the day. We will titrate as tolerated. Continue with empiric antibiotics to cover for hospital-acquired pneumonia. Cardiology is on board and optimizing cardiac medications. Data Medications: Current Inpatient Medications Medications (Trade) Dose Ordered Sig/Lorenzo Route Start Time Stop Time Status Last Admin Dose Admin Alprazolam (Xanax Tab) 0.25 mg Q6H PRN PO 03/22/17 15:15 04/21/17 15:14 Bupropion HCl (Wellbutrin Tab) 75 mg TID@0700,1500,2300 PO 03/22/17 23:00 04/21/17 22:59 03/28/17 08:22 75 MG Furosemide (Lasix Tab) 40 mg QAM PO 03/23/17 09:00 04/22/17 08:59 Future Hold 03/23/17 08:30 40 MG Metoprolol Tartrate (Lopressor Tab) 25 mg BID PO 03/22/17 21:00 04/21/17 20:59 Future Hold 03/25/17 20:40 25 MG Nicotine (Nicoderm Cq 7 Mg Patch) 1 patch DAILY TD 03/23/17 09:00 04/22/17 08:59 03/28/17 08:22 1 PATCH Senna (Senokot Tab) 8.6 mg HS PO 03/22/17 21:00 04/21/17 20:59 03/27/17 21:21 8.6 MG Venlafaxine HCl (effeXOR EXTENDED REL CAP) 37.5 mg DAILY PO 03/23/17 09:00 04/22/17 08:59 03/28/17 08:22 37.5 MG Heparin Sodium (Porcine) (Heparin Sq 5000 Unit/0.5ml) 5,000 unit Q8 SQ 03/22/17 22:00 04/21/17 21:59 03/28/17 06:30 5,000 UNIT Acetaminophen (Tylenol Tab) 650 mg Q4H PRN PO 03/22/17 15:30 04/21/17 15:29 03/27/17 16:13 650 MG Al Hydrox/Mg Hydrox/Simethicone (Maalox Max Susp) 15 ml Q4H PRN PO 03/22/17 15:30 04/21/17 15:29 Magnesium Hydroxide (Milk Of Magnesia Susp) 30 ml Q12H PRN PO 03/22/17 15:30 04/21/17 15:29 Ondansetron HCl (Zofran Inj) 4 mg Q6H PRN IV 03/22/17 15:30 04/21/17 15:29 03/25/17 10:27 4 MG Polyethylene (Miralax Powder Packet) 17 gm DAILY PRN PO 03/22/17 15:30 04/21/17 15:29 Glucose (Glucose 40% Gel) 15-30 GRAMS 15 GRAMS... UD PRN PO 03/22/17 19:30 04/21/17 19:29 Glucose (Glucose Chew Tab) 4-8 Tablets 4 Tabl... UD PRN PO 03/22/17 19:30 04/21/17 19:29 Dextrose (Dextrose 50% 50ML Syringe) 25-50ML OF 50% DW IV FOR... UD PRN IV 03/22/17 19:30 04/21/17 19:29 Glucagon (Glucagon Inj) 1 mg UD PRN SQ 03/22/17 19:30 04/21/17 19:29 Miscellaneous Information (Order Awaiting Action) 1 ea QS N/A 03/23/17 08:00 04/22/17 07:59 03/27/17 19:56 1 EA Magnesium Oxide (Mag-Ox Tab) 400 mg BID PO 03/24/17 21:00 04/23/17 20:59 03/28/17 08:23 400 MG Levalbuterol (Xopenex 0.31MG/ 3ML Neb) 0.31 mg Q6R INH 03/24/17 15:00 04/23/17 14:59 03/28/17 07:17 0.31 MG Insulin Aspart (novoLOG ASPART) SLIDING SCALE If C... ACHS SC 03/25/17 16:15 04/24/17 16:14 03/28/17 08:33 3 UNITS Piperacillin Sod/ Tazobactam Sod (Consult) 1 ea UD PRN N/A 03/25/17 23:00 04/24/17 22:59 Piperacillin Sod/ Tazobactam Sod 3.375 gm/Dextrose 65 ml @ 16 mls/hr Q8H IV 03/26/17 04:00 04/02/17 03:59 03/28/17 11:57 16 MLS/HR Vancomycin HCl (Consult) 1 ea UD PRN N/A 03/25/17 23:30 03/29/17 23:59 Metoprolol Tartrate (Lopressor Iv) 2.5 mg Q6 IV. 03/26/17 12:00 04/25/17 11:59 03/28/17 06:30 2.5 MG Furosemide 40 mg/ Syringe 4 ml @ 4 mls/min BID17 IV 03/26/17 21:00 04/25/17 20:59 Future Hold 03/26/17 20:36 4 MLS/MIN Acetaminophen 650 mg/Empty Bag 65 ml @ 260 mls/hr Q6H PRN IV 03/26/17 23:30 04/25/17 23:29 7/18/17 00:17 260 MLS/HR Heparin Sodium (Porcine) (Heparin 100 Unit/ml 5ml Flush) 5 ml PRN PRN IV 03/28/17 01:00 04/27/17 00:59 Vancomycin HCl 1000 mg/Sodium Chloride 270 ml @ 125 mls/hr Q30H IV 03/28/17 12:00 03/29/17 23:59 Vital Signs: Date Time Temp Pulse Resp B/P (MAP) Pulse Ox O2 Delivery O2 Flow Rate FiO2 03/28/17 11:57 36.4 84 16 84/59 (67) 97 Free Flow/Blowby 03/28/17 11:56 84 84/59 03/28/17 08:10 High Flow Oxygen 03/28/17 08:08 36.5 93 18 99/65 (76) 97 Free Flow/Blowby 03/28/17 07:19 71 95 40 03/28/17 07:18 71 20 95 BiPAP/CPAP 40 03/28/17 06:30 73 98/60 03/28/17 04:57 73 99 50 03/28/17 04:24 BiPAP 03/28/17 03:59 36.7 74 18 98/60 (73) 93 BiPAP 5.0 03/28/17 02:05 75 97 60 03/28/17 02:04 75 26 97 BiPAP/CPAP 60 03/28/17 00:26 BiPAP 03/28/17 00:09 36.9 76 20 90/57 (68) 95 BiPAP 03/27/17 23:27 77 91 60 03/27/17 23:21 86 90/57 03/27/17 20:50 High Flow Oxygen 50 03/27/17 19:28 86 20 89 Nasal Cannula 50.0 60 03/27/17 19:18 36.5 83 26 93/63 (73) 91 High Flow Oxygen 03/27/17 16:00 High Flow Oxygen 50 03/27/17 15:45 37.2 120 22 118/85 (96) 98 Nasal Cannula 6.0 03/27/17 15:16 36.1 65 24 86/55 (65) 91 High Flow Oxygen 03/27/17 14:15 71 20 90 Nasal Cannula 50.0 60 03/27/17 12:22 93 103/66 Laboratory Results: Last 24 Hours Test 7/18/17 12:25 03/27/17 16:04 03/27/17 20:11 03/28/17 04:18 Bedside Glucose 124 mg/dl 116 mg/dl 284 mg/dl Sodium Level 138 mmol/L Potassium Level 3.0 mmol/L Chloride Level 97 mmol/L Carbon Dioxide Level 35 mmol/L Anion Gap 6.0 mmol/L Blood Urea Nitrogen 30 mg/dl Creatinine 1.60 mg/dl Est Creatinine Clear Calc Drug Dose 29.8 ml/min Estimated GFR () 36.9 Estimated GFR (Non- 31.9 BUN/Creatinine Ratio 18.6 Random Glucose 106 mg/dl Calcium Level 8.8 mg/dl Magnesium Level 1.7 mg/dl Random Vancomycin Level 23.3 mcg/ml Test 03/28/17 06:45 03/28/17 11:07 Bedside Glucose 118 mg/dl 236 mg/dl
[2017-03-28] MEDS: SENNA 8.6 MG TAB PO SCH (20:38)
[2017-03-29] VITALS (12 sets, daily range): BP systolic 84–98; BP diastolic 53–64; PULSE 74–101; TEMP 36.4–36.7; O2SAT 83–98
[2017-03-29] MEDS ORDERED: VANCOMYCIN TROUGH SCH (00:30)
[2017-03-29] MEDS: LEVALBUTEROL 0.31MG/3 ML VIAL INH SCH ×4 (01:56→19:24)
[2017-03-29] MEDS: PIPERACILL/TAZOBAC IV 3.375 GM in DEXTROSE 5% 50ML 50 ML IV SCH ×3 (03:39→21:43)
[2017-03-29 04:49] LABS: HEMATOCRIT 30.7 % (37-47); MEAN CELL VOLUME 81.6 fL (80-100); MEAN CORPUSCULAR HEMOGLOBIN 25.8 pg (25-34); MEAN CORPUSCULAR HGB CONC 31.6 g/dl (32-36); MEAN PLATELET VOLUME 8.9 fL (7.4-10.4); PLATELET COUNT 330 K/uL (130-400); RED BLOOD COUNT 3.76 M/uL (4.2-5.4); WHITE BLOOD COUNT 7.72 K/uL (4.8-10.8)
[2017-03-29 05:11] LABS: BUN/CREATININE RATIO 17.9 (10-20); CALCIUM 8.7 mg/dl (8.5-10.1); CREATININE 1.3 mg/dl (0.60-1.20); MAGNESIUM 1.9 mg/dl (1.8-2.4); POTASSIUM 3.7 mmol/L (3.5-5.1)
[2017-03-29] MEDS: HEPARIN SOD 5000 UNIT/0.5 ML CARP SQ SCH ×3 (05:31→21:48)
[2017-03-29] MEDS: METOPROLOL TARTRATE 1 MG/ML VIAL IV. SCH (05:34)
[2017-03-29] MEDS: NICOTINE 7 MG/24 HR TDSY TD SCH (08:01)
[2017-03-29] MEDS: VENLAFAXINE HCL XR 37.5 MG CAPXR PO SCH (08:01)
[2017-03-29] MEDS: MAGNESIUM OXIDE 400 MG TAB PO SCH ×2 (08:01→21:44)
[2017-03-29] MEDS: INSULIN ASPART 100 UNITS/ML 3 ML PEN SC SCH ×4 (08:07→21:00)
--- NOTE | 2017-03-29 10:05 | Cardiology Follow-Up ---
Subjective General Date of Service: Mar 29, 2017. Chief Complaint: respiratory failure Pt evaluation today including: conversation w/ patient, physical exam, chart review, lab review, review of studies, review of inpatient medication list History of Present Illness Patient more awake/alert today. States SOB improving. Still requiring high flow O2. Denies chest pain. No cough. No specific orthopnea, PND or LE edema. No palpitations. HR slightly HR this AM. Did not resume oral metoprolol yesterday. Allergies Coded Allergies: Nickel (Unverified Allergy, Unknown, ., 03/22/17) Ertapenem (Unverified Adverse Reaction, Intermediate, may have had elevated LFT's secondary to ertapenem..., 03/22/17) Patient received Vancomycin + Ertapenem in past for septic joint. She developed LFT elevations on this therapy. She had experienced ADHF, cardiogenic shock just prior to LFT elevation. Provider felt LFT elevations most likely due to shock, hepatic congestion but could not exclude ertapenem + venlafaxine as possible causes. Ertapenem was held and vanco was continued with Rocephin. LFTs improved. Social History Smoking Status: Former Smoker Hx Tobacco Use In Past Year?: No Hx Alcohol Use - Type And Amou: No Hx Substance Use - Type And Am: No Problem List Medical Problems: (1) Epigastric abdominal pain Status: Acute (2) Hypoxia Status: Acute (3) Vomiting Status: Acute Review of Systems Respiratory: + shortness of breath, + dyspnea at rest, No cough, No sputum, No wheezing, No hemoptysis Cardiac: No chest pain, No orthopnea, No PND, No edema, No palpitations Physical Exam Vital Signs Last Vital Signs Documentation Date Time Temp Pulse Resp B/P (MAP) Pulse Ox O2 Delivery O2 Flow Rate FiO2 03/29/17 08:01 91 High Flow Oxygen 50.0 60 03/29/17 07:19 96 20 03/29/17 06:53 36.4 95/60 (72) Physical Exam Constitutional: General Apperance: too thin Level of Distress: acutely ill, chronically ill Psychiatric: Mental Status: active & alert, lethargic Head: normocephalic, atraumatic Eyes: Pupils: PERRLA Neck: supple Lungs: Auscultation: no wheezing, dry rales/crackles Cardiovascular: Heart Auscultation: RRR, no murmurs, tachycardia Peripheral Pulses: Radial Pulse: normal on the right Abdomen: Bowel Sounds: normal Inspection & Palpation: soft, non-distended, no tenderness, guarding & rebound Extremities: no cyanosis, no edema Neurologic: Cranial Nerves: grossly intact Assessment and Plan Assessment and Plan ASSESSMENT 1. Multi-factorial respiratory failure secondary to healthcare acquired pneumonia, possible interstitial lung disease, as well as acute on chronic systolic heart failure. - Fluid balance is more than 5.0 L negative. Furosemide on hold the last few days. ? Accuracy but weight increasing and outputs dropping. 2. Ischemic cardiomyopathy with ejection fraction of 20-25% 3. Chronic LBBB 4. Acute on chronic renal insufficiency secondary to volume depletion, diuretic therapy - Creatinine improved this AM. 5. History of R septic knee with recurrent admission and [facility] IV antibiotic therapy January/February/March 2017 6. History of colon CA s/p resection. History of endometrial CA. new presacral mass on CT scan last month. PLAN: Creatinine improving. Resume oral furosemide 40 mg daily today. Resume metoprolol tartrate 25 mg BID. Case discussed with Dr. Choi. Will follow. Cardiology Attending Physician: Patient seen and examined at the bedside. Continues to improve clinically. Currently tolerating nasal cannula. High flow oxygen discontinued. Mild weight gain without edema noted. Tolerating diet. Offers no new complaints this time. Daughter is present at bedside. PE: VSS. Gen: NAD, chronically ill. Awake and alert. Heart: Regular borderline tachycardic no murmur appreciated. Lungs: Scattered rhonchi bilaterally no wheeze. Ext: No edema. A/P: Agree with above PAC history, physical exam, assessment and plan. Transitioned to oral metoprolol. Restart oral Lasix. Reassess renal function and volume status in a.m. Will continue to follow. Zoran Choi DO, [facility] Laboratory Results Last 24 Hours Test 03/28/17 11:07 03/28/17 16:07 03/28/17 20:09 03/29/17 04:12 Bedside Glucose 236 mg/dl 125 mg/dl 148 mg/dl White Blood Count 7.72 K/uL Red Blood Count 3.76 M/uL Hemoglobin 9.7 g/dL Hematocrit 30.7 % Mean Corpuscular Volume 81.6 fL Mean Corpuscular Hemoglobin 25.8 pg Mean Corpuscular Hemoglobin Concent 31.6 g/dl RDW Standard Deviation 53.2 fL RDW Coefficient of Variation 17.8 % Platelet Count 330 K/uL Mean Platelet Volume 8.9 fL Sodium Level 134 mmol/L Potassium Level 3.7 mmol/L Chloride Level 97 mmol/L Carbon Dioxide Level 32 mmol/L Anion Gap 5.0 mmol/L Blood Urea Nitrogen 23 mg/dl Creatinine 1.30 mg/dl Est Creatinine Clear Calc Drug Dose 36.6 ml/min Estimated GFR () 47.5 Estimated GFR (Non- 41.0 BUN/Creatinine Ratio 17.9 Random Glucose 105 mg/dl Calcium Level 8.7 mg/dl Magnesium Level 1.9 mg/dl Test 03/29/17 06:28 Bedside Glucose 125 mg/dl
[2017-03-29] MEDS: METOPROLOL TARTRATE 25 MG TAB PO SCH ×2 (11:17→21:00)
[2017-03-29] MEDS: FUROSEMIDE 40 MG TAB PO SCH (11:18)
--- NOTE | 2017-03-29 13:10 | Pulmonology Progress Note ---
Pulmonary Progress Note Date of Service Mar 29, 2017. Attending Dr. Palomino Subjective Patient seen and examined at bedside. She states that she is doing much better. Currently denies any shortness of breath, cough or chest pain. She had episode of agitation overnight and was refusing high flow nasal cannula associated with desaturations into the 60s. This morning she was switched over to 8 L nasal cannula and saturating between 88 to about 94%. Daughter, Arabella, was at bedside and encourage compliance with nasal cannula and treatment. Objective Vital signs reviewed. She is afebrile with a MAXIMUM TEMPERATURE of 36.7, blood pressure 98/64, pulse 82-100, respiratory rate 20-28, pulse ox 88-93% on 8 L nasal cannula. General Appearance: Patient awake, alert oriented 3. Neck: Supple. No JVD, nontender. Respiratory: Bibasilar rales and rhonchi present, no acute respiratory distress. Cardiovascular: NORMAL S1S2, NORMAL PERIPHERAL PULSES Abdomen: soft, nontender. Colostomy in place Extremities: No edema, no clubbing or cyanosis bilaterally Assessment & Plan Acute hypoxic respiratory failure Hospital-acquired pneumonia Systolic CHF exacerbation, with an EF 20-25% Hypoalbuminemia Diastolic dysfunction Elevated pulmonary artery pressure Patient has had complicated course over the last several months. The patient has had progressive decline in respiratory status over the last few weeks. I believe it is multifactorial in nature. She has evidence of systolic heart failure, diastolic dysfunction, hospital-acquired pneumonia, and overall poor nutritional which are all contributing to her symptoms.Patient most likely has pulmonary hypertension type II and type III in etiology. Patient switched over to nasal cannula this morning of 8 L saturating between 88 -94% did not tolerate high flow nasal cannula overnight due to agitation. Continue with BiPAP to maintain a SaO2 between 88-92% at night and when needed during the day. Titrate FiO2 as tolerated. Continue with empiric antibiotics to cover for hospital-acquired pneumonia. Cardiology is on board and optimizing cardiac medications. She was restarted on Lasix today as her creatinine has improved to 1.3 today for continued diuresis. Will continue to follow. Data Medications: Current Inpatient Medications Medications (Trade) Dose Ordered Sig/Lorenzo Route Start Time Stop Time Status Last Admin Dose Admin Alprazolam (Xanax Tab) 0.25 mg Q6H PRN PO 03/22/17 15:15 04/21/17 15:14 Bupropion HCl (Wellbutrin Tab) 75 mg TID@0700,1500,2300 PO 03/22/17 23:00 04/21/17 22:59 03/29/17 08:01 75 MG Furosemide (Lasix Tab) 40 mg QAM PO 03/23/17 09:00 04/22/17 08:59 Future hold 03/29/17 11:18 40 MG Metoprolol Tartrate (Lopressor Tab) 25 mg BID PO 03/22/17 21:00 04/21/17 20:59 Future hold 03/29/17 11:17 25 MG Nicotine (Nicoderm Cq 7 Mg Patch) 1 patch DAILY TD 03/23/17 09:00 04/22/17 08:59 03/29/17 08:01 1 PATCH Senna (Senokot Tab) 8.6 mg HS PO 03/22/17 21:00 04/21/17 20:59 03/28/17 20:38 8.6 MG Venlafaxine HCl (effeXOR EXTENDED REL CAP) 37.5 mg DAILY PO 03/23/17 09:00 04/22/17 08:59 03/29/17 08:01 37.5 MG Heparin Sodium (Porcine) (Heparin Sq 5000 Unit/0.5ml) 5,000 unit Q8 SQ 03/22/17 22:00 04/21/17 21:59 03/29/17 12:57 5,000 UNIT Acetaminophen (Tylenol Tab) 650 mg Q4H PRN PO 03/22/17 15:30 04/21/17 15:29 03/27/17 16:13 650 MG Al Hydrox/Mg Hydrox/Simethicone (Maalox Max Susp) 15 ml Q4H PRN PO 03/22/17 15:30 04/21/17 15:29 Magnesium Hydroxide (Milk Of Magnesia Susp) 30 ml Q12H PRN PO 03/22/17 15:30 04/21/17 15:29 Ondansetron HCl (Zofran Inj) 4 mg Q6H PRN IV 03/22/17 15:30 04/21/17 15:29 03/25/17 10:27 4 MG Polyethylene (Miralax Powder Packet) 17 gm DAILY PRN PO 03/22/17 15:30 04/21/17 15:29 Glucose (Glucose 40% Gel) 15-30 GRAMS 15 GRAMS... UD PRN PO 03/22/17 19:30 04/21/17 19:29 Glucose (Glucose Chew Tab) 4-8 Tablets 4 Tabl... UD PRN PO 03/22/17 19:30 04/21/17 19:29 Dextrose (Dextrose 50% 50ML Syringe) 25-50ML OF 50% DW IV FOR... UD PRN IV 03/22/17 19:30 04/21/17 19:29 Glucagon (Glucagon Inj) 1 mg UD PRN SQ 03/22/17 19:30 04/21/17 19:29 Miscellaneous Information (Order Awaiting Action) 1 ea QS N/A 03/23/17 08:00 04/22/17 07:59 03/27/17 19:56 1 EA Magnesium Oxide (Mag-Ox Tab) 400 mg BID PO 03/24/17 21:00 04/23/17 20:59 03/29/17 08:01 400 MG Levalbuterol (Xopenex 0.31MG/ 3ML Neb) 0.31 mg Q6R INH 03/24/17 15:00 04/23/17 14:59 03/29/17 07:19 0.31 MG Insulin Aspart (novoLOG ASPART) SLIDING SCALE If C... ACHS SC 03/25/17 16:15 04/24/17 16:14 03/29/17 12:57 5 UNITS Piperacillin Sod/ Tazobactam Sod (Consult) 1 ea UD PRN N/A 03/25/17 23:00 04/24/17 22:59 Piperacillin Sod/ Tazobactam Sod 3.375 gm/Dextrose 65 ml @ 16 mls/hr Q8H IV 03/26/17 04:00 04/02/17 03:59 03/29/17 12:59 16 MLS/HR Vancomycin HCl (Consult) 1 ea UD PRN N/A 03/25/17 23:30 03/29/17 23:59 Acetaminophen 650 mg/Empty Bag 65 ml @ 260 mls/hr Q6H PRN IV 03/26/17 23:30 04/25/17 23:29 03/27/17 00:17 260 MLS/HR Heparin Sodium (Porcine) (Heparin 100 Unit/ml 5ml Flush) 5 ml PRN PRN IV 03/28/17 01:00 04/27/17 00:59 Vancomycin HCl 1000 mg/Sodium Chloride 270 ml @ 125 mls/hr Q30H IV 03/28/17 12:00 03/29/17 23:59 03/28/17 11:58 125 MLS/HR Vital Signs: Date Time Temp Pulse Resp B/P (MAP) Pulse Ox O2 Delivery O2 Flow Rate FiO2 03/29/17 12:21 91 Nasal Cannula 8.0 03/29/17 11:23 36.4 98 28 96/62 (73) 93 Nasal Cannula 8.0 03/29/17 08:01 91 High Flow Oxygen 50.0 60 03/29/17 07:19 96 20 91 Nasal Cannula 57 03/29/17 06:53 36.4 98 26 95/60 (72) 88 High Flow Oxygen 03/29/17 05:34 99 97/67 03/29/17 04:12 36.7 101 22 98/64 (75) 88 High Flow Oxygen 03/29/17 04:00 High Flow Oxygen 5.0 60 03/29/17 01:56 82 20 91 Nasal Cannula 53 03/28/17 23:59 High Flow Oxygen 5.0 60 03/28/17 23:53 36.7 108 22 95/61 (72) 92 High Flow Oxygen 03/28/17 23:31 99 95/61 03/28/17 20:00 High Flow Oxygen 5.0 60 03/28/17 19:15 84 20 90 Nasal Cannula 60 03/28/17 18:44 36.9 99 26 90/57 (68) 99 High Flow Oxygen 03/28/17 17:49 105 99/65 03/28/17 17:47 108 99/65 (76) 95 High Flow Oxygen 03/28/17 16:00 High Flow Oxygen 03/28/17 15:15 36.9 86 25 89/60 (70) 86 High Flow Oxygen 03/28/17 14:10 84 20 90 BiPAP/CPAP 60 Laboratory Results: Last 24 Hours Test 03/28/17 16:07 03/28/17 20:09 03/29/17 04:12 03/29/17 06:28 Bedside Glucose 125 mg/dl 148 mg/dl 125 mg/dl White Blood Count 7.72 K/uL Red Blood Count 3.76 M/uL Hemoglobin 9.7 g/dL Hematocrit 30.7 % Mean Corpuscular Volume 81.6 fL Mean Corpuscular Hemoglobin 25.8 pg Mean Corpuscular Hemoglobin Concent 31.6 g/dl RDW Standard Deviation 53.2 fL RDW Coefficient of Variation 17.8 % Platelet Count 330 K/uL Mean Platelet Volume 8.9 fL Sodium Level 134 mmol/L Potassium Level 3.7 mmol/L Chloride Level 97 mmol/L Carbon Dioxide Level 32 mmol/L Anion Gap 5.0 mmol/L Blood Urea Nitrogen 23 mg/dl Creatinine 1.30 mg/dl Est Creatinine Clear Calc Drug Dose 36.6 ml/min Estimated GFR () 47.5 Estimated GFR (Non- 41.0 BUN/Creatinine Ratio 17.9 Random Glucose 105 mg/dl Calcium Level 8.7 mg/dl Magnesium Level 1.9 mg/dl Test 03/29/17 11:09 Bedside Glucose 251 mg/dl
--- NOTE | 2017-03-29 16:53 | Progress Note ---
Medicine Progress Note Date & Time of Visit: Mar 29, 2017 at 16:38. Subjective Pt was seen and examined Sitting in bed with no acute distress ready to eat Lunch Pt is more awake today He said that her breathing improved slightly She was placed on 8 L NC early this morning when I saw her She denies any chest pain, palpitation, dizziness Objective Last 8 Hrs Date Time Temp Pulse Resp B/P (MAP) Pulse Ox O2 Delivery O2 Flow Rate FiO2 03/29/17 16:00 Oxymask 10.0 03/29/17 15:10 36.4 94 25 84/53 (63) 83 Nasal Cannula 8.0 03/29/17 13:53 96 20 95 Nasal Cannula 6.0 57 03/29/17 12:21 91 Nasal Cannula 8.0 03/29/17 11:23 36.4 98 28 96/62 (73) 93 Nasal Cannula 8.0 Physical Exam: General- No acute distress Head- atraumatic Eyes- PERRL, EOMI ENT- oropharynx clear Neck- supple, no JVD Lungs- clear to auscultation Heart- Tachycardia, no murmur Abdomen- normal bowel sounds, soft Extremities- no calf tenderness Neuro- alert, oriented, PERRL, EOMI Skin- warm & dry Laboratory Results: Last 24 Hours Test 03/28/17 20:09 03/29/17 04:12 03/29/17 06:28 03/29/17 11:09 Bedside Glucose 148 mg/dl 125 mg/dl 251 mg/dl White Blood Count 7.72 K/uL Red Blood Count 3.76 M/uL Hemoglobin 9.7 g/dL Hematocrit 30.7 % Mean Corpuscular Volume 81.6 fL Mean Corpuscular Hemoglobin 25.8 pg Mean Corpuscular Hemoglobin Concent 31.6 g/dl RDW Standard Deviation 53.2 fL RDW Coefficient of Variation 17.8 % Platelet Count 330 K/uL Mean Platelet Volume 8.9 fL Sodium Level 134 mmol/L Potassium Level 3.7 mmol/L Chloride Level 97 mmol/L Carbon Dioxide Level 32 mmol/L Anion Gap 5.0 mmol/L Blood Urea Nitrogen 23 mg/dl Creatinine 1.30 mg/dl Est Creatinine Clear Calc Drug Dose 36.6 ml/min Estimated GFR () 47.5 Estimated GFR (Non- 41.0 BUN/Creatinine Ratio 17.9 Random Glucose 105 mg/dl Calcium Level 8.7 mg/dl Magnesium Level 1.9 mg/dl Assessment & Plan Bibasilar Pneumonia Hypoxia on admission CXR showed bilateral mixed interstitial and alveolar airspace opacities. Recent hospital stay in [facility] Marisol Has been on Vanco + Levaquin for now Appreciate ID input No fever or chills ,no increase in WBC Blood culture -negative and No MRSA On broad coverage with Vanco and Zosyn has been on BIPAP Changed to high flow 02 @60% Pulmonary on board 03/28 Clinically improved Off Bipap since yesterday has been on high flow oxygen @40% saturated above 95 will titrate off oxygen slowly to transition to nasal cannula when able Pulmonary on board 03/29 Respiratory clinically improved Was placed on 8L NC Pulmonary recommend to use BiPap at night or during the day prn to keep saturation btw 88- 92% Continue empirical abx Acute Respiratory Failure due to acute on chronic combined systolic and diastolic CHF with Complication of bibasilar Pneumonia ABG -showed no CO2 retention has been requiring BIPAP, plan to wean off bipap On high flow oxygen now. Lasix on hold today due to increase in creatine Consider to resume lasix tonight or tomorrow Pulmonary consulted clinically improved significantly 03/29 Clinically improved off bipap lasix 40mg po given today continue monitor closely Hx. of colorectal CA s/p resection/colostomy Has Presacral Mass patient with colostomy, draining well, no foul-smelling stool no abdominal pain, no other issues to note No acute issue CEA is mildly high likely to have OP follow up Cardiomyopathy. Patient with a hx. of cardiomyopathy BNP elevated has been diuresis, negative 7 L Lasix resumed since creatine improved to 1.3 monitor renal function and electrolytes ECHO showed * The left ventricle is mildly dilated. * Ejection Fraction = 20-25%. * Regional wall motion abnormalities indicative of severe ischemic cardiomyopathy. * The right ventricular cavity size is normal (basal dimension <4.2 cm in right ventricular apical 4-chamber view). * The right ventricular systolic function is normal. * Aortic valve sclerosis mild, without significant aortic valvular stenosis. * There is mild mitral regurgitation. * There is mild tricuspid regurgitation. * The estimated systolic PAP is 46mmHg. Cardiology on board May need Ionotropic support Acute Kidney Injury with h/o CKD Creatine on admission 1.3 Creatine today 1.3 has been diuresis by putting out ~7 L Avoid Nephrotoxic agent Lasix 40mg PO given today monitor BMP DM2 -BSGs ACHS -insulin sliding scale DVT ppx -subq heparin CODE STATUS DNR if no medical improvement, daughter will make comfort care Consultants: cardio Pulmonary Current Inpatient Medications: Current Inpatient Medications Medications (Trade) Dose Ordered Sig/Lorenzo Route Start Time Stop Time Status Last Admin Dose Admin Alprazolam (Xanax Tab) 0.25 mg Q6H PRN PO 03/22/17 15:15 04/21/17 15:14 Bupropion HCl (Wellbutrin Tab) 75 mg TID@0700,1500,2300 PO 03/22/17 23:00 04/21/17 22:59 03/29/17 14:09 75 MG Furosemide (Lasix Tab) 40 mg QAM PO 03/23/17 09:00 04/22/17 08:59 Future hold 03/29/17 11:18 40 MG Metoprolol Tartrate (Lopressor Tab) 25 mg BID PO 03/22/17 21:00 04/21/17 20:59 Future hold 03/29/17 11:17 25 MG Nicotine (Nicoderm Cq 7 Mg Patch) 1 patch DAILY TD 03/23/17 09:00 04/22/17 08:59 03/29/17 08:01 1 PATCH Senna (Senokot Tab) 8.6 mg HS PO 03/22/17 21:00 04/21/17 20:59 03/28/17 20:38 8.6 MG Venlafaxine HCl (effeXOR EXTENDED REL CAP) 37.5 mg DAILY PO 03/23/17 09:00 04/22/17 08:59 03/29/17 08:01 37.5 MG Heparin Sodium (Porcine) (Heparin Sq 5000 Unit/0.5ml) 5,000 unit Q8 SQ 03/22/17 22:00 04/21/17 21:59 03/29/17 12:57 5,000 UNIT Acetaminophen (Tylenol Tab) 650 mg Q4H PRN PO 03/22/17 15:30 04/21/17 15:29 03/27/17 16:13 650 MG Al Hydrox/Mg Hydrox/Simethicone (Maalox Max Susp) 15 ml Q4H PRN PO 03/22/17 15:30 04/21/17 15:29 Magnesium Hydroxide (Milk Of Magnesia Susp) 30 ml Q12H PRN PO 03/22/17 15:30 04/21/17 15:29 Ondansetron HCl (Zofran Inj) 4 mg Q6H PRN IV 03/22/17 15:30 04/21/17 15:29 03/25/17 10:27 4 MG Polyethylene (Miralax Powder Packet) 17 gm DAILY PRN PO 03/22/17 15:30 04/21/17 15:29 Glucose (Glucose 40% Gel) 15-30 GRAMS 15 GRAMS... UD PRN PO 03/22/17 19:30 04/21/17 19:29 Glucose (Glucose Chew Tab) 4-8 Tablets 4 Tabl... UD PRN PO 03/22/17 19:30 04/21/17 19:29 Dextrose (Dextrose 50% 50ML Syringe) 25-50ML OF 50% DW IV FOR... UD PRN IV 03/22/17 19:30 04/21/17 19:29 Glucagon (Glucagon Inj) 1 mg UD PRN SQ 03/22/17 19:30 04/21/17 19:29 Miscellaneous Information (Order Awaiting Action) 1 ea QS N/A 03/23/17 08:00 04/22/17 07:59 03/27/17 19:56 1 EA Magnesium Oxide (Mag-Ox Tab) 400 mg BID PO 03/24/17 21:00 04/23/17 20:59 03/29/17 08:01 400 MG Levalbuterol (Xopenex 0.31MG/ 3ML Neb) 0.31 mg Q6R INH 03/24/17 15:00 04/23/17 14:59 03/29/17 13:52 0.31 MG Insulin Aspart (novoLOG ASPART) SLIDING SCALE If C... ACHS SC 03/25/17 16:15 04/24/17 16:14 03/29/17 12:57 5 UNITS Piperacillin Sod/ Tazobactam Sod (Consult) 1 ea UD PRN N/A 03/25/17 23:00 04/24/17 22:59 Piperacillin Sod/ Tazobactam Sod 3.375 gm/Dextrose 65 ml @ 16 mls/hr Q8H IV 03/26/17 04:00 04/02/17 03:59 03/29/17 12:59 16 MLS/HR Vancomycin HCl (Consult) 1 ea UD PRN N/A 03/25/17 23:30 03/29/17 23:59 Acetaminophen 650 mg/Empty Bag 65 ml @ 260 mls/hr Q6H PRN IV 03/26/17 23:30 04/25/17 23:29 03/27/17 00:17 260 MLS/HR Heparin Sodium (Porcine) (Heparin 100 Unit/ml 5ml Flush) 5 ml PRN PRN IV 03/28/17 01:00 04/27/17 00:59 Vancomycin HCl 1000 mg/Sodium Chloride 270 ml @ 125 mls/hr Q30H IV 03/28/17 12:00 03/29/17 23:59 03/28/17 11:58 125 MLS/HR
[2017-03-29] MEDS: ACETAMINOPHEN 325 MG TAB PO PRN (16:58)
[2017-03-29] MEDS: VANCOMYCIN INJ 1,000 MG in SODIUM CHLORIDE 0.9% 250ML 250 ML IV SCH (20:27)
[2017-03-29] MEDS: SENNA 8.6 MG TAB PO SCH (21:43)
[2017-03-29] MEDS: ALPRAZOLAM 0.25 MG TAB PO PRN (21:43)
[2017-03-30] VITALS (10 sets, daily range): BP systolic 77–106; BP diastolic 52–61; PULSE 65–99; TEMP 36.3–36.7; O2SAT 86–99
[2017-03-30] MEDS: LEVALBUTEROL 0.31MG/3 ML VIAL INH SCH ×4 (03:00→19:15)
[2017-03-30] MEDS: PIPERACILL/TAZOBAC IV 3.375 GM in DEXTROSE 5% 50ML 50 ML IV SCH ×3 (03:30→20:12)
[2017-03-30 04:49] LABS: HEMATOCRIT 30.1 % (37-47); MEAN CELL VOLUME 81.8 fL (80-100); MEAN CORPUSCULAR HEMOGLOBIN 26.4 pg (25-34); MEAN CORPUSCULAR HGB CONC 32.2 g/dl (32-36); MEAN PLATELET VOLUME 8.8 fL (7.4-10.4); PLATELET COUNT 311 K/uL (130-400); RED BLOOD COUNT 3.68 M/uL (4.2-5.4); WHITE BLOOD COUNT 6.39 K/uL (4.8-10.8)
[2017-03-30 05:15] LABS: BUN/CREATININE RATIO 16.1 (10-20); CALCIUM 8.7 mg/dl (8.5-10.1); CREATININE 1.3 mg/dl (0.60-1.20); POTASSIUM 3.5 mmol/L (3.5-5.1)
[2017-03-30] MEDS: HEPARIN SOD 5000 UNIT/0.5 ML CARP SQ SCH ×3 (05:28→21:52)
[2017-03-30] MEDS: VENLAFAXINE HCL XR 37.5 MG CAPXR PO SCH (07:29)
[2017-03-30] MEDS: FUROSEMIDE 40 MG TAB PO SCH (07:29)
[2017-03-30] MEDS: METOPROLOL TARTRATE 25 MG TAB PO SCH ×2 (07:29→20:56)
[2017-03-30] MEDS: NICOTINE 7 MG/24 HR TDSY TD SCH (07:30)
[2017-03-30] MEDS: MAGNESIUM OXIDE 400 MG TAB PO SCH ×2 (07:30→21:50)
[2017-03-30] MEDS: INSULIN ASPART 100 UNITS/ML 3 ML PEN SC SCH ×4 (08:13→21:00)
--- NOTE | 2017-03-30 11:02 | Cardiology Follow-Up ---
Subjective General Date of Service: Mar 30, 2017. Chief Complaint: respiratory failure Pt evaluation today including: conversation w/ patient, physical exam, chart review, lab review, review of studies, review of inpatient medication list History of Present Illness Patient sleeping. Awakens to voice. Denies SOB. States she feels "good". Tolerating NC now. No complaints of SOB currently. No chest pain. No palpitations, tachypalpitations or dizziness. No orthopnea or edema. Allergies Coded Allergies: Nickel (Unverified Allergy, Unknown, ., 03/22/17) Ertapenem (Unverified Adverse Reaction, Intermediate, may have had elevated LFT's secondary to ertapenem..., 03/22/17) Patient received Vancomycin + Ertapenem in past for septic joint. She developed LFT elevations on this therapy. She had experienced ADHF, cardiogenic shock just prior to LFT elevation. Provider felt LFT elevations most likely due to shock, hepatic congestion but could not exclude ertapenem + venlafaxine as possible causes. Ertapenem was held and vanco was continued with Rocephin. LFTs improved. Social History Smoking Status: Former Smoker Hx Tobacco Use In Past Year?: No Hx Alcohol Use - Type And Amou: No Hx Substance Use - Type And Am: No Problem List Medical Problems: (1) Epigastric abdominal pain Status: Acute (2) Hypoxia Status: Acute (3) Vomiting Status: Acute Review of Systems Respiratory: + dyspnea on exertion, No cough, No sputum, No wheezing, No shortness of breath, No dyspnea at rest, No hemoptysis Cardiac: No chest pain, No orthopnea, No PND, No edema, No palpitations Physical Exam Vital Signs Last Vital Signs Documentation Date Time Temp Pulse Resp B/P (MAP) Pulse Ox O2 Delivery O2 Flow Rate FiO2 03/30/17 08:52 Nasal Cannula 6.0 03/30/17 07:01 69 18 97 03/30/17 07:01 36.4 106/61 (76) 03/29/17 13:53 57 Physical Exam Constitutional: General Apperance: too thin Level of Distress: acutely ill, chronically ill Psychiatric: Mental Status: active & alert, lethargic Head: normocephalic, atraumatic Eyes: Pupils: PERRLA Neck: supple Lungs: Auscultation: no wheezing, dry rales/crackles Cardiovascular: Heart Auscultation: RRR, no murmurs Peripheral Pulses: Radial Pulse: normal on the right Abdomen: Bowel Sounds: normal Inspection & Palpation: soft, non-distended, no tenderness, guarding & rebound Extremities: no cyanosis, no edema Neurologic: Cranial Nerves: grossly intact Assessment and Plan Assessment and Plan ASSESSMENT 1. Multi-factorial respiratory failure secondary to healthcare acquired pneumonia, possible interstitial lung disease, as well as acute on chronic systolic heart failure. 2. Ischemic cardiomyopathy with ejection fraction of 20-25% 3. Chronic LBBB 4. Acute on chronic renal insufficiency secondary to volume depletion, diuretic therapy - Creatinine improved this AM. 5. History of R septic knee with recurrent admission and alf IV antibiotic therapy January/February/March 2017 6. History of colon CA s/p resection. History of endometrial CA. new presacral mass on CT scan last month. PLAN: Respiratory status continues to improve slowly over the last few days. Now tolerating NC. Home dose furosemide 40 mg resumed yesterday. Good outputs. > 2 L over the last 24 hours. Continue metoprolol tartrate 25 mg BID. HR improved. Creatinine improving. Case discussed with Dr. Choi. Will follow. Cardiology Attending Physician: Patient seen and examined at the bedside. Continues to improve clinically. Tolerated nasal cannula over night. High flow oxygen discontinued. Lasix restarted with adequate diuresis. Tolerating diet. Offers no new complaints this time. Daughter is present at bedside. PE: VSS. Gen: NAD, chronically ill. Awake and alert. Heart: Regular borderline tachycardic no murmur appreciated. Lungs: Scattered rhonchi bilaterally, left sided crackles, no wheeze. Ext: No edema. A/P: Agree with above PAC history, physical exam, assessment and plan. Continue PO lasix and metoprolol. Will continue to follow. Zoran Choi DO, [facility] Laboratory Results Last 24 Hours Test 03/29/17 11:09 03/29/17 16:19 03/29/17 20:10 03/30/17 04:19 Bedside Glucose 251 mg/dl 164 mg/dl 171 mg/dl White Blood Count 6.39 K/uL Red Blood Count 3.68 M/uL Hemoglobin 9.7 g/dL Hematocrit 30.1 % Mean Corpuscular Volume 81.8 fL Mean Corpuscular Hemoglobin 26.4 pg Mean Corpuscular Hemoglobin Concent 32.2 g/dl RDW Standard Deviation 53.4 fL RDW Coefficient of Variation 17.8 % Platelet Count 311 K/uL Mean Platelet Volume 8.8 fL Sodium Level 140 mmol/L Potassium Level 3.5 mmol/L Chloride Level 100 mmol/L Carbon Dioxide Level 32 mmol/L Anion Gap 8.0 mmol/L Blood Urea Nitrogen 21 mg/dl Creatinine 1.30 mg/dl Est Creatinine Clear Calc Drug Dose 36.6 ml/min Estimated GFR () 47.5 Estimated GFR (Non- 41.0 BUN/Creatinine Ratio 16.1 Random Glucose 108 mg/dl Calcium Level 8.7 mg/dl Test 03/30/17 06:35 Bedside Glucose 122 mg/dl
--- NOTE | 2017-03-30 12:09 | Pulmonology Progress Note ---
Pulmonary Progress Note Date of Service Mar 30, 2017. Attending Dr. Palomino Subjective Patient seen and examined. She states that she slept very well overnight. The best sleep she's had in about 3 days. She denies any fever, chills, chest pain, cough, or shortness of breath. Objective Vital signs reviewed. She is afebrile with a Tm of 36.7, blood pressure 106/61 , pulse 65-71, respiratory rate 18-21, pulse ox 95-99% on 6 L nasal cannula. At the time of my examination, she on 3L NC with SaO2 of 82%. Increased up to 5 L. General Appearance: Patient awake, alert oriented 3. Neck: Supple. No JVD, nontender. Respiratory: Bibasilar rales and rhonchi present, no acute respiratory distress. Cardiovascular: NORMAL S1S2, NORMAL PERIPHERAL PULSES Abdomen: soft, nontender. Colostomy in place Extremities: No edema, no clubbing or cyanosis bilaterally Assessment & Plan Acute hypoxic respiratory failure Hospital-acquired pneumonia Systolic CHF exacerbation, with an EF 20-25% Hypoalbuminemia Diastolic dysfunction Elevated pulmonary artery pressure Patient has had complicated course over the last several months. The patient has had progressive decline in respiratory status over the last few weeks. I believe it is multifactorial in nature. She has evidence of systolic heart failure, diastolic dysfunction, hospital-acquired pneumonia, and overall poor nutritional which are all contributing to her symptoms. Patient most likely has pulmonary hypertension type II and type III in etiology. Patient doing well on nasal canula on 5L NC to maintain a SaO2 between 88-92% .Titrate FiO2 as tolerated. Continue with empiric antibiotics to cover for hospital-acquired pneumonia. Cardiology is on board and optimizing cardiac medications. C/w Lasix as her creatinine tolerates. Will continue to follow. Data Medications: Current Inpatient Medications Medications (Trade) Dose Ordered Sig/Lorenzo Route Start Time Stop Time Status Last Admin Dose Admin Alprazolam (Xanax Tab) 0.25 mg Q6H PRN PO 03/22/17 15:15 04/21/17 15:14 03/29/17 21:43 0.25 MG Bupropion HCl (Wellbutrin Tab) 75 mg TID@0700,1500,2300 PO 03/22/17 23:00 04/21/17 22:59 03/30/17 05:29 75 MG Furosemide (Lasix Tab) 40 mg QAM PO 03/23/17 09:00 04/22/17 08:59 Future hold 03/30/17 07:29 40 MG Metoprolol Tartrate (Lopressor Tab) 25 mg BID PO 03/22/17 21:00 04/21/17 20:59 Future hold 03/30/17 07:29 25 MG Nicotine (Nicoderm Cq 7 Mg Patch) 1 patch DAILY TD 03/23/17 09:00 04/22/17 08:59 03/30/17 07:30 1 PATCH Senna (Senokot Tab) 8.6 mg HS PO 03/22/17 21:00 04/21/17 20:59 03/29/17 21:43 8.6 MG Venlafaxine HCl (effeXOR EXTENDED REL CAP) 37.5 mg DAILY PO 03/23/17 09:00 04/22/17 08:59 03/30/17 07:29 37.5 MG Heparin Sodium (Porcine) (Heparin Sq 5000 Unit/0.5ml) 5,000 unit Q8 SQ 03/22/17 22:00 04/21/17 21:59 03/30/17 05:28 5,000 UNIT Acetaminophen (Tylenol Tab) 650 mg Q4H PRN PO 03/22/17 15:30 04/21/17 15:29 03/29/17 16:58 650 MG Al Hydrox/Mg Hydrox/Simethicone (Maalox Max Susp) 15 ml Q4H PRN PO 03/22/17 15:30 04/21/17 15:29 Magnesium Hydroxide (Milk Of Magnesia Susp) 30 ml Q12H PRN PO 03/22/17 15:30 04/21/17 15:29 Ondansetron HCl (Zofran Inj) 4 mg Q6H PRN IV 03/22/17 15:30 04/21/17 15:29 03/25/17 10:27 4 MG Polyethylene (Miralax Powder Packet) 17 gm DAILY PRN PO 03/22/17 15:30 04/21/17 15:29 Glucose (Glucose 40% Gel) 15-30 GRAMS 15 GRAMS... UD PRN PO 03/22/17 19:30 04/21/17 19:29 Glucose (Glucose Chew Tab) 4-8 Tablets 4 Tabl... UD PRN PO 03/22/17 19:30 04/21/17 19:29 Dextrose (Dextrose 50% 50ML Syringe) 25-50ML OF 50% DW IV FOR... UD PRN IV 03/22/17 19:30 04/21/17 19:29 Glucagon (Glucagon Inj) 1 mg UD PRN SQ 03/22/17 19:30 04/21/17 19:29 Miscellaneous Information (Order Awaiting Action) 1 ea QS N/A 03/23/17 08:00 04/22/17 07:59 03/27/17 19:56 1 EA Magnesium Oxide (Mag-Ox Tab) 400 mg BID PO 03/24/17 21:00 04/23/17 20:59 03/30/17 07:30 400 MG Levalbuterol (Xopenex 0.31MG/ 3ML Neb) 0.31 mg Q6R INH 03/24/17 15:00 04/23/17 14:59 03/30/17 06:59 0.31 MG Insulin Aspart (novoLOG ASPART) SLIDING SCALE If C... ACHS SC 03/25/17 16:15 04/24/17 16:14 03/30/17 08:13 1 UNITS Piperacillin Sod/ Tazobactam Sod (Consult) 1 ea UD PRN N/A 03/25/17 23:00 04/24/17 22:59 Piperacillin Sod/ Tazobactam Sod 3.375 gm/Dextrose 65 ml @ 16 mls/hr Q8H IV 03/26/17 04:00 04/02/17 03:59 03/30/17 03:30 16 MLS/HR Acetaminophen 650 mg/Empty Bag 65 ml @ 260 mls/hr Q6H PRN IV 03/26/17 23:30 04/25/17 23:29 03/27/17 00:17 260 MLS/HR Heparin Sodium (Porcine) (Heparin 100 Unit/ml 5ml Flush) 5 ml PRN PRN IV 03/28/17 01:00 04/27/17 00:59 Vital Signs: Date Time Temp Pulse Resp B/P (MAP) Pulse Ox O2 Delivery O2 Flow Rate FiO2 03/30/17 08:52 Nasal Cannula 6.0 03/30/17 07:01 69 18 97 Mask 6.0 03/30/17 07:01 36.4 71 22 106/61 (76) 95 Nasal Cannula 6.0 03/30/17 04:22 36.7 65 18 82/53 (63) 99 03/30/17 04:00 Room Air 03/30/17 00:00 Room Air 03/29/17 23:05 36.4 93 20 94/60 (71) 98 03/29/17 20:00 Oxymask 10.0 03/29/17 19:29 80 20 95 Mask 10.0 03/29/17 18:40 36.4 74 19 91/55 (67) 92 Nasal Cannula 8.0 03/29/17 16:00 Oxymask 10.0 03/29/17 15:10 36.4 94 25 84/53 (63) 83 Nasal Cannula 8.0 03/29/17 13:53 96 20 95 Nasal Cannula 6.0 57 03/29/17 12:21 91 Nasal Cannula 8.0 Laboratory Results: Last 24 Hours Test 03/29/17 16:19 03/29/17 20:10 03/30/17 04:19 03/30/17 06:35 Bedside Glucose 164 mg/dl 171 mg/dl 122 mg/dl White Blood Count 6.39 K/uL Red Blood Count 3.68 M/uL Hemoglobin 9.7 g/dL Hematocrit 30.1 % Mean Corpuscular Volume 81.8 fL Mean Corpuscular Hemoglobin 26.4 pg Mean Corpuscular Hemoglobin Concent 32.2 g/dl RDW Standard Deviation 53.4 fL RDW Coefficient of Variation 17.8 % Platelet Count 311 K/uL Mean Platelet Volume 8.8 fL Sodium Level 140 mmol/L Potassium Level 3.5 mmol/L Chloride Level 100 mmol/L Carbon Dioxide Level 32 mmol/L Anion Gap 8.0 mmol/L Blood Urea Nitrogen 21 mg/dl Creatinine 1.30 mg/dl Est Creatinine Clear Calc Drug Dose 36.6 ml/min Estimated GFR () 47.5 Estimated GFR (Non- 41.0 BUN/Creatinine Ratio 16.1 Random Glucose 108 mg/dl Calcium Level 8.7 mg/dl Test 03/30/17 11:12 Bedside Glucose 174 mg/dl
--- NOTE | 2017-03-30 15:53 | Progress Note ---
Medicine Progress Note Date & Time of Visit: Mar 30, 2017 at 15:45. Subjective Pt was seen and examined Lying in bed with no distress Pt said that her breathing feels much better she saturated well on NC She said that she slept well last night Denies any chest pain, palpitation, dizziness and fever Objective Last 8 Hrs Date Time Temp Pulse Resp B/P (MAP) Pulse Ox O2 Delivery O2 Flow Rate FiO2 03/30/17 13:44 89 18 96 Mask 6.0 03/30/17 12:15 Nasal Cannula 5.0 03/30/17 11:10 36.6 95 21 94/60 (71) 91 Nasal Cannula 5.0 03/30/17 08:52 Nasal Cannula 6.0 Physical Exam: General- No acute distress Head- atraumatic Eyes- PERRL, EOMI ENT- oropharynx clear Neck- supple, no JVD Lungs- No wheezing, No rales Heart- Tachycardia, no murmur Abdomen- normal bowel sounds, soft Extremities- no calf tenderness Neuro- alert, oriented, PERRL, EOMI Skin- warm & dry Laboratory Results: Last 24 Hours Test 03/29/17 16:19 03/29/17 20:10 03/30/17 04:19 03/30/17 06:35 Bedside Glucose 164 mg/dl 171 mg/dl 122 mg/dl White Blood Count 6.39 K/uL Red Blood Count 3.68 M/uL Hemoglobin 9.7 g/dL Hematocrit 30.1 % Mean Corpuscular Volume 81.8 fL Mean Corpuscular Hemoglobin 26.4 pg Mean Corpuscular Hemoglobin Concent 32.2 g/dl RDW Standard Deviation 53.4 fL RDW Coefficient of Variation 17.8 % Platelet Count 311 K/uL Mean Platelet Volume 8.8 fL Sodium Level 140 mmol/L Potassium Level 3.5 mmol/L Chloride Level 100 mmol/L Carbon Dioxide Level 32 mmol/L Anion Gap 8.0 mmol/L Blood Urea Nitrogen 21 mg/dl Creatinine 1.30 mg/dl Est Creatinine Clear Calc Drug Dose 36.6 ml/min Estimated GFR () 47.5 Estimated GFR (Non- 41.0 BUN/Creatinine Ratio 16.1 Random Glucose 108 mg/dl Calcium Level 8.7 mg/dl Test 03/30/17 11:12 Bedside Glucose 174 mg/dl Assessment & Plan Bibasilar Pneumonia Hypoxia on admission CXR showed bilateral mixed interstitial and alveolar airspace opacities. Recent hospital stay in [facility] [place] Has been on Vanco + Levaquin for now Appreciate ID input No fever or chills ,no increase in WBC Blood culture -negative and No MRSA On broad coverage with Vanco and Zosyn has been on BIPAP Changed to high flow 02 @60% Pulmonary on board 03/28 Clinically improved Off Bipap since yesterday has been on high flow oxygen @40% saturated above 95 will titrate off oxygen slowly to transition to nasal cannula when able Pulmonary on board 03/30 Respiratory clinically improved Was placed on 8L NC, saturated well Pulmonary recommend to use BiPap at night or during the day prn to keep saturation btw 88- 92% Will d/c vanco Continue Zosyn Plan to continue to titrate off oxygen to keep oxygen saturation above 90% continue monitor closely Acute Respiratory Failure due to acute on chronic combined systolic and diastolic CHF with Complication of bibasilar Pneumonia ABG -showed no CO2 retention has been requiring BIPAP, plan to wean off bipap On high flow oxygen now. Lasix on hold today due to increase in creatine Consider to resume lasix tonight or tomorrow Pulmonary consulted clinically improved significantly 03/30 Clinically improved off bipap lasix 40mg po given today Continue lasix 40mg daily diuresis well continue monitor closely Hx. of colorectal CA s/p resection/colostomy Has Presacral Mass patient with colostomy, draining well, no foul-smelling stool no abdominal pain, no other issues to note No acute issue CEA is mildly high likely to have OP follow up Cardiomyopathy. Patient with a hx. of cardiomyopathy BNP elevated has been diuresis, negative 7 L Lasix resumed since creatine improved to 1.3 Continue lasix 40mg daily Negative 2L over 24hr monitor renal function and electrolytes ECHO showed * The left ventricle is mildly dilated. * Ejection Fraction = 20-25%. * Regional wall motion abnormalities indicative of severe ischemic cardiomyopathy. * The right ventricular cavity size is normal (basal dimension <4.2 cm in right ventricular apical 4-chamber view). * The right ventricular systolic function is normal. * Aortic valve sclerosis mild, without significant aortic valvular stenosis. * There is mild mitral regurgitation. * There is mild tricuspid regurgitation. * The estimated systolic PAP is 46mmHg. Cardiology on board May need Ionotropic support Acute Kidney Injury with h/o CKD Creatine on admission 1.3 Creatine today 1.3 has been diuresis by putting out ~7 L Avoid Nephrotoxic agent Continue Lasix 40mg PO monitor BMP DM2 -BSGs ACHS -insulin sliding scale DVT ppx -subq heparin CODE STATUS DNR if no medical improvement, daughter will make comfort care Clinically improved Consultants: cardio Pulmonary Current Inpatient Medications: Current Inpatient Medications Medications (Trade) Dose Ordered Sig/Lorenzo Route Start Time Stop Time Status Last Admin Dose Admin Alprazolam (Xanax Tab) 0.25 mg Q6H PRN PO 03/22/17 15:15 04/21/17 15:14 03/29/17 21:43 0.25 MG Bupropion HCl (Wellbutrin Tab) 75 mg TID@0700,1500,2300 PO 03/22/17 23:00 04/21/17 22:59 03/30/17 05:29 75 MG Furosemide (Lasix Tab) 40 mg QAM PO 03/23/17 09:00 04/22/17 08:59 Future hold 03/30/17 07:29 40 MG Metoprolol Tartrate (Lopressor Tab) 25 mg BID PO 03/22/17 21:00 04/21/17 20:59 Future hold 03/30/17 07:29 25 MG Nicotine (Nicoderm Cq 7 Mg Patch) 1 patch DAILY TD 03/23/17 09:00 04/22/17 08:59 03/30/17 07:30 1 PATCH Senna (Senokot Tab) 8.6 mg HS PO 03/22/17 21:00 04/21/17 20:59 03/29/17 21:43 8.6 MG Venlafaxine HCl (effeXOR EXTENDED REL CAP) 37.5 mg DAILY PO 03/23/17 09:00 04/22/17 08:59 03/30/17 07:29 37.5 MG Heparin Sodium (Porcine) (Heparin Sq 5000 Unit/0.5ml) 5,000 unit Q8 SQ 03/22/17 22:00 04/21/17 21:59 03/30/17 13:02 5,000 UNIT Acetaminophen (Tylenol Tab) 650 mg Q4H PRN PO 03/22/17 15:30 04/21/17 15:29 03/29/17 16:58 650 MG Al Hydrox/Mg Hydrox/Simethicone (Maalox Max Susp) 15 ml Q4H PRN PO 03/22/17 15:30 04/21/17 15:29 Magnesium Hydroxide (Milk Of Magnesia Susp) 30 ml Q12H PRN PO 03/22/17 15:30 04/21/17 15:29 Ondansetron HCl (Zofran Inj) 4 mg Q6H PRN IV 03/22/17 15:30 04/21/17 15:29 03/25/17 10:27 4 MG Polyethylene (Miralax Powder Packet) 17 gm DAILY PRN PO 03/22/17 15:30 04/21/17 15:29 Glucose (Glucose 40% Gel) 15-30 GRAMS 15 GRAMS... UD PRN PO 03/22/17 19:30 04/21/17 19:29 Glucose (Glucose Chew Tab) 4-8 Tablets 4 Tabl... UD PRN PO 03/22/17 19:30 04/21/17 19:29 Dextrose (Dextrose 50% 50ML Syringe) 25-50ML OF 50% DW IV FOR... UD PRN IV 03/22/17 19:30 04/21/17 19:29 Glucagon (Glucagon Inj) 1 mg UD PRN SQ 03/22/17 19:30 04/21/17 19:29 Miscellaneous Information (Order Awaiting Action) 1 ea QS N/A 03/23/17 08:00 04/22/17 07:59 03/27/17 19:56 1 EA Magnesium Oxide (Mag-Ox Tab) 400 mg BID PO 03/24/17 21:00 04/23/17 20:59 03/30/17 07:30 400 MG Levalbuterol (Xopenex 0.31MG/ 3ML Neb) 0.31 mg Q6R INH 03/24/17 15:00 04/23/17 14:59 03/30/17 13:40 0.31 MG Insulin Aspart (novoLOG ASPART) SLIDING SCALE If C... ACHS SC 03/25/17 16:15 04/24/17 16:14 03/30/17 13:01 2 UNITS Piperacillin Sod/ Tazobactam Sod (Consult) 1 ea UD PRN N/A 03/25/17 23:00 04/24/17 22:59 Piperacillin Sod/ Tazobactam Sod 3.375 gm/Dextrose 65 ml @ 16 mls/hr Q8H IV 03/26/17 04:00 04/02/17 03:59 03/30/17 12:56 16 MLS/HR Acetaminophen 650 mg/Empty Bag 65 ml @ 260 mls/hr Q6H PRN IV 03/26/17 23:30 04/25/17 23:29 03/27/17 00:17 260 MLS/HR Heparin Sodium (Porcine) (Heparin 100 Unit/ml 5ml Flush) 5 ml PRN PRN IV 03/28/17 01:00 04/27/17 00:59
[2017-03-30] MEDS: SENNA 8.6 MG TAB PO SCH (21:00)
[2017-03-30] MEDS: ACETAMINOPHEN 325 MG TAB PO PRN (23:43)
[2017-03-31] VITALS (14 sets, daily range): BP systolic 84–119; BP diastolic 55–67; PULSE 60–98; TEMP 36.3–37; O2SAT 90–97
[2017-03-31] MEDS: LEVALBUTEROL 0.31MG/3 ML VIAL INH SCH ×4 (02:18→19:03)
[2017-03-31] MEDS: PIPERACILL/TAZOBAC IV 3.375 GM in DEXTROSE 5% 50ML 50 ML IV SCH ×3 (03:41→20:00)
[2017-03-31] MEDS: HEPARIN SOD 5000 UNIT/0.5 ML CARP SQ SCH ×3 (05:29→22:12)
[2017-03-31 06:34] LABS: BUN/CREATININE RATIO 12.9 (10-20); CALCIUM 8.9 mg/dl (8.5-10.1); CREATININE 1.5 mg/dl (0.60-1.20); POTASSIUM 3.4 mmol/L (3.5-5.1)
[2017-03-31] MEDS: INSULIN ASPART 100 UNITS/ML 3 ML PEN SC SCH ×4 (07:00→20:58)
[2017-03-31] MEDS: NICOTINE 7 MG/24 HR TDSY TD SCH (09:37)
[2017-03-31] MEDS: MAGNESIUM OXIDE 400 MG TAB PO SCH ×2 (09:37→20:57)
[2017-03-31] MEDS: VENLAFAXINE HCL XR 37.5 MG CAPXR PO SCH (09:38)
[2017-03-31] MEDS: FUROSEMIDE 40 MG TAB PO SCH (09:39)
[2017-03-31] MEDS: METOPROLOL TARTRATE 25 MG TAB PO SCH ×2 (09:40→20:56)
--- NOTE | 2017-03-31 11:19 | Pulmonology Progress Note ---
Pulmonary Progress Note Date of Service Mar 31, 2017. Attending Dr. Palomino Subjective Patient seen and examined. She is feeling much better able to look at the paper today. She denies any fever, chills, chest pain, cough. She is still having some intermittent shortness of breath. Objective Vital signs reviewed. VS this morning T 37, BP 91/57-100/61, P 67-96, RR 16-22 , SaO2 92-97% on 4-6L. Currently 2.3 L negative in last 24 hours. General Appearance: Patient awake, alert oriented 3. Looking at the paper. Appears comfortable. Neck: Supple. No JVD, nontender. Respiratory: Bibasilar crackles. Good air entry bilaterally. no acute respiratory distress. Cardiovascular: NORMAL S1S2, NORMAL PERIPHERAL PULSES Abdomen: soft, nontender. Colostomy in place Extremities: No edema, no clubbing or cyanosis bilaterally Assessment & Plan Acute hypoxic respiratory failure Hospital-acquired pneumonia Systolic CHF exacerbation, with an EF 20-25% Hypoalbuminemia Diastolic dysfunction Elevated pulmonary artery pressure Patient has had complicated course over the last several months. The patient has had progressive decline in respiratory status over the last few weeks. I believe it is multifactorial in nature. She has evidence of systolic heart failure, diastolic dysfunction, hospital-acquired pneumonia, and overall poor nutritional which are all contributing to her symptoms. Patient most likely has pulmonary hypertension type II and type III in etiology. Ms. Shields is showing daily progress. Her oxgyen requirements are slowly decreasing. Now on 4L saturating btw 88-92%. Will continue to titrate FiO2 as tolerated. Continue with empiric antibiotics to cover for hospital-acquired pneumonia. Cardiology is on board and optimizing cardiac medications. C/w Lasix as her creatinine tolerates. Will repeat CXR to evaluate for interval improvement of airspace disease. Will continue to follow. Data Medications: Current Inpatient Medications Medications (Trade) Dose Ordered Sig/Lorenzo Route Start Time Stop Time Status Last Admin Dose Admin Alprazolam (Xanax Tab) 0.25 mg Q6H PRN PO 03/22/17 15:15 04/21/17 15:14 03/29/17 21:43 0.25 MG Bupropion HCl (Wellbutrin Tab) 75 mg TID@0700,1500,2300 PO 03/22/17 23:00 8/12/17 22:59 03/31/17 07:46 75 MG Furosemide (Lasix Tab) 40 mg QAM PO 03/23/17 09:00 04/22/17 08:59 Future hold 03/31/17 09:39 40 MG Metoprolol Tartrate (Lopressor Tab) 25 mg BID PO 03/22/17 21:00 04/21/17 20:59 Future hold 03/31/17 09:40 25 MG Nicotine (Nicoderm Cq 7 Mg Patch) 1 patch DAILY TD 03/23/17 09:00 04/22/17 08:59 03/31/17 09:37 1 PATCH Senna (Senokot Tab) 8.6 mg HS PO 03/22/17 21:00 04/21/17 20:59 03/29/17 21:43 8.6 MG Venlafaxine HCl (effeXOR EXTENDED REL CAP) 37.5 mg DAILY PO 03/23/17 09:00 04/22/17 08:59 03/31/17 09:38 37.5 MG Heparin Sodium (Porcine) (Heparin Sq 5000 Unit/0.5ml) 5,000 unit Q8 SQ 03/22/17 22:00 04/21/17 21:59 03/31/17 05:29 5,000 UNIT Acetaminophen (Tylenol Tab) 650 mg Q4H PRN PO 03/22/17 15:30 04/21/17 15:29 03/30/17 23:43 650 MG Al Hydrox/Mg Hydrox/Simethicone (Maalox Max Susp) 15 ml Q4H PRN PO 03/22/17 15:30 04/21/17 15:29 Magnesium Hydroxide (Milk Of Magnesia Susp) 30 ml Q12H PRN PO 03/22/17 15:30 04/21/17 15:29 Ondansetron HCl (Zofran Inj) 4 mg Q6H PRN IV 03/22/17 15:30 04/21/17 15:29 03/25/17 10:27 4 MG Polyethylene (Miralax Powder Packet) 17 gm DAILY PRN PO 03/22/17 15:30 04/21/17 15:29 Glucose (Glucose 40% Gel) 15-30 GRAMS 15 GRAMS... UD PRN PO 03/22/17 19:30 04/21/17 19:29 Glucose (Glucose Chew Tab) 4-8 Tablets 4 Tabl... UD PRN PO 03/22/17 19:30 04/21/17 19:29 Dextrose (Dextrose 50% 50ML Syringe) 25-50ML OF 50% DW IV FOR... UD PRN IV 03/22/17 19:30 04/21/17 19:29 Glucagon (Glucagon Inj) 1 mg UD PRN SQ 03/22/17 19:30 04/21/17 19:29 Miscellaneous Information (Order Awaiting Action) 1 ea QS N/A 03/23/17 08:00 04/22/17 07:59 03/27/17 19:56 1 EA Magnesium Oxide (Mag-Ox Tab) 400 mg BID PO 03/24/17 21:00 04/23/17 20:59 03/31/17 09:37 400 MG Levalbuterol (Xopenex 0.31MG/ 3ML Neb) 0.31 mg Q6R INH 03/24/17 15:00 04/23/17 14:59 03/31/17 07:05 0.31 MG Insulin Aspart (novoLOG ASPART) SLIDING SCALE If C... ACHS SC 03/25/17 16:15 04/24/17 16:14 03/30/17 17:32 3 UNITS Piperacillin Sod/ Tazobactam Sod (Consult) 1 ea UD PRN N/A 03/25/17 23:00 04/24/17 22:59 Piperacillin Sod/ Tazobactam Sod 3.375 gm/Dextrose 65 ml @ 16 mls/hr Q8H IV 03/26/17 04:00 04/02/17 03:59 03/31/17 03:41 16 MLS/HR Acetaminophen 650 mg/Empty Bag 65 ml @ 260 mls/hr Q6H PRN IV 03/26/17 23:30 04/25/17 23:29 03/27/17 00:17 260 MLS/HR Heparin Sodium (Porcine) (Heparin 100 Unit/ml 5ml Flush) 5 ml PRN PRN IV 03/28/17 01:00 04/27/17 00:59 Vital Signs: Date Time Temp Pulse Resp B/P (MAP) Pulse Ox O2 Delivery O2 Flow Rate FiO2 03/31/17 07:37 37.0 70 16 91/57 (68) 92 03/31/17 07:05 69 18 95 Diffusion Mask 12.0 03/31/17 04:00 Nasal Cannula 6.0 03/31/17 03:40 36.3 96 22 100/61 (74) 97 Nasal Cannula 6.0 Humidified Air 03/31/17 02:18 67 18 94 Nasal Cannula 6.0 03/31/17 00:00 Nasal Cannula 6.0 03/30/17 23:06 36.6 99 20 88/52 (64) 94 Nasal Cannula 6.0 Humidified Air 03/30/17 20:39 87/57 (67) 03/30/17 20:00 94 Nasal Cannula 6.0 03/30/17 19:17 36.3 20 77/52 (60) 87 Nasal Cannula 6.0 03/30/17 19:15 87 18 90 Nasal Cannula 6.0 03/30/17 16:01 Nasal Cannula 6.0 03/30/17 15:45 36.4 97 26 91/60 (70) 86 Nasal Cannula 7.0 03/30/17 13:44 89 18 96 Mask 6.0 03/30/17 12:15 Nasal Cannula 5.0 Laboratory Results: Last 24 Hours Test 03/30/17 16:01 03/30/17 20:16 03/31/17 05:32 03/31/17 07:16 Bedside Glucose 189 mg/dl 103 mg/dl 88 mg/dl Sodium Level 135 mmol/L Potassium Level 3.4 mmol/L Chloride Level 96 mmol/L Carbon Dioxide Level 33 mmol/L Anion Gap 6.0 mmol/L Blood Urea Nitrogen 19 mg/dl Creatinine 1.50 mg/dl Est Creatinine Clear Calc Drug Dose 31.7 ml/min Estimated GFR () 39.9 Estimated GFR (Non- 34.4 BUN/Creatinine Ratio 12.9 Random Glucose 99 mg/dl Calcium Level 8.9 mg/dl
[2017-03-31] MEDS ORDERED: POTASSIUM CHLORIDE 20 MEQ TABCR PO STA (12:19)
--- NOTE | 2017-03-31 13:18 | DIAGNOSTIC IMAGING REPORT ---
CHEST ONE VIEW PORTABLE CLINICAL HISTORY: Follow-up chest radiograph. COMPARISON STUDY: Chest radiograph March 25, 2017. FINDINGS: A left subclavian [id number] is in place. Moderate cardiomegaly is unchanged. There are subacute to chronic left-sided rib fractures. There is no pneumothorax. There are trace bilateral pleural effusions. Diffuse interstitial thickening persists. Right lung airspace opacities have slightly progressed. IMPRESSION: 1. Persistent interstitial thickening with slight progression of airspace opacities. The findings could reflect pulmonary edema or an infectious process superimposed upon interstitial lung disease. 2. Trace bilateral pleural effusions. No pneumothorax. Electronically signed by: Patrice Stark M.D. 03/31/2017 1:17 PM Dictated Date/Time: 03/31/2017 1:14 PM
--- NOTE | 2017-03-31 16:43 | Progress Note ---
Internal Med Progress Note Date of Service: Mar 31, 2017. Provider Documentation: SUBJECTIVE: says her breathing up and down afebrile eating ok no nausea requiring 4-6lts oxygen OBJECTIVE: Vital Signs-as noted below Exam: General-alert and oriented. Not in distress ENT-normal hearing Neck-no neck masses Lungs-cta b/l no wheezing bibasilar crackles present Heart-s1 and s2 heard, regular rate and rhythm, no murmurs Abdomen-soft bowel sounds present non tender no distension Extremities- no erythema Neuro-alert and oriented moves extremities Lab data as noted below. ASSESSMENT & PLAN: Bibasilar Pneumonia Hypoxia on admission CXR showed bilateral mixed interstitial and alveolar airspace opacities. Recent hospital stay in [facility] recived vanco and zoon- currently only on Zosyn Appreciate ID input Blood culture -negative and No MRSA required bipap currentl;y requiring 4-6ltsd oxygen Clinically improved Off Bipap since yesterday has been on high flow oxygen @40% saturated above 95 slow improvement appreciate pulmonary inputs Acute Respiratory Failure due to acute on chronic combined systolic and diastolic CHF with Complication of bibasilar Pneumonia ABG -showed no CO2 retention tx of pneumonia as above on po Lasix cardiology on board and appreciate inputs Hx. of colorectal CA s/p resection/colostomy Has Presacral Mass patient with colostomy, draining well, no foul-smelling stool no issues Acute Kidney Injury with h/o CKD Creatine on admission 1.3 and went up to 1.8 Creatine today 1.5 has been diuresis by putting out ~7 L To avoid Nephrotoxic agent on Lasix 40mg PO Will monitor BMP DM2 BSGs ACHS On insulin sliding scale DVT ppx On subq heparin Disposition monitor in tel;e pt/ot when more stable social service for d/c planning DNR Vital Signs: Date Time Temp Pulse Resp B/P (MAP) Pulse Ox O2 Delivery O2 Flow Rate FiO2 03/31/17 16:00 95 Nasal Cannula 6.0 03/31/17 15:36 36.6 83 22 84/55 (65) 96 Nasal Cannula 5.0 03/31/17 14:06 98 18 96 Nasal Cannula 6.0 03/31/17 12:00 94 Nasal Cannula 6.0 03/31/17 11:53 37.0 60 18 119/64 (82) 90 03/31/17 08:00 94 Nasal Cannula 6.0 03/31/17 07:37 37.0 70 16 91/57 (68) 92 03/31/17 07:05 69 18 95 Diffusion Mask 12.0 03/31/17 04:00 Nasal Cannula 6.0 03/31/17 03:40 36.3 96 22 100/61 (74) 97 Nasal Cannula 6.0 Humidified Air 03/31/17 02:18 67 18 94 Nasal Cannula 6.0 03/31/17 00:00 Nasal Cannula 6.0 03/30/17 23:06 36.6 99 20 88/52 (64) 94 Nasal Cannula 6.0 Humidified Air 03/30/17 20:39 87/57 (67) 03/30/17 20:00 94 Nasal Cannula 6.0 03/30/17 19:17 36.3 20 77/52 (60) 87 Nasal Cannula 6.0 03/30/17 19:15 87 18 90 Nasal Cannula 6.0 Lab Results: Results Past 24 Hours Test 03/30/17 20:16 03/31/17 05:32 03/31/17 07:16 03/31/17 11:24 Range/Units Bedside Glucose 103 88 169 70-90 mg/dl Sodium Level 135 136-145 mmol/L Potassium Level 3.4 3.5-5.1 mmol/L Chloride Level 96 98-107 mmol/L Carbon Dioxide Level 33 21-32 mmol/L Anion Gap 6.0 3-11 mmol/L Blood Urea Nitrogen 19 7-18 mg/dl Creatinine 1.50 0.60-1.20 mg/dl Est Creatinine Clear Calc Drug Dose 31.7 ml/min Estimated GFR () 39.9 Estimated GFR (Non- 34.4 BUN/Creatinine Ratio 12.9 10-20 Random Glucose 99 70-99 mg/dl Calcium Level 8.9 8.5-10.1 mg/dl Test 03/31/17 16:12 Range/Units Bedside Glucose 162 70-90 mg/dl
[2017-03-31] MEDS: SENNA 8.6 MG TAB PO SCH (20:58)
[2017-04-01] VITALS (14 sets, daily range): BP systolic 83–104; BP diastolic 55–73; PULSE 67–106; TEMP 35.8–36.8; O2SAT 90–100
[2017-04-01] MEDS: LEVALBUTEROL 0.31MG/3 ML VIAL INH SCH ×4 (02:19→19:20)
--- NOTE | 2017-04-01 03:28 | PROGRESS NOTE ---
DATE: 03/31/2017 CARDIOLOGY CONSULTATION FOLLOWUP NOTE The patient was seen and examined. Chart, medications, laboratory studies, and telemetry were reviewed. SUBJECTIVE: The patient notes some mild breathlessness this morning above baseline and chronic dyspnea. Denies any chest pains. Notes no sense of tachypalpitations. Notes no dizziness or lightheadedness. Notes no overt productive cough. Has tolerated medications and continued to demonstrate gradual progression in diuresis. OBJECTIVE: VITAL SIGNS: Heart rate 60, blood pressure is 119/64, and O2 saturations are 94% that requiring 6 liters nasal cannula. I's and O's reflect negative balance yesterday of 2400 mL. Total weight loss since admission 8 kilograms. NECK: Thin. LUNGS: Reveal fine crackles at the bases. Diminished breath sounds diffusely. CARDIOVASCULAR: Regular. There is no audible murmur or rub. ABDOMEN: Soft. EXTREMITIES: Without cyanosis or clubbing. There is no significant edema. LABORATORY DATA: White cell count 6.3 yesterday. Hemoglobin yesterday was 9.7. Today electrolytes, sodium is 135, potassium is 3.4, chloride is 96, bicarbonate is 33, BUN is 19, and creatinine is 1.5. IMPRESSION: A 71-year-old female with mixed respiratory failure history of chronic left bundle branch block and diffuse cardiomyopathy, ischemic versus nonischemic origin. The patient has manifested improvement on current medications. Heart rates are coming under better control. PLAN: Continue current dosing of furosemide at 40 mg per day. We will supplement potassium to aid in contraction alkalosis. Switch metoprolol tartrate to metoprolol succinate a.m. for optimization of therapies. As our diuresis slows and renal function stabilizes, consider addition of low dose SUNG inhibitor versus afterload reduction with nitrates and hydralazine. We will follow the patient in the hospital. Pulmonary disease remains limiting MTDD
[2017-04-01] MEDS: PIPERACILL/TAZOBAC IV 3.375 GM in DEXTROSE 5% 50ML 50 ML IV SCH ×3 (04:11→19:53)
[2017-04-01] MEDS: HEPARIN SOD 5000 UNIT/0.5 ML CARP SQ SCH ×3 (05:48→21:31)
[2017-04-01] MEDS: VENLAFAXINE HCL XR 37.5 MG CAPXR PO SCH (08:17)
[2017-04-01] MEDS: FUROSEMIDE 40 MG TAB PO SCH (08:17)
[2017-04-01] MEDS: MAGNESIUM OXIDE 400 MG TAB PO SCH ×2 (08:18→21:28)
[2017-04-01] MEDS: POTASSIUM CHLORIDE 10 MEQ TABCR PO SCH (08:18)
[2017-04-01] MEDS: NICOTINE 7 MG/24 HR TDSY TD SCH (09:00)
[2017-04-01] MEDS: METOPROLOL SUCC 25MG EXT REL TAB PO SCH (09:00)
[2017-04-01] MEDS: INSULIN ASPART 100 UNITS/ML 3 ML PEN SC SCH ×4 (09:12→21:31)
--- NOTE | 2017-04-01 10:57 | Pulmonology Progress Note ---
Pulmonary Progress Note Date of Service Apr 01, 2017. Attending Subjective Patient seen and examined this morning. She states that she didn't get much sleep overnight. She states that she still has intermittent nonproductive cough and occasional shortness of breath. She denies any chest pain. Objective Vital signs reviewed. VS this morning T 36.3, BP 90/58, P 67-101, RR 18-20, SaO2 92-100% on 4-6L. Currently 750mL negative in last 24 hours. General Appearance: Patient awake, alert oriented 3. Looking at the paper. Appears comfortable. Neck: Supple. No JVD, nontender. Respiratory: Bibasilar crackles. Good air entry bilaterally. No acute respiratory distress. Cardiovascular: NORMAL S1S2, NORMAL PERIPHERAL PULSES Abdomen: soft, nontender. Colostomy in place Extremities: No edema, no clubbing or cyanosis bilaterally CXR 03/31/2017 FINDINGS: A left subclavian [id number] is in place. Moderate cardiomegaly is unchanged. There are subacute to chronic left-sided rib fractures. There is no pneumothorax. There are trace bilateral pleural effusions. Diffuse interstitial thickening persists. Right lung airspace opacities have slightly progressed. IMPRESSION: 1. Persistent interstitial thickening with slight progression of airspace opacities. The findings could reflect pulmonary edema or an infectious process superimposed upon interstitial lung disease. 2. Trace bilateral pleural effusions. No pneumothorax. Assessment & Plan Acute hypoxic respiratory failure Hospital-acquired pneumonia Systolic CHF exacerbation, with an EF 20-25% Hypoalbuminemia Diastolic dysfunction Elevated pulmonary artery pressure Patient has had complicated course over the last several months. The patient has had progressive decline in respiratory status over the last few weeks. I believe it is multifactorial in nature. She has evidence of systolic heart failure, diastolic dysfunction, hospital-acquired pneumonia, and overall poor nutritional which are all contributing to her symptoms. Patient most likely has pulmonary hypertension type II and type III in etiology. She is showing daily progress. Repeat CXR shows some progression of disease however I feel that the imaging is lagging behind her clinical status. She is on 4L saturating btw 88-92%. No longer requiring BiPAP. Will continue to titrate FiO2 as tolerated. Continue with empiric antibiotics to cover for hospital-acquired pneumonia. Cardiology is on board and optimizing cardiac medications. C/w Lasix as her creatinine tolerates. Continue with incentive spirometry. Will continue to follow. Data Medications: Current Inpatient Medications Medications (Trade) Dose Ordered Sig/Lorenzo Route Start Time Stop Time Status Last Admin Dose Admin Alprazolam (Xanax Tab) 0.25 mg Q6H PRN PO 03/22/17 15:15 04/21/17 15:14 03/29/17 21:43 0.25 MG Bupropion HCl (Wellbutrin Tab) 75 mg TID@0700,1500,2300 PO 03/22/17 23:00 04/21/17 22:59 04/01/17 06:34 75 MG Furosemide (Lasix Tab) 40 mg QAM PO 03/23/17 09:00 04/22/17 08:59 Future hold 04/01/17 08:17 40 MG Nicotine (Nicoderm Cq 7 Mg Patch) 1 patch DAILY TD 03/23/17 09:00 04/22/17 08:59 03/31/17 09:37 1 PATCH Senna (Senokot Tab) 8.6 mg HS PO 03/22/17 21:00 04/21/17 20:59 03/31/17 20:58 8.6 MG Venlafaxine HCl (effeXOR EXTENDED REL CAP) 37.5 mg DAILY PO 03/23/17 09:00 04/22/17 08:59 04/01/17 08:17 37.5 MG Heparin Sodium (Porcine) (Heparin Sq 5000 Unit/0.5ml) 5,000 unit Q8 SQ 03/22/17 22:00 04/21/17 21:59 04/01/17 05:48 5,000 UNIT Acetaminophen (Tylenol Tab) 650 mg Q4H PRN PO 03/22/17 15:30 04/21/17 15:29 03/30/17 23:43 650 MG Al Hydrox/Mg Hydrox/Simethicone (Maalox Max Susp) 15 ml Q4H PRN PO 03/22/17 15:30 04/21/17 15:29 Magnesium Hydroxide (Milk Of Magnesia Susp) 30 ml Q12H PRN PO 03/22/17 15:30 04/21/17 15:29 Ondansetron HCl (Zofran Inj) 4 mg Q6H PRN IV 03/22/17 15:30 04/21/17 15:29 03/25/17 10:27 4 MG Polyethylene (Miralax Powder Packet) 17 gm DAILY PRN PO 03/22/17 15:30 04/21/17 15:29 Glucose (Glucose 40% Gel) 15-30 GRAMS 15 GRAMS... UD PRN PO 03/22/17 19:30 04/21/17 19:29 Glucose (Glucose Chew Tab) 4-8 Tablets 4 Tabl... UD PRN PO 03/22/17 19:30 04/21/17 19:29 Dextrose (Dextrose 50% 50ML Syringe) 25-50ML OF 50% DW IV FOR... UD PRN IV 03/22/17 19:30 04/21/17 19:29 Glucagon (Glucagon Inj) 1 mg UD PRN SQ 03/22/17 19:30 04/21/17 19:29 Miscellaneous Information (Order Awaiting Action) 1 ea QS N/A 03/23/17 08:00 04/22/17 07:59 03/27/17 19:56 1 EA Magnesium Oxide (Mag-Ox Tab) 400 mg BID PO 03/24/17 21:00 04/23/17 20:59 04/01/17 08:18 400 MG Levalbuterol (Xopenex 0.31MG/ 3ML Neb) 0.31 mg Q6R INH 03/24/17 15:00 04/23/17 14:59 04/01/17 07:02 0.31 MG Insulin Aspart (novoLOG ASPART) SLIDING SCALE If C... ACHS SC 03/25/17 16:15 04/24/17 16:14 04/01/17 09:12 1 UNITS Piperacillin Sod/ Tazobactam Sod (Consult) 1 ea UD PRN N/A 03/25/17 23:00 04/24/17 22:59 Piperacillin Sod/ Tazobactam Sod 3.375 gm/Dextrose 65 ml @ 16 mls/hr Q8H IV 03/26/17 04:00 04/02/17 03:59 04/01/17 04:11 16 MLS/HR Acetaminophen 650 mg/Empty Bag 65 ml @ 260 mls/hr Q6H PRN IV 03/26/17 23:30 04/25/17 23:29 03/27/17 00:17 260 MLS/HR Heparin Sodium (Porcine) (Heparin 100 Unit/ml 5ml Flush) 5 ml PRN PRN IV 03/28/17 01:00 04/27/17 00:59 Potassium Chloride (Klor-Con M10) 10 meq DAILY PO 04/01/17 09:00 05/01/17 08:59 04/01/17 08:18 10 MEQ Metoprolol Succinate (Toprol Xl Tab) 25 mg QAM PO 04/01/17 09:00 05/01/17 08:59 Vital Signs: Date Time Temp Pulse Resp B/P (MAP) Pulse Ox O2 Delivery O2 Flow Rate FiO2 04/01/17 08:00 94 Nasal Cannula 6.0 04/01/17 07:02 70 18 100 Nasal Cannula 6.0 04/01/17 06:50 36.3 67 20 90/58 (69) 98 Nasal Cannula 6.0 04/01/17 04:00 36.8 71 18 92/58 (69) 92 Nasal Cannula 6.0 04/01/17 04:00 92 Nasal Cannula 6.0 04/01/17 02:19 94 18 93 Nasal Cannula 6.0 04/01/17 00:01 94 Nasal Cannula 6.0 04/01/17 00:01 36.6 101 20 92/59 (70) 94 Nasal Cannula 6.0 03/31/17 21:00 95 20 89/59 (69) 95 Nasal Cannula 6.0 03/31/17 20:00 97 Nasal Cannula 6.0 03/31/17 19:28 36.5 90 20 100/67 (78) 97 Nasal Cannula 6.0 03/31/17 19:04 76 18 94 Nasal Cannula 6.0 03/31/17 16:00 95 Nasal Cannula 6.0 03/31/17 15:36 36.6 83 22 84/55 (65) 96 Nasal Cannula 5.0 03/31/17 14:06 98 18 96 Nasal Cannula 6.0 03/31/17 12:00 94 Nasal Cannula 6.0 03/31/17 11:53 37.0 60 18 119/64 (82) 90 Laboratory Results: Last 24 Hours Test 03/31/17 11:24 03/31/17 16:12 03/31/17 20:07 04/01/17 06:46 Bedside Glucose 169 mg/dl 162 mg/dl 176 mg/dl 126 mg/dl Test 04/01/17 10:16
[2017-04-01 11:12] LABS: BUN/CREATININE RATIO 11.9 (10-20); CALCIUM 8.9 mg/dl (8.5-10.1); CREATININE 1.6 mg/dl (0.60-1.20); POTASSIUM 3.9 mmol/L (3.5-5.1)
--- NOTE | 2017-04-01 11:37 | PROGRESS NOTE ---
DATE: 04/01/2017 The patient seen and examined. Chart, medications, telemetry reviewed. SUBJECTIVE: The patient feels slightly better this morning. Notes no productive cough. Breathing is not labored at rest. Denies any chest pains. Notes not tachypalpitations, dizziness or lightheadedness. Continues to demonstrate slow diuresis. OBJECTIVE: VITAL SIGNS: Heart rate is 67, blood pressure is 90/58. O2 saturation is 94% on 6 liters nasal cannula. NECK: Thin. There is no distinct jugular venous distention. LUNGS: Reveal coarse crackles basilar. CARDIOVASCULAR: Regular. There is no S3 gallop. ABDOMEN: Soft. EXTREMITIES: Free of edema. LABORATORY DATA: Pending from today. Telemetry reveals no arrhythmias. IMPRESSION: A 71-year-old female with severe underlying lung disease and diffuse LV dysfunction with mixed respiratory failure. RECOMMENDATIONS: Continue oral diuretics as ordered. Follow renal function and electrolytes. Blood pressure and heart rate will not appear to allow use of afterload reduction at this time. Will follow as clinical course progresses.
--- NOTE | 2017-04-01 15:42 | Progress Note ---
Internal Med Progress Note Date of Service: Apr 01, 2017. Provider Documentation: SUBJECTIVE: saturating fine on 4lts says could not sleep well last few nights eating ok denies chest pain feels same OBJECTIVE: Vital Signs-as noted below Exam: General-alert and oriented. Not in distress ENT-normal hearing Neck-no neck masses Lungs-cta b/l no wheezing bibasilar crackles present Heart-s1 and s2 heard, regular rate and rhythm, no murmurs Abdomen-soft bowel sounds present non tender no distension Extremities- no erythema Neuro-alert and oriented moves extremities Lab data as noted below. ASSESSMENT & PLAN: Bibasilar Pneumonia Hypoxia on admission CXR showed bilateral mixed interstitial and alveolar airspace opacities. Recent hospital stay in [facility] received vanco and zoon- currently only on Zosyn Appreciate ID input Blood culture -negative and No MRSA required bipap currently;y requiring 4-6ltsd oxygen Clinically improved Off Bipap now was on high flow oxygen @40% slow improvement continue same appreciate pulmonary inputs Acute Respiratory Failure due to acute on chronic combined systolic and diastolic CHF with Complication of bibasilar Pneumonia ABG -showed no CO2 retention tx of pneumonia as above on po Lasix cardiology on board and appreciate inputs slow improvement Hx. of colorectal CA s/p resection/colostomy Has Presacral Mass patient with colostomy, draining well, no foul-smelling stool no issues Acute Kidney Injury with h/o CKD Creatine on admission 1.3 and went up to 1.8 Creatine today 1.6 has been diuresis by putting out ~7 L To avoid Nephrotoxic agent on Lasix 40mg PO Will monitor BMP DM2 BSGs ACHS On insulin sliding scale DVT ppx On subq heparin Disposition monitor in tele pt/ot social service for d/c planning DNR Vital Signs: Date Time Temp Pulse Resp B/P (MAP) Pulse Ox O2 Delivery O2 Flow Rate FiO2 04/01/17 13:45 89 18 92 Nasal Cannula 4.0 04/01/17 12:00 94 Nasal Cannula 6.0 04/01/17 11:57 36.4 85 21 83/55 (64) 96 Nasal Cannula 4.0 04/01/17 08:00 94 Nasal Cannula 6.0 04/01/17 07:02 70 18 100 Nasal Cannula 6.0 04/01/17 06:50 36.3 67 20 90/58 (69) 98 Nasal Cannula 6.0 04/01/17 04:00 36.8 71 18 92/58 (69) 92 Nasal Cannula 6.0 04/01/17 04:00 92 Nasal Cannula 6.0 04/01/17 02:19 94 18 93 Nasal Cannula 6.0 04/01/17 00:01 94 Nasal Cannula 6.0 04/01/17 00:01 36.6 101 20 92/59 (70) 94 Nasal Cannula 6.0 03/31/17 21:00 95 20 89/59 (69) 95 Nasal Cannula 6.0 03/31/17 20:00 97 Nasal Cannula 6.0 03/31/17 19:28 36.5 90 20 100/67 (78) 97 Nasal Cannula 6.0 03/31/17 19:04 76 18 94 Nasal Cannula 6.0 03/31/17 16:00 95 Nasal Cannula 6.0 Lab Results: Results Past 24 Hours Test 03/31/17 16:12 03/31/17 20:07 04/01/17 06:46 04/01/17 10:16 Range/Units Bedside Glucose 162 176 126 70-90 mg/dl Sodium Level 133 136-145 mmol/L Potassium Level 3.9 3.5-5.1 mmol/L Chloride Level 96 98-107 mmol/L Carbon Dioxide Level 29 21-32 mmol/L Anion Gap 8.0 3-11 mmol/L Blood Urea Nitrogen 19 7-18 mg/dl Creatinine 1.60 0.60-1.20 mg/dl Est Creatinine Clear Calc Drug Dose 29.8 ml/min Estimated GFR () 36.9 Estimated GFR (Non- 31.9 BUN/Creatinine Ratio 11.9 10-20 Random Glucose 241 70-99 mg/dl Calcium Level 8.9 8.5-10.1 mg/dl Test 04/01/17 11:27 Range/Units Bedside Glucose 199 70-90 mg/dl
[2017-04-01] MEDS: SENNA 8.6 MG TAB PO SCH (21:28)
[2017-04-01] MEDS: ALPRAZOLAM 0.25 MG TAB PO PRN (21:29)
[2017-04-02] VITALS (13 sets, daily range): BP systolic 90–112; BP diastolic 58–70; PULSE 95–108; TEMP 36.3–37; O2SAT 91–99
[2017-04-02] MEDS: LEVALBUTEROL 0.31MG/3 ML VIAL INH SCH ×4 (02:10→18:57)
[2017-04-02 04:40] LABS: BASO % 0.4 %; BASO ABS # 0.03 K/uL (0-0.2); COMPLETE YES; EOS % 2.8 %; IG% 0.9 %; LYMPH % 21.5 %; LYMPH ABS # 1.68 K/uL (1.2-3.4); MEAN CELL VOLUME 81.9 fL (80-100); MEAN CORPUSCULAR HEMOGLOBIN 25.8 pg (25-34); MEAN CORPUSCULAR HGB CONC 31.5 g/dl (32-36); MEAN PLATELET VOLUME 9.3 fL (7.4-10.4); MONO % 8.7 %; NEUT % 65.7 %; PLATELET COUNT 325 K/uL (130-400); RED BLOOD COUNT 4.15 M/uL (4.2-5.4); WHITE BLOOD COUNT 7.81 K/uL (4.8-10.8)
[2017-04-02 05:00] LABS: BUN/CREATININE RATIO 12.8 (10-20); CALCIUM 9.4 mg/dl (8.5-10.1); CREATININE 1.4 mg/dl (0.60-1.20); MAGNESIUM 1.8 mg/dl (1.8-2.4); POTASSIUM 3.9 mmol/L (3.5-5.1)
[2017-04-02] MEDS: HEPARIN SOD 5000 UNIT/0.5 ML CARP SQ SCH ×3 (06:02→21:32)
[2017-04-02] MEDS: INSULIN ASPART 100 UNITS/ML 3 ML PEN SC SCH ×4 (08:04→21:00)
[2017-04-02] MEDS: VENLAFAXINE HCL XR 37.5 MG CAPXR PO SCH (08:07)
[2017-04-02] MEDS: FUROSEMIDE 40 MG TAB PO SCH (08:08)
[2017-04-02] MEDS: POTASSIUM CHLORIDE 10 MEQ TABCR PO SCH (08:08)
[2017-04-02] MEDS: NICOTINE 7 MG/24 HR TDSY TD SCH (08:09)
[2017-04-02] MEDS: MAGNESIUM OXIDE 400 MG TAB PO SCH ×2 (08:09→21:09)
[2017-04-02] MEDS: METOPROLOL SUCC 25MG EXT REL TAB PO SCH (08:09)
--- NOTE | 2017-04-02 10:01 | Pulmonology Progress Note ---
Pulmonary Progress Note Date of Service Apr 02, 2017. Attending Dr. Goss Subjective Feeling somewhat improved able to sit in a chair. Reports appetite is in-tact. Denies any chest pain. Cough is intermittent and non-productive. Objective 71-yo female admitted to [facility] 03/22/17 with acute hypoxic respiratory infection secondary to HCAP and decompensated heart failure. Prior records were reviewed. PMHx includes: recent admission ([facility]) for right hip infection and PNA as well as colorectal CA s/p resection, CKD, DM II, and HTN. She received titrated O2 and initially BiPAP support along with antibiotic, and fluid management. CTA 03/22/17: "IMPRESSION 1. NO evidence of acute PE 2. Mild mediastinal adenopathy 3. Small bilateral pleural effusions 4. Bilateral mixed interstitial and alveolar airspace opacities." CXR 03/31/2017 "IMPRESSION: 1. Persistent interstitial thickening with slight progression of airspace opacities. The findings could reflect pulmonary edema or an infectious process superimposed upon interstitial lung disease. 2. Trace bilateral pleural effusions. No pneumothorax." Today: - SaO2 94-99%: 6LPM - I/O: (-) 1882 on 04/01/17 - WBC/Hgb/Hct/Plts: 7.81/4.15/10.7/34/325 - Cr: 1.4 - Sputum: heavy normal jo Physical Exam: Constitutional: Frail elderly female sitting in chair at bedside, no acute distress Head: + facial symmetry Eyes: EOMi, PERRLA no injection Mouth: Moist mucous membranes. No erythema or exudate Respiratory: non-labored shallow respirations. Poor air movement at the bases. Very find scattered crackles. No wheeze. CV: Rapid rate, regular rhythm. Warm and perfused peripherally. GI: soft, protuberant, active bowel sounds : arellano draining clear yellow fluid MSK/Extremities: Moving and developed symmetrically. No peripheral edema. Neurologic: Alert and cooperative. Follows commands appropriately. Assessment & Plan 71-yo female admitted with Acute hypoxic respiratory failure: multifactorial - Hospital-acquired pneumonia: - no leukocytosis, s/p completion of antimicrobial course - observe - IS and frequent changes of position encouraged - Titrate O2: 90-94% - Will need CXR in 6-weeks as outpatient for resolution of infiltrative changes - Consider swallow evaluation - Decompensation of systolic and diastolic dysfunction: I/Os and diuresis as renal allows Data Medications: Current Inpatient Medications Medications (Trade) Dose Ordered Sig/Lorenzo Route Start Time Stop Time Status Last Admin Dose Admin Alprazolam (Xanax Tab) 0.25 mg Q6H PRN PO 03/22/17 15:15 04/21/17 15:14 04/01/17 21:29 0.25 MG Bupropion HCl (Wellbutrin Tab) 75 mg TID@0700,1500,2300 PO 03/22/17 23:00 04/21/17 22:59 04/02/17 06:30 75 MG Furosemide (Lasix Tab) 40 mg QAM PO 03/23/17 09:00 04/22/17 08:59 Future hold 04/02/17 08:08 40 MG Nicotine (Nicoderm Cq 7 Mg Patch) 1 patch DAILY TD 03/23/17 09:00 04/22/17 08:59 04/02/17 08:09 1 PATCH Senna (Senokot Tab) 8.6 mg HS PO 03/22/17 21:00 04/21/17 20:59 04/01/17 21:28 8.6 MG Venlafaxine HCl (effeXOR EXTENDED REL CAP) 37.5 mg DAILY PO 03/23/17 09:00 04/22/17 08:59 04/02/17 08:07 37.5 MG Heparin Sodium (Porcine) (Heparin Sq 5000 Unit/0.5ml) 5,000 unit Q8 SQ 03/22/17 22:00 04/21/17 21:59 04/02/17 06:02 5,000 UNIT Acetaminophen (Tylenol Tab) 650 mg Q4H PRN PO 03/22/17 15:30 04/21/17 15:29 03/30/17 23:43 650 MG Al Hydrox/Mg Hydrox/Simethicone (Maalox Max Susp) 15 ml Q4H PRN PO 03/22/17 15:30 04/21/17 15:29 Magnesium Hydroxide (Milk Of Magnesia Susp) 30 ml Q12H PRN PO 03/22/17 15:30 04/21/17 15:29 Ondansetron HCl (Zofran Inj) 4 mg Q6H PRN IV 03/22/17 15:30 04/21/17 15:29 03/25/17 10:27 4 MG Polyethylene (Miralax Powder Packet) 17 gm DAILY PRN PO 03/22/17 15:30 04/21/17 15:29 Glucose (Glucose 40% Gel) 15-30 GRAMS 15 GRAMS... UD PRN PO 03/22/17 19:30 04/21/17 19:29 Glucose (Glucose Chew Tab) 4-8 Tablets 4 Tabl... UD PRN PO 03/22/17 19:30 04/21/17 19:29 Dextrose (Dextrose 50% 50ML Syringe) 25-50ML OF 50% DW IV FOR... UD PRN IV 03/22/17 19:30 04/21/17 19:29 Glucagon (Glucagon Inj) 1 mg UD PRN SQ 03/22/17 19:30 04/21/17 19:29 Miscellaneous Information (Order Awaiting Action) 1 ea QS N/A 03/23/17 08:00 04/22/17 07:59 03/27/17 19:56 1 EA Magnesium Oxide (Mag-Ox Tab) 400 mg BID PO 03/24/17 21:00 04/23/17 20:59 04/02/17 08:09 400 MG Levalbuterol (Xopenex 0.31MG/ 3ML Neb) 0.31 mg Q6R INH 03/24/17 15:00 04/23/17 14:59 04/02/17 06:51 0.31 MG Insulin Aspart (novoLOG ASPART) SLIDING SCALE If C... ACHS SC 03/25/17 16:15 04/24/17 16:14 04/02/17 08:04 1 UNITS Piperacillin Sod/ Tazobactam Sod (Consult) 1 ea UD PRN N/A 03/25/17 23:00 04/24/17 22:59 Acetaminophen 650 mg/Empty Bag 65 ml @ 260 mls/hr Q6H PRN IV 03/26/17 23:30 04/25/17 23:29 03/27/17 00:17 260 MLS/HR Heparin Sodium (Porcine) (Heparin 100 Unit/ml 5ml Flush) 5 ml PRN PRN IV 03/28/17 01:00 04/27/17 00:59 Potassium Chloride (Klor-Con M10) 10 meq DAILY PO 04/01/17 09:00 05/01/17 08:59 04/02/17 08:08 10 MEQ Metoprolol Succinate (Toprol Xl Tab) 25 mg QAM PO 04/01/17 09:00 05/01/17 08:59 Vital Signs: Date Time Temp Pulse Resp B/P (MAP) Pulse Ox O2 Delivery O2 Flow Rate FiO2 04/02/17 08:00 Nasal Cannula 5.0 04/02/17 07:34 36.3 105 19 90/66 (74) 96 Humidified Oxygen 5.0 04/02/17 06:52 100 16 96 Nasal Cannula 6.0 04/02/17 04:00 99 Nasal Cannula 6.0 04/02/17 03:13 37.0 95 20 97/58 (71) 99 Nasal Cannula 6.0 04/02/17 02:10 97 16 94 Nasal Cannula 6.0 04/02/17 00:01 94 Nasal Cannula 6.0 04/01/17 23:08 36.6 96 14 92/62 (72) 94 Nasal Cannula 6.0 04/01/17 20:00 92 Nasal Cannula 6.0 04/01/17 19:23 35.8 106 20 104/73 (83) 92 Nasal Cannula 6.0 04/01/17 19:20 96 16 92 Nasal Cannula 6.0 04/01/17 16:00 Nasal Cannula 6.0 04/01/17 15:18 36.5 82 22 90/64 (73) 90 Nasal Cannula 5.0 Humidified Air 04/01/17 13:45 89 18 92 Nasal Cannula 4.0 04/01/17 12:00 94 Nasal Cannula 6.0 04/01/17 11:57 36.4 85 21 83/55 (64) 96 Nasal Cannula 4.0 Laboratory Results: Last 24 Hours Test 04/01/17 10:16 04/01/17 11:27 04/01/17 16:12 04/01/17 20:28 Sodium Level 133 mmol/L Potassium Level 3.9 mmol/L Chloride Level 96 mmol/L Carbon Dioxide Level 29 mmol/L Anion Gap 8.0 mmol/L Blood Urea Nitrogen 19 mg/dl Creatinine 1.60 mg/dl Est Creatinine Clear Calc Drug Dose 29.8 ml/min Estimated GFR () 36.9 Estimated GFR (Non- 31.9 BUN/Creatinine Ratio 11.9 Random Glucose 241 mg/dl Calcium Level 8.9 mg/dl Bedside Glucose 199 mg/dl 142 mg/dl 192 mg/dl Test 04/02/17 04:10 04/02/17 06:32 White Blood Count 7.81 K/uL Red Blood Count 4.15 M/uL Hemoglobin 10.7 g/dL Hematocrit 34.0 % Mean Corpuscular Volume 81.9 fL Mean Corpuscular Hemoglobin 25.8 pg Mean Corpuscular Hemoglobin Concent 31.5 g/dl Platelet Count 325 K/uL Mean Platelet Volume 9.3 fL Neutrophils (%) (Auto) 65.7 % Lymphocytes (%) (Auto) 21.5 % Monocytes (%) (Auto) 8.7 % Eosinophils (%) (Auto) 2.8 % Basophils (%) (Auto) 0.4 % Neutrophils # (Auto) 5.13 K/uL Lymphocytes # (Auto) 1.68 K/uL Monocytes # (Auto) 0.68 K/uL Eosinophils # (Auto) 0.22 K/uL Basophils # (Auto) 0.03 K/uL RDW Standard Deviation 53.8 fL RDW Coefficient of Variation 18.0 % Immature Granulocyte % (Auto) 0.9 % Immature Granulocyte # (Auto) 0.07 K/uL Sodium Level 137 mmol/L Potassium Level 3.9 mmol/L Chloride Level 97 mmol/L Carbon Dioxide Level 31 mmol/L Anion Gap 9.0 mmol/L Blood Urea Nitrogen 18 mg/dl Creatinine 1.40 mg/dl Est Creatinine Clear Calc Drug Dose 34.0 ml/min Estimated GFR () 43.4 Estimated GFR (Non- 37.4 BUN/Creatinine Ratio 12.8 Random Glucose 108 mg/dl Calcium Level 9.4 mg/dl Magnesium Level 1.8 mg/dl Bedside Glucose 107 mg/dl
--- NOTE | 2017-04-02 12:46 | PROGRESS NOTE ---
DATE: 04/02/2017 The patient was seen and examined. Chart, medications, and telemetry were reviewed. SUBJECTIVE: Breathing "still tough." Denies any chest pains or discomfort. Notes no dizziness or lightheadedness. She is sitting out of bed in the chair today. OBJECTIVE: VITAL SIGNS: Heart rate is 90 and blood pressure is 112/68. NECK: Thin. There is no distinct jugular venous distention. LUNGS: Reveal coarse to fine crackles bibasilar, markedly diminished breath sounds. CARDIOVASCULAR: Regular, tachycardic. There is no S3 gallop. ABDOMEN: Soft. EXTREMITIES: Free of edema. LABORATORY DATA: White cell count 7.8 and hemoglobin is 10.7. Sodium is 137, potassium is 3.9, bicarbonate is 31, BUN is 18, and creatinine is 1.4. IMPRESSION: A 71-year-old female with acute respiratory failure, multifactorial with evidence of hospital acquired pneumonia superimposed on decompensated acute on chronic systolic heart failure. Examination reflects probable euvolemic state currently. PLAN: Continue current cardiac medications. There is room to increase Toprol, but reluctant to do so given the underlying lung issues and underlying conduction abnormalities. We will increase potassium to 20 mEq per day. Ultimate goal to aid in contraction alkalosis. Chest x-ray done on April 01 continued to demonstrate significant interstitial lung disease. MTDD
--- NOTE | 2017-04-02 14:06 | Progress Note ---
Internal Med Progress Note Date of Service: Apr 02, 2017. Provider Documentation: SUBJECTIVE: saturating fine on 4lts feeling weak slept ok last night coughed up small amount of yellow sputum today breathing is same no chest pain moved bowels yesterday OBJECTIVE: Vital Signs-as noted below Exam: General-alert and oriented. Not in distress ENT-normal hearing Neck-no neck masses Lungs-cta b/l no wheezing bibasilar crackles present Heart-s1 and s2 heard, regular rate and rhythm, no murmurs Abdomen-soft bowel sounds present non tender no distension Extremities- no erythema Neuro-alert and oriented moves extremities Lab data as noted below. ASSESSMENT & PLAN: Bibasilar Pneumonia Hypoxia on admission CXR showed bilateral mixed interstitial and alveolar airspace opacities. Recent hospital stay in [facility] received vanco and zosyn- continued on Zosyn and completed the course Appreciate ID input Blood culture -negative and No MRSA required bipap currently requiring 4-6ltsd oxygen Clinically improved Off Bipap now was on high flow oxygen @40% slow improvement To continue same appreciate pulmonary inputs Acute Respiratory Failure due to acute on chronic combined systolic and diastolic CHF with Complication of bibasilar Pneumonia and interstitial lung disease ABG -showed no CO2 retention tx of pneumonia as above on po Lasix cardiology on board and appreciate inputs slow improvement starting pt/ot Hx. of colorectal CA s/p resection/colostomy Has Presacral Mass patient with colostomy, draining well, no foul-smelling stool no issues Acute Kidney Injury with h/o CKD Creatine on admission 1.3 and went up to 1.8 Creatine today 1.4 has been diuresis To avoid Nephrotoxic agent on Lasix 40mg PO Will monitor BMP DM2 BSGs ACHS On insulin sliding scale DVT ppx On subq heparin Disposition monitor in tele pt/ot social service for d/c planning DNR Vital Signs: Date Time Temp Pulse Resp B/P (MAP) Pulse Ox O2 Delivery O2 Flow Rate FiO2 04/02/17 12:00 Nasal Cannula 5.0 04/02/17 10:56 36.4 108 20 112/68 (83) 93 Nasal Cannula 5.0 Humidified Oxygen 04/02/17 08:00 Nasal Cannula 5.0 04/02/17 07:34 36.3 105 19 90/66 (74) 96 Humidified Oxygen 5.0 04/02/17 06:52 100 16 96 Nasal Cannula 6.0 04/02/17 04:00 99 Nasal Cannula 6.0 04/02/17 03:13 37.0 95 20 97/58 (71) 99 Nasal Cannula 6.0 04/02/17 02:10 97 16 94 Nasal Cannula 6.0 04/02/17 00:01 94 Nasal Cannula 6.0 04/01/17 23:08 36.6 96 14 92/62 (72) 94 Nasal Cannula 6.0 04/01/17 20:00 92 Nasal Cannula 6.0 04/01/17 19:23 35.8 106 20 104/73 (83) 92 Nasal Cannula 6.0 04/01/17 19:20 96 16 92 Nasal Cannula 6.0 04/01/17 16:00 Nasal Cannula 6.0 04/01/17 15:18 36.5 82 22 90/64 (73) 90 Nasal Cannula 5.0 Humidified Air Lab Results: Results Past 24 Hours Test 04/01/17 16:12 04/01/17 20:28 04/02/17 04:10 04/02/17 06:32 Range/Units Bedside Glucose 142 192 107 70-90 mg/dl White Blood Count 7.81 4.8-10.8 K/uL Red Blood Count 4.15 4.2-5.4 M/uL Hemoglobin 10.7 12.0-16.0 g/dL Hematocrit 34.0 37-47 % Mean Corpuscular Volume 81.9 80-100 fL Mean Corpuscular Hemoglobin 25.8 25-34 pg Mean Corpuscular Hemoglobin Concent 31.5 32-36 g/dl Platelet Count 325 130-400 K/uL Mean Platelet Volume 9.3 7.4-10.4 fL Neutrophils (%) (Auto) 65.7 % Lymphocytes (%) (Auto) 21.5 % Monocytes (%) (Auto) 8.7 % Eosinophils (%) (Auto) 2.8 % Basophils (%) (Auto) 0.4 % Neutrophils # (Auto) 5.13 1.4-6.5 K/uL Lymphocytes # (Auto) 1.68 1.2-3.4 K/uL Monocytes # (Auto) 0.68 0.11-0.59 K/uL Eosinophils # (Auto) 0.22 0-0.5 K/uL Basophils # (Auto) 0.03 0-0.2 K/uL RDW Standard Deviation 53.8 36.4-46.3 fL RDW Coefficient of Variation 18.0 11.5-14.5 % Immature Granulocyte % (Auto) 0.9 % Immature Granulocyte # (Auto) 0.07 0.00-0.02 K/uL Sodium Level 137 136-145 mmol/L Potassium Level 3.9 3.5-5.1 mmol/L Chloride Level 97 98-107 mmol/L Carbon Dioxide Level 31 21-32 mmol/L Anion Gap 9.0 3-11 mmol/L Blood Urea Nitrogen 18 7-18 mg/dl Creatinine 1.40 0.60-1.20 mg/dl Est Creatinine Clear Calc Drug Dose 34.0 ml/min Estimated GFR () 43.4 Estimated GFR (Non- 37.4 BUN/Creatinine Ratio 12.8 10-20 Random Glucose 108 70-99 mg/dl Calcium Level 9.4 8.5-10.1 mg/dl Magnesium Level 1.8 1.8-2.4 mg/dl Test 04/02/17 11:18 Range/Units Bedside Glucose 190 70-90 mg/dl
[2017-04-02] MEDS: SENNA 8.6 MG TAB PO SCH (21:10)
[2017-04-02] MEDS: ALPRAZOLAM 0.25 MG TAB PO PRN (21:11)
[2017-04-03] VITALS (15 sets, daily range): BP systolic 92–98; BP diastolic 58–66; PULSE 85–97; TEMP 36.4–36.9; O2SAT 91–98
[2017-04-03] MEDS: LEVALBUTEROL 0.31MG/3 ML VIAL INH SCH ×4 (01:55→19:30)
[2017-04-03 05:10] LABS: BASO % 0.3 %; BASO ABS # 0.02 K/uL (0-0.2); COMPLETE YES; EOS % 2.5 %; HEMATOCRIT 33.8 % (37-47); IG% 0.9 %; LYMPH ABS # 1.84 K/uL (1.2-3.4); MEAN CELL VOLUME 80.9 fL (80-100); MEAN CORPUSCULAR HEMOGLOBIN 25.4 pg (25-34); MEAN CORPUSCULAR HGB CONC 31.4 g/dl (32-36); MEAN PLATELET VOLUME 8.9 fL (7.4-10.4); MONO % 8.4 %; NEUT % 63.9 %; PLATELET COUNT 292 K/uL (130-400); RED BLOOD COUNT 4.18 M/uL (4.2-5.4); WHITE BLOOD COUNT 7.66 K/uL (4.8-10.8)
[2017-04-03 05:36] LABS: BUN/CREATININE RATIO 12.7 (10-20); CALCIUM 9.2 mg/dl (8.5-10.1); CREATININE 1.4 mg/dl (0.60-1.20); MAGNESIUM 1.9 mg/dl (1.8-2.4)
[2017-04-03] MEDS: HEPARIN SOD 5000 UNIT/0.5 ML CARP SQ SCH ×3 (06:05→21:09)
[2017-04-03] MEDS: VENLAFAXINE HCL XR 37.5 MG CAPXR PO SCH (07:34)
[2017-04-03] MEDS: FUROSEMIDE 40 MG TAB PO SCH (07:35)
[2017-04-03] MEDS: POTASSIUM CHLORIDE 20 MEQ TABCR PO SCH (07:35)
[2017-04-03] MEDS: MAGNESIUM OXIDE 400 MG TAB PO SCH ×2 (07:36→21:07)
[2017-04-03] MEDS: NICOTINE 7 MG/24 HR TDSY TD SCH (07:36)
[2017-04-03] MEDS: METOPROLOL SUCC 25MG EXT REL TAB PO SCH (09:00)
[2017-04-03] MEDS: INSULIN ASPART 100 UNITS/ML 3 ML PEN SC SCH ×4 (09:24→21:00)
--- NOTE | 2017-04-03 10:44 | Progress Note ---
Medicine Progress Note Date & Time of Visit: Apr 03, 2017 at 10:43. Subjective seen resting in bed, comfortable, in good spirits states she feels about the same as yesterday still has occasional dry cough denies chest pain, dyspnea, palpitations no other symptoms Objective Last 8 Hrs Date Time Temp Pulse Resp B/P (MAP) Pulse Ox O2 Delivery O2 Flow Rate FiO2 04/03/17 09:25 97/66 (76) 04/03/17 08:09 36.9 96 20 92/60 (71) 93 Nasal Cannula 4.0 04/03/17 08:00 96 Nasal Cannula 4.0 04/03/17 07:02 97 18 96 Nasal Cannula 4.0 04/03/17 04:00 Nasal Cannula 4.0 04/03/17 02:58 36.7 96 22 94/61 (72) 93 Nasal Cannula 4.0 Physical Exam: General- oriented x 3, not in distress, speaks in sentences with no effort Eyes- EOMI, anicteric Neck- supple, no JVD Lungs- clear breath sounds bilaterally, no rales/wheezes Heart- regular rhythm; no murmur, normal rate Abdomen- normal bowel sounds, soft, nontender Extremities- no pretibial edema, no calf tenderness Neuro- alert, oriented x 3; no gross focal deficits Skin- warm & dry Laboratory Results: Last 24 Hours Test 04/02/17 11:18 04/02/17 16:25 04/02/17 20:13 04/03/17 04:50 Bedside Glucose 190 mg/dl 156 mg/dl 139 mg/dl White Blood Count 7.66 K/uL Red Blood Count 4.18 M/uL Hemoglobin 10.6 g/dL Hematocrit 33.8 % Mean Corpuscular Volume 80.9 fL Mean Corpuscular Hemoglobin 25.4 pg Mean Corpuscular Hemoglobin Concent 31.4 g/dl Platelet Count 292 K/uL Mean Platelet Volume 8.9 fL Neutrophils (%) (Auto) 63.9 % Lymphocytes (%) (Auto) 24.0 % Monocytes (%) (Auto) 8.4 % Eosinophils (%) (Auto) 2.5 % Basophils (%) (Auto) 0.3 % Neutrophils # (Auto) 4.90 K/uL Lymphocytes # (Auto) 1.84 K/uL Monocytes # (Auto) 0.64 K/uL Eosinophils # (Auto) 0.19 K/uL Basophils # (Auto) 0.02 K/uL RDW Standard Deviation 54.3 fL RDW Coefficient of Variation 18.3 % Immature Granulocyte % (Auto) 0.9 % Immature Granulocyte # (Auto) 0.07 K/uL Sodium Level 134 mmol/L Potassium Level 4.0 mmol/L Chloride Level 97 mmol/L Carbon Dioxide Level 32 mmol/L Anion Gap 5.0 mmol/L Blood Urea Nitrogen 18 mg/dl Creatinine 1.40 mg/dl Est Creatinine Clear Calc Drug Dose 34.0 ml/min Estimated GFR () 43.4 Estimated GFR (Non- 37.4 BUN/Creatinine Ratio 12.7 Random Glucose 98 mg/dl Calcium Level 9.2 mg/dl Magnesium Level 1.9 mg/dl Test 04/03/17 06:49 Bedside Glucose 103 mg/dl Assessment & Plan ACUTE HYPOXIC RESPIRATORY FAILURE SECONDARY TO Bibasilar Pneumonia, [facility], ILD ACUTE ON CHRONIC SYSTOLIC AND DIASTOLIC CHF CXR showed bilateral mixed interstitial and alveolar airspace opacities. -- Pulmonary consulted, weaned off Bipap and high flow o2 -- ID consulted, finished 7 days of Zosyn and Vanco -- Cardiology consulted, Lasix titrated -- now on 4 liter NC seems to be euvolemic -- continue Nebs, Lasix -- appreciate Pulm, ID, Cardio input Hx. of colorectal CA s/p resection/colostomy Has Presacral Mass stable Acute Kidney Injury with h/o CKD Creatine on admission 1.3 and went up to 1.8 Creatine 1.4 -- stable overall DM2 BSGs ACHS On insulin sliding scale DVT ppx On subq heparin Disposition pt/ot social service for d/c planning DNR Consultants: cardio Pulmonary Current Inpatient Medications: Current Inpatient Medications Medications (Trade) Dose Ordered Sig/Lorenzo Route Start Time Stop Time Status Last Admin Dose Admin Alprazolam (Xanax Tab) 0.25 mg Q6H PRN PO 03/22/17 15:15 04/21/17 15:14 04/02/17 21:11 0.25 MG Bupropion HCl (Wellbutrin Tab) 75 mg TID@0700,1500,2300 PO 03/22/17 23:00 04/21/17 22:59 04/03/17 06:07 75 MG Furosemide (Lasix Tab) 40 mg QAM PO 03/23/17 09:00 04/22/17 08:59 Future hold 04/03/17 07:35 40 MG Nicotine (Nicoderm Cq 7 Mg Patch) 1 patch DAILY TD 03/23/17 09:00 04/22/17 08:59 04/03/17 07:36 1 PATCH Senna (Senokot Tab) 8.6 mg HS PO 03/22/17 21:00 04/21/17 20:59 04/02/17 21:10 8.6 MG Venlafaxine HCl (effeXOR EXTENDED REL CAP) 37.5 mg DAILY PO 03/23/17 09:00 04/22/17 08:59 04/03/17 07:34 37.5 MG Heparin Sodium (Porcine) (Heparin Sq 5000 Unit/0.5ml) 5,000 unit Q8 SQ 03/22/17 22:00 04/21/17 21:59 04/03/17 06:05 5,000 UNIT Acetaminophen (Tylenol Tab) 650 mg Q4H PRN PO 03/22/17 15:30 04/21/17 15:29 03/30/17 23:43 650 MG Al Hydrox/Mg Hydrox/Simethicone (Maalox Max Susp) 15 ml Q4H PRN PO 03/22/17 15:30 04/21/17 15:29 Magnesium Hydroxide (Milk Of Magnesia Susp) 30 ml Q12H PRN PO 03/22/17 15:30 04/21/17 15:29 Ondansetron HCl (Zofran Inj) 4 mg Q6H PRN IV 03/22/17 15:30 04/21/17 15:29 03/25/17 10:27 4 MG Polyethylene (Miralax Powder Packet) 17 gm DAILY PRN PO 03/22/17 15:30 04/21/17 15:29 Glucose (Glucose 40% Gel) 15-30 GRAMS 15 GRAMS... UD PRN PO 03/22/17 19:30 04/21/17 19:29 Glucose (Glucose Chew Tab) 4-8 Tablets 4 Tabl... UD PRN PO 03/22/17 19:30 04/21/17 19:29 Dextrose (Dextrose 50% 50ML Syringe) 25-50ML OF 50% DW IV FOR... UD PRN IV 03/22/17 19:30 04/21/17 19:29 Glucagon (Glucagon Inj) 1 mg UD PRN SQ 03/22/17 19:30 04/21/17 19:29 Miscellaneous Information (Order Awaiting Action) 1 ea QS N/A 03/23/17 08:00 04/22/17 07:59 03/27/17 19:56 1 EA Magnesium Oxide (Mag-Ox Tab) 400 mg BID PO 03/24/17 21:00 04/23/17 20:59 04/03/17 07:36 400 MG Levalbuterol (Xopenex 0.31MG/ 3ML Neb) 0.31 mg Q6R INH 03/24/17 15:00 04/23/17 14:59 04/03/17 07:02 0.31 MG Insulin Aspart (novoLOG ASPART) SLIDING SCALE If C... ACHS SC 03/25/17 16:15 04/24/17 16:14 04/03/17 09:24 1 UNITS Piperacillin Sod/ Tazobactam Sod (Consult) 1 ea UD PRN N/A 03/25/17 23:00 04/24/17 22:59 Acetaminophen 650 mg/Empty Bag 65 ml @ 260 mls/hr Q6H PRN IV 03/26/17 23:30 04/25/17 23:29 03/27/17 00:17 260 MLS/HR Heparin Sodium (Porcine) (Heparin 100 Unit/ml 5ml Flush) 5 ml PRN PRN IV 03/28/17 01:00 04/27/17 00:59 Metoprolol Succinate (Toprol Xl Tab) 25 mg QAM PO 04/01/17 09:00 05/01/17 08:59 Potassium Chloride (Klor-Con Tab) 20 meq DAILY PO 04/03/17 09:00 05/01/17 08:59 04/03/17 07:35 20 MEQ
[2017-04-03] MEDS: IPRATROPIUM BROMIDE NEB SOLN 0.02% 2.5 ML VIAL INH SCH (19:30)
[2017-04-03] MEDS: SENNA 8.6 MG TAB PO SCH (21:08)
[2017-04-04] VITALS (11 sets, daily range): BP systolic 92–110; BP diastolic 61–70; PULSE 78–105; TEMP 36.3–36.5; O2SAT 93–99
[2017-04-04] MEDS: IPRATROPIUM BROMIDE NEB SOLN 0.02% 2.5 ML VIAL INH SCH ×4 (02:33→19:30)
[2017-04-04] MEDS: LEVALBUTEROL 0.31MG/3 ML VIAL INH SCH ×4 (02:34→19:30)
[2017-04-04 04:58] LABS: BASO % 0.5 %; BASO ABS # 0.04 K/uL (0-0.2); COMPLETE YES; EOS % 2.3 %; HEMATOCRIT 32.4 % (37-47); IG% 0.8 %; LYMPH % 22.4 %; LYMPH ABS # 1.88 K/uL (1.2-3.4); MEAN CELL VOLUME 80.6 fL (80-100); MEAN CORPUSCULAR HEMOGLOBIN 26.4 pg (25-34); MEAN CORPUSCULAR HGB CONC 32.7 g/dl (32-36); MEAN PLATELET VOLUME 8.9 fL (7.4-10.4); MONO % 7.8 %; NEUT % 66.2 %; PLATELET COUNT 293 K/uL (130-400); RED BLOOD COUNT 4.02 M/uL (4.2-5.4); WHITE BLOOD COUNT 8.41 K/uL (4.8-10.8)
[2017-04-04 05:39] LABS: BUN/CREATININE RATIO 14.2 (10-20); CALCIUM 9.3 mg/dl (8.5-10.1); CREATININE 1.4 mg/dl (0.60-1.20)
[2017-04-04] MEDS: HEPARIN SOD 5000 UNIT/0.5 ML CARP SQ SCH ×3 (05:55→20:36)
[2017-04-04] MEDS: VENLAFAXINE HCL XR 37.5 MG CAPXR PO SCH (08:07)
[2017-04-04] MEDS: FUROSEMIDE 40 MG TAB PO SCH (08:07)
[2017-04-04] MEDS: POTASSIUM CHLORIDE 20 MEQ TABCR PO SCH (08:08)
[2017-04-04] MEDS: METOPROLOL SUCC 25MG EXT REL TAB PO SCH (08:08)
[2017-04-04] MEDS: MAGNESIUM OXIDE 400 MG TAB PO SCH ×2 (08:09→20:29)
[2017-04-04] MEDS: NICOTINE 7 MG/24 HR TDSY TD SCH (08:09)
[2017-04-04] MEDS: INSULIN ASPART 100 UNITS/ML 3 ML PEN SC SCH ×4 (08:13→20:35)
--- NOTE | 2017-04-04 10:57 | Pulmonology Progress Note ---
Pulmonary Progress Note Date of Service Apr 04, 2017. Attending Dr. Goss Subjective Continues to described non-productive intermittent cough. Dyspnea with very minimal exertion with PT/OT. Denies fevers or chills. Denies chest pain. Objective 71-yo female admitted to [facility] 03/22/17 from [facility] with acute hypoxic respiratory infection secondary to HCAP and decompensated heart failure. Prior records were reviewed. PMHx includes: multiple recent admissions, h/o admission for septic right hip infection and PNA as well as colorectal CA s/p resection/chemotherapy/XRT, CKD, DM II, and HTN. ? h/o COPD dx 11/2015. Former tobacco: 60+ pack year. She received titrated O2 and initially BiPAP support along with antibiotic, and fluid management with improvement and now O2 requirements have plateaued. Today: - Afebrile, HD stable - O2: 94-95% (2-3LPM) - I/O: 04/03/17 -760mL - Video swallow pending Physical Exam: Constitutional: Frail elderly female sitting in chair at bedside, no acute distress Head: + facial symmetry Eyes: EOMi, PERRLA no injection Mouth: Moist mucous membranes. No erythema or exudate Respiratory: non-labored shallow respirations. Poor air movement at the bases. More prominent fine bibasilar rales. No wheeze. CV: Rapid rate, regular rhythm. Warm and perfused peripherally. GI: soft, protuberant, active bowel sounds : arellano draining clear yellow fluid MSK/Extremities: Moving and developed symmetrically. No peripheral edema. Neurologic: Alert and cooperative. Follows commands appropriately. Assessment & Plan 71-yo female admitted with Acute hypoxic respiratory failure: multifactorial - Hospital-acquired pneumonia but imaging concerning for underlying interstitial process more superior/apical difficult to fully assess in acute state- we will need to contact her family/daughter and find out more information in order to request her previous work-up /outpatient records (prior pulmonary consultation), PFTs, and prior CT chest from outside facilities: - Completed antibiotic, repeat CXR in AM (order placed) - 24-hour Urine Ca++ & SUNG (previously WNL, recheck in acute setting) - Start 50mg prednisone daily and wean 5mg Q 2 days until off - IS and frequent changes of position encouraged - Titrate O2: 90-94% - Will need CXR in 6-weeks as outpatient for resolution of infiltrative changes - Decompensation of systolic and diastolic dysfunction: improved Case discussed with Dr. Goss Patient and plan reviewed and agreed with. Data Medications: Current Inpatient Medications Medications (Trade) Dose Ordered Sig/Lorenzo Route Start Time Stop Time Status Last Admin Dose Admin Alprazolam (Xanax Tab) 0.25 mg Q6H PRN PO 03/22/17 15:15 04/21/17 15:14 04/02/17 21:11 0.25 MG Bupropion HCl (Wellbutrin Tab) 75 mg TID@0700,1500,2300 PO 03/22/17 23:00 04/21/17 22:59 04/04/17 07:38 75 MG Furosemide (Lasix Tab) 40 mg QAM PO 03/23/17 09:00 04/22/17 08:59 Future hold 04/04/17 08:07 40 MG Nicotine (Nicoderm Cq 7 Mg Patch) 1 patch DAILY TD 03/23/17 09:00 04/22/17 08:59 04/04/17 08:09 1 PATCH Senna (Senokot Tab) 8.6 mg HS PO 03/22/17 21:00 04/21/17 20:59 04/03/17 21:08 8.6 MG Venlafaxine HCl (effeXOR EXTENDED REL CAP) 37.5 mg DAILY PO 03/23/17 09:00 04/22/17 08:59 04/04/17 08:07 37.5 MG Heparin Sodium (Porcine) (Heparin Sq 5000 Unit/0.5ml) 5,000 unit Q8 SQ 03/22/17 22:00 04/21/17 21:59 04/04/17 05:55 5,000 UNIT Acetaminophen (Tylenol Tab) 650 mg Q4H PRN PO 03/22/17 15:30 04/21/17 15:29 03/30/17 23:43 650 MG Al Hydrox/Mg Hydrox/Simethicone (Maalox Max Susp) 15 ml Q4H PRN PO 03/22/17 15:30 04/21/17 15:29 Magnesium Hydroxide (Milk Of Magnesia Susp) 30 ml Q12H PRN PO 03/22/17 15:30 04/21/17 15:29 Ondansetron HCl (Zofran Inj) 4 mg Q6H PRN IV 03/22/17 15:30 04/21/17 15:29 03/25/17 10:27 4 MG Polyethylene (Miralax Powder Packet) 17 gm DAILY PRN PO 03/22/17 15:30 04/21/17 15:29 Glucose (Glucose 40% Gel) 15-30 GRAMS 15 GRAMS... UD PRN PO 03/22/17 19:30 04/21/17 19:29 Glucose (Glucose Chew Tab) 4-8 Tablets 4 Tabl... UD PRN PO 03/22/17 19:30 04/21/17 19:29 Dextrose (Dextrose 50% 50ML Syringe) 25-50ML OF 50% DW IV FOR... UD PRN IV 03/22/17 19:30 04/21/17 19:29 Glucagon (Glucagon Inj) 1 mg UD PRN SQ 03/22/17 19:30 04/21/17 19:29 Miscellaneous Information (Order Awaiting Action) 1 ea QS N/A 03/23/17 08:00 04/22/17 07:59 04/03/17 19:49 1 EA Magnesium Oxide (Mag-Ox Tab) 400 mg BID PO 03/24/17 21:00 04/23/17 20:59 04/04/17 08:09 400 MG Levalbuterol (Xopenex 0.31MG/ 3ML Neb) 0.31 mg Q6R INH 03/24/17 15:00 04/23/17 14:59 04/04/17 07:00 0.31 MG Insulin Aspart (novoLOG ASPART) SLIDING SCALE If C... ACHS SC 03/25/17 16:15 04/24/17 16:14 04/04/17 08:13 2 UNITS Piperacillin Sod/ Tazobactam Sod (Consult) 1 ea UD PRN N/A 03/25/17 23:00 04/24/17 22:59 Acetaminophen 650 mg/Empty Bag 65 ml @ 260 mls/hr Q6H PRN IV 03/26/17 23:30 04/25/17 23:29 03/27/17 00:17 260 MLS/HR Heparin Sodium (Porcine) (Heparin 100 Unit/ml 5ml Flush) 5 ml PRN PRN IV 03/28/17 01:00 04/27/17 00:59 Metoprolol Succinate (Toprol Xl Tab) 25 mg QAM PO 04/01/17 09:00 05/01/17 08:59 04/04/17 08:08 25 MG Potassium Chloride (Klor-Con Tab) 20 meq DAILY PO 04/03/17 09:00 05/01/17 08:59 04/04/17 08:08 20 MEQ Ipratropium [place] (Atrovent 0.02% 0.5MG/2.5ML Neb) 0.5 mg Q6R INH 04/03/17 21:00 05/03/17 20:59 04/04/17 07:00 0.5 MG Vital Signs: Date Time Temp Pulse Resp B/P (MAP) Pulse Ox O2 Delivery O2 Flow Rate FiO2 04/04/17 08:00 Nasal Cannula 5.0 04/04/17 07:51 36.5 86 16 100/65 (77) 94 Nasal Cannula 04/04/17 07:00 103 18 95 Nasal Cannula 2.0 04/04/17 04:00 95 Nasal Cannula 5.0 04/04/17 03:23 36.5 87 21 103/68 (80) 99 Nasal Cannula 5.0 04/03/17 23:59 95 Nasal Cannula 5.0 04/03/17 23:47 36.4 85 23 96/63 (74) 95 Nasal Cannula 5.0 04/03/17 20:55 Nasal Cannula 6.0 04/03/17 19:32 36.4 92 22 95/63 (74) 91 Nasal Cannula 1.0 04/03/17 19:30 87 18 92 Nasal Cannula 4.0 04/03/17 16:00 94 Nasal Cannula 2.0 04/03/17 15:45 36.7 92 20 92/66 (75) 96 Nasal Cannula 4.0 04/03/17 14:17 91 18 98 Nasal Cannula 4.0 04/03/17 12:00 95 Nasal Cannula 4.0 04/03/17 11:48 36.5 89 16 98/58 (71) 98 Laboratory Results: Last 24 Hours Test 04/03/17 11:22 04/03/17 15:23 04/03/17 19:20 04/04/17 04:46 Bedside Glucose 170 mg/dl 187 mg/dl 153 mg/dl White Blood Count 8.41 K/uL Red Blood Count 4.02 M/uL Hemoglobin 10.6 g/dL Hematocrit 32.4 % Mean Corpuscular Volume 80.6 fL Mean Corpuscular Hemoglobin 26.4 pg Mean Corpuscular Hemoglobin Concent 32.7 g/dl Platelet Count 293 K/uL Mean Platelet Volume 8.9 fL Neutrophils (%) (Auto) 66.2 % Lymphocytes (%) (Auto) 22.4 % Monocytes (%) (Auto) 7.8 % Eosinophils (%) (Auto) 2.3 % Basophils (%) (Auto) 0.5 % Neutrophils # (Auto) 5.57 K/uL Lymphocytes # (Auto) 1.88 K/uL Monocytes # (Auto) 0.66 K/uL Eosinophils # (Auto) 0.19 K/uL Basophils # (Auto) 0.04 K/uL RDW Standard Deviation 53.7 fL RDW Coefficient of Variation 18.0 % Immature Granulocyte % (Auto) 0.8 % Immature Granulocyte # (Auto) 0.07 K/uL Sodium Level 132 mmol/L Potassium Level 4.0 mmol/L Chloride Level 95 mmol/L Carbon Dioxide Level 31 mmol/L Anion Gap 6.0 mmol/L Blood Urea Nitrogen 20 mg/dl Creatinine 1.40 mg/dl Est Creatinine Clear Calc Drug Dose 34.0 ml/min Estimated GFR () 43.4 Estimated GFR (Non- 37.4 BUN/Creatinine Ratio 14.2 Random Glucose 118 mg/dl Calcium Level 9.3 mg/dl Magnesium Level 2.0 mg/dl Test 04/04/17 06:23 Bedside Glucose 116 mg/dl
--- NOTE | 2017-04-04 11:56 | CARDIOLOGY PROGRESS NOTE ---
DATE: 04/04/2017 DATE: 04/04/2017. The patient seen and examined. Chart, medications, telemetry reviewed. SUBJECTIVE: The patient feels breathing is slightly easier today. Denies any chest pains, tachypalpitations, syncope or near syncope. Weight has been stable, slightly trending downward. Notes no productive cough. OBJECTIVE: VITAL SIGNS: Heart rate is 86, blood pressure is 100/65. NECK: Thin. There is no distinct jugular venous distention. LUNGS: Reveal markedly diminished breath sounds and scattered fine crackles basilar. CARDIOVASCULAR EXAMINATION: Regular. There is no S3 gallop. ABDOMEN: Soft. EXTREMITIES: Free of edema. LABORATORY DATA: White cell count is 8.4, hemoglobin is 10.6, sodium is 132, potassium is 4.0, chloride 95, bicarbonate 31, BUN is 20, creatinine is 1.4. IMPRESSION: A 71-year-old female with mixed respiratory distress secondary to hospital acquired pneumonia, underlying acute on chronic decompensated congestive heart failure secondary to severe LV dysfunction and pulmonary stressors. Current examination suggests relatively euvolemic state. Would continue current therapies as prescribed including oral furosemide and potassium. As noted in the past, consideration may be made for addition of SUNG inhibitor once clinically stable, though blood pressures have been insufficient to allow such in the past. No adjustments made today. Will sign off for now. Please contact with any upcoming concerns.
[2017-04-04] MEDS: ONDANSETRON INJ 2 MG/ML 2 ML VIAL IV PRN (12:02)
--- NOTE | 2017-04-04 12:30 | DIAGNOSTIC IMAGING REPORT ---
VIDEO SWALLOW STUDY CLINICAL HISTORY: Silent aspiration. COMPARISON STUDY: No priors. Fluoroscopy time: 2.3 minutes. FINDINGS: Fluoroscopic guidance was provided to the department of speech pathology in performing a video swallow study. The patient consumed barium-impregnated pudding, cracker with paste, nectar thick liquid, and thin barium while the swallowing mechanism was observed in real-time. No penetration or aspiration was seen with any of the sampled textures. IMPRESSION: No penetration or aspiration was identified with any of the sampled textures. See dedicated speech pathology report for detailed findings and recommendations. Dictated: 04/04/2017 12:03 PM Transcribed: 04/04/2017 12:29 PM [email or web address] Electronically signed by: Pee Coppola M.D. 04/04/2017 12:30 PM Dictated Date/Time: 04/04/2017 12:03 PM
--- NOTE | 2017-04-04 16:03 | Progress Note ---
Medicine Progress Note Date & Time of Visit: Apr 04, 2017 at 15:57. Subjective patient seen resting in bed, daughter Arabella at bedside patient states she feels improved compared to yesterday has occasional cough denies chest pain, dyspnea, dizziness, palpitations no other symptoms Objective Last 8 Hrs Date Time Temp Pulse Resp B/P (MAP) Pulse Ox O2 Delivery O2 Flow Rate FiO2 04/04/17 15:36 36.4 82 21 92/61 (71) 93 Nasal Cannula 2.0 04/04/17 14:24 105 18 97 Nasal Cannula 3.0 04/04/17 12:00 Nasal Cannula 5.0 04/04/17 08:00 Nasal Cannula 5.0 Physical Exam: General- oriented x 3, not in distress, speaks in sentences with no effort Eyes- anicteric Neck- no JVD Lungs- no rales/wheezes bilaterally Heart- regular rhythm; no murmur, normal rate Abdomen- normal bowel sounds, soft, nontender Extremities- no pretibial edema, no calf tenderness Neuro- alert, oriented x 3; no gross focal deficits Skin- warm & dry Laboratory Results: Last 24 Hours Test 04/03/17 19:20 04/04/17 04:46 04/04/17 06:23 04/04/17 11:22 Bedside Glucose 153 mg/dl 116 mg/dl 158 mg/dl White Blood Count 8.41 K/uL Red Blood Count 4.02 M/uL Hemoglobin 10.6 g/dL Hematocrit 32.4 % Mean Corpuscular Volume 80.6 fL Mean Corpuscular Hemoglobin 26.4 pg Mean Corpuscular Hemoglobin Concent 32.7 g/dl Platelet Count 293 K/uL Mean Platelet Volume 8.9 fL Neutrophils (%) (Auto) 66.2 % Lymphocytes (%) (Auto) 22.4 % Monocytes (%) (Auto) 7.8 % Eosinophils (%) (Auto) 2.3 % Basophils (%) (Auto) 0.5 % Neutrophils # (Auto) 5.57 K/uL Lymphocytes # (Auto) 1.88 K/uL Monocytes # (Auto) 0.66 K/uL Eosinophils # (Auto) 0.19 K/uL Basophils # (Auto) 0.04 K/uL RDW Standard Deviation 53.7 fL RDW Coefficient of Variation 18.0 % Immature Granulocyte % (Auto) 0.8 % Immature Granulocyte # (Auto) 0.07 K/uL Sodium Level 132 mmol/L Potassium Level 4.0 mmol/L Chloride Level 95 mmol/L Carbon Dioxide Level 31 mmol/L Anion Gap 6.0 mmol/L Blood Urea Nitrogen 20 mg/dl Creatinine 1.40 mg/dl Est Creatinine Clear Calc Drug Dose 34.0 ml/min Estimated GFR () 43.4 Estimated GFR (Non- 37.4 BUN/Creatinine Ratio 14.2 Random Glucose 118 mg/dl Calcium Level 9.3 mg/dl Magnesium Level 2.0 mg/dl Test 04/04/17 12:45 Assessment & Plan ACUTE HYPOXIC RESPIRATORY FAILURE SECONDARY TO Bibasilar Pneumonia, [facility], ILD ACUTE ON CHRONIC SYSTOLIC AND DIASTOLIC CHF CXR showed bilateral mixed interstitial and alveolar airspace opacities. -- Pulmonary consulted, weaned off Bipap and high flow o2 -- ID consulted, finished 7 days of Zosyn and Vanco -- Cardiology consulted, Lasix titrated -- now on 2 liter NC seems to be euvolemic -- Prednisone and Spiriva added today -- continue Nebs -- continue Lasix -- appreciate Pulm, ID, Cardio input Hx. of colorectal CA s/p resection/colostomy Has Presacral Mass stable Acute Kidney Injury with h/o CKD Creatine on admission 1.3 and went up to 1.8 Creatine 1.4 -- stable overall DM2 BSGs ACHS On insulin sliding scale DVT ppx On subq heparin Disposition pt/ot social service for d/c planning DNR Consultants: cardio Pulmonary Current Inpatient Medications: Current Inpatient Medications Medications (Trade) Dose Ordered Sig/Lorenzo Route Start Time Stop Time Status Last Admin Dose Admin Alprazolam (Xanax Tab) 0.25 mg Q6H PRN PO 03/22/17 15:15 04/21/17 15:14 04/02/17 21:11 0.25 MG Bupropion HCl (Wellbutrin Tab) 75 mg TID@0700,1500,2300 PO 03/22/17 23:00 04/21/17 22:59 04/04/17 07:38 75 MG Furosemide (Lasix Tab) 40 mg QAM PO 03/23/17 09:00 04/22/17 08:59 Future hold 04/04/17 08:07 40 MG Nicotine (Nicoderm Cq 7 Mg Patch) 1 patch DAILY TD 03/23/17 09:00 04/22/17 08:59 04/04/17 08:09 1 PATCH Senna (Senokot Tab) 8.6 mg HS PO 03/22/17 21:00 04/21/17 20:59 04/03/17 21:08 8.6 MG Venlafaxine HCl (effeXOR EXTENDED REL CAP) 37.5 mg DAILY PO 03/23/17 09:00 04/22/17 08:59 04/04/17 08:07 37.5 MG Heparin Sodium (Porcine) (Heparin Sq 5000 Unit/0.5ml) 5,000 unit Q8 SQ 03/22/17 22:00 04/21/17 21:59 04/04/17 14:53 5,000 UNIT Acetaminophen (Tylenol Tab) 650 mg Q4H PRN PO 03/22/17 15:30 04/21/17 15:29 03/30/17 23:43 650 MG Al Hydrox/Mg Hydrox/Simethicone (Maalox Max Susp) 15 ml Q4H PRN PO 03/22/17 15:30 04/21/17 15:29 Magnesium Hydroxide (Milk Of Magnesia Susp) 30 ml Q12H PRN PO 03/22/17 15:30 04/21/17 15:29 Ondansetron HCl (Zofran Inj) 4 mg Q6H PRN IV 03/22/17 15:30 04/21/17 15:29 04/04/17 12:02 4 MG Polyethylene (Miralax Powder Packet) 17 gm DAILY PRN PO 03/22/17 15:30 04/21/17 15:29 Glucose (Glucose 40% Gel) 15-30 GRAMS 15 GRAMS... UD PRN PO 03/22/17 19:30 04/21/17 19:29 Glucose (Glucose Chew Tab) 4-8 Tablets 4 Tabl... UD PRN PO 03/22/17 19:30 04/21/17 19:29 Dextrose (Dextrose 50% 50ML Syringe) 25-50ML OF 50% DW IV FOR... UD PRN IV 03/22/17 19:30 04/21/17 19:29 Glucagon (Glucagon Inj) 1 mg UD PRN SQ 03/22/17 19:30 04/21/17 19:29 Miscellaneous Information (Order Awaiting Action) 1 ea QS N/A 03/23/17 08:00 04/22/17 07:59 04/03/17 19:49 1 EA Magnesium Oxide (Mag-Ox Tab) 400 mg BID PO 03/24/17 21:00 04/23/17 20:59 04/04/17 08:09 400 MG Levalbuterol (Xopenex 0.31MG/ 3ML Neb) 0.31 mg Q6R INH 03/24/17 15:00 04/23/17 14:59 04/04/17 14:24 0.31 MG Insulin Aspart (novoLOG ASPART) SLIDING SCALE If C... ACHS SC 03/25/17 16:15 04/24/17 16:14 04/04/17 13:02 2 UNITS Piperacillin Sod/ Tazobactam Sod (Consult) 1 ea UD PRN N/A 03/25/17 23:00 04/24/17 22:59 Acetaminophen 650 mg/Empty Bag 65 ml @ 260 mls/hr Q6H PRN IV 03/26/17 23:30 04/25/17 23:29 03/27/17 00:17 260 MLS/HR Heparin Sodium (Porcine) (Heparin 100 Unit/ml 5ml Flush) 5 ml PRN PRN IV 03/28/17 01:00 04/27/17 00:59 04/04/17 15:52 5 ML Metoprolol Succinate (Toprol Xl Tab) 25 mg QAM PO 04/01/17 09:00 05/01/17 08:59 04/04/17 08:08 25 MG Potassium Chloride (Klor-Con Tab) 20 meq DAILY PO 04/03/17 09:00 05/01/17 08:59 04/04/17 08:08 20 MEQ Ipratropium [place] (Atrovent 0.02% 0.5MG/2.5ML Neb) 0.5 mg Q6R INH 04/03/17 21:00 05/03/17 20:59 04/04/17 14:24 0.5 MG Tiotropium [place] (Spiriva Handihaler Inhaler) 1 puff QAM INH 04/05/17 09:00 05/05/17 08:59 Prednisone (PredniSONE TAB) 50 mg DAILY PO 04/05/17 09:00 05/05/17 08:59
[2017-04-04 16:45] LABS: BUN/CREATININE RATIO 12.8 (10-20); CALCIUM 9.9 mg/dl (8.5-10.1); CREATININE 1.9 mg/dl (0.60-1.20)
[2017-04-04] MEDS ORDERED: SODIUM CHLORIDE 0.9% 1000ML 1,000 ML IV SCH (18:45)
[2017-04-04] MEDS: ALPRAZOLAM 0.25 MG TAB PO PRN (20:28)
[2017-04-04] MEDS: SENNA 8.6 MG TAB PO SCH (20:36)
[2017-04-04 21:26] LABS: CREATININE 1.9 mg/dl (0.60-1.20)
[2017-04-04 21:27] LABS: BUN/CREATININE RATIO 12.8 (10-20); CALCIUM 9.8 mg/dl (8.5-10.1); POTASSIUM 4.6 mmol/L (3.5-5.1)
[2017-04-05] VITALS (13 sets, daily range): BP systolic 92–102; BP diastolic 58–69; PULSE 69–83; TEMP 36.4–36.9; O2SAT 90–100
[2017-04-05 00:28] LABS: BUN/CREATININE RATIO 12.9 (10-20); CALCIUM 9.4 mg/dl (8.5-10.1); CREATININE 1.9 mg/dl (0.60-1.20); POTASSIUM 4.5 mmol/L (3.5-5.1)
[2017-04-05] MEDS: LEVALBUTEROL 0.31MG/3 ML VIAL INH SCH ×4 (01:43→19:55)
[2017-04-05] MEDS: IPRATROPIUM BROMIDE NEB SOLN 0.02% 2.5 ML VIAL INH SCH ×4 (01:43→19:55)
[2017-04-05 04:46] LABS: BUN/CREATININE RATIO 14.5 (10-20); CALCIUM 8.9 mg/dl (8.5-10.1); CREATININE 1.6 mg/dl (0.60-1.20); POTASSIUM 4.4 mmol/L (3.5-5.1)
[2017-04-05] MEDS: HEPARIN SOD 5000 UNIT/0.5 ML CARP SQ SCH ×3 (06:29→22:28)
[2017-04-05] MEDS: INSULIN ASPART 100 UNITS/ML 3 ML PEN SC SCH ×4 (07:00→21:11)
[2017-04-05 08:30] LABS: BUN/CREATININE RATIO 14.5 (10-20); CALCIUM 9.3 mg/dl (8.5-10.1); CREATININE 1.5 mg/dl (0.60-1.20); POTASSIUM 4.5 mmol/L (3.5-5.1)
[2017-04-05] MEDS: TIOTROPIUM BROMIDE 5 PUFF/90 MCG INH INH SCH (08:43)
[2017-04-05] MEDS: MAGNESIUM OXIDE 400 MG TAB PO SCH ×2 (08:43→21:07)
[2017-04-05] MEDS: NICOTINE 7 MG/24 HR TDSY TD SCH (08:44)
[2017-04-05] MEDS: VENLAFAXINE HCL XR 37.5 MG CAPXR PO SCH (08:44)
[2017-04-05] MEDS: POTASSIUM CHLORIDE 20 MEQ TABCR PO SCH (08:45)
[2017-04-05] MEDS: METOPROLOL SUCC 25MG EXT REL TAB PO SCH (08:45)
--- NOTE | 2017-04-05 09:06 | DIAGNOSTIC IMAGING REPORT ---
CHEST ONE VIEW PORTABLE CLINICAL HISTORY: follow up infiltrate COMPARISON STUDY: 03/31/2017 FINDINGS: No change in the diffuse interstitial change throughout both hemithoraces. Mild chronic fullness of the mid mediastinum and hilar regions. Central catheter remains in superior vena cava. IMPRESSION: No change compared to the prior exam. Diffuse bilateral parenchymal interstitial change The above report was generated using voice recognition software. It may contain grammatical, syntax or spelling errors. Electronically signed by: Adan Santana M.D. 04/05/2017 9:05 AM Dictated Date/Time: 04/05/2017 9:04 AM
--- NOTE | 2017-04-05 09:16 | Progress Note ---
Medicine Progress Note Date & Time of Visit: Apr 05, 2017 at 09:11. Subjective seen resting in bed, reading the newspaper comfortable, on 3 liters NC states she feels fine today denies dyspnea, cough is less no chest pain, dyspnea, dizziness no other symptoms Objective Last 8 Hrs Date Time Temp Pulse Resp B/P (MAP) Pulse Ox O2 Delivery O2 Flow Rate FiO2 04/05/17 07:24 69 18 96 Nasal Cannula 3.0 04/05/17 07:12 36.4 70 22 95/61 (72) 100 Nasal Cannula 3.0 Humidified Oxygen 04/05/17 04:12 36.6 72 18 92/58 (69) 95 Nasal Cannula 3.0 04/05/17 04:00 94 Nasal Cannula 2.0 Physical Exam: General- oriented x 3, not in distress, speaks in sentences with no effort Neck- no JVD Lungs- mild rales bilaterally, no wheezing Heart- regular rhythm; no murmur, normal rate Abdomen- normal bowel sounds, soft, nontender Extremities- no pretibial edema, no calf tenderness Neuro- alert, oriented x 3; no gross focal deficits Skin- warm & dry Laboratory Results: Last 24 Hours Test 04/04/17 11:22 04/04/17 12:45 04/04/17 16:06 04/04/17 20:34 Bedside Glucose 158 mg/dl 259 mg/dl 137 mg/dl Sodium Level 130 mmol/L Potassium Level 5.0 mmol/L Chloride Level 92 mmol/L Carbon Dioxide Level 30 mmol/L Anion Gap 8.0 mmol/L Blood Urea Nitrogen 24 mg/dl Creatinine 1.90 mg/dl Est Creatinine Clear Calc Drug Dose 25.1 ml/min Estimated GFR () 30.0 Estimated GFR (Non- 25.9 BUN/Creatinine Ratio 12.8 Random Glucose 218 mg/dl Calcium Level 9.9 mg/dl Test 04/04/17 20:40 04/04/17 23:41 04/05/17 04:04 04/05/17 06:56 Sodium Level 131 mmol/L 132 mmol/L 133 mmol/L Potassium Level 4.6 mmol/L 4.5 mmol/L 4.4 mmol/L Chloride Level 92 mmol/L 94 mmol/L 98 mmol/L Carbon Dioxide Level 32 mmol/L 31 mmol/L 29 mmol/L Anion Gap 7.0 mmol/L 7.0 mmol/L 6.0 mmol/L Blood Urea Nitrogen 24 mg/dl 25 mg/dl 23 mg/dl Creatinine 1.90 mg/dl 1.90 mg/dl 1.60 mg/dl Est Creatinine Clear Calc Drug Dose 25.1 ml/min 25.1 ml/min 29.8 ml/min Estimated GFR () 30.0 30.0 36.9 Estimated GFR (Non- 25.9 25.9 31.9 BUN/Creatinine Ratio 12.8 12.9 14.5 Random Glucose 142 mg/dl 138 mg/dl 125 mg/dl Calcium Level 9.8 mg/dl 9.4 mg/dl 8.9 mg/dl Bedside Glucose 121 mg/dl Test 04/05/17 07:41 Sodium Level 135 mmol/L Potassium Level 4.5 mmol/L Chloride Level 99 mmol/L Carbon Dioxide Level 30 mmol/L Anion Gap 6.0 mmol/L Blood Urea Nitrogen 22 mg/dl Creatinine 1.50 mg/dl Est Creatinine Clear Calc Drug Dose 31.7 ml/min Estimated GFR () 39.9 Estimated GFR (Non- 34.4 BUN/Creatinine Ratio 14.5 Random Glucose 112 mg/dl Calcium Level 9.3 mg/dl Assessment & Plan ACUTE HYPOXIC RESPIRATORY FAILURE SECONDARY TO Bibasilar Pneumonia, [facility], ILD ACUTE ON CHRONIC SYSTOLIC AND DIASTOLIC CHF CXR showed bilateral mixed interstitial and alveolar airspace opacities. -- Pulmonary consulted, weaned off Bipap and high flow o2 -- ID consulted, finished 7 days of Zosyn and Vanco -- Cardiology consulted, Lasix titrated -- now on 2-3 liter NC seems to be euvolemic -- Prednisone and Spiriva added also on Nebs -- crea went up to 1.9, Na decreased to 130 given gentle IV NSS crea improved to 1.5, Na 135 HOLD Lasix and Potassium today monitor -- repeat CXR pending -- appreciate Pulm, ID, Cardio input History of colorectal CA s/p resection/colostomy Has Presacral Mass -- stable Acute Kidney Injury with h/o CKD Creatine on admission 1.3 and went up to 1.8 Creatine 1.9 to 1.5 d/c IV fluids hold Lasix monitor -- stable overall DM2 BSGs ACHS On insulin sliding scale DVT ppx On subq heparin Disposition pending d/c when cleared by Pulmonary and Cardiology patient prefers another facility other than [facility] DNR Consultants: cardio Pulmonary Current Inpatient Medications: Current Inpatient Medications Medications (Trade) Dose Ordered Sig/Lorenzo Route Start Time Stop Time Status Last Admin Dose Admin Alprazolam (Xanax Tab) 0.25 mg Q6H PRN PO 03/22/17 15:15 04/21/17 15:14 04/04/17 20:28 0.25 MG Bupropion HCl (Wellbutrin Tab) 75 mg TID@0700,1500,2300 PO 03/22/17 23:00 04/21/17 22:59 04/05/17 08:00 75 MG Nicotine (Nicoderm Cq 7 Mg Patch) 1 patch DAILY TD 03/23/17 09:00 04/22/17 08:59 04/05/17 08:44 1 PATCH Senna (Senokot Tab) 8.6 mg HS PO 03/22/17 21:00 04/21/17 20:59 04/03/17 21:08 8.6 MG Venlafaxine HCl (effeXOR EXTENDED REL CAP) 37.5 mg DAILY PO 03/23/17 09:00 04/22/17 08:59 04/05/17 08:44 37.5 MG Heparin Sodium (Porcine) (Heparin Sq 5000 Unit/0.5ml) 5,000 unit Q8 SQ 03/22/17 22:00 04/21/17 21:59 04/05/17 06:29 5,000 UNIT Acetaminophen (Tylenol Tab) 650 mg Q4H PRN PO 03/22/17 15:30 04/21/17 15:29 03/30/17 23:43 650 MG Al Hydrox/Mg Hydrox/Simethicone (Maalox Max Susp) 15 ml Q4H PRN PO 03/22/17 15:30 04/21/17 15:29 Magnesium Hydroxide (Milk Of Magnesia Susp) 30 ml Q12H PRN PO 03/22/17 15:30 04/21/17 15:29 Ondansetron HCl (Zofran Inj) 4 mg Q6H PRN IV 03/22/17 15:30 04/21/17 15:29 04/04/17 12:02 4 MG Polyethylene (Miralax Powder Packet) 17 gm DAILY PRN PO 03/22/17 15:30 04/21/17 15:29 Glucose (Glucose 40% Gel) 15-30 GRAMS 15 GRAMS... UD PRN PO 03/22/17 19:30 04/21/17 19:29 Glucose (Glucose Chew Tab) 4-8 Tablets 4 Tabl... UD PRN PO 03/22/17 19:30 04/21/17 19:29 Dextrose (Dextrose 50% 50ML Syringe) 25-50ML OF 50% DW IV FOR... UD PRN IV 03/22/17 19:30 04/21/17 19:29 Glucagon (Glucagon Inj) 1 mg UD PRN SQ 03/22/17 19:30 04/21/17 19:29 Miscellaneous Information (Order Awaiting Action) 1 ea QS N/A 03/23/17 08:00 04/22/17 07:59 04/03/17 19:49 1 EA Magnesium Oxide (Mag-Ox Tab) 400 mg BID PO 03/24/17 21:00 04/23/17 20:59 04/05/17 08:43 400 MG Levalbuterol (Xopenex 0.31MG/ 3ML Neb) 0.31 mg Q6R INH 03/24/17 15:00 04/23/17 14:59 04/05/17 07:24 0.31 MG Insulin Aspart (novoLOG ASPART) SLIDING SCALE If C... ACHS SC 03/25/17 16:15 04/24/17 16:14 04/04/17 16:53 4 UNITS Piperacillin Sod/ Tazobactam Sod (Consult) 1 ea UD PRN N/A 03/25/17 23:00 04/24/17 22:59 Acetaminophen 650 mg/Empty Bag 65 ml @ 260 mls/hr Q6H PRN IV 03/26/17 23:30 04/25/17 23:29 03/27/17 00:17 260 MLS/HR Heparin Sodium (Porcine) (Heparin 100 Unit/ml 5ml Flush) 5 ml PRN PRN IV 03/28/17 01:00 04/27/17 00:59 04/04/17 15:52 5 ML Metoprolol Succinate (Toprol Xl Tab) 25 mg QAM PO 04/01/17 09:00 05/01/17 08:59 04/04/17 08:08 25 MG Potassium Chloride (Klor-Con Tab) 20 meq DAILY PO 04/03/17 09:00 05/01/17 08:59 04/05/17 08:45 20 MEQ Ipratropium [place] (Atrovent 0.02% 0.5MG/2.5ML Neb) 0.5 mg Q6R INH 04/03/17 21:00 05/03/17 20:59 04/05/17 07:23 0.5 MG Tiotropium [place] (Spiriva Handihaler Inhaler) 1 puff QAM INH 04/05/17 09:00 05/05/17 08:59 04/05/17 08:43 1 PUFF Prednisone (PredniSONE TAB) 50 mg DAILY PO 04/05/17 09:00 05/05/17 08:59 04/05/17 08:44 50 MG Sodium Chloride 1,000 ml @ 60 mls/hr [id number] IV 04/04/17 18:45 04/05/17 11:24 04/04/17 18:59 60 MLS/HR
--- NOTE | 2017-04-05 12:35 | Clinical Documentation Query ---
CLINICAL DOCUMENTATION QUERY Dr. ALMENDAREZ, In your clinical opinion is this patient being managed for: ( ) Chronic kidney disease, stage 3-4 ( ) Other explanation of clinical findings (Please Explain) ( ) Unable to determine (Please Define) ( ) Need to Discuss ( ) Not Agree The medical record reflects the following clinical findings, treatment, and risk factors. Clinical Indicators: Documentation reflects pt has h/o CKD. Review of GFR showed range of 25.9-41. Treatment:monitor PRP's, treat comorbid conditions Risk Factors: age, DM, HTN Please clarify and document your clinical opinion in the progress notes and discharge summary. Terms such as "probable", "suspected", "likely", "questionable", "possible", or "still to be ruled out" are acceptable. IF IN AGREEMENT, YOU MUST DOCUMENT ABOVE DIAGNOSTIC STATEMENT IN DAILY PROGRESS NOTES AND DISCHARGE SUMMARY. This document is not part of the patient's record. Thank You, Freya Steele RN [phone]
--- NOTE | 2017-04-05 16:33 | Pulmonology Progress Note ---
Pulmonary Progress Note Date of Service Apr 05, 2017. Attending Dr. Goss Subjective [place] improved yesterday. States she is unsure how she feels today. Denies any pain or increase in dyspnea or cough. Objective 71-yo female admitted to [facility] 03/22/17 from [facility] with acute hypoxic respiratory infection secondary to HCAP and decompensated heart failure. Prior records were reviewed. PMHx includes: multiple recent admissions, h/o admission for septic right hip infection and PNA as well as colorectal CA s/p resection/chemotherapy/XRT, CKD, DM II, and HTN. ? 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 Former tobacco: 60+ pack year. She received titrated O2 and initially BiPAP support along with antibiotic, and fluid management with improvement and now O2 requirements have plateaued. 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 She states that she "tested positive" and was [place] her [place] [facility] but was told everything was fine "nothing was ever done". She reports having seen Dr. 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 - Afebrile, HD stable - O2: 94-100% - 3LPM - Video swallow: no aspiration - Chest X-ray: persistent bilateral parenchymal interstitial change Physical Exam: Constitutional: Frail elderly female sitting lying in hospital bed. No acute distress Head: + facial symmetry Eyes: EOMi, PERRLA no injection Mouth: Moist mucous membranes. No erythema or exudate Respiratory: Non-labored shallow respirations. Fine bibasilar rales. No wheeze. CV: Rapid rate, regular rhythm. Warm and perfused peripherally. GI: soft, protuberant, active bowel sounds MSK/Extremities: Moving and developed symmetrically. Bilateral SCDs Neurologic: Alert and cooperative. Follows commands appropriately. Assessment & Plan 71-yo female admitted with Acute hypoxic respiratory failure: multifactorial - Hospital-acquired pneumonia and likely underlying interstitial changes: O2 plateau / clinically stable from pulmonary standpoint. - Taper steroid by 5mg Q 3 days until off - F/U with pulmonary - She is established with Dr. Beckham in [place] we will need these records - ? H/O prior very remote TB exposure and remote w/u - patient states that this is know by her pulmonary physician - we will request these records. - Decompensation of systolic and diastolic dysfunction: improved The patient's case has been reviewed in the plan and agreed with. Data Medications: Current Inpatient Medications Medications (Trade) Dose Ordered Sig/Lorenzo Route Start Time Stop Time Status Last Admin Dose Admin Alprazolam (Xanax Tab) 0.25 mg Q6H PRN PO 03/22/17 15:15 04/21/17 15:14 04/04/17 20:28 0.25 MG Bupropion HCl (Wellbutrin Tab) 75 mg TID@0700,1500,2300 PO 03/22/17 23:00 04/21/17 22:59 04/05/17 08:00 75 MG Nicotine (Nicoderm Cq 7 Mg Patch) 1 patch DAILY TD 03/23/17 09:00 04/22/17 08:59 04/05/17 08:44 1 PATCH Senna (Senokot Tab) 8.6 mg HS PO 03/22/17 21:00 04/21/17 20:59 04/03/17 21:08 8.6 MG Venlafaxine HCl (effeXOR EXTENDED REL CAP) 37.5 mg DAILY PO 03/23/17 09:00 04/22/17 08:59 04/05/17 08:44 37.5 MG Heparin Sodium (Porcine) (Heparin Sq 5000 Unit/0.5ml) 5,000 unit Q8 SQ 03/22/17 22:00 04/21/17 21:59 04/05/17 06:29 5,000 UNIT Acetaminophen (Tylenol Tab) 650 mg Q4H PRN PO 03/22/17 15:30 04/21/17 15:29 03/30/17 23:43 650 MG Al Hydrox/Mg Hydrox/Simethicone (Maalox Max Susp) 15 ml Q4H PRN PO 03/22/17 15:30 04/21/17 15:29 Magnesium Hydroxide (Milk Of Magnesia Susp) 30 ml Q12H PRN PO 03/22/17 15:30 04/21/17 15:29 Ondansetron HCl (Zofran Inj) 4 mg Q6H PRN IV 03/22/17 15:30 04/21/17 15:29 04/04/17 12:02 4 MG Polyethylene (Miralax Powder Packet) 17 gm DAILY PRN PO 03/22/17 15:30 04/21/17 15:29 Glucose (Glucose 40% Gel) 15-30 GRAMS 15 GRAMS... UD PRN PO 03/22/17 19:30 04/21/17 19:29 Glucose (Glucose Chew Tab) 4-8 Tablets 4 Tabl... UD PRN PO 03/22/17 19:30 04/21/17 19:29 Dextrose (Dextrose 50% 50ML Syringe) 25-50ML OF 50% DW IV FOR... UD PRN IV 03/22/17 19:30 04/21/17 19:29 Glucagon (Glucagon Inj) 1 mg UD PRN SQ 03/22/17 19:30 04/21/17 19:29 Miscellaneous Information (Order Awaiting Action) 1 ea QS N/A 03/23/17 08:00 04/22/17 07:59 04/03/17 19:49 1 EA Magnesium Oxide (Mag-Ox Tab) 400 mg BID PO 03/24/17 21:00 04/23/17 20:59 04/05/17 08:43 400 MG Levalbuterol (Xopenex 0.31MG/ 3ML Neb) 0.31 mg Q6R INH 03/24/17 15:00 04/23/17 14:59 04/05/17 07:24 0.31 MG Insulin Aspart (novoLOG ASPART) SLIDING SCALE If C... ACHS SC 03/25/17 16:15 04/24/17 16:14 04/04/17 16:53 4 UNITS Piperacillin Sod/ Tazobactam Sod (Consult) 1 ea UD PRN N/A 03/25/17 23:00 04/24/17 22:59 Acetaminophen 650 mg/Empty Bag 65 ml @ 260 mls/hr Q6H PRN IV 03/26/17 23:30 04/25/17 23:29 03/27/17 00:17 260 MLS/HR Heparin Sodium (Porcine) (Heparin 100 Unit/ml 5ml Flush) 5 ml PRN PRN IV 03/28/17 01:00 04/27/17 00:59 04/04/17 15:52 5 ML Metoprolol Succinate (Toprol Xl Tab) 25 mg QAM PO 04/01/17 09:00 05/01/17 08:59 04/04/17 08:08 25 MG Ipratropium [place] (Atrovent 0.02% 0.5MG/2.5ML Neb) 0.5 mg Q6R INH 04/03/17 21:00 05/03/17 20:59 04/05/17 07:23 0.5 MG Tiotropium [place] (Spiriva Handihaler Inhaler) 1 puff QAM INH 04/05/17 09:00 05/05/17 08:59 04/05/17 08:43 1 PUFF Prednisone (PredniSONE TAB) 50 mg DAILY PO 04/05/17 09:00 05/05/17 08:59 04/05/17 08:44 50 MG Vital Signs: Date Time Temp Pulse Resp B/P (MAP) Pulse Ox O2 Delivery O2 Flow Rate FiO2 04/05/17 07:24 69 18 96 Nasal Cannula 3.0 04/05/17 07:12 36.4 70 22 95/61 (72) 100 Nasal Cannula 3.0 Humidified Oxygen 04/05/17 04:12 36.6 72 18 92/58 (69) 95 Nasal Cannula 3.0 04/05/17 04:00 94 Nasal Cannula 2.0 04/05/17 00:00 36.6 74 20 96/62 (73) 95 Nasal Cannula 3.0 04/04/17 23:59 94 Nasal Cannula 2.0 04/04/17 20:00 95 Nasal Cannula 2.0 04/04/17 19:33 78 18 95 Nasal Cannula 3.0 04/04/17 19:30 36.3 87 19 110/70 (83) 97 Nasal Cannula 3.0 04/04/17 16:00 94 Nasal Cannula 2.0 04/04/17 15:36 36.4 82 21 92/61 (71) 93 Nasal Cannula 2.0 04/04/17 14:24 105 18 97 Nasal Cannula 3.0 04/04/17 12:00 Nasal Cannula 5.0 Laboratory Results: Last 24 Hours Test 04/04/17 11:22 04/04/17 12:45 04/04/17 16:06 04/04/17 20:34 Bedside Glucose 158 mg/dl 259 mg/dl 137 mg/dl Sodium Level 130 mmol/L Potassium Level 5.0 mmol/L Chloride Level 92 mmol/L Carbon Dioxide Level 30 mmol/L Anion Gap 8.0 mmol/L Blood Urea Nitrogen 24 mg/dl Creatinine 1.90 mg/dl Est Creatinine Clear Calc Drug Dose 25.1 ml/min Estimated GFR () 30.0 Estimated GFR (Non- 25.9 BUN/Creatinine Ratio 12.8 Random Glucose 218 mg/dl Calcium Level 9.9 mg/dl Test 04/04/17 20:40 04/04/17 23:41 04/05/17 04:04 04/05/17 06:56 Sodium Level 131 mmol/L 132 mmol/L 133 mmol/L Potassium Level 4.6 mmol/L 4.5 mmol/L 4.4 mmol/L Chloride Level 92 mmol/L 94 mmol/L 98 mmol/L Carbon Dioxide Level 32 mmol/L 31 mmol/L 29 mmol/L Anion Gap 7.0 mmol/L 7.0 mmol/L 6.0 mmol/L Blood Urea Nitrogen 24 mg/dl 25 mg/dl 23 mg/dl Creatinine 1.90 mg/dl 1.90 mg/dl 1.60 mg/dl Est Creatinine Clear Calc Drug Dose 25.1 ml/min 25.1 ml/min 29.8 ml/min Estimated GFR () 30.0 30.0 36.9 Estimated GFR (Non- 25.9 25.9 31.9 BUN/Creatinine Ratio 12.8 12.9 14.5 Random Glucose 142 mg/dl 138 mg/dl 125 mg/dl Calcium Level 9.8 mg/dl 9.4 mg/dl 8.9 mg/dl Bedside Glucose 121 mg/dl Test 04/05/17 07:41 Sodium Level 135 mmol/L Potassium Level 4.5 mmol/L Chloride Level 99 mmol/L Carbon Dioxide Level 30 mmol/L Anion Gap 6.0 mmol/L Blood Urea Nitrogen 22 mg/dl Creatinine 1.50 mg/dl Est Creatinine Clear Calc Drug Dose 31.7 ml/min Estimated GFR () 39.9 Estimated GFR (Non- 34.4 BUN/Creatinine Ratio 14.5 Random Glucose 112 mg/dl Calcium Level 9.3 mg/dl
--- NOTE | 2017-04-05 17:10 | PROGRESS NOTE ---
DATE: 04/05/2017 The patient seen and examined. Chart, medications, telemetry reviewed. SUBJECTIVE: Events of note, patient received mild hydration last night due to elevated creatinine. She denies any chest pain. Notes no worsening edema. Notes no shortness of breath, above baseline. Is lying flat in bed at time of examination. O2 saturations are slowly improving. OBJECTIVE: VITAL SIGNS: Heart rate 70, blood pressure is 95/61. NECK: Thin. There is no jugular venous distention. LUNGS: Reveal coarse to fine crackles throughout the entire lung hyatt. CARDIOVASCULAR: Regular. There is no S3 gallop. ABDOMEN: Soft. EXTREMITIES: Completely free of edema. IMPRESSION: A 71-year-old female with severe interstitial lung disease, underlying history of idiopathic cardiomyopathy treated last night with additional dilutional fluids due to mild dehydration. Exam does not suggest ongoing heart failure, and current complaints being precipitated by underlying worsening lung disease. I agree with holding furosemide, though I suspect will require dosing may be 2-3 days per week on hospital discharge to aid in management of edema long-term. The patient has used furosemide as frequently as daily at dosing of 40 mg prior to hospitalization, will follow currently. [facility]
[2017-04-05 20:58] LABS: CALCIUM URINE < 5.0 mg/dl
[2017-04-05] MEDS: SENNA 8.6 MG TAB PO SCH (21:00)
[2017-04-05 21:55] LABS: URINE COLLECTION TIME 24 HOURS
[2017-04-06] VITALS (11 sets, daily range): BP systolic 90–100; BP diastolic 52–62; PULSE 68–94; TEMP 36.4–36.7; O2SAT 90–99
[2017-04-06] MEDS: IPRATROPIUM BROMIDE NEB SOLN 0.02% 2.5 ML VIAL INH SCH ×4 (01:51→19:42)
[2017-04-06] MEDS: LEVALBUTEROL 0.31MG/3 ML VIAL INH SCH ×4 (01:51→21:00)
[2017-04-06] MEDS: HEPARIN SOD 5000 UNIT/0.5 ML CARP SQ SCH ×3 (06:28→20:54)
[2017-04-06] MEDS: INSULIN ASPART 100 UNITS/ML 3 ML PEN SC SCH ×4 (07:00→20:52)
[2017-04-06] MEDS: METOPROLOL SUCC 25MG EXT REL TAB PO SCH (08:43)
[2017-04-06] MEDS: TIOTROPIUM BROMIDE 5 PUFF/90 MCG INH INH SCH (08:45)
[2017-04-06] MEDS: NICOTINE 7 MG/24 HR TDSY TD SCH (08:46)
[2017-04-06] MEDS: MAGNESIUM OXIDE 400 MG TAB PO SCH ×2 (08:46→19:44)
[2017-04-06] MEDS: VENLAFAXINE HCL XR 37.5 MG CAPXR PO SCH (08:46)
[2017-04-06 08:48] LABS: BUN/CREATININE RATIO 15.1 (10-20); CALCIUM 9.9 mg/dl (8.5-10.1); CREATININE 1.6 mg/dl (0.60-1.20); POTASSIUM 4.5 mmol/L (3.5-5.1)
--- NOTE | 2017-04-06 18:02 | Progress Note ---
Medicine Progress Note Date & Time of Visit: Apr 06, 2017 at 17:56. Subjective resting in bed, comfortable using 3 liters o2 via nasal cannula states breathing is ok, no cough denies chest pain, dizziness no other symptoms Objective Last 8 Hrs Date Time Temp Pulse Resp B/P (MAP) Pulse Ox O2 Delivery O2 Flow Rate FiO2 04/06/17 15:17 36.6 80 22 90/52 (65) 90 Humidified Air 3.0 04/06/17 14:27 77 16 94 Nasal Cannula 3.0 04/06/17 12:00 95 Nasal Cannula 3.0 04/06/17 11:12 36.5 72 20 92/55 (67) 95 Nasal Cannula 2.5 Physical Exam: General- oriented x 3, not in distress, speaks in sentences with no effort Neck- no JVD Lungs- clear breath sounds bilaterally, no rales/wheezes Heart- normal rate, regular rhythm; no murmur Abdomen- normal bowel sounds, soft, nontender Extremities- no pretibial edema, no calf tenderness Neuro- alert, oriented x 3; no gross focal deficits Skin- warm & dry Laboratory Results: Last 24 Hours Test 04/05/17 20:25 04/06/17 06:34 04/06/17 07:59 04/06/17 11:22 Bedside Glucose 248 mg/dl 90 mg/dl 119 mg/dl Sodium Level 135 mmol/L Potassium Level 4.5 mmol/L Chloride Level 99 mmol/L Carbon Dioxide Level 30 mmol/L Anion Gap 6.0 mmol/L Blood Urea Nitrogen 24 mg/dl Creatinine 1.60 mg/dl Est Creatinine Clear Calc Drug Dose 29.8 ml/min Estimated GFR () 36.9 Estimated GFR (Non- 31.9 BUN/Creatinine Ratio 15.1 Random Glucose 86 mg/dl Calcium Level 9.9 mg/dl Test 04/06/17 16:18 Bedside Glucose 204 mg/dl Assessment & Plan ACUTE HYPOXIC RESPIRATORY FAILURE SECONDARY TO Bibasilar Pneumonia, LI[facility] HE[facility] CARE ASSOCIATED, ILD ACUTE ON CHRONIC SYSTOLIC AND DIASTOLIC CHF CXR showed bilateral mixed interstitial and alveolar airspace opacities. -- Pulmonary consulted, weaned off Bipap and high flow o2 -- ID consulted, finished 7 days of Zosyn and Vanco -- Cardiology consulted, Lasix titrated -- now on 3 liter NC remains euvolemic -- Prednisone and Spiriva added also on Nebs will be discharged on Prednisone taper -- crea went up to 1.9, Na decreased to 130 given gentle IV NSS crea improved to 1.5, Na 135 crea 1.6 -- appreciate Pulm, ID, Cardio input History of colorectal CA s/p resection/colostomy Has Presacral Mass -- stable Acute Kidney Injury with history of CKD 4 Creatine on admission 1.3 and went up to 1.8 Creatine 1.9 to 1.6 d/c IV fluids hold Lasix monitor -- stable overall DM2 BSGs ACHS On insulin sliding scale DVT ppx On subq heparin Disposition anticipate d/c to [facility] tomorrow DNR Consultants: cardio Pulmonary Current Inpatient Medications: Current Inpatient Medications Medications (Trade) Dose Ordered Sig/Lorenzo Route Start Time Stop Time Status Last Admin Dose Admin Alprazolam (Xanax Tab) 0.25 mg Q6H PRN PO 03/22/17 15:15 04/21/17 15:14 04/04/17 20:28 0.25 MG Bupropion HCl (Wellbutrin Tab) 75 mg TID@0700,1500,2300 PO 03/22/17 23:00 04/21/17 22:59 04/05/17 08:00 75 MG Nicotine (Nicoderm Cq 7 Mg Patch) 1 patch DAILY TD 03/23/17 09:00 04/22/17 08:59 04/06/17 08:46 1 PATCH Senna (Senokot Tab) 8.6 mg HS PO 03/22/17 21:00 04/21/17 20:59 04/03/17 21:08 8.6 MG Venlafaxine HCl (effeXOR EXTENDED REL CAP) 37.5 mg DAILY PO 03/23/17 09:00 04/22/17 08:59 04/06/17 08:46 37.5 MG Heparin Sodium (Porcine) (Heparin Sq 5000 Unit/0.5ml) 5,000 unit Q8 SQ 03/22/17 22:00 04/21/17 21:59 04/06/17 14:34 5,000 UNIT Acetaminophen (Tylenol Tab) 650 mg Q4H PRN PO 03/22/17 15:30 04/21/17 15:29 03/30/17 23:43 650 MG Al Hydrox/Mg Hydrox/Simethicone (Maalox Max Susp) 15 ml Q4H PRN PO 03/22/17 15:30 04/21/17 15:29 Magnesium Hydroxide (Milk Of Magnesia Susp) 30 ml Q12H PRN PO 03/22/17 15:30 04/21/17 15:29 Ondansetron HCl (Zofran Inj) 4 mg Q6H PRN IV 03/22/17 15:30 04/21/17 15:29 04/04/17 12:02 4 MG Polyethylene (Miralax Powder Packet) 17 gm DAILY PRN PO 03/22/17 15:30 04/21/17 15:29 Glucose (Glucose 40% Gel) 15-30 GRAMS 15 GRAMS... UD PRN PO 03/22/17 19:30 04/21/17 19:29 Glucose (Glucose Chew Tab) 4-8 Tablets 4 Tabl... UD PRN PO 03/22/17 19:30 04/21/17 19:29 Dextrose (Dextrose 50% 50ML Syringe) 25-50ML OF 50% DW IV FOR... UD PRN IV 03/22/17 19:30 04/21/17 19:29 Glucagon (Glucagon Inj) 1 mg UD PRN SQ 03/22/17 19:30 04/21/17 19:29 Miscellaneous Information (Order Awaiting Action) 1 ea QS N/A 03/23/17 08:00 04/22/17 07:59 04/03/17 19:49 1 EA Magnesium Oxide (Mag-Ox Tab) 400 mg BID PO 03/24/17 21:00 04/23/17 20:59 04/06/17 08:46 400 MG Levalbuterol (Xopenex 0.31MG/ 3ML Neb) 0.31 mg Q6R INH 03/24/17 15:00 04/23/17 14:59 04/06/17 14:12 0.31 MG Insulin Aspart (novoLOG ASPART) SLIDING SCALE If C... ACHS SC 03/25/17 16:15 04/24/17 16:14 04/06/17 17:36 3 UNITS Piperacillin Sod/ Tazobactam Sod (Consult) 1 ea UD PRN N/A 03/25/17 23:00 04/24/17 22:59 Acetaminophen 650 mg/Empty Bag 65 ml @ 260 mls/hr Q6H PRN IV 03/26/17 23:30 04/25/17 23:29 03/27/17 00:17 260 MLS/HR Heparin Sodium (Porcine) (Heparin 100 Unit/ml 5ml Flush) 5 ml PRN PRN IV 03/28/17 01:00 04/27/17 00:59 04/04/17 15:52 5 ML Metoprolol Succinate (Toprol Xl Tab) 25 mg QAM PO 04/01/17 09:00 05/01/17 08:59 04/04/17 08:08 25 MG Ipratropium [place] (Atrovent 0.02% 0.5MG/2.5ML Neb) 0.5 mg Q6R INH 04/03/17 21:00 05/03/17 20:59 04/06/17 14:11 0.5 MG Tiotropium [place] (Spiriva Handihaler Inhaler) 1 puff QAM INH 04/05/17 09:00 05/05/17 08:59 04/06/17 08:45 1 PUFF Prednisone (PredniSONE TAB) 50 mg DAILY PO 04/05/17 09:00 05/05/17 08:59 04/06/17 08:46 50 MG
[2017-04-06] MEDS: SENNA 8.6 MG TAB PO SCH (19:43)
[2017-04-06] MEDS: ALPRAZOLAM 0.25 MG TAB PO PRN (20:50)
[2017-04-07] VITALS (9 sets, daily range): BP systolic 89–98; BP diastolic 60–67; PULSE 70–97; TEMP 36.4–36.5; O2SAT 95–100
[2017-04-07] MEDS: LEVALBUTEROL 0.31MG/3 ML VIAL INH SCH ×3 (01:53→14:19)
[2017-04-07] MEDS: IPRATROPIUM BROMIDE NEB SOLN 0.02% 2.5 ML VIAL INH SCH ×3 (01:53→14:19)
[2017-04-07 05:01] LABS: BUN/CREATININE RATIO 17.6 (10-20); CALCIUM 9.6 mg/dl (8.5-10.1); CREATININE 1.6 mg/dl (0.60-1.20); POTASSIUM 4.9 mmol/L (3.5-5.1)
[2017-04-07] MEDS: HEPARIN SOD 5000 UNIT/0.5 ML CARP SQ SCH ×2 (05:36→14:00)
[2017-04-07] MEDS: INSULIN ASPART 100 UNITS/ML 3 ML PEN SC SCH ×2 (07:00→13:27)
[2017-04-07] MEDS: METOPROLOL SUCC 25MG EXT REL TAB PO SCH (09:00)
[2017-04-07] MEDS: MAGNESIUM OXIDE 400 MG TAB PO SCH (09:08)
[2017-04-07] MEDS: VENLAFAXINE HCL XR 37.5 MG CAPXR PO SCH (09:09)
[2017-04-07] MEDS: TIOTROPIUM BROMIDE 5 PUFF/90 MCG INH INH SCH (09:10)
[2017-04-07] MEDS: NICOTINE 7 MG/24 HR TDSY TD SCH (09:12)
--- NOTE | 2017-04-07 13:34 | Progress Note ---
Medicine Progress Note Date & Time of Visit: Apr 07, 2017 at 13:27. Subjective states she feels better overall denies dyspnea on 3 liters NC denies chest pain, palpitations, dizziness no other symptoms states she is ready for discharge today Objective Last 8 Hrs Date Time Temp Pulse Resp B/P (MAP) Pulse Ox O2 Delivery O2 Flow Rate FiO2 04/07/17 11:17 36.5 97 20 98/67 (77) 100 Room Air 04/07/17 07:59 36.4 88 20 95/64 (74) 99 3.0 04/07/17 07:18 70 16 97 Nasal Cannula 3.0 Physical Exam: General- oriented x 3, not in distress, speaks in sentences with no effort Lungs- clear breath sounds no rales/wheezes bilaterally Heart- normal rate, regular rhythm; no murmur Abdomen- normal bowel sounds, soft, nontender Extremities- no pretibial edema, no calf tenderness Neuro- alert, oriented x 3; no gross focal deficits Skin- warm & dry Laboratory Results: Last 24 Hours Test 04/06/17 16:18 04/06/17 20:10 04/07/17 04:24 04/07/17 06:43 Bedside Glucose 204 mg/dl 262 mg/dl 86 mg/dl Sodium Level 135 mmol/L Potassium Level 4.9 mmol/L Chloride Level 100 mmol/L Carbon Dioxide Level 31 mmol/L Anion Gap 4.0 mmol/L Blood Urea Nitrogen 28 mg/dl Creatinine 1.60 mg/dl Est Creatinine Clear Calc Drug Dose 29.8 ml/min Estimated GFR () 36.9 Estimated GFR (Non- 31.9 BUN/Creatinine Ratio 17.6 Random Glucose 106 mg/dl Calcium Level 9.6 mg/dl Test 04/07/17 11:35 Bedside Glucose 156 mg/dl Assessment & Plan ACUTE HYPOXIC RESPIRATORY FAILURE SECONDARY TO Bibasilar Pneumonia, LIK[facility] HEALTH CARE ASSOCIATED, ILD ACUTE ON CHRONIC SYSTOLIC AND DIASTOLIC CHF CXR showed bilateral mixed interstitial and alveolar airspace opacities. -- Pulmonary consulted, weaned off Bipap and high flow o2 -- ID consulted, finished 7 days of Zosyn and Vanco -- Cardiology consulted, Lasix titrated -- now on 3 liter NC remains euvolemic -- Prednisone and Spiriva added also on Nebs will be discharged on Prednisone taper -- crea went up to 1.9, Na decreased to 130 given gentle IV NSS crea improved to 1.5, Na 135 discharge on Lasix 20mg every mon-sun-fri monitor volume status and titrate lasix accordingly, monitor crea regularly -- appreciate Pulm, ID, Cardio input History of colorectal CA s/p resection/colostomy Has Presacral Mass -- stable Acute Kidney Injury with history of CKD 4 Creatine on admission 1.3 and went up to 1.8 given gentle IV fludis Creatine 1.9 to 1.6 discharge on Lasix 20mg every mon-sun-fri monitor volume status and titrate lasix accordingly, monitor crea regularly DM2 BSGs ACHS On insulin sliding scale -- resume Lantus 5 units in HS DVT ppx On subq heparin Disposition d/c home follow up with Primary Care Physician in 1 week follow up with Pulmonary Dr. Goss in 1-2 weeks DNR Consultants: cardio Pulmonary Current Inpatient Medications: Current Inpatient Medications Medications (Trade) Dose Ordered Sig/Lorenzo Route Start Time Stop Time Status Last Admin Dose Admin Alprazolam (Xanax Tab) 0.25 mg Q6H PRN PO 03/22/17 15:15 04/21/17 15:14 04/06/17 20:50 0.25 MG Bupropion HCl (Wellbutrin Tab) 75 mg TID@0700,1500,2300 PO 03/22/17 23:00 04/21/17 22:59 04/06/17 20:50 75 MG Nicotine (Nicoderm Cq 7 Mg Patch) 1 patch DAILY TD 03/23/17 09:00 04/22/17 08:59 04/07/17 09:12 1 PATCH Senna (Senokot Tab) 8.6 mg HS PO 03/22/17 21:00 04/21/17 20:59 04/03/17 21:08 8.6 MG Venlafaxine HCl (effeXOR EXTENDED REL CAP) 37.5 mg DAILY PO 03/23/17 09:00 04/22/17 08:59 04/07/17 09:09 37.5 MG Heparin Sodium (Porcine) (Heparin Sq 5000 Unit/0.5ml) 5,000 unit Q8 SQ 03/22/17 22:00 04/21/17 21:59 04/06/17 20:54 5,000 UNIT Acetaminophen (Tylenol Tab) 650 mg Q4H PRN PO 03/22/17 15:30 04/21/17 15:29 03/30/17 23:43 650 MG Al Hydrox/Mg Hydrox/Simethicone (Maalox Max Susp) 15 ml Q4H PRN PO 03/22/17 15:30 04/21/17 15:29 Magnesium Hydroxide (Milk Of Magnesia Susp) 30 ml Q12H PRN PO 03/22/17 15:30 04/21/17 15:29 Ondansetron HCl (Zofran Inj) 4 mg Q6H PRN IV 03/22/17 15:30 04/21/17 15:29 04/04/17 12:02 4 MG Polyethylene (Miralax Powder Packet) 17 gm DAILY PRN PO 03/22/17 15:30 04/21/17 15:29 Glucose (Glucose 40% Gel) 15-30 GRAMS 15 GRAMS... UD PRN PO 03/22/17 19:30 04/21/17 19:29 Glucose (Glucose Chew Tab) 4-8 Tablets 4 Tabl... UD PRN PO 03/22/17 19:30 04/21/17 19:29 Dextrose (Dextrose 50% 50ML Syringe) 25-50ML OF 50% DW IV FOR... UD PRN IV 03/22/17 19:30 04/21/17 19:29 Glucagon (Glucagon Inj) 1 mg UD PRN SQ 03/22/17 19:30 04/21/17 19:29 Miscellaneous Information (Order Awaiting Action) 1 ea QS N/A 03/23/17 08:00 04/22/17 07:59 04/03/17 19:49 1 EA Magnesium Oxide (Mag-Ox Tab) 400 mg BID PO 03/24/17 21:00 04/23/17 20:59 04/07/17 09:08 400 MG Levalbuterol (Xopenex 0.31MG/ 3ML Neb) 0.31 mg Q6R INH 03/24/17 15:00 04/23/17 14:59 04/07/17 07:16 0.31 MG Insulin Aspart (novoLOG ASPART) SLIDING SCALE If C... ACHS SC 03/25/17 16:15 04/24/17 16:14 04/06/17 20:52 3 UNITS Piperacillin Sod/ Tazobactam Sod (Consult) 1 ea UD PRN N/A 03/25/17 23:00 04/24/17 22:59 Acetaminophen 650 mg/Empty Bag 65 ml @ 260 mls/hr Q6H PRN IV 03/26/17 23:30 04/25/17 23:29 03/27/17 00:17 260 MLS/HR Heparin Sodium (Porcine) (Heparin 100 Unit/ml 5ml Flush) 5 ml PRN PRN IV 03/28/17 01:00 04/27/17 00:59 04/04/17 15:52 5 ML Metoprolol Succinate (Toprol Xl Tab) 25 mg QAM PO 04/01/17 09:00 05/01/17 08:59 04/04/17 08:08 25 MG Ipratropium [place] (Atrovent 0.02% 0.5MG/2.5ML Neb) 0.5 mg Q6R INH 04/03/17 21:00 05/03/17 20:59 04/07/17 07:16 0.5 MG Tiotropium [place] (Spiriva Handihaler Inhaler) 1 puff QAM INH 04/05/17 09:00 05/05/17 08:59 04/07/17 09:10 1 PUFF Prednisone (PredniSONE TAB) 50 mg DAILY PO 04/05/17 09:00 05/05/17 08:59 04/07/17 09:09 50 MG
[2017-04-07] MEDS ORDERED: ATRINS INH (13:41)
[2017-04-07] MEDS ORDERED: TPRSR25 PO (13:41)
[2017-04-07] MEDS ORDERED: XPNINS31 INH (13:41)
[2017-04-07] MEDS ORDERED: FRS/40 PO (13:41)
[2017-04-07] MEDS ORDERED: SPRIN INH (13:41)
[2017-04-07] MEDS ORDERED: PRED10TA PO (13:41)
[2017-04-07] MEDS ORDERED: FUROSEMIDE 20 MG TAB PO ONE (13:45)
--- NOTE | 2017-04-07 13:51 | Discharge Instructions ---
Discharge Instructions Date of Service Apr 07, 2017. Admission Reason for Admission: HCAP Discharge Discharge Diagnosis / Problem: RESPIRATORY FAILURE: PNEUMONIA, INTERSTITIAL LUNG DISEASE, CHF Discharge Goals Goal(s): Diagnostic testing, Therapeutic intervention Activity Recommendations Activity Level: Assistance Required Therapies: Physical Therapy, Occupational Therapy . Additional Information Patient informed of condition: Yes Advance Directives: No (UNKNOWN) DNR: Yes Level of Care: Skilled Communicable Disease: No Prognosis: Improving Oxygen at (LPM): 3 LITERS VIA NASAL CANNULA AT ALL TIMES [place] Catheter: No Instructions / Follow-Up Instructions / Follow-Up PLEASE TAPER OFF PREDNISONE 45MG PO BY 5MG EVERY 3 DAYS UNTIL FINISHED. CONTINUE INCENTIVE SPIROMETER, FREQUENT CHANGE IN POSITION. MONITOR VOLUME STATUS CLOSELY AND TITRATE LASIX ACCORDINGLY. CHECK PARTIAL RENAL PROFILE (INCLUDING CREA) AND MAGNESIUM NEXT WEEK AND REGULARLY. FOLLOW UP WITH PRIMARY CARE PHYSICIAN IN 1 WEEK. FOLLOW UP WITH CHIEF INFORMATICS OFFICER DR. HERRERA IN 1-2 WEEKS. FOLLOW UP WITH [facility] IN 2-3 WEEKS. PATIENT WILL NEED REPEAT CHEST XRAY IN 6 WEEKS. PLEASE REFER TO ACCOMPANYING HOSPITAL DISCHARGE SUMMARY FOR FURTHER DETAILS. Current Hospital Diet Patient's current hospital diet: Diabetes Type 2 Diet, AHA Diet (Heart Healthy) Discharge Diet Recommended Diet: AHA Diet (Heart Healthy), Diabetes Type 2 Diet Fluid Restriction: 1500 ml (6 cups) Procedures Procedures Performed: CHEST CT SCAN, CHEST XRAYS Pending Studies Studies pending at discharge: yes List of pending studies: CHECK PARTIAL RENAL PROFILE (INCLUDING CREA) AND MAGNESIUM NEXT WEEK AND REGULARLY. PATIENT WILL NEED REPEAT CHEST XRAY IN 6 WEEKS. Physician Orders On Transfer Special Precautions: PLEASE TAPER OFF PREDNISONE 45MG PO BY 5MG EVERY 3 DAYS UNTIL FINISHED. CONTINUE INCENTIVE SPIROMETER, FREQUENT CHANGE IN POSITION. MONITOR VOLUME STATUS CLOSELY AND TITRATE LASIX ACCORDINGLY. CHECK PARTIAL RENAL PROFILE (INCLUDING CREA) AND MAGNESIUM NEXT WEEK AND REGULARLY. FOLLOW UP WITH PRIMARY CARE PHYSICIAN IN 1 WEEK. FOLLOW UP WITH CHIEF INFORMATICS OFFICER DR. HERRERA IN 1-2 WEEKS. FOLLOW UP WITH [facility] IN 2-3 WEEKS. PATIENT WILL NEED REPEAT CHEST XRAY IN 6 WEEKS. PLEASE REFER TO ACCOMPANYING HOSPITAL DISCHARGE SUMMARY FOR FURTHER DETAILS. Medical Emergencies . Who to Call and When: Medical Emergencies: If at any time you feel your situation is an emergency, please call 911 immediately. . Non-Emergent Contact Non-Emergency issues call your: Primary Care Provider, Process Development Manager, Wafer Production Lead Worker Call Non-Emergent contact if: you have a fever, you have any medication questions . Past History Medical & Surgical History: (1) Hypoxia (2) HCAP (healthcare-associated pneumonia) (3) Skin problem . "Provider Documentation" section prepared by Claudio Roger. . Core Measure Problem Core Measures: None
--- NOTE | 2017-04-07 13:59 | Discharge Summary ---
Discharge Summary Date of Service Apr 07, 2017. Discharge Summary Admission Date: Mar 22, 2017 at 15:17 Discharge Date: Apr 07, 2017 Discharge Disposition: snf facility Principal Diagnosis: ACUTE HYPOXIC RESPIRATORY FAILURE SECONDARY TO Bibasilar Pneumonia, [facility], ILD ACUTE ON CHRONIC SYSTOLIC AND DIASTOLIC CHF Secondary Diagnoses/Problems: PLEASE REFER TO HOSPITAL COURSE BELOW Procedures: CT ANGIOGRAM OF THE CHEST CLINICAL HISTORY: Shortness of breath. Hypoxia COMPARISON STUDY: Chest x-ray dated 03/22/2017 TECHNIQUE: Following the IV administration of 77 mL of Optiray-320, CT angiogram of the thorax was performed from the thoracic inlet to the lung bases utilizing the pulmonary embolus protocol. Images are reviewed in the axial, sagittal, and coronal planes. IV contrast was administered without complication. MIP imaging was performed. CT DOSE: 415.76 mGy.cm FINDINGS: Within the upper abdomen, there is visualization of a 9 mm left renal nodule with peripheral calcification. There are mildly enlarged prevascular and right paratracheal lymph nodes measuring up to 12 mm in short axis. There was no evidence of thoracic aortic dilatation. There is respiratory motion artifact. There are no filling defects to indicate acute pulmonary embolism. There are small bilateral pleural effusions. There are extensive bilateral airspace opacities. Clinical correlation will be necessary to differentiate pulmonary edema superimposed on chronic lung disease versus a bilateral inflammatory/infectious process IMPRESSION: 1. No evidence of acute pulmonary embolism 2. Mild mediastinal adenopathy 3. Small bilateral pleural effusions 4. Bilateral mixed interstitial and alveolar airspace opacities. Clinical correlation will be necessary to differentiate pulmonary edema superimposed on chronic lung disease versus a bilateral inflammatory/infectious process VIDEO SWALLOW STUDY CLINICAL HISTORY: Silent aspiration. COMPARISON STUDY: No priors. Fluoroscopy time: 2.3 minutes. FINDINGS: Fluoroscopic guidance was provided to the department of speech pathology in performing a video swallow study. The patient consumed barium-impregnated pudding, cracker with paste, nectar thick liquid, and thin barium while the swallowing mechanism was observed in real-time. No penetration or aspiration was seen with any of the sampled textures. IMPRESSION: No penetration or aspiration was identified with any of the sampled textures. See dedicated speech pathology report for detailed findings and recommendations. Consultations: HUMAN RESOURCES OFFICER DR. KINNEY; PULMONARY DR. HERRERA/ALEJO COPPOLA Pending Studies/Follow-Up: PLEASE TAPER OFF PREDNISONE 45MG PO BY 5MG EVERY 3 DAYS UNTIL FINISHED. CONTINUE INCENTIVE SPIROMETER, FREQUENT CHANGE IN POSITION. MONITOR VOLUME STATUS CLOSELY AND TITRATE LASIX ACCORDINGLY. CHECK PARTIAL RENAL PROFILE (INCLUDING CREA) AND MAGNESIUM NEXT WEEK AND REGULARLY. FOLLOW UP WITH PRIMARY CARE PHYSICIAN IN 1 WEEK. FOLLOW UP WITH PHOTONICS ENGINEERING TECHNICIAN DR. HERRERA IN 1-2 WEEKS. FOLLOW UP WITH HUMAN RESOURCES OFFICER IN 2-3 WEEKS. PATIENT WILL NEED REPEAT CHEST XRAY IN 6 WEEKS. PLEASE REFER TO HOSPITAL COURSE BELOW FOR FURTHER DETAILS. Medication Reconciliation New Medications: Prednisone Tab (Prednisone) 10 Mg Tab 10 MG PO UD for 27 Days, TAB take 45 mg po daily x 3 days, then taper off by 5mg every 3 days until finished Ipratropium [place] (Ipratropium [place]) 0.5 Mg/2.5 Ml Nebu 0.5 MG INH Q6R for 15 Days may use q4h as needed for sob/wheezing Levalbuterol (Levalbuterol HCl) 0.31 Mg/3 Ml Nebu 0.31 MG INH Q6R for 15 Days may use q4h as needed for sob/wheezing Metoprolol Succinate (Metoprolol Succinate ER) 25 Mg Tabcr 25 MG PO QAM for 30 Days Tiotropium [place] (Spiriva Handihaler) 5 Puff/90 Mcg Aerp 1 PUFF INH QAM for 30 Days Changed Medications: Furosemide (Lasix) 40 Mg Tab 20 MG PO UD for 30 Days (Changed from: 40 MG; QAM; 0800 *HOLD IF SYS BP IS LESS THAN 110) take 3 times a week (mon-wed-fri) 0800 *HOLD IF SYS BP IS LESS THAN 110 Continued Medications: Acetaminophen (Tylenol) 500 Mg Tab 2 TAB PO Q8 PRN for Mild Pain Albuterol Hfa (Ventolin Hfa) 200 Puffs/67350 Mcg Aers 2-4 PUFFS INH Q4 PRN for SOB/Wheezing, INHALER Alprazolam (Xanax) 0.5 Mg Tab 0.5 TAB PO Q6H PRN for Anxiety, TAB Bupropion (Wellbutrin) 75 Mg Tab 75 MG PO TID, TAB [id number] Insulin Glargine (Lantus) 100 Unit/Ml Inj 5 UNITS SC HS 2100 Lidocaine (Anorectal) (Lc-5 Lidocaine) 5 % Cre 1 APPLN TOP TID APPLY TO RIGHT HIP AT [id number] Magnesium Oxide (Mag-Ox) 400 Mg Tab 400 MG PO DAILY, TAB 1200 Nicotine (Nicoderm Cq 7 Mg Patch) 7 Mg/24 Hr Dis 7 MG TD DAILY 0900 Senna (Senokot) 8.6 Mg Tab 1 TAB PO HS, TAB 2100 Venlafaxine Hcl (Venlafaxine Hcl Er) 37.5 Mg Tab 1 TAB PO DAILY 0900 Discontinued Medications: Levofloxacin (Levaquin) 250 Mg Tab 250 MG PO Q2D for PNUEMONIA STARTS 03-21-17 ENDS 03-31-17 1 TAB PO Q2D X5 DOSES AT 0900 Metoprolol Tartrate (Lopressor) (Lopressor) 25 Mg Tab 25 MG PO BID, TAB [id number] *HOLD IF SYS BP IS LESS THAN 100 OR HR IS LESS THAN 60. Admission Information HPI (per Admitting provider): This is a 71 year old female with a PMH of colorectal CA s/p resection and colostomy, DM2, depression/anxiety, HTN presents from [facility] secondary to hypoxia and possible pneumonia; she had a CXR done one day prior to arrival which was suggestive of pneumonia and was prescribed Levaquin. She had a cough and hypoxia noted and was therefore sent over to [facility]. As per family member, she has had numerous visits to the hospital recently; was at [place] for a possible R hip infection and was on long-term antibiotics; she was also at [place] at the end of February for an infection; which was again, for a possible R hip infection as well as a pneumonia. She was discharged to [facility] last week. As per records, she was allergic to possibly Ertapenem or Vancomycin as she was on both of these medications as outpatient. Noted to have elevated LFTs last week, possibly secondary to antibiotic side effect. Currently , she is answering questions appropriately; has oxygen mask on and is saturating fine; no chest pain, no fevers/chills noted. Hospital Course ACUTE HYPOXIC RESPIRATORY FAILURE SECONDARY TO Bibasilar Pneumonia, [facility], ILD ACUTE ON CHRONIC SYSTOLIC AND DIASTOLIC CHF -- CXR showed bilateral mixed interstitial and alveolar airspace opacities. CT chest: Bilateral mixed interstitial and alveolar airspace opacities. -- Pulmonary consulted, weaned off Bipap and high flow o2 -- ID consulted, finished 7 days of Zosyn and Vanco -- Cardiology consulted, Lasix titrated -- now on 3 liter NC remains euvolemic -- Prednisone and Spiriva added also on Nebs will be discharged on Prednisone taper -- crea went up to 1.9, Na decreased to 130 given gentle IV NSS crea improved to 1.5, Na 135 discharge on Lasix 20mg every mon-wed-fri monitor volume status and titrate lasix accordingly, monitor crea regularly -- ff up with Pulmonary in 1-2 weeks, Stator Connector in 2-3 weeks History of colorectal CA s/p resection/colostomy Presacral Mass -- stable Acute Kidney Injury with history of CKD 4 Creatine on admission 1.3 and went up to 1.8 given gentle IV fludis Creatine 1.9 to 1.6 discharge on Lasix 20mg every mon-wed-fri monitor volume status and titrate lasix accordingly, monitor crea regularly DM2 BSGs ACHS On insulin sliding scale -- resume Lantus 5 units in HS Left Renal Nodule -- seen on CT -- please refer to full CT report on Procedure section above -- monitor DVT ppx On subq heparin Disposition d/c home follow up with Primary Care Physician in 1 week follow up with Pulmonary Dr. Herrera in 1-2 weeks DNR Total time spent on discharge = 40 minutes This includes examination of the patient, discharge planning, medication reconciliation, and communication with other providers. Discharge Instructions Discharge Instructions Date of Service Apr 07, 2017. Admission Reason for Admission: HCAP Discharge Discharge Diagnosis / Problem: RESPIRATORY FAILURE: PNEUMONIA, INTERSTITIAL LUNG DISEASE, CHF Discharge Goals Goal(s): Diagnostic testing, Therapeutic intervention Activity Recommendations Activity Level: Assistance Required Therapies: Physical Therapy, Occupational Therapy . Additional Information Patient informed of condition: Yes Advance Directives: No (UNKNOWN) DNR: Yes Level of Care: Skilled Communicable Disease: No Prognosis: Improving Oxygen at (LPM): 3 LITERS VIA NASAL CANNULA AT ALL TIMES [place] Catheter: No Instructions / Follow-Up Instructions / Follow-Up PLEASE TAPER OFF PREDNISONE 45MG PO BY 5MG EVERY 3 DAYS UNTIL FINISHED. CONTINUE INCENTIVE SPIROMETER, FREQUENT CHANGE IN POSITION. MONITOR VOLUME STATUS CLOSELY AND TITRATE LASIX ACCORDINGLY. CHECK PARTIAL RENAL PROFILE (INCLUDING CREA) AND MAGNESIUM NEXT WEEK AND REGULARLY. FOLLOW UP WITH PRIMARY CARE PHYSICIAN IN 1 WEEK. FOLLOW UP WITH PHOTONICS ENGINEERING TECHNICIAN DR. HERRERA IN 1-2 WEEKS. FOLLOW UP WITH HUMAN RESOURCES OFFICER IN 2-3 WEEKS. PATIENT WILL NEED REPEAT CHEST XRAY IN 6 WEEKS. PLEASE REFER TO ACCOMPANYING HOSPITAL DISCHARGE SUMMARY FOR FURTHER DETAILS. Current Hospital Diet Patient's current hospital diet: Diabetes Type 2 Diet, AHA Diet (Heart Healthy) Discharge Diet Recommended Diet: AHA Diet (Heart Healthy), Diabetes Type 2 Diet Fluid Restriction: 1500 ml (6 cups) Procedures Procedures Performed: CHEST CT SCAN, CHEST XRAYS Pending Studies Studies pending at discharge: yes List of pending studies: CHECK PARTIAL RENAL PROFILE (INCLUDING CREA) AND MAGNESIUM NEXT WEEK AND REGULARLY. PATIENT WILL NEED REPEAT CHEST XRAY IN 6 WEEKS. Physician Orders On Transfer Special Precautions: PLEASE TAPER OFF PREDNISONE 45MG PO BY 5MG EVERY 3 DAYS UNTIL FINISHED. CONTINUE INCENTIVE SPIROMETER, FREQUENT CHANGE IN POSITION. MONITOR VOLUME STATUS CLOSELY AND TITRATE LASIX ACCORDINGLY. CHECK PARTIAL RENAL PROFILE (INCLUDING CREA) AND MAGNESIUM NEXT WEEK AND REGULARLY. FOLLOW UP WITH PRIMARY CARE PHYSICIAN IN 1 WEEK. FOLLOW UP WITH PHOTONICS ENGINEERING TECHNICIAN DR. HERRERA IN 1-2 WEEKS. FOLLOW UP WITH HUMAN RESOURCES OFFICER IN 2-3 WEEKS. PATIENT WILL NEED REPEAT CHEST XRAY IN 6 WEEKS. PLEASE REFER TO ACCOMPANYING HOSPITAL DISCHARGE SUMMARY FOR FURTHER DETAILS. Medical Emergencies . Who to Call and When: Medical Emergencies: If at any time you feel your situation is an emergency, please call 911 immediately. . Non-Emergent Contact Non-Emergency issues call your: Primary Care Provider, Stator Connector, [employer] Principal Call Non-Emergent contact if: you have a fever, you have any medication questions . Past History Medical & Surgical History: (1) Hypoxia (2) HCAP (healthcare-associated pneumonia) (3) Skin problem . "Provider Documentation" section prepared by Claudio Roger. . Core Measure Problem Core Measures: None
[2017-04-20] MEDS ORDERED: ALPR-411 PO (11:45)
[2017-04-20] MEDS ORDERED: LSX20 PO (11:48)
== END 2017-04-07 14:24 | DRG 193 ==
LOC: EDBD 11:49 → C.EDA 11:52 → C.2T 15:17 → ENRESERV 15:51 → C.2T 16:17
PROVIDERS: ADMIT Family Medicine; ATTEND Internal Medicine
DX: J18.9 Pneumonia, unspecified organism (principal); J96.01 Acute respiratory failure with hypoxia; I50.43 Acute on chronic combined systolic (congestive) and diastolic (congestive) heart failure; I42.9 Cardiomyopathy, unspecified; N17.9 Acute kidney failure, unspecified; N18.4 Chronic kidney disease, stage 4 (severe); E11.22 Type 2 diabetes mellitus with diabetic chronic kidney disease; F32.9 Major depressive disorder, single episode, unspecified; F41.9 Anxiety disorder, unspecified; I12.9 Hypertensive chronic kidney disease with stage 1 through stage 4 chronic kidney disease, or unspecified chronic kidney disease; I44.7 Left bundle-branch block, unspecified; Z66 Do not resuscitate; Z79.4 Long term (current) use of insulin; Z79.899 Other long term (current) drug therapy; Z85.038 Personal history of other malignant neoplasm of large intestine; Z85.42 Personal history of malignant neoplasm of other parts of uterus; Z87.891 Personal history of nicotine dependence; Z93.3 Colostomy status

== ENCOUNTER 2017-04-16 11:55 | Inpatient (IN) | payer BC, OTHER ==
[~2017-04-16] VITALS: Ht 167.6 cm; Wt 63.4 kg
[~2017-04-16 11:55] MED LIST changes: +ACET-1256 PO; +ALPR-411 PO; -AMOX500T PO; +ATRINS INH; -BENA20TA14 PO; +BUPR75TA20 PO; +FRS/40 PO; +INSDGI SC; +LIDO1CRE TOP; +MAGN400T6 PO; -METF-384 PO; -METO50TA16 PO; +NICO7DIS7 TD; +PRED10TA PO; +SENN-61 PO; +SPRIN INH; +TPRSR25 PO; +VENL-271 PO; -VENL-273 PO; +VNTHFA/IN INH; -WLLSR150 PO; +XPNINS31 INH
[2017-04-16] MEDS ORDERED: METHYLPREDNISOLONE 125 MG VIAL IV STA (12:28)
[2017-04-16] MEDS ORDERED: FUROSEMIDE 40 MG/4 ML VIAL IV STA (12:28)
[2017-04-16] MEDS ORDERED: ALBUT/IPRATROP 3MG/0.5MG NEB 3 ML VIAL INH ONE (12:30)
[2017-04-16] MEDS ORDERED: MOMLX PO (12:37)
[2017-04-16] MEDS ORDERED: METO25TA3 PO (12:37)
[2017-04-16] MEDS ORDERED: TERB1CRE31 TOP (12:37)
[2017-04-16] MEDS ORDERED: SODI1ENE PR (12:37)
[2017-04-16] MEDS ORDERED: LIDO4CRE10 TP (12:37)
[2017-04-16] MEDS ORDERED: BISA10SU3 PR (12:37)
[2017-04-16] MEDS ORDERED: INSU100I SC (12:37)
[2017-04-16] MEDS ORDERED: CLOT1CRE3 TOP (12:37)
[2017-04-16] MEDS ORDERED: SELE1SHA3 TOP (12:37)
--- NOTE | 2017-04-16 12:40 | EMERGENCY ROOM VISIT NOTE ---
History Report prepared by Jennifer: Yobani Foley Under the Supervision of: Dr. Ernesto Man M.D. First contact with patient: 12:18 Chief Complaint: SHORTNESS OF BREATH Stated Complaint: SHORTNESS OF BREATH Nursing Triage Summary: Pt arrived via ambulance ALS from [facility]. Pt has a history fibrosis. Staff reports that pt always has crackles in her bases and is always on 3lpm. While pt was receiving her breathing treatment this morning she was found to bed at 73% on 3lpm. Pt was then placed on 10lpm non rebreather and her pulse ox was then 99%. Pt denies any pain. Pt states that she does have a non productive cough which is her baseline. Pt does state that she feels more SOB than normal. Pt does have crackles bilaterally in bases and rhonci in the upper left lung. Pt was found to be at 85% on room air on arrival. History of Present Illness The patient is a 71 year old female with a history of fibrosis who presents to the Emergency Room from [facility] via EMS with complaints of resolved shortness of breath that started yesterday. The patient states that she typically is on 3 liters of oxygen. She says that she started having worsening short of breath yesterday, but her oxygen was turned up and now she is feeling well. The nursing staff at [facility] reported that the patient was receiving her breathing treatment this morning and was found to have a pulse ox of 73% on 3 liters of oxygen. The patient was then placed on a non-rebreather and her pulse ox went back up to 99%. The nursing staff notes that the patient has a chronic productive cough at baseline. The patient was at 85% oxygen saturation upon arrival. The patient states that she is still on Prednisone, but is unaware of her dosing. Source of History: patient, care home notes, nursing staff Onset: Yesterday Position: other (global - shortness of breath) Symptom Intensity: as low as 73% pulse ox Timing: resolved Modifying Factors (Relieving): oxygen Note: No other associated symptoms noted. Review of Systems See HPI for pertinent positives & negatives. A total of 10 systems reviewed and were otherwise negative. Past Medical & Surgical Medical Problems: (1) Acute on chronic respiratory failure with hypoxia (2) HCAP (healthcare-associated pneumonia) (3) Skin problem Family History Cancer Social History Smoking Status: Former Smoker Marital Status: Current/Historical Medications Scheduled Bupropion (Wellbutrin), 75 MG PO Q8 Clotrimazole Vaginal (Clotrimazole), 1 APPLN TOP DAILY Furosemide (Lasix), 20 MG PO UD Insulin Glargine (Lantus), 5 UNITS SC HS Insulin Lispro (Human) (Humalog), 7 UNITS SC QPM Lidocaine (Anorectal) (Lidocaine), 1 APPLN TP TID Magnesium Oxide (Mag-Ox), 400 MG PO DAILY Metoprolol Succinate (Toprol Xl), 25 MG PO QPM Prednisone Tab (Prednisone), 10 MG PO UD Selenium Sulfide ([place] Blue), 1 APPLN TOP UD Senna (Senokot), 1 TAB PO HS Terbinafine Hcl (Topical) (Lamisil At), 1 APPLN TOP HS Tiotropium [place] (Spiriva Handihaler), 1 PUFF INH QAM Venlafaxine Hcl (Venlafaxine Hcl Er), 1 TAB PO DAILY [stomahesive], 1 APPLN TOP UD Scheduled PRN Acetaminophen (Tylenol), 2 TAB PO Q8 PRN for Mild Pain Albuterol Hfa (Ventolin Hfa), 2 PUFFS INH Q4 PRN for SOB/Wheezing Alprazolam (Xanax), 0.5 TAB PO Q6H PRN for Anxiety Bisacodyl (Dulcolax), 1 SUPP ND UD PRN for Constipation Ipratropium [place] (Ipratropium [place]), 0.5 MG INH Q6 PRN for SOB/Wheezing Levalbuterol (Levalbuterol HCl), 0.31 MG INH Q6 PRN for SOB/Wheezing Magnesium Hydroxide (Milk of Magnesia), 30 ML PO DAILY PRN for Constipation Sodium Phosphates (Fleet Enema Six Pack), 1 DOSE ND DAILY PRN for Constipation Allergies Coded Allergies: Nickel (Unverified Allergy, Unknown, ., 03/22/17) Ertapenem (Unverified Adverse Reaction, Intermediate, may have had elevated LFT's secondary to ertapenem..., 03/22/17) Patient received Vancomycin + Ertapenem in past for septic joint. She developed LFT elevations on this therapy. She had experienced ADHF, cardiogenic shock just prior to LFT elevation. Provider felt LFT elevations most likely due to shock, hepatic congestion but could not exclude ertapenem + venlafaxine as possible causes. Ertapenem was held and vanco was continued with Rocephin. LFTs improved. Physical Exam Vital Signs Date Time Temp Pulse Resp B/P (MAP) Pulse Ox O2 Delivery O2 Flow Rate FiO2 04/16/17 15:12 91 27 94/57 97 Mask 5.0 04/16/17 13:52 95 28 102/63 99 Nebulizer 7.0 04/16/17 13:09 82 21 100 Mask 5.0 04/16/17 12:42 91 28 103/72 96 Mask 5.0 04/16/17 12:32 95 Mask 5.0 04/16/17 12:20 95 Mask 5.0 04/16/17 12:10 88 04/16/17 12:06 89 20 98/61 95 Mask 5.0 04/16/17 12:05 37.0 93 24 99/62 85 Room Air 04/16/17 12:05 85 Room Air Physical Exam GENERAL: Patient is a well-nourished, confused 71 year old female. HEAD: Normocephalic atraumatic EYES: Ocular movements intact pupils equal and react to light OROPHARYNX mucous membranes are moist no exudates present no erythema or edema present NECK: Supple no nuchal rigidity CHEST: Good equal expansion LUNGS: Distant breath sounds. CARDIAC: Normal S1 and S2 ABDOMEN: Soft nontender no guarding BACK: No CVA tenderness EXTREMITIES: No pain upon palpation normal muscle strength in all groups no clubbing cyanosis or edema NEURO: Patient is very confused and unable to answer questions. Has difficult time finding words. Cranial Nerves 2-12 grossly intact Medical Decision & Procedures ER Provider Diagnostic Interpretation: X-ray results as stated below per interpretation by me and the radiologist: CHEST ONE VIEW PORTABLE HISTORY: Short of breath. COMPARISON: Chest 04/05/2017. FINDINGS: No pneumothorax. Suspect trace bilateral pleural effusions. The heart remains mildly enlarged. Left subclavian Port-A-Cath terminates in the SVC. Healing left-sided rib fractures. Diffuse interstitial thickening is again noted. Slight improved aeration at the lung bases. No new focal lung consolidations. IMPRESSION: 1. Diffuse interstitial thickening which is likely chronic. 2. Trace bilateral pleural effusions which have slightly improved. 3. Improved aeration at the lung bases. No new focal lung consolidations. Electronically signed by: Jack Smith M.D. 04/16/2017 1:38 PM Dictated Date/Time: 04/16/2017 1:36 PM Laboratory Results 04/16/17 11:47 Red Blood Count 4.06, Mean Corpuscular Volume 81.8, Mean Corpuscular Hemoglobin 26.1, Mean Corpuscular Hemoglobin Concent 31.9, Mean Platelet Volume 9.6, Neutrophils (%) (Auto) 81.0, Lymphocytes (%) (Auto) 12.5, Monocytes (%) (Auto) 5.6, Eosinophils (%) (Auto) 0.3, Basophils (%) (Auto) 0.1, Neutrophils # (Auto) 9.56, Lymphocytes # (Auto) 1.47, Monocytes # (Auto) 0.66, Eosinophils # (Auto) 0.03, Basophils # (Auto) 0.01 04/16/17 11:47 Test 04/16/17 11:47 04/16/17 13:25 04/16/17 15:38 White Blood Count 11.79 K/uL (4.8-10.8) Red Blood Count 4.06 M/uL (4.2-5.4) Hemoglobin 10.6 g/dL (12.0-16.0) Hematocrit 33.2 % (37-47) Mean Corpuscular Volume 81.8 fL (80-100) Mean Corpuscular Hemoglobin 26.1 pg (25-34) Mean Corpuscular Hemoglobin Concent 31.9 g/dl (32-36) Platelet Count 185 K/uL (130-400) Mean Platelet Volume 9.6 fL (7.4-10.4) Neutrophils (%) (Auto) 81.0 % Lymphocytes (%) (Auto) 12.5 % Monocytes (%) (Auto) 5.6 % Eosinophils (%) (Auto) 0.3 % Basophils (%) (Auto) 0.1 % Neutrophils # (Auto) 9.56 K/uL (1.4-6.5) Lymphocytes # (Auto) 1.47 K/uL (1.2-3.4) Monocytes # (Auto) 0.66 K/uL (0.11-0.59) Eosinophils # (Auto) 0.03 K/uL (0-0.5) Basophils # (Auto) 0.01 K/uL (0-0.2) RDW Standard Deviation 56.1 fL (36.4-46.3) RDW Coefficient of Variation 18.7 % (11.5-14.5) Immature Granulocyte % (Auto) 0.5 % Immature Granulocyte # (Auto) 0.06 K/uL (0.00-0.02) Anion Gap 9.0 mmol/L (3-11) Est Creatinine Clear Calc Drug Dose 43.2 ml/min Estimated GFR () 58.1 Estimated GFR (Non- 50.1 BUN/Creatinine Ratio 11.9 (10-20) Calcium Level 8.4 mg/dl (8.5-10.1) Total Bilirubin 0.8 mg/dl (0.2-1) Aspartate Amino Transf (AST/SGOT) 18 U/L (15-37) Alanine Aminotransferase (ALT/SGPT) 27 U/L (12-78) Alkaline Phosphatase 95 U/L (45-117) Total Creatine Kinase 22 U/L (26-192) Creatine Kinase MB 1.3 ng/ml (0.5-3.6) Creatine Kinase MB Ratio 5.9 (0-3.0) Troponin I 0.024 ng/ml (0-0.045) Pro-B-Type Natriuretic Peptide 80795 pg/ml (0-900) Total Protein 6.5 gm/dl (6.4-8.2) Albumin 2.4 gm/dl (3.4-5.0) Globulin 4.1 gm/dl (2.5-4.0) Albumin/Globulin Ratio 0.6 (0.9-2) Urine Color YELLOW Urine Appearance CLEAR (CLEAR) Urine pH 7.5 (4.5-7.5) Urine Specific [place] 1.013 (1.000-1.030) Urine Protein NEG (NEG) Urine Glucose (UA) NEG (NEG) Urine Ketones NEG (NEG) Urine Occult Blood NEG (NEG) Urine Nitrite NEG (NEG) Urine Bilirubin NEG (NEG) Urine Urobilinogen NEG (NEG) Urine Leukocyte Esterase MODERATE (NEG) Urine WBC (Auto) >30 /hpf (0-5) Urine RBC (Auto) 0-4 /hpf (0-4) Urine Hyaline Casts (Auto) 1-5 /lpf (0-5) Urine Epithelial Cells (Auto) 10-20 /lpf (0-5) Urine Bacteria (Auto) NEG (NEG) Urine Pathogenic Casts /lpf (0) Urine Yeast (Auto) BUD W/ HYPHAE (NONE PRSENT) Labs reviewed by ED physician. Medications Administered Medications (Trade) Dose Ordered Sig/Lorenzo Route Start Time Stop Time Status Last Admin Dose Admin Albuterol/ Ipratropium (Duoneb) 12 ml ONE ONCE INH 04/16/17 12:30 04/16/17 12:31 DC 04/16/17 13:03 12 ML Furosemide (Lasix Inj) 40 mg NOW STAT IV 04/16/17 12:28 04/16/17 12:29 DC 04/16/17 12:41 40 MG Methylprednisolone Sodium Succinate (Solu-Medrol IV) 60 mg NOW STAT IV 04/16/17 12:28 04/16/17 12:29 DC 04/16/17 12:41 60 MG ECG Indication: SOB/dyspnea Rate (beats per minute): 92 Rhythm: normal sinus Findings: LBBB, no acute ischemic change, no ectopy Change: no significant change (compared to 03/29/17) ED Course 1222: Past medical records reviewed. The patient was evaluated in room C9. A complete history and physical examination was performed. 1228: Ordered Solu-Medrol IV 60 mg IV, Lasix Inj 40 mg IV. 1230: Ordered Duoneb 12 ml INH. 1400. Upon reexamination the patient is resting. I discussed results and treatment plan with the patient. she verbalizes agreement and understanding. The patient will be evaluated for further management. 1407: I discussed the patient with Dr. Narda Clement milking machine mechanic - she will evaluate the patient for further treatment. Medical Decision Differential diagnosis: Etiologies such as infections, reactive airway disease, pneumonia, pneumothorax , COPD, CHF, cardiac ischemia, pulmonary embolism, musculoskeletal, gastrointestinal, as well as others were entertained. This is a 71-year-old female who presents to the emergency department complaining of shortness of breath. I will note that the patient is normally on 3 L of oxygen however is only satting in the 80s at the care home. The patient was given a DuoNeb breathing treatment and started on site Medrol as well as Lasix. A [place]om[place] catheter was placed. I did discuss the case with the hospitalist service who agreed to admit the patient. Patient was in agreement with the treatment plan. Medication Reconcilliation Current Medication List: was personally reviewed by me Blood Pressure Screening Patient's blood pressure: Normal blood pressure Consults Time Called: 1400 Consulting Physician: Dr. Narda Clement milking machine mechanic Returned Call: 1407 I discussed the patient with Dr. Narda Clement milking machine mechanic - she will evaluate the patient for further treatment. Impression Primary Impression: Hypoxia Scribe Attestation The scribe's documentation has been prepared under my direction and personally reviewed by me in its entirety. I confirm that the note above accurately reflects all work, treatment, procedures, and medical decision making performed by me. Departure Information Dispostion Being Evaluated By Hospitalist Prescriptions Levalbuterol (Levalbuterol HCl) 0.31 Mg/3 Ml Nebu 0.31 MG INH Q6 Y for SOB/Wheezing for 15 Days Prov: Maude Sandy PA-C 04/16/17 Ipratropium [place] (Ipratropium [place]) 0.5 Mg/2.5 Ml Nebu 0.5 MG INH Q6 Y for SOB/Wheezing for 15 Days Prov: Maude Sandy PA-C 04/16/17 Referrals Armin Sheth M.D. (PCP) Patient Instructions My [facility]
[2017-04-16 12:49] LABS: BASO % 0.1 %; BASO ABS # 0.01 K/uL (0-0.2); COMPLETE YES; EOS % 0.3 %; HEMATOCRIT 33.2 % (37-47); IG% 0.5 %; LYMPH % 12.5 %; LYMPH ABS # 1.47 K/uL (1.2-3.4); MEAN CELL VOLUME 81.8 fL (80-100); MEAN CORPUSCULAR HEMOGLOBIN 26.1 pg (25-34); MEAN CORPUSCULAR HGB CONC 31.9 g/dl (32-36); MEAN PLATELET VOLUME 9.6 fL (7.4-10.4); MONO % 5.6 %; PLATELET COUNT 185 K/uL (130-400); RED BLOOD COUNT 4.06 M/uL (4.2-5.4); WHITE BLOOD COUNT 11.79 K/uL (4.8-10.8)
[2017-04-16 12:56] LABS: BUN/CREATININE RATIO 11.9 (10-20); CALCIUM 8.4 mg/dl (8.5-10.1); CREATININE 1.1 mg/dl (0.60-1.20); POTASSIUM 4.3 mmol/L (3.5-5.1)
[2017-04-16 13:02] LABS: ALB/GLOB RATIO 0.6 (0.9-2); CKMB/CK RATIO 5.9 (0-3.0)
[2017-04-16 13:09] VITALS: PULSE 82; O2SAT 100
--- NOTE | 2017-04-16 13:39 | DIAGNOSTIC IMAGING REPORT ---
CHEST ONE VIEW PORTABLE HISTORY: Short of breath. COMPARISON: Chest 04/05/2017. FINDINGS: No pneumothorax. Suspect trace bilateral pleural effusions. The heart remains mildly enlarged. Left subclavian Port-A-Cath terminates in the SVC. Healing left-sided rib fractures. Diffuse interstitial thickening is again noted. Slight improved aeration at the lung bases. No new focal lung consolidations. IMPRESSION: 1. Diffuse interstitial thickening which is likely chronic. 2. Trace bilateral pleural effusions which have slightly improved. 3. Improved aeration at the lung bases. No new focal lung consolidations. Electronically signed by: Jack Smith M.D. 04/16/2017 1:38 PM Dictated Date/Time: 04/16/2017 1:36 PM
[2017-04-16 13:59] LABS: URINE APPEARANCE CLEAR (CLEAR); URINE BILIRUBIN NEG (NEG); URINE COLOR YELLOW; URINE NITRITE NEG (NEG); URINE PH 7.5 (4.5-7.5); URINE SPECIFIC GRAVITY 1.013 (1.000-1.030); UROBILINOGEN NEG (NEG)
[2017-04-16 14:29] LABS: MANUAL MICROSCOPIC REQUIRED? NO; REVIEW REQ? YES; SULFASALICYLIC ACID NEG (NEG)
[2017-04-16] MEDS ORDERED: ACETAMINOPHEN 325 MG TAB PO PRN (15:00)
[2017-04-16] MEDS ORDERED: ONDANSETRON INJ 2 MG/ML 2 ML VIAL IV PRN (15:00)
[2017-04-16] MEDS ORDERED: LEVALBUTEROL/IPRATROPIUM NEB INH PRN (15:15)
[2017-04-16] MEDS ORDERED: XPNINS31 INH (15:24)
[2017-04-16] MEDS ORDERED: ATRINS INH (15:24)
[2017-04-16] MEDS ORDERED: STOMAHESIVE TOP (15:25)
[2017-04-16] MEDS ORDERED: GLUCOSE 40% GEL 15 GM TUBE PO PRN (15:30)
[2017-04-16] MEDS ORDERED: GLUCAGON FOR INJ 1 MG VIAL SQ PRN (15:30)
[2017-04-16] MEDS ORDERED: DEXTROSE 50% 50 ML SYR IV PRN (15:30)
[2017-04-16] MEDS ORDERED: GLUCOSE 10 TABS/TUBE PO PRN (15:30)
[2017-04-16] MEDS ORDERED: ALBUTEROL HFA 8 GM INHALER INH PRN (15:45)
[2017-04-16] MEDS ORDERED: [UNRECOGNIZED DRUG - OTHER] TOP SCH (15:45)
[2017-04-16] MEDS ORDERED: SELENIUM SULFIDE TOP SCH (15:45)
[2017-04-16] MEDS ORDERED: ALPRAZOLAM 0.25 MG TAB PO PRN (15:45)
--- NOTE | 2017-04-16 16:34 | History and Physical ---
History & Physical Date & Time of Service: Apr 16, 2017 at 15:41 Chief Complaint: Shortness Of Breath Primary Care Physician: Armin Sheth M.D. History of Present Illness Source: patient, hospital records, shelter This is a 71 y/o female with PMH of chronic systolic and diastolic CHF, EF 20-25 %, hypertension, DM type 2, hx colorectal CA s/p resection and colostomy, and other problems listed below who was sent to the ED from [facility] for hypoxia. Hx obtained mostly from records and nursing staff as pt is a poor historian. Patient was recently admitted to [facility] from March 22- for acute hypoxic respiratory failure secondary to bibasilar PNA, likely HCAP, ILD, and acute on chronic CHF. Pt was seen by ID and treated with 7 days of Zosyn and vancomycin. She was seen by [facility] pulmonology. Prednisone and Spiriva were added. She was seen by cardiology and Lasix was titrated. Pt was discharged and prednisone taper- current dose is 35 mg daily. Has been on oxygen 3 liters continuous. Per nursing staff at [facility], this morning patient became hypoxic to 63% on 3 liters during therapy. Nursing staff also noted increased confusion. Patient was sent to the ED, where she initially was hypoxic to 85% on RA and is now saturating well on 5 liters via mask. In the ER patient was treated with hour long neb, Solu-Medrol 60 mg IV, and Lasix 40 mg IV. Patient reports she is feeling better now. She admits to rhinorrhea. Nursing staff stated she had occasional dry cough but no aspiration episodes. Reportedly her breathing had been stable with mild VERA on ambulating across the room. Nursing staff reported at baseline she is usually oriented x 3, occasionally is "off" but can typically recall recent events. Today she is disoriented to place and date and cannot tell me about her recent hospitalization. No stroke like symptoms ( dysarthria, facial droop, focal weakness) per nursing staff. She uses a walker intermittently. Patient denies fever, chills, sore throat, chest pain, orthopnea , N/V/D, urinary changes, wounds, calf pain, edema, recent falls. She has a Arellano placed in the ER. Past Medical/Surgical History Medical Problems: (1) Chronic combined systolic and diastolic CHF (congestive heart failure) Permanent Comment: 20-25% per echo in March 2017 Status: Chronic (2) Colon cancer Status: Chronic (3) Depression Status: Chronic (4) DM type 2 (diabetes mellitus, type 2) Status: Chronic (5) History of atrial fibrillation Permanent Comment: per records Status: Chronic (6) History of staphylococcal arthritis Permanent Comment: right hip Status: Chronic (7) Ischemic cardiomyopathy Status: Chronic (8) LBBB (left bundle branch block) Status: Chronic (9) Pulmonary heart disease Status: Chronic Surgical Problems: (1) S/P colectomy Status: Chronic Family History Cancer Social History Smoking Status: Former Smoker (60+ pack years per records) Housing status: shelter Multi-Drug Resistant Organisms History of MDRO: No Allergies Coded Allergies: Nickel (Unverified Allergy, Unknown, ., 03/22/17) Ertapenem (Unverified Adverse Reaction, Intermediate, may have had elevated LFT's secondary to ertapenem..., 03/22/17) Patient received Vancomycin + Ertapenem in past for septic joint. She developed LFT elevations on this therapy. She had experienced ADHF, cardiogenic shock just prior to LFT elevation. Provider felt LFT elevations most likely due to shock, hepatic congestion but could not exclude ertapenem + venlafaxine as possible causes. Ertapenem was held and vanco was continued with Rocephin. LFTs improved. Home Medications Scheduled Bupropion (Wellbutrin), 75 MG PO Q8 Clotrimazole Vaginal (Clotrimazole), 1 APPLN TOP DAILY Furosemide (Lasix), 20 MG PO UD Insulin Glargine (Lantus), 5 UNITS SC HS Insulin Lispro (Human) (Humalog), 7 UNITS SC QPM Lidocaine (Anorectal) (Lidocaine), 1 APPLN TP TID Magnesium Oxide (Mag-Ox), 400 MG PO DAILY Metoprolol Succinate (Toprol Xl), 25 MG PO QPM Prednisone Tab (Prednisone), 10 MG PO UD Selenium Sulfide (Selsun Blue), 1 APPLN TOP UD Senna (Senokot), 1 TAB PO HS Terbinafine Hcl (Topical) (Lamisil At), 1 APPLN TOP HS Tiotropium [place] (Spiriva Handihaler), 1 PUFF INH QAM Venlafaxine Hcl (Venlafaxine Hcl Er), 1 TAB PO DAILY [stomahesive], 1 APPLN TOP UD Scheduled PRN Acetaminophen (Tylenol), 2 TAB PO Q8 PRN for Mild Pain Albuterol Hfa (Ventolin Hfa), 2 PUFFS INH Q4 PRN for SOB/Wheezing Alprazolam (Xanax), 0.5 TAB PO Q6H PRN for Anxiety Bisacodyl (Dulcolax), 1 SUPP WV UD PRN for Constipation Ipratropium [place] (Ipratropium [place]), 0.5 MG INH Q6 PRN for SOB/Wheezing Levalbuterol (Levalbuterol HCl), 0.31 MG INH Q6 PRN for SOB/Wheezing Magnesium Hydroxide (Milk of Magnesia), 30 ML PO DAILY PRN for Constipation Sodium Phosphates (Fleet Enema Six Pack), 1 DOSE WV DAILY PRN for Constipation Review of Systems Ten systems reviewed and negative except as noted in HPI. Physical Exam Vital Signs Date Time Temp Pulse Resp B/P (MAP) Pulse Ox O2 Delivery O2 Flow Rate FiO2 04/16/17 13:52 95 28 102/63 99 Nebulizer 7.0 04/16/17 13:09 82 21 100 Mask 5.0 04/16/17 12:42 91 28 103/72 96 Mask 5.0 04/16/17 12:32 95 Mask 5.0 04/16/17 12:20 95 Mask 5.0 04/16/17 12:10 88 04/16/17 12:06 89 20 98/61 95 Mask 5.0 04/16/17 12:05 37.0 93 24 99/62 85 Room Air 04/16/17 12:05 85 Room Air General Appearance: WD/WN, no apparent distress Head: normocephalic, atraumatic Eyes: normal inspection, PERRL ENT: hearing grossly normal, + nasal drainage (clear mucous in nares), + pertinent finding (dry oral mucosa) Neck: supple, no JVD, trachea midline Respiratory/Chest: no respiratory distress, no accessory muscle use, + decreased breath sounds, + crackles (right base), + pertinent finding (no wheezing or rhonchi. saturating 94% on 5 liters via mask. Port in place left chest without erythema or tenderness.) Cardiovascular: no JVD, no murmur, normal peripheral pulses, + tachycardia ( regular rhythm, rate 90s-100s) Abdomen/GI: normal bowel sounds, non tender, soft, + pertinent finding (stoma appears viable with loose brown stool in ostomy back) Genitourinary - Female: + pertinent finding (arellano catheter in place draining clear yellow urine) Extremities/Musculoskelatal: no calf tenderness, normal capillary refill, no pedal edema Neurologic/Psych: alert, normal mood/affect, + disoriented (oriented to person , disoriented to place and exact date (can tell the year and month only). unable to give details of recent events.), + pertinent finding (no facial droop or dysarthria. no focal weakness. ) Skin: normal color, warm/dry, + pertinent finding (erythema and multiple tiny areas of superficial skin breakdown on buttocks) Diagnostics Laboratory Results Results Past 24 Hours Test 04/16/17 11:47 04/16/17 13:25 Range/Units White Blood Count 11.79 4.8-10.8 K/uL Red Blood Count 4.06 4.2-5.4 M/uL Hemoglobin 10.6 12.0-16.0 g/dL Hematocrit 33.2 37-47 % Mean Corpuscular Volume 81.8 80-100 fL Mean Corpuscular Hemoglobin 26.1 25-34 pg Mean Corpuscular Hemoglobin Concent 31.9 32-36 g/dl Platelet Count 185 130-400 K/uL Mean Platelet Volume 9.6 7.4-10.4 fL Neutrophils (%) (Auto) 81.0 % Lymphocytes (%) (Auto) 12.5 % Monocytes (%) (Auto) 5.6 % Eosinophils (%) (Auto) 0.3 % Basophils (%) (Auto) 0.1 % Neutrophils # (Auto) 9.56 1.4-6.5 K/uL Lymphocytes # (Auto) 1.47 1.2-3.4 K/uL Monocytes # (Auto) 0.66 0.11-0.59 K/uL Eosinophils # (Auto) 0.03 0-0.5 K/uL Basophils # (Auto) 0.01 0-0.2 K/uL RDW Standard Deviation 56.1 36.4-46.3 fL RDW Coefficient of Variation 18.7 11.5-14.5 % Immature Granulocyte % (Auto) 0.5 % Immature Granulocyte # (Auto) 0.06 0.00-0.02 K/uL Sodium Level 137 136-145 mmol/L Potassium Level 4.3 3.5-5.1 mmol/L Chloride Level 102 98-107 mmol/L Carbon Dioxide Level 26 21-32 mmol/L Anion Gap 9.0 3-11 mmol/L Blood Urea Nitrogen 13 7-18 mg/dl Creatinine 1.10 0.60-1.20 mg/dl Est Creatinine Clear Calc Drug Dose 43.2 ml/min Estimated GFR () 58.1 Estimated GFR (Non- 50.1 BUN/Creatinine Ratio 11.9 10-20 Random Glucose 170 70-99 mg/dl Calcium Level 8.4 8.5-10.1 mg/dl Total Bilirubin 0.8 0.2-1 mg/dl Aspartate Amino Transf (AST/SGOT) 18 15-37 U/L Alanine Aminotransferase (ALT/SGPT) 27 12-78 U/L Alkaline Phosphatase 95 45-117 U/L Total Creatine Kinase 22 26-192 U/L Creatine Kinase MB 1.3 0.5-3.6 ng/ml Creatine Kinase MB Ratio 5.9 0-3.0 Troponin I 0.024 0-0.045 ng/ml Pro-B-Type Natriuretic Peptide 55427 0-900 pg/ml Total Protein 6.5 6.4-8.2 gm/dl Albumin 2.4 3.4-5.0 gm/dl Globulin 4.1 2.5-4.0 gm/dl Albumin/Globulin Ratio 0.6 0.9-2 Urine Color YELLOW Urine Appearance CLEAR CLEAR Urine pH 7.5 4.5-7.5 Urine Specific [place] 1.013 1.000-1.030 Urine Protein NEG NEG Urine Glucose (UA) NEG NEG Urine Ketones NEG NEG Urine Occult Blood NEG NEG Urine Nitrite NEG NEG Urine Bilirubin NEG NEG Urine Urobilinogen NEG NEG Urine Leukocyte Esterase MODERATE NEG Urine WBC (Auto) >30 0-5 /hpf Urine RBC (Auto) 0-4 0-4 /hpf Urine Hyaline Casts (Auto) 1-5 0-5 /lpf Urine Epithelial Cells (Auto) 10-20 0-5 /lpf Urine Bacteria (Auto) NEG NEG Urine Pathogenic Casts 0 /lpf Urine Yeast (Auto) BUD W/ HYPHAE NONE PRSENT Diagnostic Radiology CHEST ONE VIEW PORTABLE HISTORY: Short of breath. COMPARISON: Chest 04/05/2017. FINDINGS: No pneumothorax. Suspect trace bilateral pleural effusions. The heart remains mildly enlarged. Left subclavian Port-A-Cath terminates in the SVC. Healing left-sided rib fractures. Diffuse interstitial thickening is again noted. Slight improved aeration at the lung bases. No new focal lung consolidations. IMPRESSION: 1. Diffuse interstitial thickening which is likely chronic. 2. Trace bilateral pleural effusions which have slightly improved. 3. Improved aeration at the lung bases. No new focal lung consolidations. EKG NSR, 92 bpm, LBBB-chronic Impression Assessment and Plan ACUTE ON CHRONIC HYPOXIC RESPIRATORY FAILURE Desaturated to 63% on chronic 3 liters at [facility]; now saturating mid-90s on 5 liters via mask May be multifactorial, recently treated for HCAP and ILD (Vanc/Zosyn given inpatient), still on prednisone taper (35 mg daily), interstitial changes noted on CXR, possible mild volume overload (improved trace bilateral effusions on CXR , pro-BNP ~16K), VQ scan orderd to rule out PE given hypoxia, tachycardia, relatively low mobility CXR- Diffuse interstitial thickening which is likely chronic. Trace bilateral pleural effusions which have slightly improved. Improved aeration at the lung bases. No new focal lung consolidations. Received hour long neb and IV Solu-Medrol in ER- continue IV steroids 40 mg TID , Xopenex-Atrovent nebs, Spiriva 40 mg IV Lasix given in ER for possible volume overload- will continue with PO Lasix 20 mg daily (takes 20 mg 3x/week as outpatient) Check ABG Continue supplemental O2 Consult pulmonology- discussed with Dr. Bautista, appreciate input ALTERED MENTAL STATUS Unclear etiology- ? related to hypoxia, CO2 level WNL- check ABG, ? metabolic encephalopathy from infection- has question of UTI POSSIBLE UTI UA shows elevated leuk esterase and WBCs, growing yeast Mild leukocytosis noted (WBC ~11K, may be secondary to outpatient prednisone), Afebrile Will start empiric ceftriaxone F/u urine culture and de-escalate abx as necessary CHRONIC SYSTOLIC AND DIASTOLIC CHF LV EF 20-25% per echo in March 2017 Has improving trace bilat effusions on CXR, pro-BNP ~16K (was 17K on recent admission), however does not appear to be in overt decompensated failure Received IV Lasix 40 mg IV in ER Continue Lasix 20 mg PO daily (takes 20 mg 3x/week outpatient) Monitor daily weight and I/O's DM TYPE 2 Continue home Lantus Novolog sliding scale CKD STAGE IV Creat is stable Monitor renal function Avoid nephrotoxins DVT PROPHYLAXIS Heparin SQ CODE STATUS DNR per my phone conversation with the patient's daughter Rafaela Cook who is POA DISPOSITION Resides at [facility] planning eval requested PCP is Dr. Peterson Patient seen in collaboration with Dr. Laboy. Please see her addendum. Attending addendum: Agree with the above H&P; please refer to above for more details. Patient is a pleasant 71 yo female who was brought to the hospital from the shelter where she resides due to increased confusion and hypoxia. The patient does not fully recall why she is at the hospital, but remembers some about her recent hospitalization in March. She reports feeling better since being in the ER and does state she was SOB today. Her daughter noticed confusion for the last 2 days. Cardiac: RR, S1 and S2 auscultated, no JVD, no edema Resp: + rales bilaterally, no wheezing GI: soft, NT, ND, + BS HYPOXIA: Acute on chronic respiratory failure -patient is requiring more oxygen than she uses at baseline -appears less congested with less pleural effusions on CXR -obtain VQ scan to eval for PE -continue with lasix, change to daily for now and re-eval tomorrow -place back on IV steroids over night -continue nebs and home meds -Pulmonary consult -has a recent TTE, no need for a repeat, CHF appears to be improving per CXR and clinical exam AMS: -possibly related to hypoxia or a suspected UTI POSSIBLE UTI: -follow cultures -on ceftriaxone empirically VTE Prophylaxis VTE Risk Assessment Done? Y/N: Yes Risk Level: Moderate
[2017-04-16 17:20] VITALS: BP 106/67; PULSE 88; TEMP 36.4; O2SAT 98; Ht 167.6 cm; Wt 63.4 kg
[2017-04-16] MEDS ORDERED: INSULIN ASPART 100 UNITS/ML 3 ML PEN SC SCH (17:30)
[2017-04-16] MEDS ORDERED: LEVALBUTEROL 0.63MG/3 ML NEB INH PRN (18:00)
[2017-04-16] MEDS ORDERED: IPRATROPIUM BROMIDE NEB SOLN 0.02% 2.5 ML VIAL INH PRN (18:00)
[2017-04-16 18:29] LABS: ARTERIAL BLOOD GAS HCO3 27 mmol/L (19-24); ARTERIAL BLOOD GAS PO2 89 mm/Hg (80-95); ARTERIAL BLOOD GAS pH 7.47 (7.35-7.45)
[2017-04-16 18:30] LABS: ALLEN TEST POS (POS); O2 ADMINISTRATION 4 LITERS
--- NOTE | 2017-04-16 19:07 | DIAGNOSTIC IMAGING REPORT ---
LUNG IMAGING VQ CLINICAL HISTORY: Chest pain. Dyspnea. COMPARISON: None TECHNIQUE: For the ventilation portion of this exam, 32.9 mCi of DTPA was inhaled at 6:05 PM. Immediately following inhalation, imaging of the chest was carried out in the anterior, posterior, left lateral, right lateral, LPO, RPO, SPANISH and DAVALOS projections. For the perfusion portion of exam, 5 mCi of technetium 99m MAA was injected IV at 6:40 PM. Immediately following injection, imaging of the chest was carried out in the same projections. FINDINGS: Slight heterogeneity of perfusion throughout both hemithoraces. This does not follow a segmental pattern. The aerosol component of the study shows mild in homogeneity. A significant ventilation/perfusion mismatch is not identified. IMPRESSION: Low probability of pulmonary embolus. The above report was generated using voice recognition software. It may contain grammatical, syntax or spelling errors. Electronically signed by: Adan Santana M.D. 04/16/2017 7:05 PM Dictated Date/Time: 04/16/2017 7:04 PM
[2017-04-16 19:14] VITALS: BP 94/60; PULSE 102; TEMP 36.6; O2SAT 94
[2017-04-16] MEDS: CEFTRIAXONE SOD INJ 1 GM in DEXTROSE 5% ADD-VANTAGE 50ML 50 ML IV SCH (19:28)
[2017-04-16] MEDS: METHYLPREDNISOLONE IV 40 MG in SYRINGE 0 ML IV SCH (19:29)
[2017-04-16 20:05] VITALS: PULSE 88; O2SAT 97
[2017-04-16] MEDS: LEVALBUTEROL 1.25MG/0.5ML NEB INH SCH (20:05)
[2017-04-16] MEDS: IPRATROPIUM BROMIDE NEB SOLN 0.02% 2.5 ML VIAL INH SCH (20:05)
[2017-04-16] MEDS ORDERED: INSULIN ASPART 100 UNITS/ML 3 ML PEN SC ONE (20:22)
[2017-04-16] MEDS ORDERED: INSULIN GLARGINE SOLOSTAR 100 UNITS/ML 3 ML PEN SC ONE (20:22)
[2017-04-16] MEDS ORDERED: INSULIN GLARGINE SOLOSTAR 100 UNITS/ML 3 ML PEN SC SCH (21:00)
[2017-04-16] MEDS: METOPROLOL SUCC 25MG EXT REL TAB PO SCH (21:00)
[2017-04-16] MEDS ORDERED: LEVALBUTEROL/IPRATROPIUM NEB INH SCH (21:00)
[2017-04-16] MEDS ORDERED: METHYLPREDNISOLONE IV 60 MG in SYRINGE 0 ML IV SCH (21:00)
[2017-04-16] MEDS: SENNA 8.6 MG TAB PO SCH ×2 (21:00→21:10)
[2017-04-16] MEDS: TERBINAFINE CR 30 GM TUBE EXT SCH (21:09)
[2017-04-16] MEDS: CLOTRIMAZOLE 1% CR 15 GM TUBE EXT SCH (21:10)
[2017-04-16] MEDS: HEPARIN SOD 5000 UNIT/0.5 ML CARP SQ SCH (21:12)
[2017-04-17] VITALS (9 sets, daily range): BP systolic 92–104; BP diastolic 58–68; PULSE 66–109; TEMP 36.4–37; O2SAT 93–99
[2017-04-17] MEDS: LEVALBUTEROL 1.25MG/0.5ML NEB INH SCH ×4 (02:21→19:43)
[2017-04-17] MEDS: IPRATROPIUM BROMIDE NEB SOLN 0.02% 2.5 ML VIAL INH SCH ×4 (02:21→19:43)
--- NOTE | 2017-04-17 03:35 | PULMONARY CONSULTATION ---
DATE OF CONSULTATION: 04/16/2017 TIME: 5:20 p.m. REPORT OF CONSULTATION: The patient is a 71-year-old female who was sent to the Emergency Room today due to a low oxygen saturation. She has been residing at [facility]. The patient recently had an extensive hospital stay from March 22 until April 07. At that time, she had acute respiratory failure secondary to bilateral pneumonia, CHF, and interstitial lung disease. During that hospital stay, she required high concentrations of oxygen for a period of time. Today, she was sent over for evaluation because of having low oxygen saturations. Reportedly, her pulse ox was 73% on 3 liters. She was subsequently placed on a nonrebreather with saturations up to 99%. The patient indicates she is feeling better. She is less short of breath than when she came in. She denies having much cough. She denies having sputum production or hemoptysis. She denies chest pains. The patient does claim to have lost 50 pounds in the past 1-2 months. She states this is despite the fact she has a good appetite. She has been very weak. I do not know if the weight has been confirmed. At the time of her last hospital stay, she was thought to probably have bilateral pneumonia. She was also thought to have CHF and possibly underlying pulmonary fibrosis. She did have an echo done March 26. This reported an ejection fraction of between 20 and 25%. There was severe ischemic cardiomyopathy noted. The right ventricular systolic function was normal. There was mild aortic sclerosis. There was mild TR and mild MR. The patient has a history of being a long-term smoker. She quit smoking approximately 3 months ago. She smoked between 1 and 2 packs per day for much of her lifetime. She probably has smoked about 53 years. The patient states that in the past she used to drink alcohol quite a bit, but she denies drinking any alcohol now. PAST MEDICAL HISTORY: 1. CHF. 2. Ischemic cardiomyopathy. 3. Type 2 diabetes. 4. COPD. 5. GERD. 6. Rectal cancer. 7. Depression. 8. Infected right hip, fairly recently. PAST SURGICAL HISTORY: 1. Resection of the rectal cancer with a sigmoid colostomy. 2. Hysterectomy because of endometrial cancer. 3. Cholecystectomy. ALLERGIES: ERTAPENEM. FAMILY HISTORY: Positive only for cancer. Specifics are unknown. REVIEW OF SYSTEMS: The patient was a poor historian. Review was negative except as noted above. Ten systems were reviewed. PHYSICAL EXAMINATION: GENERAL: The patient is a 71-year-old female who looks older than her chronologic age. She was quite sleepy. She did arouse readily. Her skin was dry. HEENT: Pupils were reactive to light. Nares were dry. Mouth exam revealed dentures. She seemed to have some mucoid material on her lips. NECK: The neck veins were not distended. No lymphadenopathy was noted. VITAL SIGNS: Blood pressure was only 95/62. Heart rate was 90 per minute. The rhythm was regular. LUNGS: Lung hyatt reveal diffuse rales bilaterally. It was difficult to characterize if these were dry or wet. Her respiratory rate was 26 breaths per minute. She had a mask on and her saturations were 98%. ABDOMEN: Shows evidence of the colostomy. She also has other scars as noted. Bowel sounds were present. There was no tenderness to palpation or definite mass. EXTREMITIES: Showed no cyanosis, clubbing or edema. She does have a Palomino catheter in place that has approximately 1500 mL of fluid. LABORATORY DATA: White count is 11.79. Hemoglobin 10.6. Platelets 185,000. Urinalysis showed greater than 30 wbc's. Bacteria was negative, however. Hyphae was noted in the urine. The patient has a blood gas that is pending. Electrolytes show sodium 137, potassium 4.3, chloride 102, bicarbonate 26, BUN was 13 with a creatinine of 1.1. AST was normal at 18. ALT was normal at 27. Alkaline phosphatase was normal at 95. ProBNP was 16,367. IMPRESSIONS: 1. Respiratory failure with hypoxia. 2. Acute congestive heart failure - systolic. 3. Possible pulmonary fibrosis. COMMENTS AND RECOMMENDATIONS: The patient reportedly has had some confusion. In light of this, a blood gas is being done. She is diuresing well. She is getting Spiriva. She is on subQ heparin. She is on methylprednisolone 40 mg IV t.i.d. Hopefully, this can be titrated fairly readily in light of her diabetes. She is on ceftriaxone. She is only on an albuterol inhaler on a p.r.n. basis. I would prefer if she would be on nebulizer treatments, perhaps with Xopenex and ipratropium, approximately 3-4 times per day. The patient's CAT scan at the time of the last hospital stay was so abnormal that I could not differentiate CHF from interstitial disease. I believe her current chest x-ray still does the same. We will follow her with you. Thank you for asking me to assist in her care. JORDYN
[2017-04-17] MEDS: METHYLPREDNISOLONE IV 40 MG in SYRINGE 0 ML IV SCH ×2 (04:47→12:24)
[2017-04-17] MEDS: HEPARIN SOD 5000 UNIT/0.5 ML CARP SQ SCH ×3 (05:47→21:07)
[2017-04-17 06:58] LABS: ESTIMATED AVERAGE GLUCOSE 157 mg/dl; HA1C FLAG Normal (Normal)
[2017-04-17 08:13] LABS: HEMATOCRIT 31.9 % (37-47); MEAN CELL VOLUME 81.2 fL (80-100); MEAN CORPUSCULAR HEMOGLOBIN 25.4 pg (25-34); MEAN CORPUSCULAR HGB CONC 31.3 g/dl (32-36); MEAN PLATELET VOLUME 9.4 fL (7.4-10.4); PLATELET COUNT 176 K/uL (130-400); RED BLOOD COUNT 3.93 M/uL (4.2-5.4); WHITE BLOOD COUNT 8.79 K/uL (4.8-10.8)
[2017-04-17] MEDS: INSULIN ASPART 100 UNITS/ML 3 ML PEN SC SCH ×4 (08:19→21:06)
[2017-04-17] MEDS: INSULIN GLARGINE SOLOSTAR 100 UNITS/ML 3 ML PEN SC SCH ×2 (08:20→21:07)
[2017-04-17] MEDS: VENLAFAXINE HCL XR 37.5 MG CAPXR PO SCH (08:33)
[2017-04-17] MEDS: FUROSEMIDE 20 MG TAB PO SCH (08:33)
[2017-04-17] MEDS: TIOTROPIUM BROMIDE 5 PUFF/90 MCG INH INH SCH (08:34)
[2017-04-17] MEDS: CLOTRIMAZOLE 1% CR 15 GM TUBE EXT SCH ×2 (08:35→20:59)
[2017-04-17 08:40] LABS: CALCIUM 8.8 mg/dl (8.5-10.1); CREATININE 1.2 mg/dl (0.60-1.20); MAGNESIUM 1.9 mg/dl (1.8-2.4); POTASSIUM 4.4 mmol/L (3.5-5.1)
[2017-04-17] MEDS: MAGNESIUM OXIDE 400 MG TAB PO SCH (12:24)
--- NOTE | 2017-04-17 15:23 | PULMONARY PROGRESS NOTE ---
DATE: 04/17/2017 TIME: 02:10 p.m. SUBJECTIVE: The patient feels better. She is less short of breath. She is confused, however. For instance, she is convinced that she came to the hospital last , which would be 5 days ago rather than yesterday. She denies any cough. She is not having any chest pains. OBJECTIVE: GENERAL: The patient is sitting in a chair. She appears comfortable. ENT: Unremarkable. VITAL SIGNS: Her temperature is 36.6. There has been no fever since admission. Heart rate was 80 per minute. The blood pressure is 92/58. Respiratory rate is 16 breaths per minute and not labored. LUNGS: Auscultation revealed significant decrease in the rales heard yesterday. Her oxygen saturation on 2 liters is 97%. EXTREMITIES: Showed no cyanosis, clubbing or edema. Palomino catheter is still in place. Yesterday, she had a diuresis of 1750 mL. Net intake of -1313. LABORATORY DATA: White count today is 8.79. Hemoglobin is 10. Platelets 186,000. Arterial blood gas done last evening on 4 liters showed a pH of 7.47 with a pCO2 of 38 and a pO2 of 89. Electrolytes show sodium 137, potassium 4.4, chloride 99, and bicarbonate 30. BUN is 8 with a creatinine of 1.2. IMPRESSIONS: 1. Respiratory failure with hypoxia. 2. Acute congestive heart failure -- systolic. 3. Possible pulmonary fibrosis. COMMENTS AND RECOMMENDATIONS: The patient continues to have some confusion despite having a good oxygen level. Thus, I do not believe hypoxia is playing a role. She is much better than yesterday. Her chest sounds better. She is now back on just oral furosemide. I believe the methylprednisolone could be changed to prednisone. Would start at 40 mg daily. I agree with your other measures.
--- NOTE | 2017-04-17 18:16 | Progress Note ---
Internal Med Progress Note Date of Service: Apr 17, 2017. Provider Documentation: SUBJECTIVE: resting comfortably sats ok on 2lts has some cough denies any chest pain afebrile alert and oriented OBJECTIVE: Vital Signs-as noted below Exam: General-alert and oriented. Not in distress ENT-Normal hearing Neck-no neck masses supple Lungs-cta b/l no wheezing mild bibasilar crackles present Heart-s1 and s2 heard regular rate and rhythm no murmurs Abdomen-soft bowel sounds present non tender no distension Extremities- no edema no erythema Neuro-alert and oriented moves extremities Lab data as noted below. ASSESSMENT & PLAN: ACUTE ON CHRONIC HYPOXIC RESPIRATORY FAILURE Desaturated to 63% on chronic 3 liters at [facility]; now saturating mid-90s on 5 liters via mask acute systolic chf acute ILD flare? received iv lasix and now back to po Lasix on v solumedrol plan to start po prednisone in am currently saturating fine on 2lts. Appreciate pulmonary inputs. ALTERED MENTAL STATUS metabolic encephalopathy mostly from hypoxia improving POSSIBLE UTI on Rocephin f/u cx. Acute on CHRONIC SYSTOLIC AND DIASTOLIC CHF LV EF 20-25% per echo in March 2017 Received IV Lasix 40 mg IV in ER Continuing Lasix 20 mg PO daily (takes 20 mg 3x/week outpatient) Monitor daily weight and I/O's DM TYPE 2 home Lantus Novolog sliding scale will monitor. CKD STAGE IV Creat is stable Monitor renal function Avoid nephrotoxins DVT PROPHYLAXIS Heparin SQ CODE STATUS DNR per h and p DISPOSITION Resides at [facility] for d/c planning PCP is Dr. Peterson Vital Signs: Date Time Temp Pulse Resp B/P (MAP) Pulse Ox O2 Delivery O2 Flow Rate FiO2 04/17/17 16:00 Nasal Cannula 2.0 04/17/17 15:29 36.6 102 16 101/68 (79) 94 Nasal Cannula 2.0 04/17/17 14:01 80 16 97 Nasal Cannula 2.0 04/17/17 12:00 Nasal Cannula 2.0 04/17/17 11:41 36.6 80 16 92/58 (69) 96 04/17/17 08:05 36.8 83 18 99/65 (76) 95 04/17/17 08:00 Nasal Cannula 2.0 04/17/17 07:15 66 16 99 Nasal Cannula 3.0 04/17/17 04:15 37.0 81 21 98/61 (73) 97 Nasal Cannula 3.0 04/17/17 04:00 Nasal Cannula 3.0 04/17/17 00:00 36.8 109 23 104/68 (80) 98 Nasal Cannula 3.0 04/16/17 23:59 Nasal Cannula 3.0 04/16/17 20:05 88 16 97 Nasal Cannula 4.0 04/16/17 20:00 Nasal Cannula 3.0 04/16/17 19:14 36.6 102 18 94/60 (71) 94 Nasal Cannula 4.0 Lab Results: Results Past 24 Hours Test 04/16/17 20:04 04/16/17 20:22 04/16/17 23:24 04/17/17 06:40 Range/Units Bedside Glucose 406 392 387 209 70-90 mg/dl Test 04/17/17 07:54 04/17/17 11:30 04/17/17 16:15 Range/Units White Blood Count 8.79 4.8-10.8 K/uL Red Blood Count 3.93 4.2-5.4 M/uL Hemoglobin 10.0 12.0-16.0 g/dL Hematocrit 31.9 37-47 % Mean Corpuscular Volume 81.2 80-100 fL Mean Corpuscular Hemoglobin 25.4 25-34 pg Mean Corpuscular Hemoglobin Concent 31.3 32-36 g/dl RDW Standard Deviation 56.1 36.4-46.3 fL RDW Coefficient of Variation 18.7 11.5-14.5 % Platelet Count 176 130-400 K/uL Mean Platelet Volume 9.4 7.4-10.4 fL Sodium Level 137 136-145 mmol/L Potassium Level 4.4 3.5-5.1 mmol/L Chloride Level 99 98-107 mmol/L Carbon Dioxide Level 30 21-32 mmol/L Anion Gap 8.0 3-11 mmol/L Blood Urea Nitrogen 23 7-18 mg/dl Creatinine 1.20 0.60-1.20 mg/dl Est Creatinine Clear Calc Drug Dose 39.6 ml/min Estimated GFR () 52.3 Estimated GFR (Non- 45.1 BUN/Creatinine Ratio 19.0 10-20 Random Glucose 223 70-99 mg/dl Calcium Level 8.8 8.5-10.1 mg/dl Magnesium Level 1.9 1.8-2.4 mg/dl Bedside Glucose 257 291 70-90 mg/dl Microbiology Results 04/16/17 Urine Culture - Preliminary, Resulted NO GROWTH - LESS THAN 1,000 COLONIES/...
[2017-04-17] MEDS: CEFTRIAXONE SOD INJ 1 GM in DEXTROSE 5% ADD-VANTAGE 50ML 50 ML IV SCH (18:46)
[2017-04-17] MEDS: TERBINAFINE CR 30 GM TUBE EXT SCH (20:59)
[2017-04-17] MEDS: METOPROLOL SUCC 25MG EXT REL TAB PO SCH (20:59)
[2017-04-17] MEDS: SENNA 8.6 MG TAB PO SCH ×2 (20:59→21:00)
[2017-04-18] VITALS (11 sets, daily range): BP systolic 90–109; BP diastolic 60–70; PULSE 70–102; TEMP 36.3–37.1; O2SAT 92–100
[2017-04-18] MEDS: LEVALBUTEROL 1.25MG/0.5ML NEB INH SCH ×4 (02:10→19:22)
[2017-04-18] MEDS: IPRATROPIUM BROMIDE NEB SOLN 0.02% 2.5 ML VIAL INH SCH ×4 (02:10→19:22)
[2017-04-18] MEDS: HEPARIN SOD 5000 UNIT/0.5 ML CARP SQ SCH ×3 (06:13→20:49)
--- NOTE | 2017-04-18 08:00 | DIAGNOSTIC IMAGING REPORT ---
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 Slight improvement of the underlying pulmonary vascular congestion. Mild stable cardiomegaly. Central catheter remains in superior vena cava. IMPRESSION: Chronic interstitial change with underlying improving components of mild congestive failure The above report was generated using voice recognition software. It may contain grammatical, syntax or spelling errors. Electronically signed by: Adan Santana M.D. 04/18/2017 7:59 AM Dictated Date/Time: 04/18/2017 7:57 AM
[2017-04-18] MEDS: FUROSEMIDE 20 MG TAB PO SCH (08:01)
[2017-04-18] MEDS: VENLAFAXINE HCL XR 37.5 MG CAPXR PO SCH (08:01)
[2017-04-18] MEDS: CLOTRIMAZOLE 1% CR 15 GM TUBE EXT SCH ×2 (08:02→20:47)
[2017-04-18] MEDS: TIOTROPIUM BROMIDE 5 PUFF/90 MCG INH INH SCH (08:02)
[2017-04-18] MEDS: INSULIN GLARGINE SOLOSTAR 100 UNITS/ML 3 ML PEN SC SCH ×2 (08:04→20:49)
[2017-04-18] MEDS: INSULIN ASPART 100 UNITS/ML 3 ML PEN SC SCH ×4 (09:49→20:48)
--- NOTE | 2017-04-18 11:22 | PULMONARY PROGRESS NOTE ---
DATE: 04/18/2017 TIME: 11:00 a.m. SUBJECTIVE: The patient feels much better. She is up sitting in a chair. She denies shortness of breath. Nursing staff reports that she has been oriented and functioning well. Her catheter was removed today. OBJECTIVE: GENERAL: The patient appears comfortable. She was in no distress. VITAL SIGNS: Temperature is 36.5. EARS, NOSE, THROAT: Unremarkable. CARDIOVASCULAR: Heart rate is 78 per minute. The rhythm is regular. Blood pressure 104/60. LUNGS: Lung hyatt revealed mild rales bilaterally. There has been a significant improvement in her auscultatory findings since admission. I believe this correlates with improvement in congestive heart failure. EXTREMITIES: Showed trace edema of the lower extremities. There was no cyanosis or clubbing. CHEST: Her respiratory rate today is 18 breaths per minute. Oxygen saturation was 95% on 2 liters. Blood sugar this morning is 133. IMPRESSIONS: 1. Respiratory failure with hypoxia - improved. 2. Acute systolic congestive heart failure. 3. Pulmonary fibrosis. COMMENTS AND RECOMMENDATIONS: The patient is doing much better. She looks like she may be ready to go back to [facility] relatively soon. I would taper the prednisone fairly slowly, perhaps by 10 mg each 5 days. I believe the ceftriaxone could be changed to oral.
[2017-04-18] MEDS: MAGNESIUM OXIDE 400 MG TAB PO SCH (12:22)
--- NOTE | 2017-04-18 16:39 | Progress Note ---
Internal Med Progress Note Date of Service: Apr 18, 2017. Provider Documentation: SUBJECTIVE: resting comfortably sats ok on 2lts slept ok denies sob eating great [facility] for now. OBJECTIVE: Vital Signs-as noted below Exam: General-alert and oriented. Not in distress ENT-Normal hearing Neck-no neck masses supple Lungs-cta b/l no wheezing mild bibasilar crackles present Heart-s1 and s2 heard regular rate and rhythm no murmurs Abdomen-soft bowel sounds present non tender no distension Extremities- no edema no erythema Neuro-alert and oriented moves extremities Lab data as noted below. ASSESSMENT & PLAN: ACUTE ON CHRONIC HYPOXIC RESPIRATORY FAILURE Desaturated to 63% on chronic 3 liters at [facility]; now saturating mid-90s on 5 liters via mask acute systolic chf ILD flare? received iv lasix and now back to po Lasix received iv v solumedrol currently on po prednisone to taper steroids currently saturating fine on 2lts. Appreciate pulmonary inputs. ALTERED MENTAL STATUS metabolic encephalopathy mostly from hypoxia improving POSSIBLE UTI on Rocephin#2 cx no grwoth so far to stop abx after today dose Acute on CHRONIC SYSTOLIC AND DIASTOLIC CHF LV EF 20-25% per echo in March 2017 Received IV Lasix 40 mg IV in ER improved after one dose of iv Lasix Continuing Lasix 20 mg PO daily will d/c on daily dose (takes 20 mg 3x/week outpatient) Monitor daily weight and I/O's DM TYPE 2 home Lantus Novolog sliding scale will monitor. CKD STAGE IV Creat is stable Monitor renal function Avoid nephrotoxins DVT PROPHYLAXIS Heparin SQ CODE STATUS DNR per h and p DISPOSITION Resides at [facility] possible d/c in 1-2 days social service for d/c planning PCP is Dr. Peterson Vital Signs: Date Time Temp Pulse Resp B/P (MAP) Pulse Ox O2 Delivery O2 Flow Rate FiO2 04/18/17 14:11 102 18 96 Nasal Cannula 2.0 04/18/17 12:00 Nasal Cannula 04/18/17 11:39 36.8 70 18 90/61 (71) 96 04/18/17 08:00 Nasal Cannula 04/18/17 07:33 36.5 72 18 104/60 (75) 95 04/18/17 07:07 70 18 98 Nasal Cannula 2.0 04/18/17 04:00 Nasal Cannula 2.0 04/18/17 03:42 36.5 74 21 96/66 (76) 94 Nasal Cannula 04/18/17 02:10 78 18 100 Nasal Cannula 2.0 04/18/17 00:00 36.8 93 20 105/70 (82) 100 Room Air 2.0 04/18/17 00:00 Nasal Cannula 2.0 04/17/17 20:00 Nasal Cannula 2.0 04/17/17 19:43 88 16 93 Nasal Cannula 2.0 04/17/17 19:42 36.4 99 22 102/68 (79) 93 Nasal Cannula 2.0 Lab Results: Results Past 24 Hours Test 04/17/17 20:19 04/18/17 06:31 04/18/17 11:09 Range/Units Bedside Glucose 281 133 211 70-90 mg/dl
[2017-04-18] MEDS: CEFTRIAXONE SOD INJ 1 GM in DEXTROSE 5% ADD-VANTAGE 50ML 50 ML IV SCH (16:58)
[2017-04-18] MEDS: SENNA 8.6 MG TAB PO SCH (20:44)
[2017-04-18] MEDS: METOPROLOL SUCC 25MG EXT REL TAB PO SCH (20:47)
[2017-04-18] MEDS: TERBINAFINE CR 30 GM TUBE EXT SCH (20:47)
[2017-04-19] VITALS (13 sets, daily range): BP systolic 83–108; BP diastolic 52–76; PULSE 71–86; TEMP 36.4–36.8; O2SAT 67–100
[2017-04-19] MEDS: LEVALBUTEROL 1.25MG/0.5ML NEB INH SCH ×4 (01:46→19:01)
[2017-04-19] MEDS: IPRATROPIUM BROMIDE NEB SOLN 0.02% 2.5 ML VIAL INH SCH ×4 (01:46→19:00)
[2017-04-19] MEDS: HEPARIN SOD 5000 UNIT/0.5 ML CARP SQ SCH ×3 (05:33→21:09)
[2017-04-19] MEDS: VENLAFAXINE HCL XR 37.5 MG CAPXR PO SCH (07:31)
[2017-04-19] MEDS: FUROSEMIDE 20 MG TAB PO SCH (07:32)
[2017-04-19] MEDS: TIOTROPIUM BROMIDE 5 PUFF/90 MCG INH INH SCH (07:32)
[2017-04-19] MEDS: CLOTRIMAZOLE 1% CR 15 GM TUBE EXT SCH ×2 (07:33→21:05)
[2017-04-19] MEDS: INSULIN ASPART 100 UNITS/ML 3 ML PEN SC SCH ×4 (08:26→21:00)
[2017-04-19] MEDS: INSULIN GLARGINE SOLOSTAR 100 UNITS/ML 3 ML PEN SC SCH ×2 (08:27→21:08)
--- NOTE | 2017-04-19 11:48 | PULMONARY PROGRESS NOTE ---
DATE: 04/19/2017 DATE: 04/19/2017 TIME: 11:00 a.m. SUBJECTIVE: The patient states that she was short of breath during the nighttime for a little while. I did review the nurse's notes. At 3:25 a.m. the patient was observed to be standing in her doorway. She was stating she wanted to go to the bathroom and was feeling a bit like the room was spinning. The patient apparently became aggravated that the nurse would enter the bathroom with her and she was waving at her and telling her to get out. The nurse explained to her that someone had to be with her when she was standing up. The patient was then assisted back to bed. The patient does not give me any of this information at all. She just said she had been short of breath for a little while. She denies difficulty at present. She did express that she dreads the thought of going back to [facility]. As best as I can tell, she is not having any cough. She does not complain of significant shortness of breath. OBJECTIVE: GENERAL: The patient appears comfortable. Temperature is 36.6. EARS, NOSE, THROAT: Exam is unremarkable. VITAL SIGNS: The heart rate was 72 per minute. The rhythm was regular. Blood pressure was 94/63. She typically does run on the low side. LUNGS: Lung hyatt revealed very few rales bilaterally. She is dramatically clearer than she had been when she first came in. Saturation was 98% on 2 liters. EXTREMITIES: Showed no cyanosis, clubbing or edema. Blood sugar this morning was 76. IMPRESSIONS: 1. Respiratory failure with hypoxia -- improved. 2. Acute systolic congestive heart failure. 3. Pulmonary fibrosis. COMMENTS AND RECOMMENDATIONS: The patient seems to be clinically stable. I have no objection to transfer to [facility] when desired. As noted in the prior note. I would taper the prednisone perhaps by 10 mg each 5 days. I will sign off for now, but will be happy to see her again if specifically requested.
[2017-04-19] MEDS: MAGNESIUM OXIDE 400 MG TAB PO SCH (12:30)
[2017-04-19] MEDS ORDERED: COUGH DROP (SUGAR FREE) LOZ 24 LOZ/1 BOX ONE (16:16)
[2017-04-19] MEDS ORDERED: NURSING VERBAL MED ORDER ONE (17:15)
[2017-04-19] MEDS: CEFTRIAXONE SOD INJ 1 GM in DEXTROSE 5% ADD-VANTAGE 50ML 50 ML IV SCH (17:30)
[2017-04-19] MEDS ORDERED: COUGH DROP (SUGAR FREE) LOZ 24 LOZ/1 BOX PO PRN (17:30)
--- NOTE | 2017-04-19 18:37 | Progress Note ---
Internal Med Progress Note Date of Service: Apr 19, 2017. Provider Documentation: SUBJECTIVE: feels much better , cough has improved no VERA , no chest heaviness OBJECTIVE: Vital Signs-as noted below Exam: General-no sign of distress Eyes-sclera non icteric ENT-NAD Neck-no JVD Lungs-CTA Heart-regular S1/S2 Abdomen-soft, non tender Extremities-no edema or rash Neuro-AAO x3, no focal deficit Lab data as noted below. ASSESSMENT & PLAN: ACUTE ON CHRONIC HYPOXIC RESPIRATORY FAILURE due to acute decompensated systolic CHF has underlying Interstitial lung disease respiratory status improved to baseline on PO Lasix Appreciate pulmonary inputs. ALTERED MENTAL STATUS resolved, awake and alert conversing ,respiratory status to baseline metabolic encephalopathy mostly from hypoxia POSSIBLE UTI on Rocephin#2 cx no grwoth so far D/c ABX Acute on CHRONIC SYSTOLIC AND DIASTOLIC CHF LV EF 20-25% per echo in March 2017 Received IV Lasix 40 mg IV in ER improved after one dose of iv Lasix Continuing Lasix 20 mg PO daily will d/c on daily dose (takes 20 mg 3x/week outpatient) Monitor daily weight and I/O's DM TYPE 2 home Lantus Novolog sliding scale will monitor. CKD STAGE IV Creat is stable Monitor renal function Avoid nephrotoxins DVT PROPHYLAXIS Heparin SQ CODE STATUS DNR per h and p DISPOSITION Resides at [facility] possible d/c tomorrow social service for d/c planning PCP is Dr. Peterson Vital Signs: Date Time Temp Pulse Resp B/P (MAP) Pulse Ox O2 Delivery O2 Flow Rate FiO2 04/19/17 19:38 36.4 82 18 100/63 (75) 92 Nasal Cannula 3.0 04/19/17 16:00 92 Nasal Cannula 2.0 04/19/17 15:26 36.4 86 18 108/76 (87) 92 Nasal Cannula 2.0 04/19/17 14:16 82 18 98 Nasal Cannula 2.0 04/19/17 12:00 Nasal Cannula 04/19/17 11:10 36.8 74 18 98/56 (70) 96 04/19/17 08:00 Nasal Cannula 04/19/17 07:49 36.6 72 16 94/63 (73) 96 04/19/17 07:05 78 18 98 Nasal Cannula 2.0 04/19/17 05:35 71 92/60 (71) 04/19/17 04:25 73 83/52 (62) 04/19/17 04:00 Nasal Cannula 2.0 04/19/17 03:40 36.7 79 16 89/57 (68) 93 Nasal Cannula 2.0 04/19/17 00:00 Nasal Cannula 2.0 04/18/17 23:53 37.1 84 19 95/60 (72) 97 Nasal Cannula 2.0 04/18/17 20:00 Nasal Cannula 2.0 Lab Results: Results Past 24 Hours Test 04/18/17 20:35 04/19/17 06:33 04/19/17 11:04 04/19/17 15:52 Range/Units Bedside Glucose 187 76 189 95 70-90 mg/dl
[2017-04-19] MEDS: SENNA 8.6 MG TAB PO SCH ×2 (21:00→21:05)
[2017-04-19] MEDS: METOPROLOL SUCC 25MG EXT REL TAB PO SCH (21:03)
[2017-04-19] MEDS: TERBINAFINE CR 30 GM TUBE EXT SCH (21:05)
[2017-04-20] VITALS (8 sets, daily range): BP systolic 86–93; BP diastolic 51–60; PULSE 67–106; TEMP 36.5–37.1; O2SAT 89–100
[2017-04-20] MEDS: LEVALBUTEROL 1.25MG/0.5ML NEB INH SCH ×4 (01:40→19:14)
[2017-04-20] MEDS: IPRATROPIUM BROMIDE NEB SOLN 0.02% 2.5 ML VIAL INH SCH ×4 (01:40→19:14)
[2017-04-20] MEDS: HEPARIN SOD 5000 UNIT/0.5 ML CARP SQ SCH ×2 (06:07→14:00)
[2017-04-20] MEDS: CLOTRIMAZOLE 1% CR 15 GM TUBE EXT SCH (07:20)
[2017-04-20] MEDS: TIOTROPIUM BROMIDE 5 PUFF/90 MCG INH INH SCH (07:20)
[2017-04-20] MEDS: VENLAFAXINE HCL XR 37.5 MG CAPXR PO SCH (07:21)
[2017-04-20] MEDS: INSULIN ASPART 100 UNITS/ML 3 ML PEN SC SCH ×3 (09:12→16:15)
[2017-04-20] MEDS: INSULIN GLARGINE SOLOSTAR 100 UNITS/ML 3 ML PEN SC SCH (09:13)
[2017-04-20] MEDS: FUROSEMIDE 20 MG TAB PO SCH (09:14)
[2017-04-20] MEDS ORDERED: ALPR-411 PO (11:45)
--- NOTE | 2017-04-20 11:47 | Discharge Instructions ---
Discharge Instructions Date of Service Apr 20, 2017. Admission Reason for Admission: Acute On Chronic Respiratory Failure W/ Hypoxia Discharge Discharge Diagnosis / Problem: ACUTE ON CHRONIC RESPIRATRY FAILURE / DECOMPENSATED CHF Discharge Goals Goal(s): Improve disease control, Diagnostic testing, Therapeutic intervention Activity Recommendations Activity Level: Assistance Required Therapies: Physical Therapy, Occupational Therapy Shower/Bathe: no limitations . Additional Information Patient informed of condition: Yes Advance Directives: Yes DNR: Yes Level of Care: Skilled Communicable Disease: No Prognosis: Stable [place] Catheter: No Instructions / Follow-Up Instructions / Follow-Up FOLLOW UP WITH PHYSICIAN AT [facility] Diet Patient's current hospital diet: AHA Diet (Heart Healthy), Diabetes Type 2 Diet Discharge Diet Recommended Diet: AHA Diet (Heart Healthy), Diabetes Type 2 Diet Pending Studies Studies pending at discharge: no Laboratory Results Hemoglobin A1c Test 04/16/17 11:47 Range/Units Estimated Average Glucose 157 mg/dl Hemoglobin A1c 7.1 H 4.5-5.6 % Medical Emergencies . Who to Call and When: Medical Emergencies: If at any time you feel your situation is an emergency, please call 911 immediately. . Non-Emergent Contact Non-Emergency issues call your: Primary Care Provider . . "Provider Documentation" section prepared by Alka Larsen. . Core Measure Problem Core Measures: None
[2017-04-20] MEDS ORDERED: LSX20 PO (11:48)
[2017-04-20] MEDS: MAGNESIUM OXIDE 400 MG TAB PO SCH (11:59)
--- NOTE | 2017-04-20 13:56 | Progress Note ---
Internal Med Progress Note Date of Service: Apr 20, 2017. Provider Documentation: SUBJECTIVE: sitting up on chair , no complain of SOB no hypoxia stable to be discharged to [facility] today OBJECTIVE: Vital Signs-as noted below Exam: General-no sign of distress Eyes-sclera non icteric ENT-NAD Neck-no JVD Lungs-CTA Heart-regular S1/S2 Abdomen-soft, non tender Extremities-no edema or rash Neuro-AAO x3, no focal deficit Lab data as noted below. ASSESSMENT & PLAN: ACUTE ON CHRONIC HYPOXIC RESPIRATORY FAILURE resolved, at presented compensated , normal vol status due to acute decompensated systolic CHF has underlying Interstitial lung disease respiratory status improved to baseline on PO Lasix cont 20 mg PO daily Appreciate pulmonary inputs. ALTERED MENTAL STATUS resolved, awake and alert conversing ,respiratory status to baseline metabolic encephalopathy mostly from hypoxia Acute on CHRONIC SYSTOLIC AND DIASTOLIC CHF compensated LV EF 20-25% per echo in March 2017 Received IV Lasix 40 mg IV in ER improved after one dose of iv Lasix Continuing Lasix 20 mg PO daily will d/c on daily dose (takes 20 mg 3x/week outpatient) Monitor daily weight and I/O's DM TYPE 2 home Lantus Novolog sliding scale will monitor. CKD STAGE IV Creat is stable Monitor renal function Avoid nephrotoxins DVT PROPHYLAXIS Heparin SQ CODE STATUS DNR DISPOSITION transfer to [facility] today Daughter updated at bedside Vital Signs: Date Time Temp Pulse Resp B/P (MAP) Pulse Ox O2 Delivery O2 Flow Rate FiO2 04/20/17 12:04 36.8 71 18 86/53 (64) 95 Nasal Cannula 1.0 04/20/17 12:00 Nasal Cannula 04/20/17 11:50 37.1 106 18 100 Nasal Cannula 04/20/17 08:00 Nasal Cannula 04/20/17 07:08 37.1 106 18 93/60 (71) 100 Nasal Cannula 3.0 04/20/17 07:00 69 18 99 Nasal Cannula 3.0 04/20/17 04:27 96 Nasal Cannula 3.0 04/20/17 04:00 Nasal Cannula 2.0 04/20/17 03:40 36.5 77 18 88/51 (63) 89 Nasal Cannula 2.0 04/20/17 01:40 67 18 98 Nasal Cannula 2.0 04/20/17 00:00 Nasal Cannula 2.0 04/19/17 23:00 36.7 78 18 94/62 (73) 100 2.0 04/19/17 20:00 91 Nasal Cannula 2.0 04/19/17 19:38 36.4 82 18 100/63 (75) 92 Nasal Cannula 3.0 04/19/17 19:01 78 20 67 Room Air 04/19/17 16:00 92 Nasal Cannula 2.0 04/19/17 15:26 36.4 86 18 108/76 (87) 92 Nasal Cannula 2.0 04/19/17 14:16 82 18 98 Nasal Cannula 2.0 Lab Results: Results Past 24 Hours Test 04/19/17 15:52 04/19/17 20:44 04/20/17 06:27 04/20/17 11:05 Range/Units Bedside Glucose 95 110 79 190 70-90 mg/dl
--- NOTE | 2017-04-20 13:57 | Discharge Summary ---
Discharge Summary Date of Service Apr 20, 2017. Discharge Summary Admission Date: Apr 16, 2017 at 14:47 Discharge Date: Apr 20, 2017 Discharge Disposition: [facility] facility ([facility] ) Principal Diagnosis: ACUTE ON CHRONIC RESPIRATORY FAILURE /DECOMPENSATED CHF Procedures: CHEST XRAY Consultations: PULMONOLOGY Medication Reconciliation New Medications: Furosemide (Furosemide) 20 Mg Tab 20 MG PO QAM for 30 Days, #30 TAB Continued Medications: Acetaminophen (Tylenol) 500 Mg Tab 2 TAB PO Q8 PRN for Mild Pain Albuterol Hfa (Ventolin Hfa) 200 Puffs/56572 Mcg Aers 2 PUFFS INH Q4 PRN for SOB/Wheezing, INHALER Alprazolam (Xanax) 0.5 Mg Tab 0.5 TAB PO Q6H PRN for Anxiety, #10 TAB (This prescription has been renewed) Bisacodyl (Dulcolax) 10 Mg Sup 1 SUPP MS UD PRN for Constipation Bupropion (Wellbutrin) 75 Mg Tab 75 MG PO Q8 Clotrimazole Vaginal (Clotrimazole) 1 % Cre 1 APPLN TOP DAILY Apply topically to bilateral breasts x 14 days, follow with stoma powder. Insulin Glargine (Lantus) 100 Unit/Ml Inj 5 UNITS SC HS 2100 Insulin Lispro (Human) (Humalog) 100 Unit/Ml Inj 7 UNITS SC QPM WITH SUPPER Ipratropium [place] (Ipratropium [place]) 0.5 Mg/2.5 Ml Nebu 0.5 MG INH Q6 PRN for SOB/Wheezing for 15 Days Levalbuterol (Levalbuterol HCl) 0.31 Mg/3 Ml Nebu 0.31 MG INH Q6 PRN for SOB/Wheezing for 15 Days Lidocaine (Anorectal) (Lidocaine) 5 % Cre 1 APPLN TP TID to right hip Magnesium Hydroxide (Milk of Magnesia) 30 Ml Susp 30 ML PO DAILY PRN for Constipation Magnesium Oxide (Mag-Ox) 400 Mg Tab 400 MG PO DAILY, TAB 1200 Metoprolol Succinate (Toprol Xl) 25 Mg Tabcr 25 MG PO QPM Selenium Sulfide (Selsun Blue) 1 % Sha 1 APPLN TOP UD Sundays and . Lather hair and leave on until entire body is washed. Then rinse out of hair. Senna (Senokot) 8.6 Mg Tab 1 TAB PO HS, TAB 2100 Sodium Phosphates (Fleet Enema Six Pack) 1 Letha Letha 1 DOSE MS DAILY PRN for Constipation Terbinafine Hcl (Topical) (Lamisil At) 1 % Cre 1 APPLN TOP HS to bilateral feet and toes Tiotropium [place] (Spiriva Handihaler) 5 Puff/90 Mcg Aerp 1 PUFF INH QAM for 30 Days Venlafaxine Hcl (Venlafaxine Hcl Er) 37.5 Mg Tab 1 TAB PO DAILY 0900 [stomahesive] () 1 APPLN TOP UD Apply topically on top of clotirimazole to buttocks and bilateral breasts BID. Discontinued Medications: Furosemide (Lasix) 40 Mg Tab 20 MG PO UD for 30 Days take 3 times a week (mon-sun-fri) 0800 *HOLD IF SYS BP IS LESS THAN 110 Prednisone Tab (Prednisone) 10 Mg Tab 10 MG PO UD for 27 Days, TAB take 45 mg po daily x 3 days, then taper off by 5mg every 3 days until finished Admission Information HPI (per Admitting provider): This is a 71 y/o female with PMH of chronic systolic and diastolic CHF, EF 20-25 %, hypertension, DM type 2, hx colorectal CA s/p resection and colostomy, and other problems listed below who was sent to the ED from [facility] for hypoxia. Hx obtained mostly from records and nursing staff as pt is a poor historian. Patient was recently admitted to [facility] from March 22- for acute hypoxic respiratory failure secondary to bibasilar PNA, likely HCAP, ILD, and acute on chronic CHF. Pt was seen by ID and treated with 7 days of Zosyn and vancomycin. She was seen by [facility] pulmonology. Prednisone and Spiriva were added. She was seen by cardiology and Lasix was titrated. Pt was discharged and prednisone taper- current dose is 35 mg daily. Has been on oxygen 3 liters continuous. Per nursing staff at [facility], this morning patient became hypoxic to 63% on 3 liters during therapy. Nursing staff also noted increased confusion. Patient was sent to the ED, where she initially was hypoxic to 85% on RA and is now saturating well on 5 liters via mask. In the ER patient was treated with hour long neb, Solu-Medrol 60 mg IV, and Lasix 40 mg IV. Patient reports she is feeling better now. She admits to rhinorrhea. Nursing staff stated she had occasional dry cough but no aspiration episodes. Reportedly her breathing had been stable with mild VERA on ambulating across the room. Nursing staff reported at baseline she is usually oriented x 3, occasionally is "off" but can typically recall recent events. Today she is disoriented to place and date and cannot tell me about her recent hospitalization. No stroke like symptoms ( dysarthria, facial droop, focal weakness) per nursing staff. She uses a walker intermittently. Patient denies fever, chills, sore throat, chest pain, orthopnea , N/V/D, urinary changes, wounds, calf pain, edema, recent falls. She has a Arellano placed in the ER. Physical Exam (per Admitting): General Appearance: WD/WN, no apparent distress Head: normocephalic, atraumatic Eyes: normal inspection, PERRL ENT: hearing grossly normal, + nasal drainage (clear mucous in nares), + pertinent finding (dry oral mucosa) Neck: supple, no JVD, trachea midline Respiratory/Chest: no respiratory distress, no accessory muscle use, + decreased breath sounds, + crackles (right base), + pertinent finding (no wheezing or rhonchi. saturating 94% on 5 liters via mask. Port in place left chest without erythema or tenderness.) Cardiovascular: no JVD, no murmur, normal peripheral pulses, + tachycardia ( regular rhythm, rate 90s-100s) Abdomen/GI: normal bowel sounds, non tender, soft, + pertinent finding ( stoma appears viable with loose brown stool in ostomy back) Genitourinary - Female: + pertinent finding (arellano catheter in place draining clear yellow urine) Extremities/Musculoskelatal: no calf tenderness, normal capillary refill, no pedal edema Neurologic/Psych: alert, normal mood/affect, + disoriented (oriented to person, disoriented to place and exact date (can tell the year and month only). unable to give details of recent events.), + pertinent finding (no facial droop or dysarthria. no focal weakness. ) Skin: normal color, warm/dry, + pertinent finding (erythema and multiple tiny areas of superficial skin breakdown on buttocks) Hospital Course ACUTE ON CHRONIC HYPOXIC RESPIRATORY FAILURE resolved, at presented compensated , normal vol status due to acute decompensated systolic CHF has underlying Interstitial lung disease respiratory status improved to baseline on PO Lasix cont 20 mg PO daily Appreciate pulmonary inputs. ALTERED MENTAL STATUS resolved, awake and alert conversing ,respiratory status to baseline metabolic encephalopathy mostly from hypoxia Acute on CHRONIC SYSTOLIC AND DIASTOLIC CHF compensated LV EF 20-25% per echo in March 2017 Received IV Lasix 40 mg IV in ER improved after one dose of iv Lasix Continuing Lasix 20 mg PO daily will d/c on daily dose (takes 20 mg 3x/week outpatient) Monitor daily weight and I/O's DM TYPE 2 home Lantus Novolog sliding scale will monitor. CKD STAGE IV Creat is stable Monitor renal function Avoid nephrotoxins DVT PROPHYLAXIS Heparin SQ CODE STATUS DNR DISPOSITION transfer to [facility] today Daughter updated at bedside Total time spent on discharge = 35 MINS This includes examination of the patient, discharge planning, medication reconciliation, and communication with other providers. Discharge Instructions DI: Transfer Non Acute v4 Discharge Instructions Date of Service Apr 20, 2017. Admission Reason for Admission: Acute On Chronic Respiratory Failure W/ Hypoxia Discharge Discharge Diagnosis / Problem: ACUTE ON CHRONIC RESPIRATORY FAILURE / DECOMPENSATED CHF Discharge Goals Goal(s): Improve disease control, Diagnostic testing, Therapeutic intervention Activity Recommendations Activity Level: Assistance Required Therapies: Physical Therapy, Occupational Therapy Shower/Bathe: no limitations . Additional Information Patient informed of condition: Yes Advance Directives: Yes DNR: Yes Level of Care: Skilled Communicable Disease: No Prognosis: Stable Arellano Catheter: No Instructions / Follow-Up Instructions / Follow-Up FOLLOW UP WITH PHYSICIAN AT [facility] Diet Patient's current hospital diet: AHA Diet (Heart Healthy), Diabetes Type 2 Diet Discharge Diet Recommended Diet: AHA Diet (Heart Healthy), Diabetes Type 2 Diet Pending Studies Studies pending at discharge: no Laboratory Results Hemoglobin A1c Test 04/16/17 11:47 Range/Units Estimated Average Glucose 157 mg/dl Hemoglobin A1c 7.1 H 4.5-5.6 % Medical Emergencies . Who to Call and When: Medical Emergencies: If at any time you feel your situation is an emergency, please call 911 immediately. . Non-Emergent Contact Non-Emergency issues call your: Primary Care Provider . . "Provider Documentation" section prepared by Alka Larsen. . Core Measure Problem Core Measures: None Additional Copies To Moses Peterson M.D.
== END 2017-04-20 19:40 | DRG 189 ==
LOC: EDBD 11:55 → C.EDC 11:57 → C.2T 14:47 → ENRESERV 16:05
PROVIDERS: ADMIT Internal Medicine; ATTEND Hospitalist
DX: J96.21 Acute and chronic respiratory failure with hypoxia (principal); I50.43 Acute on chronic combined systolic (congestive) and diastolic (congestive) heart failure; G93.41 Metabolic encephalopathy; N18.4 Chronic kidney disease, stage 4 (severe); I13.0 Hypertensive heart and chronic kidney disease with heart failure and stage 1 through stage 4 chronic kidney disease, or unspecified chronic kidney disease; N39.0 Urinary tract infection, site not specified; E11.9 Type 2 diabetes mellitus without complications; Z66 Do not resuscitate; Z85.038 Personal history of other malignant neoplasm of large intestine; Z90.49 Acquired absence of other specified parts of digestive tract; Z79.4 Long term (current) use of insulin; Z87.891 Personal history of nicotine dependence; J84.10 Pulmonary fibrosis, unspecified

== ENCOUNTER → 2017-05-03 | Outpatient (CLI) | payer BC ==
[~2017-05-03] MED LIST changes: +BISA10SU3 PR; +CLOT1CRE3 TOP; -FRS/40 PO; +INSU100I SC; -LIDO1CRE TOP; +LIDO4CRE10 TP; +LSX20 PO; +METO25TA3 PO; +MOMLX PO; -NICO7DIS7 TD; -PRED10TA PO; +SELE1SHA3 TOP; +SODI1ENE PR; +STOMAHESIVE TOP; +TERB1CRE31 TOP; -TPRSR25 PO
[2017-05-03 13:46] LABS: LYME DISEASE AB IGG NEG (NEG)
[2017-05-03 14:36] LABS: LYME DISEASE AB IGM POS (NEG)
[2017-05-07 12:12] LABS: QUANTIF TB AG-NIL 0.76 IU/ML; QUANTIFERON NIL 0.14 IU/ML
[2017-05-09 20:16] LABS: ANTI-SS-A <1.0 NEG AI (<1.0 NEG); ANTI-SS-B <1.0 NEG AI (<1.0 NEG); ASPERGILLUS FUMIGATUS NEGATIVE (NEGATIVE); M. FAENI (S. RECTIVIRGULA) NEGATIVE (NEGATIVE); PIGEON SERUM NEGATIVE (NEGATIVE); SACCHAROMONOSPORA VIRIDIS AB NEGATIVE (NEGATIVE); THERMOACTINOMYCES CANDIDUS NEGATIVE (NEGATIVE); THERMOACTINOMYCES VULGARIS NEGATIVE (NEGATIVE)
[2017-05-11 01:27] LABS: 18KDIGG BAND NONREACTIVE (NONREACTIVE); 23KDIGG BAND NONREACTIVE (NONREACTIVE); 23KDIGM BAND REACTIVE (NONREACTIVE); 28KDIGG BAND NONREACTIVE (NONREACTIVE); 30KDIGG BAND NONREACTIVE (NONREACTIVE); 39KDIGG BAND NONREACTIVE (NONREACTIVE); 39KDIGM BAND NONREACTIVE (NONREACTIVE); 41KDIGG BAND NONREACTIVE (NONREACTIVE); 41KDIGM BAND NONREACTIVE (NONREACTIVE); 45KDIGG BAND NONREACTIVE (NONREACTIVE); 58KDIGG BAND NONREACTIVE (NONREACTIVE); 66KDIGG BAND NONREACTIVE (NONREACTIVE); 93KDIGG BAND NONREACTIVE (NONREACTIVE)
== END | disposition home or self-care (01) ==
LOC: C.LAB1850 10:55
PROVIDERS: ATTEND Physician Assistant
DX: J84.89 Other specified interstitial pulmonary diseases (principal)

== ENCOUNTER → 2017-08-06 | Outpatient (CLI) | payer BC ==
[~2017-08-06] MED LIST changes: -TERB1CRE31 TOP; +TERB1CRE32 TOP
--- NOTE | 2017-08-06 11:43 | DIAGNOSTIC IMAGING REPORT ---
(CHEST) THORAX WITHOUT CT DOSE: 199.79 mGycm CLINICAL HISTORY: 72 years-old Female with J84.89 Interstitial pneumonitishigh resolution for interstitial. TECHNIQUE: Multiaxial CT images of the chest were performed without contrast. A dose lowering technique was utilized adhering to the principles of ALARA. COMPARISON: Chest radiographs 04/18/2017, VQ scan 04/16/2017, CTA of the chest 03/22/2017. FINDINGS: Heterogeneous partially calcified 1.3 x 1.8 cm nodule inferior left thyroid is noted. Calcified subcarinal adenopathy redemonstrated. Mildly prominent precarinal lymph node is seen, 9 mm in short axis. Subcarinal adenopathy is seen measuring up to 1.9 x 1.4 cm. These findings are unchanged from comparison and suggest likely benign etiology. Moderate multichamber cardiac enlargement with coronary arterial disease. Calcifications of the aortic annulus also noted. Left subclavian [id number] catheter is noted with distal tip terminating near the superior cavoatrial junction. Moderate atherosclerosis of the aorta without aneurysm. There is dilation of the main pulmonary artery, 3.4 cm suggesting pulmonary arterial hypertension. Small bilateral pleural effusions persist appear unchanged. Upper lobe predominant moderate to severe centrilobular and paraseptal emphysematous changes are noted. Multifocal multilobar reticular opacities are again seen bilaterally within a subpleural bibasilar distribution. No subpleural cystic changes identified. No significant traction bronchiectasis. Irregular 1.1 x 0.9 opacity of the right upper lobe on image 62 series 4 suggesting area of chronic scarring, nicely seen on the coronal and sagittal images. No pneumothorax or lobar airspace consolidations. Calcific granuloma of the basal left lower lobe. Linear subsegmental opacity of the inferior segment lingula compatible with pleural parenchymal scarring. There is improvement of the previously noted pulmonary edema pattern. No acute abnormality identified within the imaged upper abdomen. Soft tissues are unremarkable. Bones appear intact. There are no suspicious lytic or blastic bony lesions identified. Remote rib fractures are noted on the left. IMPRESSION: 1. Moderate to severe upper lobe predominant paraseptal and centrilobular emphysema with multifocal multilobar reticular opacities seen bilaterally, predominantly within a subpleural bibasilar distribution compatible with chronic fibrosis. No significant traction bronchiectasis or subpleural cystic changes. 2. Small bilateral pleural effusions persist. 3. 11 x 9 mm irregular opacity in the right upper lobe as above suggests an additional area of scarring. Attention at follow-up recommended. 4. Dilation of the main pulmonary artery and right heart structures suggests pulmonary arterial hypertension, possibly with right heart failure. 5. Heterogeneous 1.8 cm nodule inferior left thyroid. Electronically signed by: Shane Marks M.D. 08/06/2017 11:42 AM Dictated Date/Time: 08/06/2017 11:31 AM
== END | disposition home or self-care (01) ==
LOC: C.CTS 11:05
PROVIDERS: ATTEND Physician Assistant
DX: J84.89 Other specified interstitial pulmonary diseases (principal); J43.2 Centrilobular emphysema; J90 Pleural effusion, not elsewhere classified; R91.8 Other nonspecific abnormal finding of lung field; I28.8 Other diseases of pulmonary vessels; E04.1 Nontoxic single thyroid nodule

== ENCOUNTER 2017-10-09 11:17 | Inpatient (IN) | payer BC, OTHER ==
[~2017-10-09] VITALS: Ht 167.6 cm; Wt 58.2 kg
[2017-10-09] MEDS ORDERED: SODIUM CHLORIDE 0.9% 1000ML 500 ML IV STA (11:33)
--- NOTE | 2017-10-09 11:47 | EMERGENCY ROOM VISIT NOTE ---
History Report prepared by Jennifer: Jonn Alcala Under the Supervision of: Dr. Pee Landry M.D. 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 She has a past medical history of dementia, frequent falls, and a colostomy in place. This HPI is limited secondary to the patient's dementia. Per the patient's fci and EMS, a couple of days ago she had a fall which included head trauma. Prior to arrival, the patient fell again, hitting her head as well. Her fci believes the patient has an altered mental status compared to her baseline. En route, the patient was very nauseated and had an episode of vomiting. She denies any pain at this time. 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 longterm reports some AMS. She denies any pain at this time. Review of Systems ROS is limited secondary to the patient's dementia. 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 (12) Skin problem Surgical Problems: (1) S/P colectomy Family History Cancer Social History Smoking Status: Former Smoker Smokeless Tobacco Use: No Drug Use: none Housing Status: [facility]ci Occupation Status: retired Current/Historical Medications Scheduled Clotrimazole Vaginal (Clotrimazole), 1 APPLN TOP DAILY Folic Acid (Folvite), 1 MG PO DAILY Furosemide (Furosemide), 20 MG PO QAM Insulin Glargine (Lantus), 5 UNITS SC HS Insulin Lispro (Human) (Humalog), 10 UNITS SC QPM Lidocaine (Anorectal) (Lidocaine), 1 APPLN TP TID Magnesium Oxide (Mag-Ox), 400 MG PO DAILY Metolazone (Zaroxolyn), 2.5 MG PO 2XWK Metoprolol Succinate (Toprol Xl), 25 MG PO QPM Multivitamin (Multivitamin), 1 TAB PO DAILY Spironolactone (Aldactone), 25 MG PO DAILY Terbinafine Hcl (Topical) (Lamisil At), 1 APPLN TOP HS Thiamine Hcl (Vitamin B-1), 100 MG PO BID Trazodone Hcl (Trazodone), 50 MG PO HS Venlafaxine Hcl (Effexor), 100 MG PO DAILY Scheduled PRN Acetaminophen (Tylenol), 2 TAB PO Q8 PRN for Mild Pain Ipratropium [place] (Ipratropium [place]), 0.5 MG INH Q6 PRN for SOB/Wheezing Allergies Coded Allergies: Nickel (Unverified Allergy, Unknown, ., 10/09/17) Ertapenem (Unverified Adverse Reaction, Intermediate, may have had elevated LFT's secondary to ertapenem..., 10/09/17) Patient received Vancomycin + Ertapenem in past for septic joint. She developed LFT elevations on this therapy. She had experienced ADHF, cardiogenic shock just prior to LFT elevation. Provider felt LFT elevations most likely due to shock, hepatic congestion but could not exclude ertapenem + venlafaxine as possible causes. Ertapenem was held and vanco was continued with Rocephin. LFTs improved. Physical Exam Vital Signs Date Time Temp Pulse Resp B/P (MAP) Pulse Ox O2 Delivery O2 Flow Rate FiO2 10/09/17 14:31 83 18 107/66 93 Nasal Cannula 2.0 10/09/17 13:32 83 20 102/67 100 Room Air 10/09/17 11:46 94 Room Air 10/09/17 11:45 86 10/09/17 11:29 36.6 84 20 111/73 94 Room Air Physical Exam GENERAL: Patient is in no acute distress. HEENT: There appears to be an older hematoma to the right frontal scalp. No laceration requiring repair. Mucous membranes are dry. No facial bony stepoff to suggest fracture. NECK: No stridor, no adenopathy, no meningismus, trachea is midline. Mildly tender to the lower c-spine. No stepoff. LUNGS: Clear to auscultation bilaterally, no wheeze, no rhonchi, breath sounds equal. HEART: 2/6 systolic murmur. Regular rate and rhythm. ABDOMEN: Soft, nontender, bowel sounds positive, no hernias, no peritonitis. EXTREMITIES: No cyanosis or edema, full range of motion of all the joints without pain or difficulty, no signs for fracture clinically. NEUROLOGIC: No acute motor or sensory deficits, no focal weakness. Dementia noted. SKIN: Multiple healing abrasions about the extremities. No signs of cellulitis. No jaundice. Medical Decision & Procedures ER Provider Diagnostic Interpretation: Radiology results as stated below per my review and radiologist interpretation: HEAD WITHOUT CONTRAST (CT) CLINICAL HISTORY: 72 years-old Female presenting with EVALUATE ALTERED MENTAL STATUS/WEAKNESS. TECHNIQUE: Multidetector CT imaging of the head was performed without the use of intravenous contrast. IV contrast: None. A dose lowering technique was used consistent with the principles of ALARA (as low as reasonably achievable). COMPARISON: None. CT DOSE (mGy.cm): The estimated cumulative dose is 1774.94 mGy.cm. FINDINGS: Foot Orthopedist topogram: Unremarkable. Proportional ventricular and sulcal prominence, likely age-related parenchymal volume loss. Periventricular and subcortical white matter hypoattenuation, nonspecific but likely indicative of chronic small vessel ischemic change. No mass effect or midline shift. No hemorrhage or acute territorial infarct. No extra-axial fluid collection. Paranasal sinuses and mastoid air cells clear. Calvarium intact. IMPRESSION: 1. Chronic small vessel ischemic change. No acute intracranial abnormality. Electronically signed by: Mike Corona M.D. 10/09/2017 1:09 PM Dictated Date/Time: 10/09/2017 1:06 PM CHEST ONE VIEW PORTABLE CLINICAL HISTORY: Weakness. Altered mental status. COMPARISON STUDY: Chest CT August 06, 2017. FINDINGS: A left subclavian [id number] remains in place. There is no pneumothorax. There are trace bilateral pleural effusions. There is no consolidation to suggest pneumonia. Diffuse interstitial thickening is similar to previous CT of August 06, 2017. There is no evidence for pulmonary edema. Multiple left rib fractures are noted. IMPRESSION: 1. Trace bilateral pleural effusions. 2. Diffuse interstitial thickening which favors interstitial lung disease given findings on prior chest CT. 3. Stable cardiomegaly. No radiographic evidence of pulmonary edema. Electronically signed by: Patrice Stark M.D. 10/09/2017 11:55 AM Dictated Date/Time: 10/09/2017 11:[address] OF THE CERVICAL SPINE CLINICAL HISTORY: Neck pain status post trauma COMPARISON STUDY: No previous studies for comparison. CT DOSE: TECHNIQUE: CT scan of the cervical spine was performed from the skull base to the thoracic inlet. Images are reviewed in the axial, sagittal, and coronal planes. IV contrast was not administered for this examination. A dose lowering technique was utilized adhering to the principles of ALARA. FINDINGS: The visualized portions of the lung apices reveal no evidence of pneumothorax. There is pulmonary emphysema. There is a 15 mm left lobe thyroid nodule. There is jugular venous air, likely iatrogenic. The prevertebral soft tissues are normal. No fractures or subluxations are visualized. There is a developmentally incomplete posterior C1 arch. There are multilevel degenerative changes. There is a sclerotic lesion in the posterior elements at the T4 level, likely are presenting a bone island. IMPRESSION: No evidence of acute fracture or traumatic subluxation. Electronically signed by: Sherwin Boone M.D. 10/09/2017 1:18 PM Dictated Date/Time: 10/09/2017 1:[address] DOSE: HISTORY: fall, pain TECHNIQUE: Multiaxial CT images of the maxillofacial region were performed and reformatted in the coronal plane without the use of contrast. A dose lowering technique was utilized adhering to the principles of ALARA. COMPARISON: None. FINDINGS: The visualized cervical spine, skull base, pterygoid plates, nasal bones, lamina papyracea, orbital floors, mandible, and zygomatic arches are intact. No fractures. The orbits are unremarkable. Incidental note is made of a 1 cm perforation within the anterior nasal septum. IMPRESSION: No fractures within the maxillofacial region. Electronically signed by: Jack Smith M.D. 10/09/2017 1:23 PM Dictated Date/Time: 10/09/2017 1:16 PM Laboratory Results 10/09/17 12:10 Red Blood Count 5.19, Mean Corpuscular Volume 93.3, Mean Corpuscular Hemoglobin 31.2, Mean Corpuscular Hemoglobin Concent 33.5, Mean Platelet Volume 10.1, Neutrophils (%) (Auto) 68.6, Lymphocytes (%) (Auto) 23.1, Monocytes (%) (Auto) 6.6, Eosinophils (%) (Auto) 1.0, Basophils (%) (Auto) 0.4, Neutrophils # (Auto) 6.28, Lymphocytes # (Auto) 2.12, Monocytes # (Auto) 0.60, Eosinophils # (Auto) 0.09, Basophils # (Auto) 0.04 10/09/17 12:10 Test 10/09/17 12:00 10/09/17 12:10 Urine Color YELLOW Urine Appearance CLEAR (CLEAR) Urine pH 6.0 (4.5-7.5) Urine Specific [place] 1.016 (1.000-1.030) Urine Protein 1+ (NEG) Urine Glucose (UA) TRACE (NEG) Urine Ketones NEG (NEG) Urine Occult Blood NEG (NEG) Urine Nitrite NEG (NEG) Urine Bilirubin NEG (NEG) Urine Urobilinogen NEG (NEG) Urine Leukocyte Esterase NEG (NEG) Urine WBC (Auto) 1-5 /hpf (0-5) Urine RBC (Auto) 0-4 /hpf (0-4) Urine Hyaline Casts (Auto) 1-5 /lpf (0-5) Urine Epithelial Cells (Auto) 10-20 /lpf (0-5) Urine Bacteria (Auto) 2+ (NEG) White Blood Count 9.16 K/uL (4.8-10.8) Red Blood Count 5.19 M/uL (4.2-5.4) Hemoglobin 16.2 g/dL (12.0-16.0) Hematocrit 48.4 % (37-47) Mean Corpuscular Volume 93.3 fL (80-100) Mean Corpuscular Hemoglobin 31.2 pg (25-34) Mean Corpuscular Hemoglobin Concent 33.5 g/dl (32-36) Platelet Count 179 K/uL (130-400) Mean Platelet Volume 10.1 fL (7.4-10.4) Neutrophils (%) (Auto) 68.6 % Lymphocytes (%) (Auto) 23.1 % Monocytes (%) (Auto) 6.6 % Eosinophils (%) (Auto) 1.0 % Basophils (%) (Auto) 0.4 % Neutrophils # (Auto) 6.28 K/uL (1.4-6.5) Lymphocytes # (Auto) 2.12 K/uL (1.2-3.4) Monocytes # (Auto) 0.60 K/uL (0.11-0.59) Eosinophils # (Auto) 0.09 K/uL (0-0.5) Basophils # (Auto) 0.04 K/uL (0-0.2) RDW Standard Deviation 56.6 fL (36.4-46.3) RDW Coefficient of Variation 16.6 % (11.5-14.5) Immature Granulocyte % (Auto) 0.3 % Immature Granulocyte # (Auto) 0.03 K/uL (0.00-0.02) Prothrombin Time 12.0 SECONDS (9.0-12.0) Prothromb Time International Ratio 1.1 (0.9-1.1) Activated Partial Thromboplast Time 26.6 SECONDS (21.0-31.0) Partial Thromboplastin Ratio 1.0 Anion Gap 9.0 mmol/L (3-11) Est Creatinine Clear Calc Drug Dose 1.2 ml/min Estimated GFR () 29.8 Estimated GFR (Non- 25.7 BUN/Creatinine Ratio 25.1 (10-20) Calcium Level 9.3 mg/dl (8.5-10.1) Magnesium Level 1.9 mg/dl (1.8-2.4) Total Bilirubin 1.0 mg/dl (0.2-1) Aspartate Amino Transf (AST/SGOT) 46 U/L (15-37) Alanine Aminotransferase (ALT/SGPT) 39 U/L (12-78) Alkaline Phosphatase 135 U/L (45-117) Total Creatine Kinase 33 U/L (26-192) Troponin I 0.022 ng/ml (0-0.045) Total Protein 8.0 gm/dl (6.4-8.2) Albumin 2.7 gm/dl (3.4-5.0) Globulin 5.3 gm/dl (2.5-4.0) Albumin/Globulin Ratio 0.5 (0.9-2) Beta-Hydroxybutyric Acid 1.38 mg/dL (0.2-2.81) Thyroid Stimulating Hormone (TSH) 2.770 uIu/ml (0.300-4.500) Laboratory results reviewed by me. Medications Administered Medications (Trade) Dose Ordered Sig/Lorenzo Route Start Time Stop Time Status Last Admin Dose Admin Sodium Chloride 500 ml @ 999 mls/hr Q31M STAT IV 10/09/17 11:33 10/09/17 12:03 DC 10/09/17 12:00 999 MLS/HR Sodium Chloride 500 ml @ 999 mls/hr Q31M STAT IV 10/09/17 13:03 10/09/17 13:33 DC 10/09/17 13:32 999 MLS/HR Ceftriaxone Sodium (Rocephin Inj) 1 gm NOW STAT IV 10/09/17 14:02 10/09/17 14:04 DC 10/09/17 14:31 1 GM Sodium Chloride 1,000 ml @ 80 mls/hr [id number] IV 10/09/17 14:45 10/10/17 03:14 10/09/17 16:49 80 MLS/HR ECG Indication: altered mental status Rate (beats per minute): 83 Rhythm: normal sinus Findings: LBBB, no ectopy Change: ECG interpreted by me ED Course 1123: The patient was evaluated in room C6. A complete history and physical exam was performed. 1133: Ordered Sodium Chloride 500 ml @ 999 mls/hr IV 1303: Ordered Sodium Chloride 500 ml @ 999 mls/hr IV 1204: Ordered Rocephin Inj 1 gm IV 1354: I spoke with the patient's family at this time and updated them on the patient's results. We are waiting for a urine result. 1406: Upon reexamination the patient is resting. I discussed results and treatment plan with the patient's family. They verbalize agreement and understanding. I [facility] with [facility]utton [facility] We discussed the patient's results and findings. The patient will be evaluated by her for further management. Medical Decision Differential diagnosis includes but is not limited to dehydration, electrolyte imbalance, anemia, facial or cervical spine fracture, intracranial bleeding, renal failure, pneumonia, and UTI. There is no leukocytosis or concerning anemia. Renal panel testing shows some acute renal failure/dehydration. There were a few minimal liver enzyme elevations. EKG shows a sinus rhythm, no acute ischemia. Cardiac enzyme testing 1 is not consistent with acute cardiac injury. Chest x-ray does not show CHF, pneumonia or pneumothorax. Brain CT shows no acute bleed or mass effect. C-spine CT shows no acute fracture. Facial CT shows no acute fracture. Urinalysis is suspicious for infection. Urine culture and blood cultures are pending. The patient received IV saline, IV ceftriaxone. Given the UTI, the acute renal failure, the frequent falls, the change in mental status, admission/observation was felt warranted. I spoke to the patient and her family, I spoke with case management. The on-call hospitalist was consulted. Head Trauma GCS Score: 14 Medication Reconcilliation Current Medication List: was personally reviewed by me Blood Pressure Screening Patient's blood pressure: Normal blood pressure Blood pressure disposition: Did not require urgent referral Consults Time Called: 1402 Consulting Physician: Cheyenne Clement Hospitalist Returned Call: [phone] Discussed the patient's case. The patient will be evaluated for further management. Impression Primary Impression: Change in mental status Additional Impressions: Dehydration UTI (urinary tract infection) Falls Scribe Attestation The scribe's documentation has been prepared under my direction and personally reviewed by me in its entirety. I confirm that the note above accurately reflects all work, treatment, procedures, and medical decision making performed by me. Departure Information Dispostion Being Evaluated By Hospitalist Referrals Moses Peterson M.D. (PCP) Patient Instructions My [facility] Problem Qualifiers
[2017-10-09] MEDS ORDERED: TRAZ50TA35 PO (11:53)
[2017-10-09] MEDS ORDERED: VENL100T2 PO (11:53)
[2017-10-09] MEDS ORDERED: SPIR25TA PO (11:53)
[2017-10-09] MEDS ORDERED: THIA100T11 PO (11:53)
[2017-10-09] MEDS ORDERED: FOLI1TAB8 PO (11:53)
[2017-10-09] MEDS ORDERED: MULT-506 PO (11:53)
[2017-10-09] MEDS ORDERED: METO2.5T PO (11:53)
--- NOTE | 2017-10-09 11:56 | DIAGNOSTIC IMAGING REPORT ---
CHEST ONE VIEW PORTABLE CLINICAL HISTORY: Weakness. Altered mental status. COMPARISON STUDY: Chest CT August 06, 2017. FINDINGS: A left subclavian [id number] remains in place. There is no pneumothorax. There are trace bilateral pleural effusions. There is no consolidation to suggest pneumonia. Diffuse interstitial thickening is similar to previous CT of August 06, 2017. There is no evidence for pulmonary edema. Multiple left rib fractures are noted. IMPRESSION: 1. Trace bilateral pleural effusions. 2. Diffuse interstitial thickening which favors interstitial lung disease given findings on prior chest CT. 3. Stable cardiomegaly. No radiographic evidence of pulmonary edema. Electronically signed by: Patrice Stark M.D. 10/09/2017 11:55 AM Dictated Date/Time: 10/09/2017 11:53 AM
[2017-10-09 12:37] LABS: BASO % 0.4 %; BASO ABS # 0.04 K/uL (0-0.2); EOS ABS # 0.09 K/uL (0-0.5); HEMATOCRIT 48.4 % (37-47); HEMOGLOBIN 16.2 g/dL (12.0-16.0); IG# 0.03 K/uL (0.00-0.02); LYMPH % 23.1 %; LYMPH ABS # 2.12 K/uL (1.2-3.4); MEAN CELL VOLUME 93.3 fL (80-100); MEAN CORPUSCULAR HEMOGLOBIN 31.2 pg (25-34); MEAN CORPUSCULAR HGB CONC 33.5 g/dl (32-36); MEAN PLATELET VOLUME 10.1 fL (7.4-10.4); MONO % 6.6 %; NEUT % 68.6 %; NEUT ABS # 6.28 K/uL (1.4-6.5); PLATELET COUNT 179 K/uL (130-400); RED CELL DISTRIBUTION WIDTH CV 16.6 % (11.5-14.5); RED CELL DISTRIBUTION WIDTH SD 56.6 fL (36.4-46.3); WHITE BLOOD COUNT 9.16 K/uL (4.8-10.8)
[2017-10-09 12:53] LABS: INR 1.1 (0.9-1.1); PTT PATIENT 26.6 SECONDS (21.0-31.0)
[2017-10-09 12:54] LABS: ALBUMIN 2.7 gm/dl (3.4-5.0); CALCIUM 9.3 mg/dl (8.5-10.1); CREATININE 1.9 mg/dl (0.60-1.20); POTASSIUM 3.9 mmol/L (3.5-5.1)
[2017-10-09] MEDS ORDERED: SODIUM CHLORIDE 0.9% 500ML 500 ML IV STA (13:03)
--- NOTE | 2017-10-09 13:10 | DIAGNOSTIC IMAGING REPORT ---
HEAD WITHOUT CONTRAST (CT) CLINICAL HISTORY: 72 years-old Female presenting with EVALUATE ALTERED MENTAL STATUS/WEAKNESS. TECHNIQUE: Multidetector CT imaging of the head was performed without the use of intravenous contrast. IV contrast: None. A dose lowering technique was used consistent with the principles of ALARA (as low as reasonably achievable). COMPARISON: None. CT DOSE (mGy.cm): The estimated cumulative dose is 1774.94 mGy.cm. FINDINGS: Record Clerk Salesperson topogram: Unremarkable. Proportional ventricular and sulcal prominence, likely age-related parenchymal volume loss. Periventricular and subcortical white matter hypoattenuation, nonspecific but likely indicative of chronic small vessel ischemic change. No mass effect or midline shift. No hemorrhage or acute territorial infarct. No extra-axial fluid collection. Paranasal sinuses and mastoid air cells clear. Calvarium intact. IMPRESSION: 1. Chronic small vessel ischemic change. No acute intracranial abnormality. Electronically signed by: Mike Corona M.D. 10/09/2017 1:09 PM Dictated Date/Time: 10/09/2017 1:06 PM
--- NOTE | 2017-10-09 13:19 | DIAGNOSTIC IMAGING REPORT ---
CT OF THE CERVICAL SPINE CLINICAL HISTORY: Neck pain status post trauma COMPARISON STUDY: No previous studies for comparison. CT DOSE: TECHNIQUE: CT scan of the cervical spine was performed from the skull base to the thoracic inlet. Images are reviewed in the axial, sagittal, and coronal planes. IV contrast was not administered for this examination. A dose lowering technique was utilized adhering to the principles of ALARA. FINDINGS: The visualized portions of the lung apices reveal no evidence of pneumothorax. There is pulmonary emphysema. There is a 15 mm left lobe thyroid nodule. There is jugular venous air, likely iatrogenic. The prevertebral soft tissues are normal. No fractures or subluxations are visualized. There is a developmentally incomplete posterior C1 arch. There are multilevel degenerative changes. There is a sclerotic lesion in the posterior elements at the T4 level, likely are presenting a bone island. IMPRESSION: No evidence of acute fracture or traumatic subluxation. Electronically signed by: Sherwin Boone M.D. 10/09/2017 1:18 PM Dictated Date/Time: 10/09/2017 1:10 PM
--- NOTE | 2017-10-09 13:24 | DIAGNOSTIC IMAGING REPORT ---
MAXILLOFACIAL CT CT DOSE: HISTORY: fall, pain TECHNIQUE: Multiaxial CT images of the maxillofacial region were performed and reformatted in the coronal plane without the use of contrast. A dose lowering technique was utilized adhering to the principles of ALARA. COMPARISON: None. FINDINGS: The visualized cervical spine, skull base, pterygoid plates, nasal bones, lamina papyracea, orbital floors, mandible, and zygomatic arches are intact. No fractures. The orbits are unremarkable. Incidental note is made of a 1 cm perforation within the anterior nasal septum. IMPRESSION: No fractures within the maxillofacial region. Electronically signed by: Jack Smith M.D. 10/09/2017 1:23 PM Dictated Date/Time: 10/09/2017 1:16 PM
[2017-10-09] MEDS ORDERED: CEFTRIAXONE SOD INJ 1 GM ADDVIAL IV STA (14:02)
[2017-10-09] MEDS ORDERED: ALUMINUM/MAGNESIUM/SIMETH (MAALOX MAX) 30 ML UDC PO PRN (14:45)
[2017-10-09] MEDS ORDERED: MAGNESIUM HYDROXIDE SUSP 30 ML UDC PO PRN (14:45)
[2017-10-09] MEDS ORDERED: SODIUM CHLORIDE 0.9% 1000ML 1,000 ML IV SCH (14:45)
[2017-10-09] MEDS ORDERED: GLUCOSE 40% GEL 15 GM TUBE PO PRN (14:45)
[2017-10-09] MEDS ORDERED: GLUCOSE 10 TABS/TUBE PO PRN (14:45)
[2017-10-09] MEDS ORDERED: DEXTROSE 50% 50 ML SYR IV PRN (14:45)
[2017-10-09] MEDS ORDERED: GLUCAGON FOR INJ 1 MG VIAL SQ PRN (14:45)
[2017-10-09] MEDS ORDERED: ACETAMINOPHEN 500 MG TAB PO PRN (15:45)
[2017-10-09 15:49] VITALS: O2SAT 93; BMI 21.1
[2017-10-09 16:20] VITALS: BP 110/63; PULSE 58; TEMP 36.6; O2SAT 94
[2017-10-09 16:21] VITALS: BP 96/66; PULSE 81; TEMP 36; O2SAT 93
--- NOTE | 2017-10-09 18:18 | History and Physical ---
History & Physical Date & Time of Service: Oct 09, 2017 at 16:28 Chief Complaint: Dehydration, Falls, Uti Primary Care Physician: Moses Peterson M.D. History of Present Illness Source: patient, family, clinic records, hospital records This is a 72 year old female with a PMH of dementia, significant cardiomyopathy with LVEF of 20-25%, hx. of colorectal CA s/p resection/colostomy, HTN, DM2 - presents with multiple falls. As per daughter, she has been having recurrent UTIs and multiple falls; she is a resident at [facility]. She had a fall earlier in the month, on September 26, where she hit her face. She had another fall, unwitnessed this morning (10/09) - she fell and was sent over because of vomiting and +/- fever. She denies any symptoms now though she is a poor historian due to underlying dementia. Daughter is in the room and most of the history is obtained from her. As per daughter, patient was told to get an evaluation for a possible pacemaker/defibrillator implantation due to multiple falls and EF of 20-25%. Otherwise, patient seems to be in no distress, resting comfortably. Past Medical/Surgical History Medical Problems: (1) Chronic combined systolic and diastolic CHF (congestive heart failure) Permanent Comment: 20-25% per echo in March 2017 Status: Chronic (2) Colon cancer Status: Chronic (3) Depression Status: Chronic (4) DM type 2 (diabetes mellitus, type 2) Status: Chronic (5) History of atrial fibrillation Permanent Comment: per records Status: Chronic (6) History of staphylococcal arthritis Permanent Comment: right hip Status: Chronic (7) Ischemic cardiomyopathy Status: Chronic (8) LBBB (left bundle branch block) Status: Chronic (9) Pulmonary heart disease Status: Chronic Surgical Problems: (1) S/P colectomy Status: Chronic Family History Cancer Social History Smoking Status: Former Smoker Smokeless Tobacco Use: No Drug Use: none Housing status: shelter Occupational Status: retired Multi-Drug Resistant Organisms History of MDRO: No Allergies Coded Allergies: Nickel (Unverified Allergy, Unknown, ., 10/09/17) Ertapenem (Unverified Adverse Reaction, Intermediate, may have had elevated LFT's secondary to ertapenem..., 10/09/17) Patient received Vancomycin + Ertapenem in past for septic joint. She developed LFT elevations on this therapy. She had experienced ADHF, cardiogenic shock just prior to LFT elevation. Provider felt LFT elevations most likely due to shock, hepatic congestion but could not exclude ertapenem + venlafaxine as possible causes. Ertapenem was held and vanco was continued with Rocephin. LFTs improved. Home Medications Scheduled Clotrimazole Vaginal (Clotrimazole), 1 APPLN TOP DAILY Folic Acid (Folvite), 1 MG PO DAILY Furosemide (Furosemide), 20 MG PO QAM Insulin Glargine (Lantus), 5 UNITS SC HS Insulin Lispro (Human) (Humalog), 10 UNITS SC QPM Lidocaine (Anorectal) (Lidocaine), 1 APPLN TP TID Magnesium Oxide (Mag-Ox), 400 MG PO DAILY Metolazone (Zaroxolyn), 2.5 MG PO 2XWK Metoprolol Succinate (Toprol Xl), 25 MG PO QPM Multivitamin (Multivitamin), 1 TAB PO DAILY Spironolactone (Aldactone), 25 MG PO DAILY Terbinafine Hcl (Topical) (Lamisil At), 1 APPLN TOP HS Thiamine Hcl (Vitamin B-1), 100 MG PO BID Trazodone Hcl (Trazodone), 50 MG PO HS Venlafaxine Hcl (Effexor), 100 MG PO DAILY Scheduled PRN Acetaminophen (Tylenol), 2 TAB PO Q8 PRN for Mild Pain Ipratropium [place] (Ipratropium [place]), 0.5 MG INH Q6 PRN for SOB/Wheezing Review of Systems Cannot obtain due to patient's underlying mental status Physical Exam Vital Signs Date Time Temp Pulse Resp B/P (MAP) Pulse Ox O2 Delivery O2 Flow Rate FiO2 10/09/17 16:21 36.0 81 20 96/66 (76) 93 Room Air 10/09/17 14:31 83 18 107/66 93 Nasal Cannula 2.0 10/09/17 13:32 83 20 102/67 100 Room Air 10/09/17 11:46 94 Room Air 10/09/17 11:45 86 10/09/17 11:29 36.6 84 20 111/73 94 Room Air General Appearance: WD/WN, no apparent distress, + pertinent finding ( underlying dementia) Head: normocephalic, atraumatic, + pertinent finding (+brusiing around R periorbital region) ENT: hearing grossly normal Respiratory/Chest: lungs clear, normal breath sounds, no respiratory distress, no accessory muscle use Cardiovascular: regular rate, rhythm, no edema, no gallop, no JVD, no murmur, normal peripheral pulses Abdomen/GI: + pertinent finding (+ostomy) Extremities/Musculoskelatal: normal inspection, no calf tenderness, normal capillary refill, no pedal edema, normal range of motion Neurologic/Psych: alert, normal mood/affect, + pertinent finding (+underlying dementia) Skin: normal color Lymphatic: no adenopathy Diagnostics Laboratory Results Results Past 24 Hours Test 10/09/17 12:00 10/09/17 12:10 Range/Units Urine Color YELLOW Urine Appearance CLEAR CLEAR Urine pH 6.0 4.5-7.5 Urine Specific [place] 1.016 1.000-1.030 Urine Protein 1+ NEG Urine Glucose (UA) TRACE NEG Urine Ketones NEG NEG Urine Occult Blood NEG NEG Urine Nitrite NEG NEG Urine Bilirubin NEG NEG Urine Urobilinogen NEG NEG Urine Leukocyte Esterase NEG NEG Urine WBC (Auto) 1-5 0-5 /hpf Urine RBC (Auto) 0-4 0-4 /hpf Urine Hyaline Casts (Auto) 1-5 0-5 /lpf Urine Epithelial Cells (Auto) 10-20 0-5 /lpf Urine Bacteria (Auto) 2+ NEG White Blood Count 9.16 4.8-10.8 K/uL Red Blood Count 5.19 4.2-5.4 M/uL Hemoglobin 16.2 12.0-16.0 g/dL Hematocrit 48.4 37-47 % Mean Corpuscular Volume 93.3 80-100 fL Mean Corpuscular Hemoglobin 31.2 25-34 pg Mean Corpuscular Hemoglobin Concent 33.5 32-36 g/dl Platelet Count 179 130-400 K/uL Mean Platelet Volume 10.1 7.4-10.4 fL Neutrophils (%) (Auto) 68.6 % Lymphocytes (%) (Auto) 23.1 % Monocytes (%) (Auto) 6.6 % Eosinophils (%) (Auto) 1.0 % Basophils (%) (Auto) 0.4 % Neutrophils # (Auto) 6.28 1.4-6.5 K/uL Lymphocytes # (Auto) 2.12 1.2-3.4 K/uL Monocytes # (Auto) 0.60 0.11-0.59 K/uL Eosinophils # (Auto) 0.09 0-0.5 K/uL Basophils # (Auto) 0.04 0-0.2 K/uL RDW Standard Deviation 56.6 36.4-46.3 fL RDW Coefficient of Variation 16.6 11.5-14.5 % Immature Granulocyte % (Auto) 0.3 % Immature Granulocyte # (Auto) 0.03 0.00-0.02 K/uL Prothrombin Time 12.0 9.0-12.0 SECONDS Prothromb Time International Ratio 1.1 0.9-1.1 Activated Partial Thromboplast Time 26.6 21.0-31.0 SECONDS Partial Thromboplastin Ratio 1.0 Sodium Level 130 136-145 mmol/L Potassium Level 3.9 3.5-5.1 mmol/L Chloride Level 89 98-107 mmol/L Carbon Dioxide Level 32 21-32 mmol/L Anion Gap 9.0 3-11 mmol/L Blood Urea Nitrogen 48 7-18 mg/dl Creatinine 1.90 0.60-1.20 mg/dl Est Creatinine Clear Calc Drug Dose 1.2 ml/min Estimated GFR () 29.8 Estimated GFR (Non- 25.7 BUN/Creatinine Ratio 25.1 10-20 Random Glucose 318 70-99 mg/dl Calcium Level 9.3 8.5-10.1 mg/dl Magnesium Level 1.9 1.8-2.4 mg/dl Total Bilirubin 1.0 0.2-1 mg/dl Aspartate Amino Transf (AST/SGOT) 46 15-37 U/L Alanine Aminotransferase (ALT/SGPT) 39 12-78 U/L Alkaline Phosphatase 135 45-117 U/L Total Creatine Kinase 33 26-192 U/L Troponin I 0.022 0-0.045 ng/ml Total Protein 8.0 6.4-8.2 gm/dl Albumin 2.7 3.4-5.0 gm/dl Globulin 5.3 2.5-4.0 gm/dl Albumin/Globulin Ratio 0.5 0.9-2 Beta-Hydroxybutyric Acid 1.38 0.2-2.81 mg/dL Thyroid Stimulating Hormone (TSH) 2.770 0.300-4.500 uIu/ml Microbiology Results 10/09/17 Blood Culture, Received Pending 10/09/17 Blood Culture, Received Pending 10/09/17 Urine Culture, Received Pending Diagnostic Radiology HEAD WITHOUT CONTRAST (CT) CLINICAL HISTORY: 72 years-old Female presenting with EVALUATE ALTERED MENTAL STATUS/WEAKNESS. TECHNIQUE: Multidetector CT imaging of the head was performed without the use of intravenous contrast. IV contrast: None. A dose lowering technique was used consistent with the principles of ALARA (as low as reasonably achievable). COMPARISON: None. CT DOSE (mGy.cm): The estimated cumulative dose is 1774.94 mGy.cm. FINDINGS: [employer] topogram: Unremarkable. Proportional ventricular and sulcal prominence, likely age-related parenchymal volume loss. Periventricular and subcortical white matter hypoattenuation, nonspecific but likely indicative of chronic small vessel ischemic change. No mass effect or midline shift. No hemorrhage or acute territorial infarct. No extra-axial fluid collection. Paranasal sinuses and mastoid air cells clear. Calvarium intact. IMPRESSION: 1. Chronic small vessel ischemic change. No acute intracranial abnormality. CHEST ONE VIEW PORTABLE CLINICAL HISTORY: Weakness. Altered mental status. COMPARISON STUDY: Chest CT August 06, 2017. FINDINGS: A left subclavian [id number] remains in place. There is no pneumothorax. There are trace bilateral pleural effusions. There is no consolidation to suggest pneumonia. Diffuse interstitial thickening is similar to previous CT of August 06, 2017. There is no evidence for pulmonary edema. Multiple left rib fractures are noted. IMPRESSION: 1. Trace bilateral pleural effusions. 2. Diffuse interstitial thickening which favors interstitial lung disease given findings on prior chest CT. 3. Stable cardiomegaly. No radiographic evidence of pulmonary edema. CT OF THE CERVICAL SPINE CLINICAL HISTORY: Neck pain status post trauma COMPARISON STUDY: No previous studies for comparison. CT DOSE: TECHNIQUE: CT scan of the cervical spine was performed from the skull base to the thoracic inlet. Images are reviewed in the axial, sagittal, and coronal planes. IV contrast was not administered for this examination. A dose lowering technique was utilized adhering to the principles of ALARA. FINDINGS: The visualized portions of the lung apices reveal no evidence of pneumothorax. There is pulmonary emphysema. There is a 15 mm left lobe thyroid nodule. There is jugular venous air, likely iatrogenic. The prevertebral soft tissues are normal. No fractures or subluxations are visualized. There is a developmentally incomplete posterior C1 arch. There are multilevel degenerative changes. There is a sclerotic lesion in the posterior elements at the T4 level, likely are presenting a bone island. IMPRESSION: No evidence of acute fracture or traumatic subluxation. MAXILLOFACIAL CT CT DOSE: HISTORY: fall, pain TECHNIQUE: Multiaxial CT images of the maxillofacial region were performed and reformatted in the coronal plane without the use of contrast. A dose lowering technique was utilized adhering to the principles of ALARA. COMPARISON: None. FINDINGS: The visualized cervical spine, skull base, pterygoid plates, nasal bones, lamina papyracea, orbital floors, mandible, and zygomatic arches are intact. No fractures. The orbits are unremarkable. Incidental note is made of a 1 cm perforation within the anterior nasal septum. IMPRESSION: No fractures within the maxillofacial region. EKG Normal sinus rhythm Left axis deviation Left bundle branch block Impression Assessment and Plan This is a 72 year old female with a PMH of dementia, significant cardiomyopathy with LVEF of 20-25%, hx. of colorectal CA s/p resection/colostomy, HTN, DM2 - presents with multiple falls Multiple Falls possibly related to urinary tract infection? UA does not appear infected, but she did receive antibiotics as outpatient earlier this month will check urine culture, Rocephin until culture returns, gentle IVF PT/OT Severe Cardiomyopathy presumed non-ischemic with an EF of ~ 20-25% was seen by outpatient machine stuffer automatic in [place], was told to see cardio in [place] for possible pacer/AICD insertion falls may be related to arrhythmias no fluid overload noted consulted cardiology for further input DM2 last Ha1c was 7.1%; will get an updated Ha1c Lantus 5 units BID insulin sliding scale HTN BP is on the lower side will give gentle IV hydration hold diuretics DVT ppx subq heparin DNR Advanced Directives Existing Living Will: No Existing Power of Lumber Kiln Operator: No VTE Prophylaxis VTE Risk Assessment Done? Y/N: Yes Risk Level: Moderate
[2017-10-09] MEDS: INSULIN ASPART 100 UNITS/ML 3 ML PEN SC SCH ×2 (18:26→20:17)
[2017-10-09] MEDS: METOPROLOL SUCC 25MG EXT REL TAB PO SCH (21:00)
[2017-10-09] MEDS: INSULIN GLARGINE SOLOSTAR 100 UNITS/ML 3 ML PEN SC SCH (21:01)
[2017-10-09] MEDS: HEPARIN SOD 5000 UNIT/0.5 ML CARP SQ SCH (21:01)
[2017-10-09 21:03] VITALS: BP 100/70; PULSE 87
[2017-10-09] MEDS: TRAZODONE HCL 50 MG TAB PO SCH (21:10)
[2017-10-09] MEDS: THIAMINE HCL 100 MG TAB PO SCH (21:10)
[2017-10-09 22:50] VITALS: BP 90/59; PULSE 87; TEMP 36.7; O2SAT 92
[2017-10-10 06:09] LABS: HEMATOCRIT 46.6 % (37-47); HEMOGLOBIN 15.5 g/dL (12.0-16.0); MEAN CORPUSCULAR HEMOGLOBIN 30.9 pg (25-34); MEAN CORPUSCULAR HGB CONC 33.3 g/dl (32-36); PLATELET COUNT 157 K/uL (130-400); RED CELL DISTRIBUTION WIDTH CV 16.4 % (11.5-14.5); RED CELL DISTRIBUTION WIDTH SD 55.3 fL (36.4-46.3)
[2017-10-10 06:26] LABS: HEMOGLOBIN A1C 8.5 % (4.5-5.6)
[2017-10-10 06:50] LABS: CALCIUM 8.8 mg/dl (8.5-10.1); CREATININE 1.54 mg/dl (0.60-1.20); POTASSIUM 3.5 mmol/L (3.5-5.1)
[2017-10-10 07:12] VITALS: BP 103/70; PULSE 82; TEMP 36.8; O2SAT 95
[2017-10-10] MEDS: VENLAFAXINE HCL 50 MG TAB PO SCH (07:52)
[2017-10-10] MEDS: THIAMINE HCL 100 MG TAB PO SCH ×2 (07:52→20:04)
[2017-10-10] MEDS: MAGNESIUM OXIDE 400 MG TAB PO SCH (07:52)
[2017-10-10] MEDS: MULTIVITAMIN TAB PO SCH (07:53)
[2017-10-10] MEDS: INSULIN ASPART 100 UNITS/ML 3 ML PEN SC SCH ×4 (08:51→21:46)
[2017-10-10] MEDS: INSULIN GLARGINE SOLOSTAR 100 UNITS/ML 3 ML PEN SC SCH ×2 (08:56→21:40)
[2017-10-10] MEDS: HEPARIN SOD 5000 UNIT/0.5 ML CARP SQ SCH ×2 (09:02→21:40)
[2017-10-10 09:54] VITALS: BP_SYST 105; BP_SYST 106; BP_SYST 147; BP_DIAS 71; BP_DIAS 79; PULSE 64; PULSE 87; PULSE 93
[2017-10-10 10:02] VITALS: O2SAT 95
--- NOTE | 2017-10-10 11:51 | Clinical Documentation Query ---
MARJORIE Ruiz : CLINICAL DOCUMENTATION QUERY Patient is a 72 year old female admitted for evaluation of repeated falls. Admission BUN, creatinine, and estimated GFR were 48 mg/dl, 1.90 mg/dl, and 26 ml/min. This a.m. (10/10), repeat values were 37 mg/dl, 1.54 mg/dl and 30 ml/min. Historical GFR range of about 30-50 ml/min from April 2017. She has been treated with IVF and monitored with serial chemistries. In your clinical opinion is this patient being managed for: ( x ) JEFFERY on CKD stage 3, POA, resolving ( ) Not Agree ( ) Other explanation of clinical findings (Please Explain) ( ) Unable to determine (Please Define) ( ) Need to Discuss The medical record reflects the following clinical findings, treatment, and risk factors. Clinical Indicators: As above Treatment:She has been treated with IVF and monitored with serial chemistries. Risk Factors: Age, infection, vomiting/dehydration Please clarify and document your clinical opinion in the progress notes and discharge summary. Terms such as "probable", "suspected", "likely", "questionable", "possible", or "still to be ruled out" are acceptable. IF IN AGREEMENT, YOU MUST DOCUMENT ABOVE DIAGNOSTIC STATEMENT IN DAILY PROGRESS NOTES AND DISCHARGE SUMMARY. This document is not part of the patient's record. Thank You, Karlo Gaspar, JOVANI [phone]
[2017-10-10] MEDS ORDERED: CEFTRIAXONE SOD INJ 1 GM in DEXTROSE 5% ADD-VANTAGE 50ML 50 ML IV SCH (14:00)
[2017-10-10 15:24] VITALS: BP 106/75; PULSE 96; TEMP 36.1; O2SAT 91
[2017-10-10 16:18] VITALS: Ht 167.6 cm; Wt 58.2 kg
[2017-10-10 16:22] VITALS: O2SAT 91
--- NOTE | 2017-10-10 18:21 | Cardiology Consultation ---
Cardiology Consultation Date of Service Oct 10, 2017. Cardiology Consultation Patient is a 71 year old female with a very complex history. She has a history of dementia and all information is obtained from medical records. She has a history of rectal cancer s/p resection and sigmoid colostomy s/p XRT and chemo therapy, now rectal mass with mildly elevated CEA levels, history of endometrial CA s/p LORENA and chemo. She has been in and out of the hospital due to septic arthritis of the Right Hip. I believe that this was a staph aureus infection. She was in [facility]. During one admission in January 2017 she was found to have new cardiomyopathy LVEF 25%, presumed nonischemic. She has a chronic LBBB, dating back to at least 2015 per EKG at [place]. The patient was admitted with multiple falls and a history of a UTI. We have been asked to see her and evaluate her cardiomyopathy at the request of family. Most of her health care has been [facility] and her previous pharmacist in charge in [place]. At some point her previous pharmacist in charge indicated that she needed an ICD due to her cardiomyopathy. I am unsure as to whether she refused to have it or it wasn't clinically possible due to her multiple medical problems. She does have advanced dementia. She has no prior history of significant cardiac arrhythmias were previous cardiac arrest. Allergies: Ertapenem and nickel Current Inpatient Medications Medications (Trade) Dose Ordered Sig/Lorenzo Route Start Time Stop Time Status Last Admin Dose Admin Al Hydrox/Mg Hydrox/Simethicone (Maalox Max Susp) 15 ml Q4H PRN PO 10/09/17 14:45 11/08/17 14:44 Magnesium Hydroxide (Milk Of Magnesia Susp) 30 ml Q6H PRN PO 10/09/17 14:45 11/08/17 14:44 Insulin Glargine (Lantus Solostar Pen) 5 units Q12 SC 10/09/17 21:00 11/08/17 20:59 10/10/17 08:56 5 UNITS Insulin Aspart (novoLOG ASPART) SLIDING SCALE If C... ACHS SC 10/09/17 16:30 11/08/17 16:29 10/10/17 13:24 1 UNITS Glucose (Glucose 40% Gel) 15-30 GRAMS 15 GRAMS... UD PRN PO 10/09/17 14:45 11/08/17 14:44 Glucose (Glucose Chew Tab) 4-8 Tablets 4 Tabl... UD PRN PO 10/09/17 14:45 11/08/17 14:44 Dextrose (Dextrose 50% 50ML Syringe) 25-50ML OF 50% DW IV FOR... UD PRN IV 10/09/17 14:45 11/08/17 14:44 Glucagon (Glucagon Inj) 1 mg UD PRN SQ 10/09/17 14:45 11/08/17 14:44 Acetaminophen (Tylenol Tab) 1,000 mg Q8H PRN PO 10/09/17 15:45 11/08/17 15:44 Folic Acid (Folvite Tab) 1 mg DAILY PO 10/10/17 08:00 11/09/17 08:59 10/10/17 07:52 1 MG Magnesium Oxide (Mag-Ox Tab) 400 mg DAILY PO 10/10/17 08:00 11/09/17 08:59 10/10/17 07:52 400 MG Metoprolol Succinate (Toprol Xl Tab) 25 mg QPM PO 10/09/17 21:00 11/08/17 20:59 Multivitamins (Multivitamin Tab) 1 tab DAILY PO 10/10/17 08:00 11/09/17 08:59 10/10/17 07:53 1 TAB Thiamine HCl (Vitamin B-1 Tab) 100 mg BID PO 10/09/17 20:00 11/08/17 20:59 10/10/17 07:52 100 MG Trazodone HCl (Desyrel Tab) 50 mg HS PO 10/09/17 21:00 11/08/17 20:59 10/09/17 21:10 50 MG Venlafaxine HCl (effeXOR TAB) 100 mg DAILY PO 10/10/17 08:00 11/09/17 08:59 10/10/17 07:52 100 MG Ceftriaxone Sodium 1 gm/ Dextrose 50 ml @ 100 mls/hr Q24H IV 10/10/17 14:00 10/14/17 13:59 10/10/17 13:27 100 MLS/HR Heparin Sodium (Porcine) (Heparin Sq 5000 Unit/0.5ml) 5,000 unit Q12 SQ 10/09/17 21:00 11/08/17 20:59 10/10/17 09:02 5,000 UNIT Past medical history: Per the history of chief complaint Social history: Patient is a nonsmoker Family medical history: Noncontributory Review of systems: Unobtainable due to the patient's advanced dementia Vital Signs Past 12 Hours Date Time Temp Pulse Resp B/P (MAP) Pulse Ox O2 Delivery O2 Flow Rate FiO2 10/10/17 16:22 91 Room Air 10/10/17 15:24 36.1 96 18 106/75 (85) 91 Room Air 10/10/17 10:02 95 Room Air 10/10/17 09:54 87 105/71 (82) 93 106/71 (83) 64 147/79 (101) 10/10/17 08:00 Room Air 10/10/17 07:12 36.8 82 20 103/70 (81) 95 Room Air General Appearance: The patient is not oriented to person place or time. Head: Normocephalic Atraumatic. Eyes: PERRLA, EOMI, conjunctiva and sclera clear Neck: Supple. No carotid bruits noted. No JVD. No HJD. Respiratory: Breath sounds clear to auscultation bilaterally. No w/r/r. Cardiovascular: Reg rate and rhythm. S1 and S2 noted. No murmurs, rubs, gallops. PMI non displace. Abdomen: Normal bowel sounds, soft nontender. no abdominal bruits. Extremities: No edema, no clubbing or cyanosis. distal pulses 2/4 bilaterally. Neuro: No focal deficits. Psychiatric: Normal affect. Last 24 Hours Test 10/09/17 20:14 10/10/17 05:34 10/10/17 07:58 Bedside Glucose 158 mg/dl 114 mg/dl White Blood Count 5.90 K/uL Red Blood Count 5.01 M/uL Hemoglobin 15.5 g/dL Hematocrit 46.6 % Mean Corpuscular Volume 93.0 fL Mean Corpuscular Hemoglobin 30.9 pg Mean Corpuscular Hemoglobin Concent 33.3 g/dl RDW Standard Deviation 55.3 fL RDW Coefficient of Variation 16.4 % Platelet Count 157 K/uL Mean Platelet Volume 10.0 fL Sodium Level 135 mmol/L Potassium Level 3.5 mmol/L Chloride Level 97 mmol/L Carbon Dioxide Level 31 mmol/L Anion Gap 7.0 mmol/L Blood Urea Nitrogen 37 mg/dl Creatinine 1.54 mg/dl Est Creatinine Clear Calc Drug Dose 29.9 ml/min Estimated GFR () 38.4 Estimated GFR (Non- 33.1 BUN/Creatinine Ratio 24.0 Random Glucose 114 mg/dl Estimated Average Glucose 197 mg/dl Hemoglobin A1c 8.5 % Calcium Level 8.8 mg/dl Magnesium Level 1.6 mg/dl Impression: 1. Cardiomyopathy with chronic systolic heart failure 2. Advanced dementia 3. History of rectal cancer 4. Recurrent UTIs 5. History of staph aureus sepsis and septic hip joint Recommendations: I spoke to the patient's daughters including carry who works as a nurse's aide here at the hospital. Their mother has advanced dementia and multiple medical problems. I do not believe she is a candidate for an ICD or pacemaker. She is currently a DO NOT RESUSCITATE and the daughters want no advanced or heroic measures for their mother. They want no procedures performed on the mother. I believe that this is the right decision regarding their mother's current medical care.
--- NOTE | 2017-10-10 20:15 | Progress Note ---
Medicine Progress Note Date & Time of Visit: Oct 10, 2017 at 15:40 . Subjective CC: Follow-up visit for weakness, falls, and other problems. HPI: Admitted yesterday with weakness and falls. On diuretics for CHF. Found to be dehydrated. Diuretics held. Received IV fluids. Feels better. No chest pain or SOB. Confused (at baseline). Daughter visiting. ROS: General- no fever, no chills Resp- no cough; no shortness of breath Cardiac- as noted above in HPI GI- no nausea, no vomiting, no diarrhea, no constipation - no dysuria, no difficulty voiding . Objective Last 8 Hrs Date Time Temp Pulse Resp B/P (MAP) Pulse Ox O2 Delivery O2 Flow Rate FiO2 10/10/17 16:22 91 Room Air 10/10/17 15:24 36.1 96 18 106/75 (85) 91 Room Air Physical Exam: General- siting in chair; no distress Head- ecchymosis right forehead Lungs- clear to auscultation; no respiratory distress Cardiovascular- RRR; no gallop appreciated; + JVD; trace pretibial edema Abdomen- + bowel sounds, soft, nontender Extremities- no cyanosis; no calf tenderness Neuro- alert, oriented to person, but not place or time Skin- warm & dry . Laboratory Results: Last 24 Hours Test 10/10/17 05:34 10/10/17 07:58 10/10/17 11:50 10/10/17 16:42 White Blood Count 5.90 K/uL Red Blood Count 5.01 M/uL Hemoglobin 15.5 g/dL Hematocrit 46.6 % Mean Corpuscular Volume 93.0 fL Mean Corpuscular Hemoglobin 30.9 pg Mean Corpuscular Hemoglobin Concent 33.3 g/dl RDW Standard Deviation 55.3 fL RDW Coefficient of Variation 16.4 % Platelet Count 157 K/uL Mean Platelet Volume 10.0 fL Sodium Level 135 mmol/L Potassium Level 3.5 mmol/L Chloride Level 97 mmol/L Carbon Dioxide Level 31 mmol/L Anion Gap 7.0 mmol/L Blood Urea Nitrogen 37 mg/dl Creatinine 1.54 mg/dl Est Creatinine Clear Calc Drug Dose 29.9 ml/min Estimated GFR () 38.4 Estimated GFR (Non- 33.1 BUN/Creatinine Ratio 24.0 Random Glucose 114 mg/dl Estimated Average Glucose 197 mg/dl Hemoglobin A1c 8.5 % Calcium Level 8.8 mg/dl Magnesium Level 1.6 mg/dl Bedside Glucose 114 mg/dl 155 mg/dl 184 mg/dl Assessment & Plan ACUTE KIDNEY INJURY / DEHYDRATION Serum creatinine at time of admission 1.9. CKD III with recent baseline of 1.1 - 1.2. Receiving diuretic therapy for CHF. Diuretics held. Received IV fluids. Serum creatinine today = 1.5. CHF Chronic left ventricular systolic heart failure with LVEF 20-25%. Appears to be compensated. Holding diuretics due to JEFFERY. ATRIAL FIBRILLATION Currently in NSR. CKD III JEFFERY as discussed above. DM TYPE 2 Fairly-well controlled. Hgb A1C 8.5. FBS today = 114. Lantus / NovoLog per protocol. COLON CANCER S/P resection with colostomy. DEMENTIA Monitor for delirium. HISTORY SEPTIC ARTHRITIS Afebrile. WEAKNESS / FALLS Multifactorial. PT / OT. Fall precautions. ABNORMAL UA UA showed leukocyte esterase, WBC's, yeast, no bacteria. Urine culture pending. Receiving ceftriaxone pending culture results. VTE PROPHYLAXIS SQ heparin. Ambulate. DISPOSITION Expected return to [facility]. Internal Medicine follow-up with Dr. Peterson. . Current Inpatient Medications: Current Inpatient Medications Medications (Trade) Dose Ordered Sig/Lorenzo Route Start Time Stop Time Status Last Admin Dose Admin Al Hydrox/Mg Hydrox/Simethicone (Maalox Max Susp) 15 ml Q4H PRN PO 10/09/17 14:45 11/08/17 14:44 Magnesium Hydroxide (Milk Of Magnesia Susp) 30 ml Q6H PRN PO 10/09/17 14:45 11/08/17 14:44 Insulin Glargine (Lantus Solostar Pen) 5 units Q12 SC 10/09/17 21:00 11/08/17 20:59 10/10/17 08:56 5 UNITS Insulin Aspart (novoLOG ASPART) SLIDING SCALE If C... ACHS SC 10/09/17 16:30 11/08/17 16:29 10/10/17 18:14 4 UNITS Glucose (Glucose 40% Gel) 15-30 GRAMS 15 GRAMS... UD PRN PO 10/09/17 14:45 11/08/17 14:44 Glucose (Glucose Chew Tab) 4-8 Tablets 4 Tabl... UD PRN PO 10/09/17 14:45 11/08/17 14:44 Dextrose (Dextrose 50% 50ML Syringe) 25-50ML OF 50% DW IV FOR... UD PRN IV 10/09/17 14:45 11/08/17 14:44 Glucagon (Glucagon Inj) 1 mg UD PRN SQ 10/09/17 14:45 11/08/17 14:44 Acetaminophen (Tylenol Tab) 1,000 mg Q8H PRN PO 10/09/17 15:45 11/08/17 15:44 Folic Acid (Folvite Tab) 1 mg DAILY PO 10/10/17 08:00 11/09/17 08:59 10/10/17 07:52 1 MG Magnesium Oxide (Mag-Ox Tab) 400 mg DAILY PO 10/10/17 08:00 11/09/17 08:59 10/10/17 07:52 400 MG Metoprolol Succinate (Toprol Xl Tab) 25 mg QPM PO 10/09/17 21:00 11/08/17 20:59 Multivitamins (Multivitamin Tab) 1 tab DAILY PO 10/10/17 08:00 11/09/17 08:59 10/10/17 07:53 1 TAB Thiamine HCl (Vitamin B-1 Tab) 100 mg BID PO 10/09/17 20:00 11/08/17 20:59 10/10/17 20:04 100 MG Trazodone HCl (Desyrel Tab) 50 mg HS PO 10/09/17 21:00 11/08/17 20:59 10/09/17 21:10 50 MG Venlafaxine HCl (effeXOR TAB) 100 mg DAILY PO 10/10/17 08:00 11/09/17 08:59 10/10/17 07:52 100 MG Ceftriaxone Sodium 1 gm/ Dextrose 50 ml @ 100 mls/hr Q24H IV 10/10/17 14:00 10/14/17 13:59 10/10/17 13:27 100 MLS/HR Heparin Sodium (Porcine) (Heparin Sq 5000 Unit/0.5ml) 5,000 unit Q12 SQ 10/09/17 21:00 11/08/17 20:59 10/10/17 09:02 5,000 UNIT
[2017-10-10] MEDS: TRAZODONE HCL 50 MG TAB PO SCH (21:38)
[2017-10-10] MEDS: METOPROLOL SUCC 25MG EXT REL TAB PO SCH (21:38)
[2017-10-10 23:02] VITALS: BP 106/73; PULSE 86; TEMP 36.5; O2SAT 94
[2017-10-11] VITALS (7 sets, daily range): BP systolic 96–107; BP diastolic 66–76; PULSE 87–101; TEMP 36.4–36.6; O2SAT 95–97
[2017-10-11 07:22] LABS: CALCIUM 9.2 mg/dl (8.5-10.1); CREATININE 1.38 mg/dl (0.60-1.20); POTASSIUM 3.6 mmol/L (3.5-5.1)
[2017-10-11] MEDS: VENLAFAXINE HCL 50 MG TAB PO SCH (08:45)
[2017-10-11] MEDS: THIAMINE HCL 100 MG TAB PO SCH ×2 (08:45→21:00)
[2017-10-11] MEDS: MAGNESIUM OXIDE 400 MG TAB PO SCH (08:45)
[2017-10-11] MEDS: MULTIVITAMIN TAB PO SCH (08:45)
[2017-10-11] MEDS: INSULIN ASPART 100 UNITS/ML 3 ML PEN SC SCH ×4 (08:50→21:05)
[2017-10-11] MEDS: INSULIN GLARGINE SOLOSTAR 100 UNITS/ML 3 ML PEN SC SCH ×2 (08:53→21:06)
[2017-10-11] MEDS: HEPARIN SOD 5000 UNIT/0.5 ML CARP SQ SCH ×2 (08:53→21:06)
[2017-10-11] MEDS: AMOXICILLIN 250 MG CAP PO SCH ×2 (14:25→20:59)
--- NOTE | 2017-10-11 20:44 | Progress Note ---
Medicine Progress Note Date & Time of Visit: Oct 11, 2017 at 20:44. Subjective CC: Follow-up visit for weakness, falls, and other problems. HPI: Feels better. No chest pain or SOB. No weakness nor lightheadedness. ROS: General- no fever, no chills Resp- no cough; no shortness of breath Cardiac- as noted above in HPI GI- no nausea, no vomiting, no diarrhea, no constipation - no dysuria, no difficulty voiding . Objective Last 8 Hrs Date Time Temp Pulse Resp B/P (MAP) Pulse Ox O2 Delivery O2 Flow Rate FiO2 10/11/17 16:00 97 Room Air 10/11/17 15:16 36.6 101 17 106/76 (86) 97 Room Air Physical Exam: General- siting in chair; no distress Head- resolving ecchymosis right forehead Lungs- clear to auscultation; no respiratory distress Cardiovascular- RRR; no gallop appreciated; + JVD; trace pretibial edema Abdomen- + bowel sounds, soft, nontender Extremities- no cyanosis; no calf tenderness Neuro- alert, oriented to person, but not place or time Skin- warm & dry . Laboratory Results: Last 24 Hours Test 10/11/17 06:35 10/11/17 08:05 10/11/17 11:56 10/11/17 16:53 Sodium Level 131 mmol/L Potassium Level 3.6 mmol/L Chloride Level 96 mmol/L Carbon Dioxide Level 28 mmol/L Anion Gap 7.0 mmol/L Blood Urea Nitrogen 28 mg/dl Creatinine 1.38 mg/dl Est Creatinine Clear Calc Drug Dose 33.4 ml/min Estimated GFR () 43.8 Estimated GFR (Non- 37.8 BUN/Creatinine Ratio 20.3 Random Glucose 114 mg/dl Calcium Level 9.2 mg/dl Bedside Glucose 111 mg/dl 171 mg/dl 106 mg/dl Test 10/11/17 20:11 Bedside Glucose 165 mg/dl Assessment & Plan ACUTE KIDNEY INJURY / DEHYDRATION Serum creatinine at time of admission 1.9. CKD III with recent baseline of 1.1 - 1.2. Receiving diuretic therapy for CHF. Diuretics held. Received IV fluids. Serum creatinine today = 1.38. CHF Chronic left ventricular systolic heart failure with LVEF 20-25%. Appears to be compensated. Holding diuretics due to JEFFERY. Seen in consultation by Cardiology. They do not recommend pursuing ICD in light of comorbidities. ATRIAL FIBRILLATION Currently in NSR. CKD III JEFFERY as discussed above. DM TYPE 2 Fairly-well controlled. Hgb A1C 8.5. FBS today = 111. Lantus / NovoLog per protocol. COLON CANCER S/P resection with colostomy. DEMENTIA Monitor for delirium. HISTORY SEPTIC ARTHRITIS Afebrile. WEAKNESS / FALLS Multifactorial. PT / OT. Fall precautions. ABNORMAL UA UA showed leukocyte esterase, WBC's, yeast, no bacteria. Started on ceftriaxone. Urine culture growing Enterococcus. Change therapy to amoxicillin per sensitivities. VTE PROPHYLAXIS SQ heparin. Ambulate. DISPOSITION Expected return to [facility]. Internal Medicine follow-up with Dr. Peterson. . Current Inpatient Medications: Current Inpatient Medications Medications (Trade) Dose Ordered Sig/Lorenzo Route Start Time Stop Time Status Last Admin Dose Admin Al Hydrox/Mg Hydrox/Simethicone (Maalox Max Susp) 15 ml Q4H PRN PO 10/09/17 14:45 11/08/17 14:44 Magnesium Hydroxide (Milk Of Magnesia Susp) 30 ml Q6H PRN PO 10/09/17 14:45 11/08/17 14:44 Insulin Glargine (Lantus Solostar Pen) 5 units Q12 SC 10/09/17 21:00 11/08/17 20:59 10/11/17 08:53 5 UNITS Insulin Aspart (novoLOG ASPART) SLIDING SCALE If C... ACHS SC 10/09/17 16:30 11/08/17 16:29 10/11/17 13:08 2 UNITS Glucose (Glucose 40% Gel) 15-30 GRAMS 15 GRAMS... UD PRN PO 10/09/17 14:45 11/08/17 14:44 Glucose (Glucose Chew Tab) 4-8 Tablets 4 Tabl... UD PRN PO 10/09/17 14:45 11/08/17 14:44 Dextrose (Dextrose 50% 50ML Syringe) 25-50ML OF 50% DW IV FOR... UD PRN IV 10/09/17 14:45 11/08/17 14:44 Glucagon (Glucagon Inj) 1 mg UD PRN SQ 10/09/17 14:45 11/08/17 14:44 Acetaminophen (Tylenol Tab) 1,000 mg Q8H PRN PO 10/09/17 15:45 11/08/17 15:44 Folic Acid (Folvite Tab) 1 mg DAILY PO 10/10/17 08:00 11/09/17 08:59 10/11/17 08:45 1 MG Magnesium Oxide (Mag-Ox Tab) 400 mg DAILY PO 10/10/17 08:00 11/09/17 08:59 10/11/17 08:45 400 MG Metoprolol Succinate (Toprol Xl Tab) 25 mg QPM PO 10/09/17 21:00 11/08/17 20:59 10/10/17 21:38 25 MG Multivitamins (Multivitamin Tab) 1 tab DAILY PO 10/10/17 08:00 11/09/17 08:59 10/11/17 08:45 1 TAB Thiamine HCl (Vitamin B-1 Tab) 100 mg BID PO 10/09/17 20:00 11/08/17 20:59 10/11/17 08:45 100 MG Trazodone HCl (Desyrel Tab) 50 mg HS PO 10/09/17 21:00 11/08/17 20:59 10/10/17 21:38 50 MG Venlafaxine HCl (effeXOR TAB) 100 mg DAILY PO 10/10/17 08:00 11/09/17 08:59 10/11/17 08:45 100 MG Heparin Sodium (Porcine) (Heparin Sq 5000 Unit/0.5ml) 5,000 unit Q12 SQ 10/09/17 21:00 11/08/17 20:59 10/11/17 08:53 5,000 UNIT Amoxicillin (Amoxil Cap) 250 mg TID PO 10/11/17 14:00 10/16/17 13:59 10/11/17 14:25 250 MG
[2017-10-11] MEDS: METOPROLOL SUCC 25MG EXT REL TAB PO SCH (21:00)
[2017-10-11] MEDS: TRAZODONE HCL 50 MG TAB PO SCH (21:02)
[2017-10-12 07:33] VITALS: BP 97/64; PULSE 80; TEMP 36.3; O2SAT 94
[2017-10-12 08:11] LABS: CALCIUM 9.2 mg/dl (8.5-10.1); CREATININE 1.51 mg/dl (0.60-1.20)
[2017-10-12] MEDS: MULTIVITAMIN TAB PO SCH (08:32)
[2017-10-12] MEDS: THIAMINE HCL 100 MG TAB PO SCH (08:32)
[2017-10-12] MEDS: VENLAFAXINE HCL 50 MG TAB PO SCH (08:32)
[2017-10-12] MEDS: AMOXICILLIN 250 MG CAP PO SCH ×2 (08:33→14:01)
[2017-10-12] MEDS: MAGNESIUM OXIDE 400 MG TAB PO SCH (08:33)
[2017-10-12] MEDS: INSULIN ASPART 100 UNITS/ML 3 ML PEN SC SCH ×3 (09:20→16:29)
[2017-10-12] MEDS: HEPARIN SOD 5000 UNIT/0.5 ML CARP SQ SCH (09:23)
[2017-10-12] MEDS: INSULIN GLARGINE SOLOSTAR 100 UNITS/ML 3 ML PEN SC SCH (09:24)
[2017-10-12 13:34] VITALS: BP 97/64; PULSE 80; TEMP 36.3; O2SAT 94
--- NOTE | 2017-10-12 14:42 | Progress Note ---
Medicine Progress Note Date & Time of Visit: Oct 12, 2017 at 14:39 . Subjective CC: Follow-up visit for CHF, weakness, falls, and other problems. HPI: Doing well. No chest pain or SOB. No edema. No weakness nor lightheadedness. ROS: General- no fever, no chills Resp- no cough; no shortness of breath Cardiac- as noted above in HPI GI- no nausea, no vomiting, no diarrhea, no constipation - no dysuria . Objective Last 8 Hrs Date Time Temp Pulse Resp B/P (MAP) Pulse Ox O2 Delivery O2 Flow Rate FiO2 10/12/17 13:34 36.3 80 16 94 Room Air 10/12/17 08:30 Room Air 10/12/17 07:33 36.3 80 16 97/64 (75) 94 Room Air Physical Exam: General- lying in bed; no distress Head- resolving ecchymosis right forehead Lungs- few rales left base, improve with deep inspiration; no respiratory distress Cardiovascular- RRR; no gallop appreciated; + JVD; trace pretibial edema Abdomen- + bowel sounds, soft, nontender; ostomy Extremities- no cyanosis; no calf tenderness Neuro- alert, confused Skin- warm & dry; multiple excoriations . Laboratory Results: Last 24 Hours Test 10/11/17 16:53 10/11/17 20:11 10/12/17 07:04 10/12/17 07:57 Bedside Glucose 106 mg/dl 165 mg/dl 91 mg/dl Sodium Level 133 mmol/L Potassium Level mmol/L Chloride Level 98 mmol/L Carbon Dioxide Level 28 mmol/L Anion Gap 7.0 mmol/L Blood Urea Nitrogen 32 mg/dl Creatinine 1.51 mg/dl Est Creatinine Clear Calc Drug Dose 30.5 ml/min Estimated GFR () 39.3 Estimated GFR (Non- 33.9 BUN/Creatinine Ratio 21.0 Random Glucose 86 mg/dl Calcium Level 9.2 mg/dl Test 10/12/17 08:21 10/12/17 11:49 Potassium Level 4.2 mmol/L Bedside Glucose 137 mg/dl Assessment & Plan ACUTE KIDNEY INJURY / DEHYDRATION Serum creatinine at time of admission 1.9. CKD III with recent baseline of 1.1 - 1.2. Receiving diuretic therapy for CHF. Diuretics held. Received IV fluids. Serum creatinine today = 1.51. CHF Chronic left ventricular systolic heart failure with LVEF 20-25%. Appears to be compensated. Holding diuretics due to JEFFERY. Seen in consultation by Cardiology. They do not recommend pursuing ICD in light of comorbidities. ATRIAL FIBRILLATION Currently in NSR. CKD III JEFFERY as discussed above. DM TYPE 2 Fairly-well controlled. Hgb A1C 8.5. FBS today = 91. Lantus / NovoLog per protocol. COLON CANCER S/P resection with colostomy. DEMENTIA Monitor for delirium. HISTORY SEPTIC ARTHRITIS Afebrile. WEAKNESS / FALLS Multifactorial. PT / OT. Fall precautions. ABNORMAL UA UA showed leukocyte esterase, WBC's, yeast, no bacteria. Started on ceftriaxone. Urine culture growing Enterococcus. Changed therapy to amoxicillin per sensitivities. VTE PROPHYLAXIS SQ heparin. Ambulate. DISPOSITION Returning to [facility]. Internal Medicine follow-up with Dr. Peterson. . Current Inpatient Medications: Current Inpatient Medications Medications (Trade) Dose Ordered Sig/Lorenzo Route Start Time Stop Time Status Last Admin Dose Admin Al Hydrox/Mg Hydrox/Simethicone (Maalox Max Susp) 15 ml Q4H PRN PO 10/09/17 14:45 11/08/17 14:44 Magnesium Hydroxide (Milk Of Magnesia Susp) 30 ml Q6H PRN PO 10/09/17 14:45 11/08/17 14:44 Insulin Glargine (Lantus Solostar Pen) 5 units Q12 SC 10/09/17 21:00 11/08/17 20:59 10/12/17 09:24 5 UNITS Insulin Aspart (novoLOG ASPART) SLIDING SCALE If C... ACHS SC 10/09/17 16:30 11/08/17 16:29 10/11/17 21:05 1 UNITS Glucose (Glucose 40% Gel) 15-30 GRAMS 15 GRAMS... UD PRN PO 10/09/17 14:45 11/08/17 14:44 Glucose (Glucose Chew Tab) 4-8 Tablets 4 Tabl... UD PRN PO 10/09/17 14:45 11/08/17 14:44 Dextrose (Dextrose 50% 50ML Syringe) 25-50ML OF 50% DW IV FOR... UD PRN IV 10/09/17 14:45 11/08/17 14:44 Glucagon (Glucagon Inj) 1 mg UD PRN SQ 10/09/17 14:45 11/08/17 14:44 Acetaminophen (Tylenol Tab) 1,000 mg Q8H PRN PO 10/09/17 15:45 11/08/17 15:44 Folic Acid (Folvite Tab) 1 mg DAILY PO 10/10/17 08:00 11/09/17 08:59 10/12/17 08:32 1 MG Magnesium Oxide (Mag-Ox Tab) 400 mg DAILY PO 10/10/17 08:00 11/09/17 08:59 10/12/17 08:33 400 MG Metoprolol Succinate (Toprol Xl Tab) 25 mg QPM PO 10/09/17 21:00 11/08/17 20:59 10/10/17 21:38 25 MG Multivitamins (Multivitamin Tab) 1 tab DAILY PO 10/10/17 08:00 11/09/17 08:59 10/12/17 08:32 1 TAB Thiamine HCl (Vitamin B-1 Tab) 100 mg BID PO 10/09/17 20:00 11/08/17 20:59 10/12/17 08:32 100 MG Trazodone HCl (Desyrel Tab) 50 mg HS PO 10/09/17 21:00 11/08/17 20:59 10/11/17 21:02 50 MG Venlafaxine HCl (effeXOR TAB) 100 mg DAILY PO 10/10/17 08:00 11/09/17 08:59 10/12/17 08:32 100 MG Heparin Sodium (Porcine) (Heparin Sq 5000 Unit/0.5ml) 5,000 unit Q12 SQ 10/09/17 21:00 11/08/17 20:59 10/12/17 09:23 5,000 UNIT Amoxicillin (Amoxil Cap) 250 mg TID PO 10/11/17 14:00 10/16/17 13:59 10/12/17 14:01 250 MG
[2017-10-12] MEDS ORDERED: FURO-85 PO (15:01)
[2017-10-12] MEDS ORDERED: METO-478 PO (15:01)
--- NOTE | 2017-10-12 15:05 | Discharge Instructions ---
Discharge Instructions Date of Service Oct 12, 2017. Admission Reason for Admission: Dehydration, Falls . Discharge Discharge Diagnosis / Problem: dehydration, falls, UTI, CHF Discharge Goals Goal(s): Improve disease control Activity Recommendations Activity Level: Assistance Required Therapies: Physical Therapy, Occupational Therapy . Additional Information Patient informed of condition: Yes Advance Directives: No DNR: Yes Level of Care: Skilled Communicable Disease: No Prognosis: Stable Oxygen at (LPM): 2 LPM Palomino Catheter: No Instructions / Follow-Up Instructions / Follow-Up Thank you for receiving this patient in transfer. Please call if you have any questions. Chester Markham . Current Hospital Diet Patient's current hospital diet: Diabetes Type 2 Diet Discharge Diet Recommended Diet: AHA Diet (Heart Healthy), Diabetes Type 2 Diet Pending Studies Studies pending at discharge: no Physician Orders On Transfer Special Precautions: fall precautions . Vital Signs: daily . Weigh: daily . Additional Orders: Per Dr. Peterson . Laboratory Results Hemoglobin A1c Test 10/10/17 05:34 Range/Units Estimated Average Glucose 197 mg/dl Hemoglobin A1c 8.5 H 4.5-5.6 % Medical Emergencies . Who to Call and When: Medical Emergencies: If at any time you feel your situation is an emergency, please call 911 immediately. . Non-Emergent Contact Non-Emergency issues call your: Primary Care Provider, Hospital Doctor . . "Provider Documentation" section prepared by Chester Markham. . Core Measure Problem Core Measures: None
--- NOTE | 2017-10-12 15:12 | Discharge Summary ---
Discharge Summary Date of Service Oct 12, 2017. Discharge Summary Admission Date: Oct 09, 2017 at 14:55 Discharge Date: Oct 12, 2017 Discharge Disposition: intermediate facility ([facility]) Principal Diagnosis: dehydration / acute kidney injury OTHER ACUTE DIAGNOSES: Falls. Urinary tract infection (Enterococcus faecalis) (present on admission) . 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 Procedures: IV fluids . Consultations: Cardiology with Dr. Grubbs. . Pending Studies/Follow-Up: Please monitor basic metabolic profile. . Medication Reconciliation New Medications: Furosemide (Lasix) 20 Mg Tab 20 MG PO DAILY PRN for as directed for 999 Days, TAB PRN weight gain > 2 lbs, edema, shortness of breath Metoprolol Succinate (Toprol Xl) 25 Mg Tab 12.5 MG PO DAILY for 999 Days, TAB Hold HR < 60 or SYS BP < 95 Continued Medications: Acetaminophen (Tylenol) 500 Mg Tab 2 TAB PO Q8 PRN for Mild Pain Clotrimazole Vaginal (Clotrimazole) 1 % Cre 1 APPLN TOP DAILY Apply topically to bilateral breasts x 14 days, follow with stoma powder. Folic Acid (Folvite) 1 Mg Tab 1 MG PO DAILY Insulin Glargine (Lantus) 100 Unit/Ml Inj 5 UNITS SC HS 2100 Insulin Lispro (Human) (Humalog) 100 Unit/Ml Inj 10 UNITS SC QPM WITH SUPPER Ipratropium Steger (Ipratropium Steger) 0.5 Mg/2.5 Ml Nebu 0.5 MG INH Q6 PRN for SOB/Wheezing for 15 Days Magnesium Oxide (Mag-Ox) 400 Mg Tab 400 MG PO DAILY, TAB 1200 Multivitamin (Multivitamin) Tab 1 TAB PO DAILY Spironolactone (Aldactone) 25 Mg Tab 25 MG PO DAILY HOLD IF BP IS LESS THAN 95 Terbinafine Hcl (Topical) (Lamisil At) 1 % Cre 1 APPLN TOP HS to bilateral feet and toes Thiamine Hcl (Vitamin B-1) 100 Mg Tab 100 MG PO BID Trazodone Hcl (Trazodone) 50 Mg Tab 50 MG PO HS Venlafaxine Hcl (Effexor) 100 Mg Tab 100 MG PO DAILY Discontinued Medications: Furosemide (Furosemide) 20 Mg Tab 20 MG PO QAM for 30 Days, #30 TAB Metolazone (Zaroxolyn) 2.5 Mg Tab 2.5 MG PO 2XWK TU & THUR Metoprolol Succinate (Toprol Xl) 25 Mg Tabcr 25 MG PO QPM Admission Information HPI (per Admitting provider): This is a 72 year old female with a PMH of dementia, significant cardiomyopathy with LVEF of 20-25%, hx. of colorectal CA s/p resection/colostomy, HTN, DM2 - presents with multiple falls. As per daughter, she has been having recurrent UTIs and multiple falls; she is a resident at [facility]. She had a fall earlier in the month, on September 26, where she hit her face. She had another fall, unwitnessed this morning (10/09) - she fell and was sent over because of vomiting and +/- fever. She denies any symptoms now though she is a poor historian due to underlying dementia. Daughter is in the room and most of the history is obtained from her. As per daughter, patient was told to get an evaluation for a possible pacemaker/defibrillator implantation due to multiple falls and EF of 20-25%. Otherwise, patient seems to be in no distress, resting comfortably. . Physical Exam (per Admitting): General Appearance: WD/WN, no apparent distress, + pertinent finding ( underlying dementia) Head: normocephalic, atraumatic, + pertinent finding (+brusiing around R periorbital region) ENT: hearing grossly normal Respiratory/Chest: lungs clear, normal breath sounds, no respiratory distress, no accessory muscle use Cardiovascular: regular rate, rhythm, no edema, no gallop, no JVD, no murmur , normal peripheral pulses Abdomen/GI: + pertinent finding (+ostomy) Extremities/Musculoskelatal: normal inspection, no calf tenderness, normal capillary refill, no pedal edema, normal range of motion Neurologic/Psych: alert, normal mood/affect, + pertinent finding (+ underlying dementia) Skin: normal color Lymphatic: no adenopathy Hospital Course ACUTE KIDNEY INJURY / DEHYDRATION Serum creatinine at time of admission 1.9. CKD III with recent baseline of 1.1 - 1.2. Receiving diuretic therapy for CHF. Diuretics held. Received IV fluids. Serum creatinine day of discharge was 1.51. CHF Chronic left ventricular systolic heart failure with LVEF 20-25%. Appears to be compensated. Holding diuretics due to JEFFERY. Seen in consultation by Cardiology. They do not recommend pursuing ICD in light of comorbidities. Discharge on spironolactone 25 mg daily, furosemide 20 mg daily PRN, metoprolol succinate 12.5 mg daily. No SUNG or ARB due to renal insufficiency and hypotension. ATRIAL FIBRILLATION Currently in NSR. CKD III JEFFERY as discussed above. DM TYPE 2 Fairly-well controlled. Hgb A1C 8.5. FBS day of discharge was 91. Lantus / NovoLog per protocol. COLON CANCER S/P resection with colostomy. HISTORY SEPTIC ARTHRITIS Afebrile. WEAKNESS / FALLS Multifactorial. PT / OT. Fall precautions. ABNORMAL UA UA showed leukocyte esterase, WBC's, yeast, no bacteria. Started on ceftriaxone. Urine culture grew Enterococcus faecalis. Changed therapy to amoxicillin per sensitivities. VTE PROPHYLAXIS SQ heparin. Ambulate. DISPOSITION Returning to [facility]. Internal Medicine follow-up with Dr. Peterson. . Total time spent on discharge = 45 min. This includes examination of the patient, discharge planning, medication reconciliation, and communication with other providers. . Discharge Instructions Date of Service Oct 12, 2017. Admission Reason for Admission: Dehydration, Falls . Discharge Discharge Diagnosis / Problem: dehydration, falls, UTI, CHF Discharge Goals Goal(s): Improve disease control Activity Recommendations Activity Level: Assistance Required Therapies: Physical Therapy, Occupational Therapy . Additional Information Patient informed of condition: Yes Advance Directives: No DNR: Yes Level of Care: Skilled Communicable Disease: No Prognosis: Stable Oxygen at (LPM): 2 LPM Palomino Catheter: No Instructions / Follow-Up Instructions / Follow-Up Thank you for receiving this patient in transfer. Please call if you have any questions. Chester Markham . Current Hospital Diet Patient's current hospital diet: Diabetes Type 2 Diet Discharge Diet Recommended Diet: AHA Diet (Heart Healthy), Diabetes Type 2 Diet Pending Studies Studies pending at discharge: no Physician Orders On Transfer Special Precautions: fall precautions . Vital Signs: daily . Weigh: daily . Additional Orders: Per Dr. Peterson . Laboratory Results Hemoglobin A1c Test 10/10/17 05:34 Range/Units Estimated Average Glucose 197 mg/dl Hemoglobin A1c 8.5 H 4.5-5.6 % Medical Emergencies . Who to Call and When: Medical Emergencies: If at any time you feel your situation is an emergency, please call 911 immediately. . Non-Emergent Contact Non-Emergency issues call your: Primary Care Provider, Hospital Doctor . . "Provider Documentation" section prepared by Chester Markham. . Core Measure Problem Core Measures: None . Additional Copies To Moses Peterson M.D.
[2017-10-12] MEDS ORDERED: AMX250 PO (15:13)
[2017-10-12 16:29] VITALS: BP 109/73; PULSE 103; TEMP 36.5; O2SAT 95
== END 2017-10-12 17:00 | DRG 92 ==
LOC: EDBD 11:17 → C.EDC 11:21 → C.MS4W 14:55 → ENRESERV 15:20 → C.MS4W 10-10 19:10
PROVIDERS: ADMIT Family Medicine; ATTEND Hospitalist
DX: R29.6 Repeated falls (principal); I50.42 Chronic combined systolic (congestive) and diastolic (congestive) heart failure; N39.0 Urinary tract infection, site not specified; I42.9 Cardiomyopathy, unspecified; N17.9 Acute kidney failure, unspecified; F32.9 Major depressive disorder, single episode, unspecified; E11.9 Type 2 diabetes mellitus without complications; Z66 Do not resuscitate; I44.7 Left bundle-branch block, unspecified; N18.3 Chronic kidney disease, stage 3 (moderate); F03.90 Unspecified dementia, unspecified severity, without behavioral disturbance, psychotic disturbance, mood disturbance, and anxiety; Z93.3 Colostomy status; Z87.891 Personal history of nicotine dependence; Z79.4 Long term (current) use of insulin; Z85.038 Personal history of other malignant neoplasm of large intestine; Z80.9 Family history of malignant neoplasm, unspecified

== ENCOUNTER 2017-10-30 07:38 | Inpatient (IN) | payer BC, OTHER ==
[~2017-10-30] VITALS: Ht 162.6 cm; Wt 58.6 kg
[2017-10-30] VITALS (14 sets, daily range): BP systolic 90–100; BP diastolic 55–75; PULSE 84–101; TEMP 36.2–36.3; O2SAT 92–95; Ht 162.6 cm; Wt 58.6 kg
[~2017-10-30 07:38] MED LIST changes: -ALPR-411 PO; +AMX250 PO; -BISA10SU3 PR; -BUPR75TA20 PO; +FOLI1TAB8 PO; +FURO-85 PO; -LIDO4CRE10 TP; -LSX20 PO; +METO-478 PO; -METO25TA3 PO; -MOMLX PO; +MULT-506 PO; -SELE1SHA3 TOP; -SENN-61 PO; -SODI1ENE PR; +SPIR25TA PO; -SPRIN INH; -STOMAHESIVE TOP; +THIA100T11 PO; +TRAZ50TA35 PO; -VENL-271 PO; +VENL100T2 PO; -VNTHFA/IN INH; -XPNINS31 INH
[2017-10-30] MEDS ORDERED: SODIUM CHLORIDE 0.9% 1000ML 2,000 ML IV STA (07:49)
[2017-10-30] MEDS ORDERED: ALBUTEROL 0.083% NEBU SOLN 3 ML VIAL INH STA (07:57)
[2017-10-30] MEDS ORDERED: PIPERACILLIN/TAZOBACTAM 4.5 GM/100ML D5W IV STA (07:57)
[2017-10-30] MEDS ORDERED: IPRASOL4 INH (08:06)
[2017-10-30] MEDS ORDERED: METO25TA4 PO (08:06)
--- NOTE | 2017-10-30 08:17 | DIAGNOSTIC IMAGING REPORT ---
CHEST ONE VIEW PORTABLE HISTORY: fever COMPARISON: Chest 10/09/2017. FINDINGS: The heart remains mildly enlarged. Old, healed left-sided rib fractures. No pleural effusions. No pneumothorax. Questionable left apical pleural reflection is likely due to the adjacent rib. Left subclavian Port-A-Cath terminates at the distal SVC. Diffuse interstitial and vascular thickening has progressed. There is also focal consolidation within the right upper lobe. IMPRESSION: 1. Right upper lobe focal consolidation. This likely represents a pneumonia. Recommend one month chest x-ray follow-up to ensure resolution. 2. Cardiomegaly with interstitial and vascular thickening suggestive mild pulmonary edema. Electronically signed by: Jack Smith M.D. 10/30/2017 8:16 AM Dictated Date/Time: 10/30/2017 8:15 AM
[2017-10-30 08:21] LABS: ISTAT CREATININE 1.8 mg/dl (0.6-1.3); ISTAT IONIZED CALCIUM 1.12 mmol/l (1.12-1.32); ISTAT POTASSIUM 3.2 mEq/L (3.3-5.0)
[2017-10-30 08:24] LABS: HEMATOCRIT 49.8 % (37-47); HEMOGLOBIN 16.8 g/dL (12.0-16.0); MEAN CORPUSCULAR HEMOGLOBIN 31.7 pg (25-34); MEAN CORPUSCULAR HGB CONC 33.7 g/dl (32-36); MEAN PLATELET VOLUME 11.9 fL (7.4-10.4); NUCLEATED RED BLOOD CELL ABS 0.03 K/uL (0-0); PLATELET COUNT 104 K/uL (130-400); RED CELL DISTRIBUTION WIDTH CV 18.8 % (11.5-14.5); WHITE BLOOD COUNT 11.52 K/uL (4.8-10.8)
[2017-10-30 08:38] LABS: INR 1.7 (0.9-1.1)
[2017-10-30 08:45] LABS: ALBUMIN 2.2 gm/dl (3.4-5.0); CALCIUM 9.7 mg/dl (8.5-10.1); CREATININE 1.95 mg/dl (0.60-1.20); POTASSIUM 3.4 mmol/L (3.5-5.1)
[2017-10-30 08:53] LABS: BASO % 0.6 %; BASO ABS # 0.07 K/uL (0-0.2); CKMB 1.4 ng/ml (0.5-3.6); IG# 0.12 K/uL (0.00-0.02); LYMPH % 7.8 %; MONO % 4.5 %; MONO ABS # 0.52 K/uL (0.11-0.59); NEUT % 86.1 %; NEUT ABS # 9.91 K/uL (1.4-6.5); TOTAL PROTEIN 7.1 gm/dl (6.4-8.2)
--- NOTE | 2017-10-30 09:04 | DIAGNOSTIC IMAGING REPORT ---
CT HEAD WITHOUT CONTRAST (CT) CLINICAL HISTORY: Acute change in mental status COMPARISON STUDY: October 09, 2017 TECHNIQUE: Axial CT of the brain is performed from the vertex to the skull base. IV contrast was not administered for this examination. A dose lowering technique was utilized adhering to the principles of ALARA. CT DOSE: FINDINGS: No intra or extra-axial mass lesions are visualized. There is no CT evidence of acute cortical infarction. There is no evidence of midline shift. There is no acute hemorrhage. No calvarial fractures are visualized. There are patchy white matter hypodensities likely on a small vessel basis. There is no evidence of pathologic ventricular dilatation. There are bilateral maxillary sinus air-fluid levels. There are sphenoid sinus air-fluid levels. There is opacification of several ethmoid air cells. There is trace fluid in the frontal sinuses. IMPRESSION: 1. Interval development of pansinus disease 2. Otherwise no significant change from the preceding examination Electronically signed by: Sherwin Boone M.D. 10/30/2017 9:02 AM Dictated Date/Time: 10/30/2017 9:00 AM
[2017-10-30 09:07] LABS: INFLUENZA B ANTIGEN Neg for Influ B (NEG)
[2017-10-30] MEDS ORDERED: OPTIRAY 320 IV PRN (09:15)
--- NOTE | 2017-10-30 09:16 | DIAGNOSTIC IMAGING REPORT ---
CHEST CTA for PULMONARY ARTERIES CT DOSE: 891.04 mGy.cm HISTORY: Hypoxia. Hypotension. Tachycardia. TECHNIQUE: Multiaxial CT images of the chest were performed following the intravenous administration of contrast to evaluate the pulmonary arteries. Maximal intensity projection images were also obtained. A dose lowering technique was utilized adhering to the principles of ALARA. COMPARISON STUDY: Chest CT 08/06/2017. FINDINGS: There is a new mild anterior wedge-shaped compression fracture at T12. This demonstrates carotid edges and favors a subacute to chronic fracture. No associated paravertebral edema. No significant contrast within the thoracic aorta to assess for a dissection. The thoracic aorta is normal in caliber. The visualized liver and spleen are unremarkable. Peripheral calcified 8 mm hypodense lesion within the left kidney. This is only partially visualized. This is technically too small to characterize but favors a cyst. Retrograde opacification of the hepatic veins. Thickening of the right adrenal gland, unchanged. The heart remains enlarged. No pleural or pericardial effusions. Left subclavian Port-A-Cath terminates in the distal SVC. Old, healed left-sided rib fractures. Partially calcified subcarinal lymph nodes. Multiple prominent mediastinal lymph nodes are not significantly changed. The main pulmonary artery remains mildly distended consistent with pulmonary arterial hypertension. The bilateral lower lobe segmental and subsegmental pulmonary arteries are nondiagnostic due to the motion artifact. No filling defects seen within the remaining pulmonary arteries to suggest pulmonary embolus. No pneumothorax. The central airways are patent. Suboptimal evaluation of the lungs due to respiratory motion. Moderate emphysema. Mild diffuse interstitial thickening. This is likely chronic. Multifocal areas of consolidation seen within the right lung. This is most pronounced within the right upper lobe. There are also a few small patchy airspace opacities within the left lower lobe. IMPRESSION: 1. No evidence for pulmonary embolus with limitations as described above. 2. Multifocal consolidations within the lungs as described above most pronounced within the right upper lobe. This likely represents a multifocal pneumonia. Recommend follow-up to ensure resolution. 3. Emphysema. 4. Mild diffuse interstitial thickening which is likely chronic. 5. Cardiomegaly. 6. Subacute to chronic mild anterior wedge-shaped compression fracture at T12. Electronically signed by: Jack Smith M.D. 10/30/2017 9:14 AM Dictated Date/Time: 10/30/2017 9:03 AM
[2017-10-30] MEDS ORDERED: LEVAQUIN 750MG / 150ML D5W IV ONE (09:30)
[2017-10-30] MEDS ORDERED: SODIUM CHLORIDE 0.9% 500ML 500 ML IV STA (09:31)
[2017-10-30] MEDS ORDERED: NOREPINEPHRINE BIT INJ 8 MG in DEXTROSE 5% 500ML 500 ML IV STA (09:31)
--- NOTE | 2017-10-30 10:36 | DIAGNOSTIC IMAGING REPORT ---
CHEST ONE VIEW PORTABLE CLINICAL HISTORY: Central line placement COMPARISON STUDY: August 29, 2018 FINDINGS: The heart is mildly enlarged. There is a left subclavian A-Port catheter present. Since the prior study, a right internal jugular central venous catheter has been placed. The tip projects over the atriocaval junction. There is no pneumothorax. There are persistent airspace opacities, most pronounced within the right upper lobe, and right lower lobe. There is diffuse interstitial thickening.[ IMPRESSION: 1. No evidence of pneumothorax status post placement of right internal jugular central venous catheter. The tip projects over the atriocaval junction. 2. Multifocal airspace opacities, most pronounced within the right upper lobe and right lower lobe Electronically signed by: Sherwin Boone M.D. 10/30/2017 10:34 AM Dictated Date/Time: 10/30/2017 10:33 AM
[2017-10-30] MEDS ORDERED: POTASSIUM CHLR 20 MEQ / WTR 20 MEQ in PREMIXED WATER 100 ML IV STA (10:37)
[2017-10-30] MEDS ORDERED: ACETAMINOPHEN 325 MG TAB PO PRN (10:45)
[2017-10-30] MEDS ORDERED: ONDANSETRON INJ 2 MG/ML 2 ML VIAL IV PRN (10:45)
[2017-10-30] MEDS ORDERED: ALUMINUM/MAGNESIUM/SIMETH (MAALOX MAX) 30 ML UDC PO PRN (10:45)
[2017-10-30] MEDS ORDERED: ICU PROTOCOL FOR HYPERGLYCEMIA PRN (10:45)
[2017-10-30] MEDS ORDERED: PIPERACILL/TAZOBAC CONSULT ACTIVE PRN (10:45)
[2017-10-30] MEDS ORDERED: ALBUT/IPRATROP 3MG/0.5MG NEB 3 ML VIAL INH PRN (10:45)
[2017-10-30] MEDS ORDERED: LEVOFLOXACIN / D5W 750 MG in PREMIXED IN D5W 150 ML IV SCH (10:45)
[2017-10-30] MEDS ORDERED: NITROGLYCERIN 0.4 MG SL PER TAB CHARGE SL PRN (10:45)
[2017-10-30] MEDS ORDERED: VANCOMYCIN CONSULT ACTIVE PRN (10:45)
[2017-10-30] MEDS ORDERED: MAGNESIUM SULFATE 1GM / D5W 1 GM in PREMIXED IN D5W 100 ML IV SCH (11:00)
--- NOTE | 2017-10-30 11:34 | HISTORY & PHYSICAL EXAMINATION ---
DATE OF ADMISSION: 10/30/2017 CHIEF COMPLAINT: Altered mental status. HISTORY OF PRESENT ILLNESS: This is a 72-year-old female with past medical history significant for dementia, longterm resident from [facility], history of cardiomyopathy with EF around 20-25%, history of colorectal carcinoma, status post resection and colostomy, hypertension, diabetes, history of falls and recurrent UTIs. She was in the hospital on 10/09/2017 for falls and UTI with enterococcus and was discharged back to [facility], and at [facility], as per daughter, last several days her dementia seemed to be getting progressed and worsened. Yesterday, daughter was called, the patient was having cough and temperature and was hypoxic and she was put on oxygen. And as she was not getting better, she was brought to the ER today. In the ER, she was found to be hypotensive, hypoxic and multifocal pneumonia. Daughter is okay with central lines and pressors but no intubation, no CPR. She is okay with, if needed, 1 or 2 shocks. The patient can tell her name, looks dry, obeys simple commands but does not answer any other questions. Denies any pain currently. Blood pressure was in the 70s when she came in. After fluid bolus, blood pressure is in the 90s. Could not obtain any other review of symptoms as the patient has dementia and somewhat altered currently. ALLERGIES: TO INVANZ NICKEL. PAST MEDICAL HISTORY: As mentioned above. PAST SURGICAL HISTORY: Status post colectomy. FAMILY HISTORY: Significant for cancer. SOCIAL HISTORY: Former smoker. No drug use. Currently at longterm. MEDICATIONS: The patient is on Lasix 20 mg p.o. daily p.r.n. for weight gain greater than 2 pounds, Toprol-XL 12.5 mg p.o. daily, Tylenol 1000 mg p.o. q. 8 hours p.r.n., clotrimazole 1% cream apply topically, folic acid 1 mg p.o. daily, insulin 5 units at bedtime, Insulin Humalog 10 units q.p.m. with supper, ipratropium bromide 0.5 mg inhalation q. 6 hours p.r.n. for shortness of breath and wheezing, magnesium oxide 400 mg p.o. daily, multivitamin 1 tablet daily, Aldactone 25 mg p.o. daily, terbinafine to apply topically at bedtime in bilateral feet, thiamine 100 mg p.o. b.i.d., trazodone 50 mg p.o. at bedtime, Effexor 100 mg p.o. daily. REVIEW OF SYSTEMS: Unobtainable at this time. PHYSICAL EXAMINATION: GENERAL: The patient is somewhat lethargic, oriented to name only. VITAL SIGNS: Temperature 36.6, pulse 90, respiratory rate 20, blood pressure when she came in was 78/51, currently 97/60, oxygen 96% on 3 liters. HEENT: No pallor, no icterus. Pupils equal, round and reactive to light. Oral mucosa dry. NECK: No JVD, no neck masses. CARDIOVASCULAR: S1, S2 heard, regular rate and rhythm, no murmur, no gallop. RESPIRATORY: Normal AP diameter. No accessory muscle use. No wheezing, no crackles appreciated. ABDOMEN: Soft. Bowel sounds present. Nontender. No distention. CENTRAL NERVOUS SYSTEM: Somewhat lethargic, oriented to name only, obeys simple commands. EXTREMITIES: No edema, no erythema. LABORATORY DATA: WBC 11.5, hemoglobin 16.8, hematocrit 49.8, platelets 104. Sodium 152, potassium 3.4, chloride 116, bicarbonate 25, BUN 43, creatinine 1.9, serum glucose 65. Nfmyh-tu-waot lactic acid 3.5. Calcium 9.7, ionized calcium 1.1, magnesium 1.7, total bilirubin 1.3, direct bilirubin 0.9, AST 46, ALT 35, alkaline phosphatase 123, total creatine kinase 31, CK-MB 1.4, troponin 0.16. PT 17.8, INR 1.7. Urinalysis negative. Influenza negative. CT of the head, interval development of parasinus disease, otherwise no significant change from the preceding examination. CT of the chest, no evidence of pulmonary embolus, multifocal consolidations in the lungs, most pronounced in right upper lobe, multifocal pneumonia, emphysema, cardiomegaly, subacute to chronic mild anterior wedge shape compression fracture at T12. EKG, sinus rhythm with a rate of 94, left bundle-branch block, QTC prolonged at 420. No acute ST changes seen. ASSESSMENT AND PLAN: This 72-year-old female with dementia, presents with severe sepsis from multifocal pneumonia. 1. Severe sepsis with lactic acid 3.5, elevated white count, multifocal pneumonia on CAT scan, hypotension, hypoxia and tachycardia. The patient is status post central line at right internal jugular, received 1.5 liters fluid bolus in the ER. Cannot give aggressive fluids as the patient's EF is only 20-25%. We will continue IV fluids ns@100ml/hr, and if necessary, we will start on pressors. She has a recent history of urinary tract infection with enterococcus.Will treat with IV doxycycline, Zosyn and vancomycin. Follow the cultures. Follow repeat lactic acid. Follow hemodynamics. The patient is DNR/DNI but okay for a couple of shocks if needed. Close monitoring in the ICU for now. 2. Hypernatremia. We are holding home diuretics. Getting the fluids as above. We will follow the labs. 3. Hypokalemia and hypomagnesemia. We will replace. 4. Qt prolongation. We will repeat EKG. 5. History of chronic systolic heart failure with EF of only 20-25%, status post ICD. It was not interrogated last admission because of multiple comorbid conditions. Holding the diuretics as above. Blood pressure is low, we will hold the Toprol. Monitor for any volume overload. 6. Colon cancer, status post resection. Colostomy tube is working okay. 7. Diabetes type 2. Last HgA1c was 8.5. On Lantus and NovoLog. We will monitor the blood sugars. 8. Acute renal failure on chronic kidney disease. Baseline creatinine about 1.1 to 1.2. Creatinine of 1.9 from above. Holding diuretics. On fluids. We will monitor the labs. 10. History of atrial fibrillation, currently normal sinus rhythm. 11. History of weakness, multifactorial. PT/OT when stable and the patient is a longterm resident. 12. Deep vein thrombosis prophylaxis. Heparin subcu. DISPOSITION: Admit to ICU. Code status DNR. Social service to help with discharge planning. Total critical care time 40 minutes. MTDD
[2017-10-30] MEDS: INSULIN ASPART 100 UNITS/ML 3 ML PEN SC SCH ×2 (12:00→18:24)
[2017-10-30] MEDS ORDERED: SODIUM CHLORIDE 0.9% 1000ML 1,000 ML IV SCH (12:08)
[2017-10-30] MEDS ORDERED: GLUCOSE 10 TABS/TUBE PO PRN (12:15)
[2017-10-30] MEDS ORDERED: DEXTROSE 50% 50 ML SYR IV PRN (12:15)
[2017-10-30] MEDS ORDERED: GLUCAGON FOR INJ 1 MG VIAL SQ PRN (12:15)
[2017-10-30] MEDS ORDERED: GLUCOSE 40% GEL 15 GM TUBE PO PRN (12:15)
[2017-10-30] MEDS ORDERED: VANCOMYCIN INJ 1,250 MG in SODIUM CHLORIDE 0.9% 250ML 250 ML IV ONE (13:00)
[2017-10-30] MEDS: POTASSIUM CHLR 10MEQ / WTR IV SCH ×2 (13:06→14:02)
[2017-10-30] MEDS ORDERED: PIPERACILL/TAZOBAC IV 4.5 GM in DEXTROSE 5% 100ML 100 ML IV SCH (14:00)
[2017-10-30] MEDS: PIPERACILL/TAZOBAC IV 3.375 GM in DEXTROSE 5% 100ML IV SCH ×2 (14:03→21:06)
--- NOTE | 2017-10-30 14:04 | EMERGENCY ROOM VISIT NOTE ---
History Report prepared by Jennifer: Luis Alberto Dugan Under the Supervision of: Dr. Steven Randall D.O. First contact with patient: 07:42 Stated Complaint: CHANGE IN MENTAL STATUS History of Present Illness The patient is a 72 year old female who presents to the Emergency Room with complaints of persistent altered mental status starting this morning. Per the EMS report, the patient lives at [facility], and she has not been herself today. She refused her oxygen last night. The patient denies any headache, chest pain, and abdominal pain. Per the director case management, the patient was starting to have URI symptoms, and her PCP ordered Rocephin and IV fluids, though they were unable to get an IV. They said that during the night she had poor appetite and was more confused. The patient is a DNR and DNI. History is limited secondary to altered mental status. Source of History: patient, EMS, other (director case management) History Limited By: AMS Onset: this morning Position: other (global) Quality: other (altered mental status) Timing: other (persistent) Associated Symptoms: No headache, No chest pain, No abdominal pain Review of Systems HPI is limited secondary to altered mental status. 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 (12) Severe sepsis (13) Skin problem Surgical Problems: (1) S/P colectomy Family History Cancer Social History Smoking Status: Former Smoker Drug Use: none Housing Status: detention Occupation Status: retired Current/Historical Medications Scheduled Folic Acid (Folvite), 1 MG PO DAILY Insulin Glargine (Lantus), 5 UNITS SC HS Insulin Lispro (Human) (Humalog), 10 UNITS SC QPM Ipratropium-Albuterol (Duoneb), 1 TREATMENT INH Q6 Magnesium Oxide (Mag-Ox), 400 MG PO DAILY Metoprolol Succinate (Toprol Xl), 12.5 MG PO DAILY Multivitamin (Multivitamin), 1 TAB PO DAILY Spironolactone (Aldactone), 25 MG PO DAILY Thiamine Hcl (Vitamin B-1), 100 MG PO BID Trazodone Hcl (Trazodone), 50 MG PO HS Venlafaxine Hcl (Effexor), 100 MG PO DAILY Scheduled PRN Acetaminophen (Tylenol), 2 TAB PO Q8 PRN for Mild Pain Ipratropium [place] (Ipratropium [place]), 0.5 MG INH Q6 PRN for SOB/Wheezing Allergies Coded Allergies: Nickel (Unverified Allergy, Unknown, ., 10/30/17) Ertapenem (Unverified Adverse Reaction, Intermediate, may have had elevated LFT's secondary to ertapenem..., 10/30/17) Patient received Vancomycin + Ertapenem in past for septic joint. She developed LFT elevations on this therapy. She had experienced ADHF, cardiogenic shock just prior to LFT elevation. Provider felt LFT elevations most likely due to shock, hepatic congestion but could not exclude ertapenem + venlafaxine as possible causes. Ertapenem was held and vanco was continued with Rocephin. LFTs improved. Physical Exam Vital Signs Date Time Temp Pulse Resp B/P (MAP) Pulse Ox O2 Delivery O2 Flow Rate FiO2 10/30/17 10:27 36.5 90 20 97/69 96 Nasal Cannula 3.0 10/30/17 10:08 170 10/30/17 09:48 83 20 93/60 96 Room Air 10/30/17 09:30 95 26 78/51 96 Nasal Cannula 3.0 10/30/17 09:26 93 26 81/51 93 Nasal Cannula 3.0 10/30/17 09:02 94 24 97/61 93 Nasal Cannula 3.0 10/30/17 08:23 91 25 95 Nasal Cannula 3.0 10/30/17 08:21 88/61 10/30/17 08:16 88/61 Nasal Cannula 3.0 10/30/17 08:08 93 20 94 Nasal Cannula 3.0 10/30/17 08:01 96/65 Nasal Cannula 3.0 10/30/17 07:53 91 25 94 Nasal Cannula 3.0 10/30/17 07:53 103 10/30/17 07:49 93/61 Nasal Cannula 3.0 10/30/17 07:47 36.6 105 26 85/59 92 Nasal Cannula 4.0 10/30/17 07:47 92 Nasal Cannula 4.0 10/30/17 07:47 92 Nasal Cannula 4.0 10/30/17 07:43 85/59 Nasal Cannula 3.0 Physical Exam GENERAL: Laying in bed, ill-appearing, and in moderate distress. EYE EXAM: normal conjunctiva. PERRL and EOM's grossly intact. OROPHARYNX: no exudate, no erythema, lips, buccal mucosa, and tongue normal and mucous membranes are moist NECK: supple, no nuchal rigidity, no adenopathy, non-tender LUNGS: Coarse bilaterally. Normal chest wall mechanics HEART: no murmurs, S1 normal and S2 normal ABDOMEN: abdomen soft, non-tender, normo-active bowel sounds, no masses, no rebound or guarding. BACK: Back is symmetrical on inspection and there is no deformity, no midline tenderness, no CVA tenderness. SKIN: no rashes and no bruising UPPER EXTREMITIES: upper extremities are grossly normal. LOWER EXTREMITIES: No pitting edema. NEURO EXAM: Alert, able to state name and intermittently follows commands, no obvious focal deficits. Medical Decision & Procedures ER Provider Diagnostic Interpretation: Radiology results as stated below per my review and the radiologist's interpretation: CHEST ONE VIEW PORTABLE HISTORY: fever COMPARISON: Chest 10/09/2017. FINDINGS: The heart remains mildly enlarged. Old, healed left-sided rib fractures. No pleural effusions. No pneumothorax. Questionable left apical pleural reflection is likely due to the adjacent rib. Left subclavian Port-A-Cath terminates at the distal SVC. Diffuse interstitial and vascular thickening has progressed. There is also focal consolidation within the right upper lobe. IMPRESSION: 1. Right upper lobe focal consolidation. This likely represents a pneumonia. Recommend one month chest x-ray follow-up to ensure resolution. 2. Cardiomegaly with interstitial and vascular thickening suggestive mild pulmonary edema. Electronically signed by: Jack Smith M.D. 10/30/2017 8:16 AM Dictated Date/Time: 10/30/2017 8:[address] HEAD WITHOUT CONTRAST (CT) CLINICAL HISTORY: Acute change in mental status COMPARISON STUDY: October 09, 2017 TECHNIQUE: Axial CT of the brain is performed from the vertex to the skull base. IV contrast was not administered for this examination. A dose lowering technique was utilized adhering to the principles of ALARA. CT DOSE: FINDINGS: No intra or extra-axial mass lesions are visualized. There is no CT evidence of acute cortical infarction. There is no evidence of midline shift. There is no acute hemorrhage. No calvarial fractures are visualized. There are patchy white matter hypodensities likely on a small vessel basis. There is no evidence of pathologic ventricular dilatation. There are bilateral maxillary sinus air-fluid levels. There are sphenoid sinus air-fluid levels. There is opacification of several ethmoid air cells. There is trace fluid in the frontal sinuses. IMPRESSION: 1. Interval development of pansinus disease 2. Otherwise no significant change from the preceding examination Electronically signed by: Sherwin Boone M.D. 10/30/2017 9:02 AM Dictated Date/Time: 10/30/2017 9:00 AM CHEST CTA for PULMONARY ARTERIES CT DOSE: 891.04 mGy.cm HISTORY: Hypoxia. Hypotension. Tachycardia. TECHNIQUE: Multiaxial CT images of the chest were performed following the intravenous administration of contrast to evaluate the pulmonary arteries. Maximal intensity projection images were also obtained. A dose lowering technique was utilized adhering to the principles of ALARA. COMPARISON STUDY: Chest CT 08/06/2017. FINDINGS: There is a new mild anterior wedge-shaped compression fracture at T12. This demonstrates carotid edges and favors a subacute to chronic fracture. No associated paravertebral edema. No significant contrast within the thoracic aorta to assess for a dissection. The thoracic aorta is normal in caliber. The visualized liver and spleen are unremarkable. Peripheral calcified 8 mm hypodense lesion within the left kidney. This is only partially visualized. This is technically too small to characterize but favors a cyst. Retrograde opacification of the hepatic veins. Thickening of the right adrenal gland, unchanged. The heart remains enlarged. No pleural or pericardial effusions. Left subclavian Port-A-Cath terminates in the distal SVC. Old, healed left-sided rib fractures. Partially calcified subcarinal lymph nodes. Multiple prominent mediastinal lymph nodes are not significantly changed. The main pulmonary artery remains mildly distended consistent with pulmonary arterial hypertension. The bilateral lower lobe segmental and subsegmental pulmonary arteries are nondiagnostic due to the motion artifact. No filling defects seen within the remaining pulmonary arteries to suggest pulmonary embolus. No pneumothorax. The central airways are patent. Suboptimal evaluation of the lungs due to respiratory motion. Moderate emphysema. Mild diffuse interstitial thickening. This is likely chronic. Multifocal areas of consolidation seen within the right lung. This is most pronounced within the right upper lobe. There are also a few small patchy airspace opacities within the left lower lobe. IMPRESSION: 1. No evidence for pulmonary embolus with limitations as described above. 2. Multifocal consolidations within the lungs as described above most pronounced within the right upper lobe. This likely represents a multifocal pneumonia. Recommend follow-up to ensure resolution. 3. Emphysema. 4. Mild diffuse interstitial thickening which is likely chronic. 5. Cardiomegaly. 6. Subacute to chronic mild anterior wedge-shaped compression fracture at T12. Electronically signed by: Jack Smith M.D. 10/30/2017 9:14 AM Dictated Date/Time: 10/30/2017 9:03 AM CHEST ONE VIEW PORTABLE CLINICAL HISTORY: Central line placement COMPARISON STUDY: August 29, 2018 FINDINGS: The heart is mildly enlarged. There is a left subclavian A-Port catheter present. Since the prior study, a right internal jugular central venous catheter has been placed. The tip projects over the atriocaval junction. There is no pneumothorax. There are persistent airspace opacities, most pronounced within the right upper lobe, and right lower lobe. There is diffuse interstitial thickening.[ IMPRESSION: 1. No evidence of pneumothorax status post placement of right internal jugular central venous catheter. The tip projects over the atriocaval junction. 2. Multifocal airspace opacities, most pronounced within the right upper lobe and right lower lobe Electronically signed by: Sherwin Boone M.D. 10/30/2017 10:34 AM Dictated Date/Time: 10/30/2017 10:33 AM Laboratory Results 10/30/17 08:05 Red Blood Count 5.30, Mean Corpuscular Volume 94.0, Mean Corpuscular Hemoglobin 31.7, Mean Corpuscular Hemoglobin Concent 33.7, Mean Platelet Volume 11.9, Neutrophils (%) (Auto) 86.1, Lymphocytes (%) (Auto) 7.8, Monocytes (%) (Auto) 4.5, Eosinophils (%) (Auto) 0.0, Basophils (%) (Auto) 0.6, Neutrophils # (Auto) 9.91, Lymphocytes # (Auto) 0.90, Monocytes # (Auto) 0.52, Eosinophils # (Auto) 0.00, Basophils # (Auto) 0.07 10/30/17 08:05 Test 10/30/17 08:04 10/30/17 08:05 10/30/17 08:09 10/30/17 08:11 Influenza Type A Antigen Neg for Influ A (NEG) Influenza Type B Antigen Neg for Influ B (NEG) White Blood Count 11.52 K/uL (4.8-10.8) Red Blood Count 5.30 M/uL (4.2-5.4) Hemoglobin 16.8 g/dL (12.0-16.0) Hematocrit 49.8 % (37-47) Mean Corpuscular Volume 94.0 fL (80-100) Mean Corpuscular Hemoglobin 31.7 pg (25-34) Mean Corpuscular Hemoglobin Concent 33.7 g/dl (32-36) Platelet Count 104 K/uL (130-400) Mean Platelet Volume 11.9 fL (7.4-10.4) Neutrophils (%) (Auto) 86.1 % Lymphocytes (%) (Auto) 7.8 % Monocytes (%) (Auto) 4.5 % Eosinophils (%) (Auto) 0.0 % Basophils (%) (Auto) 0.6 % Neutrophils # (Auto) 9.91 K/uL (1.4-6.5) Lymphocytes # (Auto) 0.90 K/uL (1.2-3.4) Monocytes # (Auto) 0.52 K/uL (0.11-0.59) Eosinophils # (Auto) 0.00 K/uL (0-0.5) Basophils # (Auto) 0.07 K/uL (0-0.2) RDW Standard Deviation 62.0 fL (36.4-46.3) RDW Coefficient of Variation 18.8 % (11.5-14.5) Immature Granulocyte % (Auto) 1.0 % Immature Granulocyte # (Auto) 0.12 K/uL (0.00-0.02) Nucleated RBC Absolute Count (auto) 0.03 K/uL (0-0) Nucleated Red Blood Cells % 0.3 % Prothrombin Time 17.8 SECONDS (9.0-12.0) Prothromb Time International Ratio 1.7 (0.9-1.1) Venous Blood pH 7.40 (7.36-7.41) Venous Blood Partial Pressure CO2 45 mmHg (38.0-50.0) Venous Blood Partial Pressure O2 31 mmHg Venous Blood HCO3 27 mmol/L Venous Blood Oxygen Saturation < 60.0 % Venous Blood Base Excess 1.5 mEq/L Est Creatinine Clear Calc Drug Dose 22.2 ml/min Estimated GFR () 28.9 Estimated GFR (Non- 24.9 BUN/Creatinine Ratio 21.8 (10-20) Calcium Level 9.7 mg/dl (8.5-10.1) Magnesium Level 1.7 mg/dl (1.8-2.4) Total Bilirubin 1.3 mg/dl (0.2-1) Direct Bilirubin 0.9 mg/dl (0-0.2) Aspartate Amino Transf (AST/SGOT) 46 U/L (15-37) Alanine Aminotransferase (ALT/SGPT) 35 U/L (12-78) Alkaline Phosphatase 123 U/L (45-117) Total Creatine Kinase 31 U/L (26-192) Creatine Kinase MB 1.4 ng/ml (0.5-3.6) Creatine Kinase MB Ratio 4.5 (0-3.0) Troponin I 0.167 ng/ml (0-0.045) Total Protein 7.1 gm/dl (6.4-8.2) Albumin 2.2 gm/dl (3.4-5.0) Chemistry Specimen Hemolysis Bedside Hemoglobin 17.3 g/dl (12.0-16.0) Bedside Hematocrit 51 % (37-47) Bedside Sodium 155 mEq/L (135-144) Bedside Potassium 3.2 mEq/L (3.3-5.0) Bedside Chloride 112 mEq/L (101-112) Bedside Total CO2 24 mEq/l (24-31) Anion Gap 23.0 mmol/L (16-25) Bedside Blood Urea Nitrogen 45 mg/dl (7-18) Bedside Creatinine 1.8 mg/dl (0.6-1.3) Bedside Glucose (other) 70 mg/dl (70-99) Bedside Ionized Calcium (John) 1.12 mmol/l (1.12-1.32) Bedside Lactic Acid Venous 3.50 mmol/L (0.90-1.70) Test 10/30/17 08:17 Urine Color DK YELLOW Urine Appearance CLEAR (CLEAR) Urine pH 5.0 (4.5-7.5) Urine Specific [place] 1.018 (1.000-1.030) Urine Protein 2+ (NEG) Urine Glucose (UA) NEG (NEG) Urine Ketones NEG (NEG) Urine Occult Blood NEG (NEG) Urine Nitrite NEG (NEG) Urine Bilirubin NEG (NEG) Urine Urobilinogen NEG (NEG) Urine Leukocyte Esterase NEG (NEG) Urine WBC (Auto) 1-5 /hpf (0-5) Urine RBC (Auto) 0-4 /hpf (0-4) Urine Hyaline Casts (Auto) 1-5 /lpf (0-5) Urine Epithelial Cells (Auto) 10-20 /lpf (0-5) Urine Bacteria (Auto) NEG (NEG) Urine Crystals AMORPHOUS SEDIMENT (NONE Urine Pathogenic Casts /lpf (0) Laboratory results per my review. Medications Administered Medications (Trade) Dose Ordered Sig/Lorenzo Route Start Time Stop Time Status Last Admin Dose Admin Sodium Chloride 2,000 ml @ 999 mls/hr Q2H1M STAT IV 10/30/17 07:49 10/30/17 09:49 DC 10/30/17 07:49 999 MLS/HR Piperacillin Sod/ Tazobactam Sod (Zosyn Iv) 4.5 gm NOW STAT IV 10/30/17 07:57 10/30/17 07:59 DC 10/30/17 08:25 4.5 GM Albuterol Sulfate (Ventolin 0.083% 2.5MG/3ML Neb) 2.5 mg NOW STAT INH 10/30/17 07:57 10/30/17 07:59 DC 10/30/17 08:25 2.5 MG Levofloxacin (Levaquin / D5W) 750 mg NOW ONCE IV 10/30/17 09:30 10/30/17 09:31 DC 10/30/17 09:33 750 MG Sodium Chloride 500 ml @ 999 mls/hr Q31M STAT IV 10/30/17 09:31 10/30/17 10:01 DC 10/30/17 09:31 999 MLS/HR Procedure PROCEDURE NOTE - Central Line Insertion - Ultrasound Guided PRIOR TO PROCEDURE: Consent: Discussion was held with the daughter concerning central line. The risks and benefits were explained with possible risks to include bleeding, pain , pneumothorax, hemothorax, pulmonary contusion, pulmonary laceration, and infection. The daughter verbally agreed over the phone. The patient was evaluated prior to the procedure. The patient was identified and the procedure verified as central line insertion. A Time Out was held and the following information confirmed. Verify Correct Patient: Yes Verify Correct Site: Yes Availability of Necessary Equipment: Yes PROCEDURE NOTE: Procedure: Central Line Inserting Clinician: Steven Randall DO. Guide-wire was removed, examined and is intact Complication/Corrective Action: Difficulty advancing Estimated Blood Loss: 5 mls US guided line placement: Yes I have reviewed and educated the patient and or family regarding the benefits and risks of central line insertion, and I have reviewed the potential complications including infection - yes CENTRAL LINE BUNDLE: Skin Prep: Chlorhexidine/alcohol Barriers Used: Mask: yes Sterile gown: yes Large sterile drape: yes Cap: yes Sterile gloves: yes Insertion Status: new site Indications - include all that apply: {line indications:2008706} Placement Conditions: Emergent Site: IJ Side: R Number of lumen(s): triple Length of catheter inserted into patient: 15 centimeters Anesthesia: local Number of Needle Passes: one Radiological confirmation: Yes I performed the procedure. ECG Per My Interpretation Indication: altered mental status Rate (beats per minute): 83 Rhythm: sinus rhythm Findings: LBBB, left axis deviation Comparison ECG Date: 10/09/17 Change: no significant change ED Course ED COURSE: Vital signs were reviewed and showed hypotension and tachycardia The patients medical record was reviewed The above diagnostic studies were performed and reviewed. ED treatments and interventions as stated above. 0742: The patient was evaluated in room B7. A complete history and physical examination was performed. 0749: Sodium Chloride 2000 ml @ 999 mls/hr IV 0757: Albuterol Sulfate 2.5mg INH, Zosyn 4.5gm IV 0819: I reassessed the patient, and she was resting. 0910: I reevaluated the patient. 0919: I reviewed the patient's case with Dr. Fernanda Leonard Hospitalist. He will evaluate the patient for further management. 0930: Levofloxacin 750mg IV 0931: Norepinephrine Bitartrate 8mg/ Dextrose, Sodium Chloride 500 ml @ 999 mls/ hr IV 0935: I Had a prolonged conversation with the patient's daughter, and she notes that the patient would not want CPR or intubation, but she is agreeable to pressors. 0955: The central line was placed as described above. 1018: Dr. Michael was at the patient's bedside. 1040: Upon reevaluation, the patient is awake and talking with a systolic pressure over 100.I discussed my findings with the patient's daughter and she understands and agrees with the treatment plan. Based on the patients age, coexisting illnesses, exam and lab findings the decision to treat as an inpatient was made. The patient remained stable while under my care. The patient will be evaluated for further management. Medical Decision Differential diagnoses includes but is not limited to toxic, metabolic, infectious, traumatic, cardiac, neurologic, hematologic, psychiatric and inflammatory etiologies. Patient is a 72-year-old female who presents to the ER for altered mental status associated with upper respiratory symptoms. CBC shows a mild leukocytosis of 11,000. Sodium is elevated at 152. Creatinine is also elevated at 1.95. Troponin is elevated at 1.67. Lactate was significantly elevated 3.5. UA was negative. Influenza a and B was negative. Chest x-ray and CTA confirmed a pneumonia. CT head was unremarkable. Patient's systolic blood pressures were in the 70s. She was given 2.5 L normal saline. Central line was placed in briefly started on levophed. Will discussions with the patient's daughter. Patient is a DNR/DNI. Patient is agreeable to pressors and cardioversion if necessary. Internal medicine was updated. Patient was admitted to internal medicine with sepsis secondary to pneumonia with hypotension and a central line placed in a significantly elevated lactate. Patient was also covered with broad-spectrum antibiotics. Medication Reconcilliation Current Medication List: was personally reviewed by ut Blood Pressure Screening Patient's blood pressure: Low blood pressure Consults Time Called: 914 Consulting Physician: Dr. Fernanda Stock Returned Call: [phone] I reviewed the patient's case with Dr. Fernanda Stock. He will evaluate the patient for further management. Impression Primary Impression: Severe sepsis Additional Impression: Hypokalemia Critical Care I have personally spent 75 minutes of critical care time in the direct management of this patient. This includes bedside care, interpretation of diagnostic studies, and testing, discussion with consultants, patient, and family members, and other required patient management activities. This 75 minutes is in excess of all separately billable procedures. Scribe Attestation The scribe's documentation has been prepared under my direction and personally reviewed by me in its entirety. I confirm that the note above accurately reflects all work, treatment, procedures, and medical decision making performed by me. Departure Information Dispostion Being Evaluated By Hospitalist Referrals Moses Peterson M.D. (PCP) Problem Qualifiers
--- NOTE | 2017-10-30 14:54 | Progress Note ---
Progress Note Post Crystalloid Evaluation Date: Oct 30, 2017 Time: 14:30 Subjective patient is alert and awake and talking denies any pain sometimes mumbling afebrile hemodynamics stable Physical Exam Vital Signs: Vital Signs Date Time Temp Pulse Resp B/P (MAP) Pulse Ox O2 Delivery O2 Flow Rate FiO2 10/30/17 14:31 88 17 95/71 (79) 92 Nasal Cannula 3.0 10/30/17 11:57 36.3 Lungs: chest non-tender, lungs clear, normal breath sounds, no respiratory distress Heart: regular rate, rhythm, normal peripheral pulses Peripheral Pulse: Normal Capillary Refill: Normal (less than 2 seconds) Skin: Turgor (normal) Assessment & Plan Presence of: Severe Sepsis severe sepsis multifocal peronia on iv abx patient improving- molert and awake and talking continue current care
--- NOTE | 2017-10-30 15:19 | Pharmacy Progress Note ---
Pharmacy Antibiotic Consult Date of Service: Oct 30, 2017. Pharmacy Dosing Scope Pharmacy is consulted to initiate vancomycin/zosyn IV dosing therapy, order appropriate labs and adjust drug dose/frequency. Subjective The patient is a 72 year old female admitted on Oct 30, 2017 at 10:48. Objective Height (Feet): 5 Height (Inches): 4.00 Weight (Kilograms): 58.600 Lab Results (24hrs): Test 10/30/17 08:04 10/30/17 08:05 10/30/17 08:09 10/30/17 08:11 Influenza Type A Antigen Neg for Influ A (NEG) Influenza Type B Antigen Neg for Influ B (NEG) White Blood Count 11.52 K/uL (4.8-10.8) Red Blood Count 5.30 M/uL (4.2-5.4) Hemoglobin 16.8 g/dL (12.0-16.0) Hematocrit 49.8 % (37-47) Mean Corpuscular Volume 94.0 fL (80-100) Mean Corpuscular Hemoglobin 31.7 pg (25-34) Mean Corpuscular Hemoglobin Concent 33.7 g/dl (32-36) Platelet Count 104 K/uL (130-400) Mean Platelet Volume 11.9 fL (7.4-10.4) Neutrophils (%) (Auto) 86.1 % Lymphocytes (%) (Auto) 7.8 % Monocytes (%) (Auto) 4.5 % Eosinophils (%) (Auto) 0.0 % Basophils (%) (Auto) 0.6 % Neutrophils # (Auto) 9.91 K/uL (1.4-6.5) Lymphocytes # (Auto) 0.90 K/uL (1.2-3.4) Monocytes # (Auto) 0.52 K/uL (0.11-0.59) Eosinophils # (Auto) 0.00 K/uL (0-0.5) Basophils # (Auto) 0.07 K/uL (0-0.2) RDW Standard Deviation 62.0 fL (36.4-46.3) RDW Coefficient of Variation 18.8 % (11.5-14.5) Immature Granulocyte % (Auto) 1.0 % Immature Granulocyte # (Auto) 0.12 K/uL (0.00-0.02) Nucleated RBC Absolute Count (auto) 0.03 K/uL (0-0) Nucleated Red Blood Cells % 0.3 % Prothrombin Time 17.8 SECONDS (9.0-12.0) Prothromb Time International Ratio 1.7 (0.9-1.1) Venous Blood pH 7.40 (7.36-7.41) Venous Blood Partial Pressure CO2 45 mmHg (38.0-50.0) Venous Blood Partial Pressure O2 31 mmHg Venous Blood HCO3 27 mmol/L Venous Blood Oxygen Saturation < 60.0 % Venous Blood Base Excess 1.5 mEq/L Sodium Level 152 mmol/L (136-145) Potassium Level 3.4 mmol/L (3.5-5.1) Chloride Level 116 mmol/L (98-107) Carbon Dioxide Level 25 mmol/L (21-32) Anion Gap 11.0 mmol/L (3-11) 23.0 mmol/L (16-25) Blood Urea Nitrogen 43 mg/dl (7-18) Creatinine 1.95 mg/dl (0.60-1.20) Est Creatinine Clear Calc Drug Dose 22.2 ml/min Estimated GFR () 28.9 Estimated GFR (Non- 24.9 BUN/Creatinine Ratio 21.8 (10-20) Random Glucose 65 mg/dl (70-99) Calcium Level 9.7 mg/dl (8.5-10.1) Magnesium Level 1.7 mg/dl (1.8-2.4) Total Bilirubin 1.3 mg/dl (0.2-1) Direct Bilirubin 0.9 mg/dl (0-0.2) Aspartate Amino Transf (AST/SGOT) 46 U/L (15-37) Alanine Aminotransferase (ALT/SGPT) 35 U/L (12-78) Alkaline Phosphatase 123 U/L (45-117) Total Creatine Kinase 31 U/L (26-192) Creatine Kinase MB 1.4 ng/ml (0.5-3.6) Creatine Kinase MB Ratio 4.5 (0-3.0) Troponin I 0.167 ng/ml (0-0.045) Total Protein 7.1 gm/dl (6.4-8.2) Albumin 2.2 gm/dl (3.4-5.0) Chemistry Specimen Hemolysis Bedside Hemoglobin 17.3 g/dl (12.0-16.0) Bedside Hematocrit 51 % (37-47) Bedside Sodium 155 mEq/L (135-144) Bedside Potassium 3.2 mEq/L (3.3-5.0) Bedside Chloride 112 mEq/L (101-112) Bedside Total CO2 24 mEq/l (24-31) Bedside Blood Urea Nitrogen 45 mg/dl (7-18) Bedside Creatinine 1.8 mg/dl (0.6-1.3) Bedside Glucose (other) 70 mg/dl (70-99) Bedside Ionized Calcium (John) 1.12 mmol/l (1.12-1.32) Bedside Lactic Acid Venous 3.50 mmol/L (0.90-1.70) Test 10/30/17 08:17 10/30/17 13:00 Urine Color DK YELLOW Urine Appearance CLEAR (CLEAR) Urine pH 5.0 (4.5-7.5) Urine Specific [place] 1.018 (1.000-1.030) Urine Protein 2+ (NEG) Urine Glucose (UA) NEG (NEG) Urine Ketones NEG (NEG) Urine Occult Blood NEG (NEG) Urine Nitrite NEG (NEG) Urine Bilirubin NEG (NEG) Urine Urobilinogen NEG (NEG) Urine Leukocyte Esterase NEG (NEG) Urine WBC (Auto) 1-5 /hpf (0-5) Urine RBC (Auto) 0-4 /hpf (0-4) Urine Hyaline Casts (Auto) 1-5 /lpf (0-5) Urine Epithelial Cells (Auto) 10-20 /lpf (0-5) Urine Bacteria (Auto) NEG (NEG) Urine Crystals AMORPHOUS SEDIMENT (NONE Urine Pathogenic Casts /lpf (0) Bedside Glucose 117 mg/dl (70-90) Assessment & Plan Vanc/zosyn/doxy initiated for possible pneumonia. Nasal swab was noted to be positive. Loading dose: vancomycin 1250 mg IV X 1 dose then: 750 mg IV every 30 hours starting tomorrow Goal trough level estimate: between 15 - 20 mcg/mL. Peak and trough or random level has been ordered for: Will wait to order a level to assess kidney function trend and possible need for dose adjustment. Zosyn: 4.5g X 1, then 3.375g q8 Pharmacy will continue to follow and will adjust dose/frequency as necessary. Thank you
[2017-10-30 16:46] LABS: CREATININE 1.73 mg/dl (0.60-1.20); POTASSIUM 4.2 mmol/L (3.5-5.1)
--- NOTE | 2017-10-30 17:25 | Critical Care Consultation ---
Critical Care Consultation Date of Consultation: Oct 30, 2017. Attending Physician: Alexander Michael MD Reason for Consultation: Sepsis History of Present Illness This is a 72-year-old female with history of advanced dementia, [facility] resident, history of colorectal cancer, status post colostomy and partial colectomy, history of advanced cardiomyopathy with ejection fraction of 20%, Port-A-Cath in the left subclavian area, was brought to the hospital from the [facility] after she has been having nausea and vomiting for the past 2 days accordingly. The patient was not taking any oral intake. And when her daughter saw her today she was lethargic and hypotensive. Her daughter works in our institution. The patient was transferred to the ER and found to have systolic blood pressure of 70. Patient was started on IV fluid, started also on IV antibiotics. The patient did not have any review of system to give me when she arrived and the ICU. Patient in the ED also had right IJ central line which appeared to be too long of a stem. The patient was answering questions with yes and no but she did not give me any history as she had profound dementia and she does not remember the symptoms or the arrival into our institution. Patient also was started on antibiotics empirically after chest x- ray showed multilobar infiltrates. Family History Cancer Social History Smoking Status: Former Smoker Drug Use: none Housing Status: [facility]dc Occupation Status: retired Allergies Coded Allergies: Nickel (Unverified Allergy, Unknown, ., 10/30/17) Ertapenem (Unverified Adverse Reaction, Intermediate, may have had elevated LFT's secondary to ertapenem..., 10/30/17) Patient received Vancomycin + Ertapenem in past for septic joint. She developed LFT elevations on this therapy. She had experienced ADHF, cardiogenic shock just prior to LFT elevation. Provider felt LFT elevations most likely due to shock, hepatic congestion but could not exclude ertapenem + venlafaxine as possible causes. Ertapenem was held and vanco was continued with Rocephin. LFTs improved. Home Medications Scheduled Folic Acid (Folvite), 1 MG PO DAILY Insulin Glargine (Lantus), 5 UNITS SC HS Insulin Lispro (Human) (Humalog), 10 UNITS SC QPM Ipratropium-Albuterol (Duoneb), 1 TREATMENT INH Q6 Magnesium Oxide (Mag-Ox), 400 MG PO DAILY Metoprolol Succinate (Toprol Xl), 12.5 MG PO DAILY Multivitamin (Multivitamin), 1 TAB PO DAILY Spironolactone (Aldactone), 25 MG PO DAILY Thiamine Hcl (Vitamin B-1), 100 MG PO BID Trazodone Hcl (Trazodone), 50 MG PO HS Venlafaxine Hcl (Effexor), 100 MG PO DAILY Scheduled PRN Acetaminophen (Tylenol), 2 TAB PO Q8 PRN for Mild Pain Ipratropium Robertson (Ipratropium Robertson), 0.5 MG INH Q6 PRN for SOB/Wheezing Current Inpatient Medications Current Inpatient Medications Medications (Trade) Dose Ordered Sig/Lorenzo Route Start Time Stop Time Status Last Admin Dose Admin Ioversol (Optiray 320) 85 ml UD PRN IV 10/30/17 09:15 11/03/17 09:14 Heparin Sodium (Porcine) (Heparin Sq 5000 Unit/0.5ml) 5,000 unit Q12 SQ 10/30/17 21:00 11/29/17 20:59 Sodium Chloride 1,000 ml @ 100 mls/hr Q10H IV 10/30/17 12:08 11/29/17 12:07 10/30/17 13:07 100 MLS/HR Acetaminophen (Tylenol Tab) 650 mg Q4H PRN PO 10/30/17 10:45 11/29/17 10:44 Nitroglycerin (Nitrostat Tab) 0.4 mg UD PRN SL 10/30/17 10:45 11/29/17 10:44 Al Hydrox/Mg Hydrox/Simethicone (Maalox Max Susp) 15 ml Q4H PRN PO 10/30/17 10:45 11/29/17 10:44 Ondansetron HCl (Zofran Inj) 4 mg Q6H PRN IV 10/30/17 10:45 11/29/17 10:44 Albuterol/ Ipratropium (Duoneb) 3 ml Q4 PRN INH 10/30/17 10:45 11/29/17 10:44 Miscellaneous Information (Icu Protocol For Hyperglycemia) 1 ea PRN PRN N/A 10/30/17 10:45 11/01/17 10:44 Insulin Glargine (Lantus Solostar Pen) 5 units HS SC 10/30/17 21:00 11/29/17 20:59 Magnesium Oxide (Mag-Ox Tab) 400 mg DAILY PO 10/31/17 09:00 11/30/17 08:59 Venlafaxine HCl (effeXOR TAB) 100 mg DAILY PO 10/31/17 09:00 11/30/17 08:59 Miscellaneous Information (Consult) 1 ea UD PRN N/A 10/30/17 10:45 11/29/17 10:44 Vancomycin HCl 750 mg/Sodium Chloride 265 ml @ 125 mls/hr Q30H IV 10/31/17 19:00 11/07/17 18:59 Miscellaneous Information (Consult) 1 ea UD PRN N/A 10/30/17 10:45 11/29/17 10:44 Insulin Aspart (novoLOG ASPART) SLIDING SCALE G... Q6 SC 10/30/17 12:00 11/29/17 11:59 Glucose (Glucose 40% Gel) 15-30 GRAMS 15 GRAMS... UD PRN PO 10/30/17 12:15 11/29/17 12:14 Glucose (Glucose Chew Tab) 4-8 Tablets 4 Tabl... UD PRN PO 10/30/17 12:15 11/29/17 12:14 Dextrose (Dextrose 50% 50ML Syringe) 25-50ML OF 50% DW IV FOR... UD PRN IV 10/30/17 12:15 11/29/17 12:14 Glucagon (Glucagon Inj) 1 mg UD PRN SQ 10/30/17 12:15 11/29/17 12:14 Piperacillin Sod/ Tazobactam Sod 3.375 gm/Dextrose 115 ml @ 28.75 mls/ hr Q8H IV 10/30/17 13:30 11/06/17 13:29 10/30/17 14:03 28.75 MLS/HR Doxycycline Hyclate 100 mg/ Dextrose 110 ml @ 55 mls/hr BID IV 10/31/17 09:00 11/07/17 08:59 Review of Systems Not obtainable, however from the records, the patient has been having vomiting at the [facility], no fever was reported, she does have lethargy, no pain was reported and no shortness of breath. And our institution, the patient did require oxygen via nasal cannula which she does not use. Physical Exam Date Time Temp Pulse Resp B/P (MAP) Pulse Ox O2 Delivery O2 Flow Rate FiO2 10/30/17 14:31 88 17 95/71 (79) 92 Nasal Cannula 3.0 10/30/17 14:00 84 29 93/63 (73) 95 Nasal Cannula 3.0 10/30/17 11:57 36.3 88 24 92/59 93 Nasal Cannula 3.0 10/30/17 11:20 87 22 100/64 95 10/30/17 11:11 88 10/30/17 11:00 87 24 96/59 95 Nasal Cannula 3.0 10/30/17 10:27 36.5 90 20 97/69 96 Nasal Cannula 3.0 10/30/17 10:08 170 10/30/17 09:48 83 20 93/60 96 Room Air 10/30/17 09:30 95 26 78/51 96 Nasal Cannula 3.0 10/30/17 09:26 93 26 81/51 93 Nasal Cannula 3.0 10/30/17 09:02 94 24 97/61 93 Nasal Cannula 3.0 10/30/17 08:23 91 25 95 Nasal Cannula 3.0 10/30/17 08:21 88/61 10/30/17 08:16 88/61 Nasal Cannula 3.0 10/30/17 08:08 93 20 94 Nasal Cannula 3.0 10/30/17 08:01 96/65 Nasal Cannula 3.0 10/30/17 07:53 91 25 94 Nasal Cannula 3.0 10/30/17 07:53 103 10/30/17 07:49 93/61 Nasal Cannula 3.0 10/30/17 07:47 36.6 105 26 85/59 92 Nasal Cannula 4.0 10/30/17 07:47 92 Nasal Cannula 4.0 10/30/17 07:47 92 Nasal Cannula 4.0 10/30/17 07:43 85/59 Nasal Cannula 3.0 General Appearance: no apparent distress Eyes: no discharge, EOMI ENT: normal mouth exam Neck: normal range of motion Respiratory: rhonchi, wheezing Cardiovasular: regular rate/rhythm, normal S1S2, no M/G/R, no murmur, systolic murmur Abdomen: non tender, no masses, other (colostomy) Upper Extremities: no edema Neuro: other (dementia) Laboratory Results Last 24 Hours Test 10/30/17 08:04 10/30/17 08:05 10/30/17 08:09 10/30/17 08:11 Influenza Type A Antigen Neg for Influ A Influenza Type B Antigen Neg for Influ B White Blood Count 11.52 K/uL Red Blood Count 5.30 M/uL Hemoglobin 16.8 g/dL Hematocrit 49.8 % Mean Corpuscular Volume 94.0 fL Mean Corpuscular Hemoglobin 31.7 pg Mean Corpuscular Hemoglobin Concent 33.7 g/dl Platelet Count 104 K/uL Mean Platelet Volume 11.9 fL Neutrophils (%) (Auto) 86.1 % Lymphocytes (%) (Auto) 7.8 % Monocytes (%) (Auto) 4.5 % Eosinophils (%) (Auto) 0.0 % Basophils (%) (Auto) 0.6 % Neutrophils # (Auto) 9.91 K/uL Lymphocytes # (Auto) 0.90 K/uL Monocytes # (Auto) 0.52 K/uL Eosinophils # (Auto) 0.00 K/uL Basophils # (Auto) 0.07 K/uL RDW Standard Deviation 62.0 fL RDW Coefficient of Variation 18.8 % Immature Granulocyte % (Auto) 1.0 % Immature Granulocyte # (Auto) 0.12 K/uL Nucleated RBC Absolute Count (auto) 0.03 K/uL Nucleated Red Blood Cells % 0.3 % Prothrombin Time 17.8 SECONDS Prothromb Time International Ratio 1.7 Venous Blood pH 7.40 Venous Blood Partial Pressure CO2 45 mmHg Venous Blood Partial Pressure O2 31 mmHg Venous Blood HCO3 27 mmol/L Venous Blood Oxygen Saturation < 60.0 % Venous Blood Base Excess 1.5 mEq/L Sodium Level 152 mmol/L Potassium Level 3.4 mmol/L Chloride Level 116 mmol/L Carbon Dioxide Level 25 mmol/L Anion Gap 11.0 mmol/L 23.0 mmol/L Blood Urea Nitrogen 43 mg/dl Creatinine 1.95 mg/dl Est Creatinine Clear Calc Drug Dose 22.2 ml/min Estimated GFR () 28.9 Estimated GFR (Non- 24.9 BUN/Creatinine Ratio 21.8 Random Glucose 65 mg/dl Calcium Level 9.7 mg/dl Magnesium Level 1.7 mg/dl Total Bilirubin 1.3 mg/dl Direct Bilirubin 0.9 mg/dl Aspartate Amino Transf (AST/SGOT) 46 U/L Alanine Aminotransferase (ALT/SGPT) 35 U/L Alkaline Phosphatase 123 U/L Total Creatine Kinase 31 U/L Creatine Kinase MB 1.4 ng/ml Creatine Kinase MB Ratio 4.5 Troponin I 0.167 ng/ml Total Protein 7.1 gm/dl Albumin 2.2 gm/dl Chemistry Specimen Hemolysis Bedside Hemoglobin 17.3 g/dl Bedside Hematocrit 51 % Bedside Sodium 155 mEq/L Bedside Potassium 3.2 mEq/L Bedside Chloride 112 mEq/L Bedside Total CO2 24 mEq/l Bedside Blood Urea Nitrogen 45 mg/dl Bedside Creatinine 1.8 mg/dl Bedside Glucose (other) 70 mg/dl Bedside Ionized Calcium (John) 1.12 mmol/l Bedside Lactic Acid Venous 3.50 mmol/L Test 10/30/17 08:17 10/30/17 13:00 10/30/17 16:14 10/30/17 16:15 Urine Color DK YELLOW Urine Appearance CLEAR Urine pH 5.0 Urine Specific [place] 1.018 Urine Protein 2+ Urine Glucose (UA) NEG Urine Ketones NEG Urine Occult Blood NEG Urine Nitrite NEG Urine Bilirubin NEG Urine Urobilinogen NEG Urine Leukocyte Esterase NEG Urine WBC (Auto) 1-5 /hpf Urine RBC (Auto) 0-4 /hpf Urine Hyaline Casts (Auto) 1-5 /lpf Urine Epithelial Cells (Auto) 10-20 /lpf Urine Bacteria (Auto) NEG Urine Crystals AMORPHOUS SEDIMENT Urine Pathogenic Casts /lpf Bedside Glucose 117 mg/dl Sodium Level 147 mmol/L Potassium Level 4.2 mmol/L Chloride Level 117 mmol/L Carbon Dioxide Level 22 mmol/L Anion Gap 9.0 mmol/L Blood Urea Nitrogen 41 mg/dl Creatinine 1.73 mg/dl Est Creatinine Clear Calc Drug Dose 25.0 ml/min Estimated GFR () 33.4 Estimated GFR (Non- 28.8 BUN/Creatinine Ratio 23.5 Random Glucose 253 mg/dl Lactic Acid Level 4.1 mmol/L Test 10/30/17 16:48 Bedside Glucose 241 mg/dl Diagnostic Results Review of her chest x-ray as well as a CAT scan, the patient does have O2 lobar infiltrates with small pleural effusion. Consistent with aspiration pneumonia. Assessment & Plan #1 sepsis with septic shock, improving. #2 multilobar pneumonia. #3 lactic acidosis secondary to above, however the patient does have subtotal colectomy. #4 cardiomyopathy with ejection fraction of 20%. #5 profound dementia. #6 history of colon CA status post subtotal colectomy. Plan: #1 aggressive IV fluid. #2 continue with antibiotics, I will adjust antibiotics to cover for healthcare acquired pneumonia. #3 the patient had a central line which appeared not to be sutured in place. I would use the Port-A-Cath and discontinue the central line on the right side. Changing [id number] is another option however I would favor removing it. #4 DVT and GI prophylaxis. #5 I would follow the trend of lactic acid. 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 #6 panculture. #7 discussed with the daughter and details. #8 the patient is limited code and she would like her to receive medications only but no chest compression or intubation. #9 swallow eval. Likely patient is aspirating. Case discussed with the staff and details. Critical care time spent with the patient including coordinating the above was 60 minutes.
[2017-10-30] MEDS ORDERED: SODIUM CHLORIDE 0.9% 500ML 500 ML IV ONE (17:45)
[2017-10-30] MEDS: SODIUM CHLORIDE 0.9% 1000ML 1,000 ML IV SCH (18:26)
[2017-10-30] MEDS ORDERED: SODIUM CHLORIDE 0.9% 500ML 500 ML IV SCH (18:45)
[2017-10-30 20:57] LABS: CALCIUM 7.6 mg/dl (8.5-10.1); CREATININE 1.77 mg/dl (0.60-1.20); POTASSIUM 4.1 mmol/L (3.5-5.1)
[2017-10-30] MEDS ORDERED: INSULIN GLARGINE SOLOSTAR 100 UNITS/ML 3 ML PEN SC SCH (21:00)
[2017-10-30] MEDS: HEPARIN SOD 5000 UNIT/0.5 ML CARP SQ SCH (21:11)
[2017-10-30] MEDS ORDERED: NURSING DECISION MEDICATION ORDER SCH (21:30)
[2017-10-31] VITALS (20 sets, daily range): BP systolic 87–132; BP diastolic 52–80; PULSE 87–123; TEMP 36.2–36.3; O2SAT 86–97
[2017-10-31] MEDS ORDERED: INSULIN IV INFUSION PROTOCOL SCH (00:10)
[2017-10-31] MEDS ORDERED: INSULIN PROTOCOL GOAL RANGE ONE (00:15)
[2017-10-31] MEDS ORDERED: SEVERE STRESS LEVEL ONE (00:15)
[2017-10-31] MEDS ORDERED: PHARMACY GLYCEMIC MGMT CONSULT PRN (01:00)
[2017-10-31] MEDS ORDERED: INSULIN REGULAR 250 UNITS in SODIUM CHLORIDE 0.9% 250ML 250 ML IV SCH (01:30)
[2017-10-31] MEDS ORDERED: NovoLIN R BOLUS FROM BAG IV ONE (01:30)
[2017-10-31] MEDS: SODIUM CHLORIDE 0.9% 1000ML 1,000 ML IV SCH (03:04)
[2017-10-31 05:14] LABS: HEMATOCRIT 43.5 % (37-47); HEMOGLOBIN 14.1 g/dL (12.0-16.0); MEAN CORPUSCULAR HEMOGLOBIN 30.5 pg (25-34); MEAN CORPUSCULAR HGB CONC 32.4 g/dl (32-36); RED CELL DISTRIBUTION WIDTH CV 18.4 % (11.5-14.5); RED CELL DISTRIBUTION WIDTH SD 61.5 fL (36.4-46.3); WHITE BLOOD COUNT 12.48 K/uL (4.8-10.8)
[2017-10-31 05:44] LABS: BASO % 0.2 %; BASO ABS # 0.03 K/uL (0-0.2); EOS % 0.1 %; EOS ABS # 0.01 K/uL (0-0.5); IG# 0.32 K/uL (0.00-0.02); LYMPH % 11.6 %; LYMPH ABS # 1.45 K/uL (1.2-3.4); MEAN PLATELET VOLUME 11.3 fL (7.4-10.4); MONO % 3.6 %; MONO ABS # 0.45 K/uL (0.11-0.59); NEUT % 81.9 %; NEUT ABS # 10.22 K/uL (1.4-6.5); PLATELET COUNT 76 K/uL (130-400)
[2017-10-31] MEDS: PIPERACILL/TAZOBAC IV 3.375 GM in DEXTROSE 5% 100ML IV SCH (05:49)
[2017-10-31 05:50] LABS: ALBUMIN 1.7 gm/dl (3.4-5.0); CALCIUM 7.5 mg/dl (8.5-10.1); CREATININE 1.32 mg/dl (0.60-1.20); POTASSIUM 3.6 mmol/L (3.5-5.1)
[2017-10-31 05:58] LABS: PHOSPHORUS 2.4 mg/dl (2.5-4.9); TOTAL PROTEIN 6.1 gm/dl (6.4-8.2)
[2017-10-31] MEDS ORDERED: INSULIN ASPART 100 UNITS/ML 3 ML PEN SC SCH ×2 (06:45→08:00)
--- NOTE | 2017-10-31 07:06 | DIAGNOSTIC IMAGING REPORT ---
CHEST ONE VIEW PORTABLE CLINICAL HISTORY: Pneumonia. Congestion. COMPARISON STUDY: Chest CT and chest radiograph October 30, 2017. FINDINGS: A left subclavian [id number] is in place. There is moderate cardiomegaly. No pneumothorax or pleural effusion is noted. Dense right upper lobe consolidation is present. Additional patchy bilateral airspace opacities are noted with interstitial thickening. The appearance of the chest is similar to prior exam. Right internal jugular central line has been removed. IMPRESSION: 1. No significant change in multifocal pneumonia. 2. No change in mild interstitial thickening. Electronically signed by: Patrice Stark M.D. 10/31/2017 7:05 AM Dictated Date/Time: 10/31/2017 7:02 AM
[2017-10-31] MEDS ORDERED: POTASSIUM PHOS 3 MMOL/1 ML INFUSION IV STA (08:18)
[2017-10-31] MEDS ORDERED: CALCIUM GLUCONATE 10% 1,000 MG in SODIUM CHLORIDE 0.9% 50ML 50 ML IV ONE (08:30)
[2017-10-31] MEDS ORDERED: POTASSIUM PHOSPHATE INJ 15 MMOL in SODIUM CHLORIDE 0.9% 250ML 250 ML IV ONE (08:45)
[2017-10-31 08:57] LABS: CREATININE 1.49 mg/dl (0.60-1.20)
[2017-10-31] MEDS ORDERED: FAMOTIDINE IV INJ 20 MG in SYRINGE 3 ML IV SCH (09:00)
[2017-10-31] MEDS ORDERED: FAMOTIDINE IV INJ 20 MG in DEXTROSE 5% 100ML 100 ML IV SCH (09:00)
[2017-10-31] MEDS ORDERED: DOXYCYCLINE HYCLATE 100 MG in DEXTROSE 5% 100ML IV SCH (09:00)
[2017-10-31] MEDS ORDERED: VENLAFAXINE HCL 50 MG TAB PO SCH (09:00)
[2017-10-31] MEDS ORDERED: MAGNESIUM OXIDE 400 MG TAB PO SCH (09:00)
[2017-10-31] MEDS: HEPARIN SOD 5000 UNIT/0.5 ML CARP SQ SCH (09:26)
[2017-10-31] MEDS ORDERED: FUROSEMIDE INJ 20 MG in SYRINGE 0 ML IV ONE (09:30)
[2017-10-31] MEDS ORDERED: HYDROmorphone INJ 1 MG/ML SYR IV STA (09:33)
--- NOTE | 2017-10-31 09:35 | Pharmacy Progress Note ---
Pharmacy Abx Dose Short Note Date of Service Oct 31, 2017. Assessment & Plan Pharmacy has been consulted for: * Glycemic control * Vancomycin IV dosing * Zosyn IV dosing Assessment/Plan * 72yo female admitted 10/30 for cough, fever, SOB, hypoxemia, sepsis likely from pulmonary source (multifocal pneumonia on imaging) Glycemic Control * Patient's BSGs climbed throughout the evening yesterday and peaked at 369 at bedtime * She was given her outpt dose of Lantus 5 units + 7 units of Novolog correction at bedtime for this BSG elevation * f/u BSG around midnight was still elevated and IV insulin infusion was initiated around 0130; 2unit IV bolus followed by 2.2units/hr * BSGs quickly feel over then next 2-3 hours leading to the drip being placed on hold * Hypoglycemia was noted on AM labs today (Glu 51); The evening's Lantus dose plus Novolog correction combined with IV insulin infusion led to this low * I reviewed her prior admissions, she typically requires relatively small daily dose of insulin. Would recommend the following based upon review of prior admission data and [facility]: * Lantus 5 units SQ Q HS; hold if BSG less than 110 * Novolog SQ ACHS or Q 6 hrs * Correction factor: 40mg/dL/unit * Carb ratio: 1 unit per 14 grams CHO * Goal range 120 - 160 mg/dL Vancomycin * Renal fxn improving w/ hydration; SCr 1.95-->1.32 (baseline ~1.1-1.2) * 1250mg load (21.3mg/kg) x 1 ~1318 yesterday (10/30) * I estimate level to be b/w 15-20 mcg/mL around [id number] today; will redose w / 750mg x 1 at that time * Maintenance dose: given half-life of ~22-24 hours; will base redosing on random levels initially * Goal trough level for sepsis / pulm infxn : 15 to 20 mcg/mL * Random level ordered for: 11/01/17 w/ AM labs Zosyn * eCrCl > 20cc/min; BMI 22.2 * Continue 3.375gm extended infusion Q 8 hours Pharmacy will continue to follow and will adjust dose/frequency as necessary. Thank you.
[2017-10-31] MEDS ORDERED: LORAZEPAM 2 MG/ML 1 ML VIAL IV PRN (10:00)
[2017-10-31] MEDS ORDERED: VANCOMYCIN INJ 750 MG in SODIUM CHLORIDE 0.9% 250ML 250 ML IV ONE (11:00)
--- NOTE | 2017-10-31 11:43 | Clinical Documentation Query ---
TIFFANY Melgoza : CLINICAL DOCUMENTATION QUERY Documentation includes hyponatremia. Serum sodium was 152 mmol/L on admission. Improved to 146 mmol/L with IVF resuscitation. Please clarify as clinically appropriate. Thank you. In your clinical opinion is this patient being managed for: ( x) Hypernatremia ( ) Not Agree ( ) Other explanation of clinical findings (Please Explain) ( ) Unable to determine (Please Define) ( ) Need to Discuss The medical record reflects the following clinical findings, treatment, and risk factors. Clinical Indicators: As above Treatment: Isotonic IVF, serial chemistries. Risk Factors: Poor intake, dehydration, diuretic use Please clarify and document your clinical opinion in the progress notes and discharge summary. Terms such as "probable", "suspected", "likely", "questionable", "possible", or "still to be ruled out" are acceptable. IF IN AGREEMENT, YOU MUST DOCUMENT ABOVE DIAGNOSTIC STATEMENT IN DAILY PROGRESS NOTES AND DISCHARGE SUMMARY. This document is not part of the patient's record. Thank You, Karlo Gaspar, JOVANI [phone]
--- NOTE | 2017-10-31 11:48 | Palliative Care Consultation ---
Consultation Date of Consultation: Oct 31, 2017. Requesting Physician: Dr. Michael, Dr. Baker Attending Physician: Dr. Michael Reason for Consultation: Goals of care History of Present Illness This 72 year old female patient with PMH severe cardiomyopathy EF 20-25%, colorectal cancer s/p resection and colostomy, htn, DM, and others listed below , presented to the hospital yesterday with altered mental status from [facility]. Patient was in hospital on 10/09/17 for falls and UTI. According to record patient was having increased confusion/dementia last few days as well as cough and fever. She came to ED and was hypoxic, hypotensive, and found to have multifocal pneumonia. Patient has severe sepsis, receiving IV abx and fluid boluses. Blood pressure responded to IVF, but unfortunately, patient's respiratory and cardiac status has continued to decompensate. She is likely in ARDS per the action installer physician. A bedside echo was performed in ICU which showed severe mitral valve regurgitation and an EF estimated to be <10%. Patient was in respiratory distress requiring bipap. Patient's daughter, Arabella , at bedside and was able to speak with ICU physician. She states that patient is DNR/DNI and she is conflicted in whether or not to transition to comfort measures only and stop all treatment unrelated to comfort. Palliative care is consulted. I met with the patient in room 102. Upon entering, she was in moderate distress on bipap. Appeared to have labored breathing, very disoriented and restless in bed. She was given a one time dose of IV Dilaudid as ordered by physician and almost immediately calmed down and appeared much more comfortable. Patient able to open her eyes and look at me but really could not answer questions and is not following commands other than "open your eyes." She is unable to participate in conversation. I then met with patient's daughter, Rafaela Gibbs (Carrie ), outside of patient's room. She states that her mom has advanced dementia and family is aware of her multiple medical problems. Arabella has had a chance to talk with her brother as well as other family members and the decision has been made to transition patient to comfort measures only-- stop all medications unrelated to comfort including PO meds, IVF, abx, and stop all lab draws. We discussed at length what to expect in the next couple hours to possibly days. See plan below. Past Medical/Surgical History Medical History: Cardiomyopathy EF 20-25% Colorectal cancer s/p resection and colostomy Htn DM Kidney disease per the daughter UTI Falls Dementia Surgical History: Bowel resection with colostomy Social History Smoking Status: Former Smoker History of Alcohol Use: No Drug Use: none Housing Status: long term Occupation Status: retired Review of Systems unable to obtain due to AMS Allergies Coded Allergies: Nickel (Unverified Allergy, Unknown, ., 10/30/17) Ertapenem (Unverified Adverse Reaction, Intermediate, may have had elevated LFT's secondary to ertapenem..., 10/30/17) Patient received Vancomycin + Ertapenem in past for septic joint. She developed LFT elevations on this therapy. She had experienced ADHF, cardiogenic shock just prior to LFT elevation. Provider felt LFT elevations most likely due to shock, hepatic congestion but could not exclude ertapenem + venlafaxine as possible causes. Ertapenem was held and vanco was continued with Rocephin. LFTs improved. Medications Current Inpatient Medications Medications (Trade) Dose Ordered Sig/Lorenzo Route Start Time Stop Time Status Last Admin Dose Admin Albuterol/ Ipratropium (Duoneb) 3 ml Q4 PRN INH 10/30/17 10:45 11/29/17 10:44 10/30/17 19:06 3 ML Morphine Sulfate (MoRPHine SULFATE INJ) 2 mg Q30M PRN IV 10/31/17 10:00 11/14/17 09:59 Lorazepam (Ativan Inj) 0.5 mg Q4H PRN IV 10/31/17 10:00 11/30/17 09:59 Physical Exam Date Time Temp Pulse Resp B/P (MAP) Pulse Ox O2 Delivery O2 Flow Rate FiO2 10/31/17 10:27 36.3 110 24 95 6.0 10/31/17 10:00 123 21 100/68 (79) 95 BiPAP 60 10/31/17 09:00 119 30 132/80 (97) 97 Oxymask 6.0 10/31/17 08:50 120 96 60 10/31/17 08:00 36.3 109 33 114/59 (77) 91 Nasal Cannula 4.0 10/31/17 08:00 97 Oxymask 6.0 10/31/17 05:31 91 31 100/61 (74) 92 2/2118 05:01 95 28 88/68 (75) 94 218 04:31 100 29 100/70 (80) 91 218 04:01 36.3 91 29 99/66 (77) 91 22118 04:00 95 Nasal Cannula 3.0 10/31/17 03:31 87 22 99/60 (73) 93 218 03:01 90 28 117/52 (73) 93 218 02:31 89 25 90/70 (77) 94 218 02:01 88 20 87/76 (80) 94 218 01:31 90 33 96/69 (78) 86 10/31/17 01:01 88 29 93/52 (66) 93 218 00:31 91 29 101/66 (78) 95 2 00:01 36.2 89 29 95/58 (70) 94 10/31/17 00:00 96 25 94 2/18 23:59 95 Nasal Cannula 3.0 18 22:00 36.2 100 24 98/61 (73) 94 2/20/18 21:15 101 30 90/70 (77) 92 Nasal Cannula 3.0 20/18 20:00 92 Nasal Cannula 3.0 220/18 20:00 99 29 100/75 (83) 92 Nasal Cannula 3.0 220/18 19:06 94 28 94 Nasal Cannula 3.0 10/30/18 18:36 90 31 93/68 (76) 93 220/18 18:00 90 30 93/55 (68) 93 Nasal Cannula 3.0 220/18 17:45 92 26 2/20/18 17:31 90 28 90/65 (73) 94 2/20/18 17:00 92 26 100/63 (75) 93 2/20/18 16:00 93 Nasal Cannula 3.0 220/18 16:00 36.3 90 22 92 Nasal Cannula 3.0 2/20/18 14:31 88 17 95/71 (79) 92 Nasal Cannula 3.0 20/18 14:00 84 29 93/63 (73) 95 Nasal Cannula 3.0 2/20/18 11:57 36.3 88 24 92/59 93 Nasal Cannula 3.0 General Appearance: + moderate distress (at beginning of visit, did become comfortable after IV Dilaudid given), + pertinent finding (chronically ill appearing) ENT: hearing grossly normal Neck: supple, no JVD Respiratory: + respiratory distress, + accessory muscle use, + crackles, + rales, + rhonchi, + pertinent finding (on Bipap) Cardiovascular: + tachycardia, + systolic murmur, + pertinent finding (weak peripheral pulses) Abdomen: normal bowel sounds, non tender Neurologic/Psychiatric: + disoriented, + pertinent finding (not verbally responding) Skin: + mottled (from toes to knees bilaterally), + pertinent finding ( scattered ecchymosis) Laboratory Results Last 24 Hours Test 10/30/17 13:00 10/30/17 16:14 10/30/17 16:15 10/30/17 16:48 Bedside Glucose 117 mg/dl 241 mg/dl Sodium Level 147 mmol/L Potassium Level 4.2 mmol/L Chloride Level 117 mmol/L Carbon Dioxide Level 22 mmol/L Anion Gap 9.0 mmol/L Blood Urea Nitrogen 41 mg/dl Creatinine 1.73 mg/dl Est Creatinine Clear Calc Drug Dose 25.0 ml/min Estimated GFR () 33.4 Estimated GFR (Non- 28.8 BUN/Creatinine Ratio 23.5 Random Glucose 253 mg/dl Calcium Level 8.0 mg/dl Lactic Acid Level 4.1 mmol/L Test 10/30/17 20:06 10/30/17 22:17 10/31/17 00:03 10/31/17 02:21 Sodium Level 143 mmol/L Potassium Level 4.1 mmol/L Chloride Level 113 mmol/L Carbon Dioxide Level 18 mmol/L Anion Gap 12.0 mmol/L Blood Urea Nitrogen 42 mg/dl Creatinine 1.77 mg/dl Est Creatinine Clear Calc Drug Dose 24.5 ml/min Estimated GFR () 32.5 Estimated GFR (Non- 28.0 BUN/Creatinine Ratio 23.9 Random Glucose 405 mg/dl Lactic Acid Level 4.5 mmol/L 4.0 mmol/L Calcium Level 7.6 mg/dl Troponin I 0.259 ng/ml 0.300 ng/ml Beta-Hydroxybutyric Acid 1.20 mg/dL Bedside Glucose 369 mg/dl 338 mg/dl Test 10/31/17 03:00 10/31/17 04:02 10/31/17 05:04 10/31/17 05:06 Bedside Glucose 160 mg/dl 127 mg/dl 76 mg/dl White Blood Count 12.48 K/uL Red Blood Count 4.63 M/uL Hemoglobin 14.1 g/dL Hematocrit 43.5 % Mean Corpuscular Volume 94.0 fL Mean Corpuscular Hemoglobin 30.5 pg Mean Corpuscular Hemoglobin Concent 32.4 g/dl Platelet Count 76 K/uL Mean Platelet Volume 11.3 fL Neutrophils (%) (Auto) 81.9 % Lymphocytes (%) (Auto) 11.6 % Monocytes (%) (Auto) 3.6 % Eosinophils (%) (Auto) 0.1 % Basophils (%) (Auto) 0.2 % Neutrophils # (Auto) 10.22 K/uL Lymphocytes # (Auto) 1.45 K/uL Monocytes # (Auto) 0.45 K/uL Eosinophils # (Auto) 0.01 K/uL Basophils # (Auto) 0.03 K/uL RDW Standard Deviation 61.5 fL RDW Coefficient of Variation 18.4 % Immature Granulocyte % (Auto) 2.6 % Immature Granulocyte # (Auto) 0.32 K/uL Toxic Vacuolation 1+ Dohle Bodies 2+ Platelet Estimate DECREASED Echinocytes 1+ Sodium Level 146 mmol/L Potassium Level 3.6 mmol/L Chloride Level 117 mmol/L Carbon Dioxide Level 20 mmol/L Anion Gap 9.0 mmol/L Blood Urea Nitrogen 38 mg/dl Creatinine 1.32 mg/dl Est Creatinine Clear Calc Drug Dose 32.8 ml/min Estimated GFR () 46.3 Estimated GFR (Non- 39.9 BUN/Creatinine Ratio 29.1 Random Glucose 87 mg/dl Calcium Level 7.5 mg/dl Ionized Calcium 1.10 mmol/l Phosphorus Level 2.4 mg/dl Magnesium Level 1.8 mg/dl Total Bilirubin 1.0 mg/dl Direct Bilirubin 0.7 mg/dl Aspartate Amino Transf (AST/SGOT) 32 U/L Alanine Aminotransferase (ALT/SGPT) 27 U/L Alkaline Phosphatase 96 U/L Troponin I 0.278 ng/ml Total Protein 6.1 gm/dl Albumin 1.7 gm/dl Test 10/31/17 05:26 10/31/17 06:35 10/31/17 07:49 10/31/17 08:00 Bedside Glucose 143 mg/dl 84 mg/dl 58 mg/dl Sodium Level 146 mmol/L Potassium Level mmol/L Chloride Level 117 mmol/L Carbon Dioxide Level 21 mmol/L Anion Gap 8.0 mmol/L Blood Urea Nitrogen 36 mg/dl Creatinine 1.49 mg/dl Est Creatinine Clear Calc Drug Dose 29.1 ml/min Estimated GFR () 40.0 Estimated GFR (Non- 34.5 BUN/Creatinine Ratio 24.1 Random Glucose 51 mg/dl Calcium Level 8.0 mg/dl Test 10/31/17 08:07 10/31/17 08:29 10/31/17 09:13 Bedside Glucose 61 mg/dl 74 mg/dl Potassium Level 3.8 mmol/L Assessment & Plan Palliative Performance Scale: 10 % Problem list: Respiratory distress/SOB Respiratory failure 2/2 pneumonia and ARDS Altered mental status Acute systolic heart failure with bedside echo performed by Dr. Baker showing a critically low EF presumed <10% Severe sepsis JEFFERY on CKD Goals of care Palliative care recs: discussed with patient's daughter Rafaela Zuritakari, Dr. Baker and Dr. Michael. -Patient is DNR/DNI. -After discussion with patient's daughter, Arabella (Rafaela), patient will be transitioned to comfort measures only. She was also able to discuss this with her brother and other family members over the phone who are all in agreement with [employer] OPERATOR. -Discontinue all medications unrelated to comfort. -Recommend morphine 2mg IV Q30min PRN pain or SOB. If frequent PRN doses are needed, can start continuous morphine infusion. -Continue Lorazepam PRN anxiety/agitation. Currently ordered at 0.5mg IV Q4h PRN but certainly can be increased if needed. -Remove bipap and place Oxymask for comfort. -Again, all of the above was discussed with patient's daughter, she is in agreement. -Transfer to [facility] for comfort measures. -Patient is not stable for transfer out of hospital. I anticipate that she could pass away in hours to days. More likely hours, which I did relay to family. Thank you kindly for this consult. I will follow as needed. Total time spent 70 minutes with >50% of time with patient and family spent on counseling and discussion goals of care and end of life.
[2017-10-31] MEDS ORDERED: NURSING VERBAL MED ORDER ONE (13:45)
[2017-10-31] MEDS: MoRPHine SULFATE 2 MG/ML CARP IV PRN ×2 (13:46→18:39)
[2017-10-31] MEDS: ATROPINE SULFATE 1% OP SOLN 2 ML BTL SL PRN (14:10)
[2017-10-31] MEDS: SCOPOLAMINE 1.5 MG TDSY TD SCH (14:10)
--- NOTE | 2017-10-31 14:11 | Critical Care Progress Note ---
Critical Care Progress Note Date of Service Oct 31, 2017. Attending Dr. Olivia Marti The patient developed severe respiratory distress with tachypnea and hypoxia requiring BiPAP. The patient did have bilateral significant wheezing and livedo reticularis in the periphery. She was not perfusing very well and she was looking going to cardiogenic shock. The patient was on IV fluids for sepsis and pneumonia which was stopped and the patient given low dose of Lasix as her blood pressure was on the low side as well. Bedside ultrasound was performed which revealed engorged IVC and poor cardiac contractility with almost 10% ejection fraction. The mitral valve was wide-open with 3+ MR. Objective The review of system was not obtainable at this point as the patient was in severe distress and she has history also of dementia. But she is appearing uncomfortable. Physical exam revealed heart rate of 120, blood pressure of 91/47 with a map of 55, positive JVP, she had diffuse wheezing and crackles bilaterally, S1-S2 tachycardic, abdomen is benign with colostomy tube in place, bilateral livedo reticularis, neurologically difficult to assess as the patient was agitated. Assessment & Plan #1 cardiogenic shock, secondary to cardiomyopathy with poor ejection fraction. Ultrasound was done at the bedside which showed engorged IVC and EF of around 10 % only. Severe MR was noted. Small bilateral pleural effusion were noted. #2 multilobar pneumonia and now an acute respiratory failure. #3 dysphagia. #4 profound dementia. #5 history of colorectal CA status post subtotal colectomy with colostomy in place. #6 severe respiratory distress due to the above. Plan: #1 echocardiogram was done at the bedside and performed by myself and the results as above. #2 Lasix was given at 20 mg dose. #3 IV fluids were stopped. #4 antibiotics continued. #5 patient was given 1 dose of hydromorphone to alleviate her symptoms. #6 the patient carries an extremely high mortality rate given her cardiogenic shock as well as sepsis. And poor ejection fraction. I have discussed the case with the daughter who works in our institution as well. And explained the options of aggressive measurement for a few days, if there is no improvement then withdraw the efforts versus comfort measures only. Based on the patient wishes, the daughter called her other siblings and the decision was made regarding comfort measures only. #7 palliative care consult was called and appreciate the input. Patient was started on comfort only and placed on the BiPAP. #8 patient was transferred to quiet room on the regular floor, the patient is terminally ill. #9 patient is DO NOT RESUSCITATE. #10 discontinued all other medication. Discussed with the daughter, with the staff on rounds, critical care time spent with the patient was 35 minutes. Data Medications: Current Inpatient Medications Medications (Trade) Dose Ordered Sig/Lorenzo Route Start Time Stop Time Status Last Admin Dose Admin Albuterol/ Ipratropium (Duoneb) 3 ml Q4 PRN INH 10/30/17 10:45 11/29/17 10:44 10/30/17 19:06 3 ML Morphine Sulfate (MoRPHine SULFATE INJ) 2 mg Q30M PRN IV 10/31/17 10:00 11/14/17 09:59 10/31/17 13:46 2 MG Lorazepam (Ativan Inj) 0.5 mg Q4H PRN IV 10/31/17 10:00 11/30/17 09:59 Scopolamine (Transderm-Scop Patch) 1.5 mg Q72H TD 10/31/17 14:00 11/30/17 13:59 Miscellaneous Information (Check Scopolamine Patch Placement) 1 ea QS N/A 10/31/17 16:00 11/30/17 15:59 Miscellaneous (Remove Transderm-Scop Patch) 1 ea Q72H N/A 11/03/17 14:00 12/03/17 13:59 Atropine Sulfate (ATROPINE SULFATE 1% Op Soln 2 ML) 4 drops Q1H PRN SL 10/31/17 14:00 11/30/17 13:59 I & O: 24-Hour Column 11/01/17 07:59 Intake Total 933 ml Balance 933 ml Vital Signs: Date Time Temp Pulse Resp B/P (MAP) Pulse Ox O2 Delivery O2 Flow Rate FiO2 10/31/17 11:37 102 96 60 10/31/17 10:27 36.3 110 24 95 6.0 10/31/17 10:00 123 21 100/68 (79) 95 BiPAP 60 10/31/17 09:00 119 30 132/80 (97) 97 Oxymask 6.0 10/31/17 08:50 120 96 60 10/31/17 08:00 36.3 109 33 114/59 (77) 91 Nasal Cannula 4.0 10/31/17 08:00 97 Oxymask 6.0 10/31/17 08:00 Nasal Cannula 10/31/17 05:31 91 31 100/61 (74) 92 10/31/17 05:01 95 28 88/68 (75) 94 10/31/17 04:31 100 29 100/70 (80) 91 10/31/17 04:01 36.3 91 29 99/66 (77) 91 10/31/17 04:00 95 Nasal Cannula 3.0 10/31/17 03:31 87 22 99/60 (73) 93 10/31/17 03:01 90 28 117/52 (73) 93 10/31/17 02:31 89 25 90/70 (77) 94 10/31/17 02:01 88 20 87/76 (80) 94 10/31/17 01:31 90 33 96/69 (78) 86 10/31/17 01:01 88 29 93/52 (66) 93 10/31/17 00:31 91 29 101/66 (78) 95 10/31/17 00:01 36.2 89 29 95/58 (70) 94 10/31/17 00:00 96 25 94 18 23:59 95 Nasal Cannula 3.0 10/30/17 22:00 36.2 100 24 98/61 (73) 94 22018 21:15 101 30 90/70 (77) 92 Nasal Cannula 3.0 10/30/17 20:00 92 Nasal Cannula 3.0 10/30/17 20:00 99 29 100/75 (83) 92 Nasal Cannula 3.0 10/30/17 19:06 94 28 94 Nasal Cannula 3.0 10/30/18 18:36 90 31 93/68 (76) 93 220/18 18:00 90 30 93/55 (68) 93 Nasal Cannula 3.0 20/18 17:45 92 26 220/18 17:31 90 28 90/65 (73) 94 2/20/18 17:00 92 26 100/63 (75) 93 220/18 16:00 93 Nasal Cannula 3.0 18 16:00 36.3 90 22 92 Nasal Cannula 3.0 18 14:31 88 17 95/71 (79) 92 Nasal Cannula 3.0 Laboratory Results: Last 24 Hours Test 10/30/17 16:14 10/30/17 16:15 10/30/17 16:48 10/30/17 20:06 Sodium Level 147 mmol/L 143 mmol/L Potassium Level 4.2 mmol/L 4.1 mmol/L Chloride Level 117 mmol/L 113 mmol/L Carbon Dioxide Level 22 mmol/L 18 mmol/L Anion Gap 9.0 mmol/L 12.0 mmol/L Blood Urea Nitrogen 41 mg/dl 42 mg/dl Creatinine 1.73 mg/dl 1.77 mg/dl Est Creatinine Clear Calc Drug Dose 25.0 ml/min 24.5 ml/min Estimated GFR () 33.4 32.5 Estimated GFR (Non- 28.8 28.0 BUN/Creatinine Ratio 23.5 23.9 Random Glucose 253 mg/dl 405 mg/dl Calcium Level 8.0 mg/dl 7.6 mg/dl Lactic Acid Level 4.1 mmol/L 4.5 mmol/L Bedside Glucose 241 mg/dl Troponin I 0.259 ng/ml Beta-Hydroxybutyric Acid 1.20 mg/dL Test 10/30/17 22:17 10/31/17 00:01 10/31/17 00:03 10/31/17 02:21 Bedside Glucose 369 mg/dl 377 mg/dl 338 mg/dl Lactic Acid Level 4.0 mmol/L Troponin I 0.300 ng/ml Test 10/31/17 03:00 10/31/17 04:02 10/31/17 05:04 10/31/17 05:06 Bedside Glucose 160 mg/dl 127 mg/dl 76 mg/dl White Blood Count 12.48 K/uL Red Blood Count 4.63 M/uL Hemoglobin 14.1 g/dL Hematocrit 43.5 % Mean Corpuscular Volume 94.0 fL Mean Corpuscular Hemoglobin 30.5 pg Mean Corpuscular Hemoglobin Concent 32.4 g/dl Platelet Count 76 K/uL Mean Platelet Volume 11.3 fL Neutrophils (%) (Auto) 81.9 % Lymphocytes (%) (Auto) 11.6 % Monocytes (%) (Auto) 3.6 % Eosinophils (%) (Auto) 0.1 % Basophils (%) (Auto) 0.2 % Neutrophils # (Auto) 10.22 K/uL Lymphocytes # (Auto) 1.45 K/uL Monocytes # (Auto) 0.45 K/uL Eosinophils # (Auto) 0.01 K/uL Basophils # (Auto) 0.03 K/uL RDW Standard Deviation 61.5 fL RDW Coefficient of Variation 18.4 % Immature Granulocyte % (Auto) 2.6 % Immature Granulocyte # (Auto) 0.32 K/uL Toxic Vacuolation 1+ Dohle Bodies 2+ Platelet Estimate DECREASED Echinocytes 1+ Sodium Level 146 mmol/L Potassium Level 3.6 mmol/L Chloride Level 117 mmol/L Carbon Dioxide Level 20 mmol/L Anion Gap 9.0 mmol/L Blood Urea Nitrogen 38 mg/dl Creatinine 1.32 mg/dl Est Creatinine Clear Calc Drug Dose 32.8 ml/min Estimated GFR () 46.3 Estimated GFR (Non- 39.9 BUN/Creatinine Ratio 29.1 Random Glucose 87 mg/dl Calcium Level 7.5 mg/dl Ionized Calcium 1.10 mmol/l Phosphorus Level 2.4 mg/dl Magnesium Level 1.8 mg/dl Total Bilirubin 1.0 mg/dl Direct Bilirubin 0.7 mg/dl Aspartate Amino Transf (AST/SGOT) 32 U/L Alanine Aminotransferase (ALT/SGPT) 27 U/L Alkaline Phosphatase 96 U/L Troponin I 0.278 ng/ml Total Protein 6.1 gm/dl Albumin 1.7 gm/dl Test 10/31/17 05:26 10/31/17 06:35 10/31/17 07:46 10/31/17 07:49 Bedside Glucose 143 mg/dl 84 mg/dl 56 mg/dl 58 mg/dl Test 10/31/17 08:00 10/31/17 08:05 10/31/17 08:07 10/31/17 08:29 Sodium Level 146 mmol/L Potassium Level mmol/L Chloride Level 117 mmol/L Carbon Dioxide Level 21 mmol/L Anion Gap 8.0 mmol/L Blood Urea Nitrogen 36 mg/dl Creatinine 1.49 mg/dl Est Creatinine Clear Calc Drug Dose 29.1 ml/min Estimated GFR () 40.0 Estimated GFR (Non- 34.5 BUN/Creatinine Ratio 24.1 Random Glucose 51 mg/dl Calcium Level 8.0 mg/dl Bedside Glucose 62 mg/dl 61 mg/dl 74 mg/dl Test 10/31/17 09:13 Potassium Level 3.8 mmol/L
[2017-10-31] MEDS: CHECK SCOPOLAMINE PATCH PLACEMENT SCH ×2 (16:29→23:29)
--- NOTE | 2017-10-31 17:41 | Progress Note ---
Internal Med Progress Note Date of Service: Oct 31, 2017. Provider Documentation: SUBJECTIVE: patient is drowsy-opens eyes on calling but not answering any questions and not obeying any commands just received Dilaudid but prior to that also seems not coherent family decided for comfort measures only OBJECTIVE: Vital Signs-as noted below Exam: General-drowsy Neck-no neck masses Lungs-cta b/l no wheezing or crackles Heart-s1 and s2 heard regular rate and rhythm no murmurs Abdomen-soft bowel sounds present no distension Extremities-no edema no erythema Neuro-drowsy not obeying commands Lab data as noted below. ASSESSMENT & PLAN: This 72-year-old female with dementia, presents with severe sepsis from multifocal pneumonia. 1. Severe sepsis with lactic acid 3.5, elevated white count, multifocal pneumonia on CAT scan, hypotension, hypoxia and tachycardia. The patient is status post central line at right internal jugular, received 1.5 liters fluid bolus in the ER. Cannot give aggressive fluids as the patient's EF is only 20-25%. We will continue IV fluids ns@100ml/hr, and if necessary, we will start on pressors. She has a recent history of urinary tract infection with enterococcus.Will treat with IV doxycycline, Zosyn and vancomycin. patinet is dnr/dni. reepat lactic acid was still elevated at 4.0 2 patient was having resp distress bed side echo done by critical care showed ef 10%.BP on lower side fluids were stopped and a dose of Lasix given patient now also on cardiogenic shock on sepsis. Critical care d/w daughter about poor prognosis palliative care was consulted and daughter decided for comfort care only. All abx and medications wer stopped and was placed on comfort care with mprphine prn transferred to medical floor. 2. Hypernatremia. We are holding home diuretics. Getting the fluids as above. currently on comfort care 3. Hypokalemia and hypomagnesemia. replace. 4. Qt prolongation. We will repeat EKG.on comfort care. 5. History of chronic systolic heart failure with EF of only 20-25%, status post ICD. It was not interrogated last admission because of multiple comorbid conditions. Holding the diuretics as above. Blood pressure is low, we will hold the Toprol. currently on comfort care. 6. Colon cancer, status post resection. Colostomy tube is working okay. 7. Diabetes type 2. Last HgA1c was 8.5. On Lantus and NovoLog. We will monitor the blood sugars.Currently all meds stopped and on comfort care. 8. Acute renal failure on chronic kidney disease. Baseline creatinine about 1.1 to 1.2. Creatinine of 1.9 from above. Holding diuretics. On fluids. on comfort care. 10. History of atrial fibrillation, currently normal sinus rhythm. 12. Deep vein thrombosis prophylaxis. scds DISPOSITION on Comfort care Vital Signs: Date Time Temp Pulse Resp B/P (MAP) Pulse Ox O2 Delivery O2 Flow Rate FiO2 10/31/17 11:37 102 96 60 10/31/17 10:27 36.3 110 24 95 6.0 10/31/17 10:00 123 21 100/68 (79) 95 BiPAP 60 10/31/17 09:00 119 30 132/80 (97) 97 Oxymask 6.0 10/31/17 08:50 120 96 60 10/31/17 08:00 36.3 109 33 114/59 (77) 91 Nasal Cannula 4.0 10/31/17 08:00 97 Oxymask 6.0 10/31/17 08:00 Nasal Cannula 10/31/17 05:31 91 31 100/61 (74) 92 10/31/17 05:01 95 28 88/68 (75) 94 10/31/17 04:31 100 29 100/70 (80) 91 10/31/17 04:01 36.3 91 29 99/66 (77) 91 10/31/17 04:00 95 Nasal Cannula 3.0 10/31/17 03:31 87 22 99/60 (73) 93 10/31/17 03:01 90 28 117/52 (73) 93 10/31/17 02:31 89 25 90/70 (77) 94 10/31/17 02:01 88 20 87/76 (80) 94 10/31/17 01:31 90 33 96/69 (78) 86 10/31/17 01:01 88 29 93/52 (66) 93 10/31/17 00:31 91 29 101/66 (78) 95 10/31/17 00:01 36.2 89 29 95/58 (70) 94 10/31/17 00:00 96 25 94 10/30/17 23:59 95 Nasal Cannula 3.0 10/30/17 22:00 36.2 100 24 98/61 (73) 94 10/30/17 21:15 101 30 90/70 (77) 92 Nasal Cannula 3.0 10/30/17 20:00 92 Nasal Cannula 3.0 10/30/17 20:00 99 29 100/75 (83) 92 Nasal Cannula 3.0 10/30/17 19:06 94 28 94 Nasal Cannula 3.0 10/30/17 18:36 90 31 93/68 (76) 93 10/30/17 18:00 90 30 93/55 (68) 93 Nasal Cannula 3.0 10/30/17 17:45 92 26 Lab Results: Results Past 24 Hours Test 10/30/17 20:06 10/30/17 22:17 10/31/17 00:01 10/31/17 00:03 Range/Units Sodium Level 143 136-145 mmol/L Potassium Level 4.1 3.5-5.1 mmol/L Chloride Level 113 98-107 mmol/L Carbon Dioxide Level 18 21-32 mmol/L Anion Gap 12.0 3-11 mmol/L Blood Urea Nitrogen 42 7-18 mg/dl Creatinine 1.77 0.60-1.20 mg/dl Est Creatinine Clear Calc Drug Dose 24.5 ml/min Estimated GFR () 32.5 Estimated GFR (Non- 28.0 BUN/Creatinine Ratio 23.9 10-20 Random Glucose 405 70-99 mg/dl Lactic Acid Level 4.5 0.4-2.0 mmol/L Calcium Level 7.6 8.5-10.1 mg/dl Troponin I 0.259 0-0.045 ng/ml Beta-Hydroxybutyric Acid 1.20 0.2-2.81 mg/dL Bedside Glucose 369 377 338 70-90 mg/dl Test 10/31/17 02:21 10/31/17 03:00 10/31/17 04:02 10/31/17 05:04 Range/Units Lactic Acid Level 4.0 0.4-2.0 mmol/L Troponin I 0.300 0.278 0-0.045 ng/ml Bedside Glucose 160 127 70-90 mg/dl White Blood Count 12.48 4.8-10.8 K/uL Red Blood Count 4.63 4.2-5.4 M/uL Hemoglobin 14.1 12.0-16.0 g/dL Hematocrit 43.5 37-47 % Mean Corpuscular Volume 94.0 80-100 fL Mean Corpuscular Hemoglobin 30.5 25-34 pg Mean Corpuscular Hemoglobin Concent 32.4 32-36 g/dl Platelet Count 76 130-400 K/uL Mean Platelet Volume 11.3 7.4-10.4 fL Neutrophils (%) (Auto) 81.9 % Lymphocytes (%) (Auto) 11.6 % Monocytes (%) (Auto) 3.6 % Eosinophils (%) (Auto) 0.1 % Basophils (%) (Auto) 0.2 % Neutrophils # (Auto) 10.22 1.4-6.5 K/uL Lymphocytes # (Auto) 1.45 1.2-3.4 K/uL Monocytes # (Auto) 0.45 0.11-0.59 K/uL Eosinophils # (Auto) 0.01 0-0.5 K/uL Basophils # (Auto) 0.03 0-0.2 K/uL RDW Standard Deviation 61.5 36.4-46.3 fL RDW Coefficient of Variation 18.4 11.5-14.5 % Immature Granulocyte % (Auto) 2.6 % Immature Granulocyte # (Auto) 0.32 0.00-0.02 K/uL Toxic Vacuolation 1+ Dohle Bodies 2+ Platelet Estimate DECREASED Echinocytes 1+ Sodium Level 146 136-145 mmol/L Potassium Level 3.6 3.5-5.1 mmol/L Chloride Level 117 98-107 mmol/L Carbon Dioxide Level 20 21-32 mmol/L Anion Gap 9.0 3-11 mmol/L Blood Urea Nitrogen 38 7-18 mg/dl Creatinine 1.32 0.60-1.20 mg/dl Est Creatinine Clear Calc Drug Dose 32.8 ml/min Estimated GFR () 46.3 Estimated GFR (Non- 39.9 BUN/Creatinine Ratio 29.1 10-20 Random Glucose 87 70-99 mg/dl Calcium Level 7.5 8.5-10.1 mg/dl Ionized Calcium 1.10 1.12-1.32 mmol/l Phosphorus Level 2.4 2.5-4.9 mg/dl Magnesium Level 1.8 1.8-2.4 mg/dl Total Bilirubin 1.0 0.2-1 mg/dl Direct Bilirubin 0.7 0-0.2 mg/dl Aspartate Amino Transf (AST/SGOT) 32 15-37 U/L Alanine Aminotransferase (ALT/SGPT) 27 12-78 U/L Alkaline Phosphatase 96 45-117 U/L Total Protein 6.1 6.4-8.2 gm/dl Albumin 1.7 3.4-5.0 gm/dl Test 10/31/17 05:06 10/31/17 05:26 10/31/17 06:35 10/31/17 07:46 Range/Units Bedside Glucose 76 143 84 56 70-90 mg/dl Test 10/31/17 07:49 10/31/17 08:00 10/31/17 08:05 10/31/17 08:07 Range/Units Bedside Glucose 58 62 61 70-90 mg/dl Sodium Level 146 136-145 mmol/L Potassium Level 3.5-5.1 mmol/L Chloride Level 117 98-107 mmol/L Carbon Dioxide Level 21 21-32 mmol/L Anion Gap 8.0 3-11 mmol/L Blood Urea Nitrogen 36 7-18 mg/dl Creatinine 1.49 0.60-1.20 mg/dl Est Creatinine Clear Calc Drug Dose 29.1 ml/min Estimated GFR () 40.0 Estimated GFR (Non- 34.5 BUN/Creatinine Ratio 24.1 10-20 Random Glucose 51 70-99 mg/dl Calcium Level 8.0 8.5-10.1 mg/dl Test 10/31/17 08:29 10/31/17 09:13 Range/Units Bedside Glucose 74 70-90 mg/dl Potassium Level 3.8 3.5-5.1 mmol/L
[2017-10-31] MEDS ORDERED: VANCOMYCIN INJ 750 MG in SODIUM CHLORIDE 0.9% 250ML 250 ML IV SCH (19:00)
[2017-10-31] MEDS ORDERED: INSULIN GLARGINE SOLOSTAR 100 UNITS/ML 3 ML PEN SC SCH (21:00)
[2017-11-01] MEDS: CHECK SCOPOLAMINE PATCH PLACEMENT SCH ×2 (11:17→14:31)
[2017-11-01] MEDS: MoRPHine SULFATE 2 MG/ML CARP IV PRN ×3 (14:30→23:58)
[2017-11-01] MEDS: ATROPINE SULFATE 1% OP SOLN 2 ML BTL SL PRN (14:30)
--- NOTE | 2017-11-01 15:43 | Palliative Care Progress Note ---
Palliative Care Progress Note Date of Service Nov 01, 2017. Subjective Pt evaluation today including: conversation w/ family (son and two daughters at bedside), physical exam, chart review, review of inpatient medication list Pain: no s/s pain at this time PO Intake: none Voiding: arellano catheter in place -Patient was rather obtunded while I was in room this AM. Family stated that patient does wake up occasionally and was able to communicate with them last evening. They were able to have a nice family visit. -Had three doses of morphine 2mg IV in last 24 hours. Review of Systems unable to obtain Objective Vital Signs Date Time Temp Pulse Resp B/P (MAP) Pulse Ox O2 Delivery O2 Flow Rate FiO2 11/01/17 15:09 Oxymask 5.0 11/01/17 09:45 Oxymask 5.0 11/01/17 00:00 Oxymask 5.0 10/31/17 16:00 Oxymask 5.0 Physical Exam General Appearance: no apparent distress ENT: hearing grossly normal Neck: supple, no JVD Respiratory/Chest: no respiratory distress, no accessory muscle use, + decreased breath sounds, + rhonchi (coarse), + pertinent finding (respirations much less labored than yesterday. secretions are minimal now with atropine and scopolamine) Cardiovascular: + tachycardia, + pertinent finding (weak pedal pulses) Abdomen: normal bowel sounds, soft Neurologic/Psychiatric: + pertinent finding (lethargic/obtunded) Skin: + mottled (bilateral feet and knees, but toes are warmer than yesterday) Assessment and Plan Problem list: Respiratory distress/SOB Respiratory failure 2/2 pneumonia and ARDS Altered mental status Acute systolic heart failure with bedside echo performed by Dr. Baker showing a critically low EF presumed <10% Severe sepsis JEFFERY on CKD Goals of care Palliative care recs: discussed with patient's son and daughter at bedside. Other daughter was sleeping. -Comfort measures only continues. -Patient had three doses of IV morphine in last 24 hours. Appears comfortable at this time. -Continue morphine as ordered- 2mg IV Q30min as needed. Can start continuous infusion if PRN requirements increase. -Continue scopolamine and atropine for secretions- much improved from yesterday. -Support given to family at bedside. Thank you again for this consult. I will follow. Total time spent 25 minutes with >50% of time spent with patient and family counseling and discussing plan of care. Palliative Performance Scale: 10 % Continued [facility] stay due to: multiple IV medications needed, home environment unsafe for pt Discharge planning: uncertain
--- NOTE | 2017-11-01 16:25 | Progress Note ---
Internal Med Progress Note Date of Service: Nov 01, 2017. Provider Documentation: SUBJECTIVE: The patient was seen and examined in presence of the Daughters Very weak and lethargic Pleasantly confused Denies any symptoms OBJECTIVE: Vital Signs-as noted below Exam: General-No distress at rest Eyes-normal ENT-normal Neck-supple Lungs-Decreased breath sound bilaterally Minimal crackles at the bases Heart-Regular,no murmur Abdomen-Benign,no masses,bowel sound present Extremities-Trace edema bilaterally Neuro-AA Pleasantly confused Lab data as noted below. ASSESSMENT & PLAN: Current Issues:::Patient has been put on Comfort care only Respiratory failure 2/2 pneumonia and ARDS Altered mental status Acute systolic heart failure with critically low EF presumed <10% Severe sepsis JEFFERY on CKD Critical but remains stable :Palliative Care on Board Discussed with the Family members Hospital course so far as mentioned below: This 72-year-old female with dementia, presents with severe sepsis from multifocal pneumonia. 1. Severe sepsis with lactic acid 3.5, elevated white count, multifocal pneumonia on CAT scan, hypotension, hypoxia and tachycardia. The patient is status post central line at right internal jugular, received 1.5 liters fluid bolus in the ER. Cannot give aggressive fluids as the patient's EF is only 20-25%. We will continue IV fluids ns@100ml/hr, and if necessary, we will start on pressors. She has a recent history of urinary tract infection with enterococcus.Will treat with IV doxycycline, Zosyn and vancomycin. patinet is dnr/dni. reepat lactic acid was still elevated at 4.0 10/31/17 patient was having resp distress bed side echo done by critical care showed ef 10%.BP on lower side fluids were stopped and a dose of Lasix given patient now also on cardiogenic shock on sepsis. Critical care d/w daughter about poor prognosis palliative care was consulted and daughter decided for comfort care only. All abx and medications wer stopped and was placed on comfort care with mprphine prn transferred to medical floor. 2. Hypernatremia. We are holding home diuretics. Getting the fluids as above. currently on comfort care 3. Hypokalemia and hypomagnesemia. replace. 4. Qt prolongation. We will repeat EKG.on comfort care. 5. History of chronic systolic heart failure with EF of only 20-25%, status post ICD. It was not interrogated last admission because of multiple comorbid conditions. Holding the diuretics as above. Blood pressure is low, we will hold the Toprol. currently on comfort care. 6. Colon cancer, status post resection. Colostomy tube is working okay. 7. Diabetes type 2. Last HgA1c was 8.5. On Lantus and NovoLog. We will monitor the blood sugars.Currently all meds stopped and on comfort care. 8. Acute renal failure on chronic kidney disease. Baseline creatinine about 1.1 to 1.2. Creatinine of 1.9 from above. Holding diuretics. On fluids. on comfort care. 10. History of atrial fibrillation, currently normal sinus rhythm. 12. Deep vein thrombosis prophylaxis. scds DISPOSITION on Comfort care Vital Signs: Date Time Temp Pulse Resp B/P (MAP) Pulse Ox O2 Delivery O2 Flow Rate FiO2 11/01/17 15:09 Oxymask 5.0 11/01/17 09:45 Oxymask 5.0 11/01/17 00:00 Oxymask 5.0
[2017-11-02] MEDS: CHECK SCOPOLAMINE PATCH PLACEMENT SCH ×4 (00:15→23:39)
[2017-11-02] MEDS: MoRPHine SULFATE 2 MG/ML CARP IV PRN ×4 (03:26→17:33)
[2017-11-02] MEDS: LORAZEPAM INJ 0.5 MG in SYRINGE 0.75 ML IV PRN ×3 (03:26→13:35)
--- NOTE | 2017-11-02 12:19 | Palliative Care Progress Note ---
Palliative Care Progress Note Date of Service Nov 02, 2017. Subjective Pt evaluation today including: conversation w/ patient, conversation w/ family (daughter sleeping at bedside), physical exam, review of inpatient medication list Pain: no s/s pain Voiding: arellano catheter in place Patient did not wake during my visit. Remains mottled and obtunded. Receiving PRN morphine for symptom management. Comfort measures only. Review of Systems unable to obtain ROS due to AMS Objective Vital Signs Date Time Temp Pulse Resp B/P (MAP) Pulse Ox O2 Delivery O2 Flow Rate FiO2 11/02/17 08:00 Oxymask 5.0 11/02/17 00:20 Oxymask 5.0 11/01/17 20:10 Oxymask 5.0 11/01/17 15:09 Oxymask 5.0 Physical Exam General Appearance: no apparent distress ENT: hearing grossly normal Neck: supple, no JVD Respiratory/Chest: + decreased breath sounds, + accessory muscle use (mild, but respirations are not labored) Cardiovascular: + tachycardia, + pertinent finding (weak peripheral pulses) Abdomen: normal bowel sounds, soft Neurologic/Psychiatric: + pertinent finding (obtunded) Skin: + mottled (bilateral feet and knees) Assessment and Plan Problem list: Respiratory distress/SOB Respiratory failure 2/2 pneumonia and ARDS Altered mental status Acute systolic heart failure with bedside echo performed by Dr. Baker showing a critically low EF presumed <10% Severe sepsis JEFFERY on CKD Goals of care Palliative care recs: discussed with patient's son and daughter at bedside. Other daughter was sleeping. -Comfort measures only continues. -Patient had five doses of IV morphine in last 24 hours. -Continue morphine as ordered- 2mg IV Q30min as needed. Can start continuous infusion if PRN requirements increase. I do feel that her needs will increase as time goes on. May be candidate for [facility] hospice. -Continue scopolamine and atropine for secretions- much improved. Total time spent 25 minutes with >50% of time spent with patient and family counseling and discussing plan of care. Palliative Performance Scale: 10 % Continued [facility] stay due to: multiple IV medications needed, home environment unsafe for pt Discharge planning: uncertain
--- NOTE | 2017-11-02 17:41 | Progress Note ---
Internal Med Progress Note Date of Service: Nov 02, 2017. Provider Documentation: SUBJECTIVE: The patient was seen and examined in presence of the Daughters Very weak and lethargic Pleasantly confused Denies any symptoms A little worse today OBJECTIVE: Vital Signs-as noted below Exam: General-Moderate SOB at rest Eyes-normal ENT-normal Neck-supple Lungs-Decreased breath sound bilaterally Minimal crackles at the bases Heart-Regular,no murmur Abdomen-Benign,no masses,bowel sound present Extremities-Trace edema bilaterally Neuro-AA Pleasantly confused Lab data as noted below. ASSESSMENT & PLAN: Current Issues:::Patient has been put on Comfort care only Respiratory failure 2/2 pneumonia and ARDS Altered mental status Acute systolic heart failure with critically low EF presumed <10% Severe sepsis JEFFERY on CKD Critical but remains stable :Palliative Care on Board Discussed with the Family members Worse today -continue comfort care Hospital course so far as mentioned below: This 72-year-old female with dementia, presents with severe sepsis from multifocal pneumonia. 1. Severe sepsis with lactic acid 3.5, elevated white count, multifocal pneumonia on CAT scan, hypotension, hypoxia and tachycardia. The patient is status post central line at right internal jugular, received 1.5 liters fluid bolus in the ER. Cannot give aggressive fluids as the patient's EF is only 20-25%. We will continue IV fluids ns@100ml/hr, and if necessary, we will start on pressors. She has a recent history of urinary tract infection with enterococcus.Will treat with IV doxycycline, Zosyn and vancomycin. patinet is dnr/dni. reepat lactic acid was still elevated at 4.0 10/31/17 patient was having resp distress bed side echo done by critical care showed ef 10%.BP on lower side fluids were stopped and a dose of Lasix given patient now also on cardiogenic shock on sepsis. Critical care d/w daughter about poor prognosis palliative care was consulted and daughter decided for comfort care only. All abx and medications wer stopped and was placed on comfort care with mprphine prn transferred to medical floor. 2. Hypernatremia. We are holding home diuretics. Getting the fluids as above. currently on comfort care 3. Hypokalemia and hypomagnesemia. replace. 4. Qt prolongation. We will repeat EKG.on comfort care. 5. History of chronic systolic heart failure with EF of only 20-25%, status post ICD. It was not interrogated last admission because of multiple comorbid conditions. Holding the diuretics as above. Blood pressure is low, we will hold the Toprol. currently on comfort care. 6. Colon cancer, status post resection. Colostomy tube is working okay. 7. Diabetes type 2. Last HgA1c was 8.5. On Lantus and NovoLog. We will monitor the blood sugars.Currently all meds stopped and on comfort care. 8. Acute renal failure on chronic kidney disease. Baseline creatinine about 1.1 to 1.2. Creatinine of 1.9 from above. Holding diuretics. On fluids. on comfort care. 10. History of atrial fibrillation, currently normal sinus rhythm. 12. Deep vein thrombosis prophylaxis. scds DISPOSITION on Comfort care Vital Signs: Date Time Temp Pulse Resp B/P (MAP) Pulse Ox O2 Delivery O2 Flow Rate FiO2 11/02/17 16:00 Oxymask 5.0 11/02/17 08:00 Oxymask 5.0 11/02/17 00:20 Oxymask 5.0 11/01/17 20:10 Oxymask 5.0
[2017-11-03] VITALS: O2SAT 96
[2017-11-03] MEDS: MoRPHine SULFATE 2 MG/ML CARP IV PRN ×7 (01:21→21:55)
[2017-11-03] MEDS: CHECK SCOPOLAMINE PATCH PLACEMENT SCH ×3 (07:51→23:54)
[2017-11-03] MEDS: SCOPOLAMINE 1.5 MG TDSY TD SCH (13:57)
--- NOTE | 2017-11-03 14:09 | Progress Note ---
Internal Med Progress Note Date of Service: Nov 03, 2017. Provider Documentation: SUBJECTIVE: The patient was seen and examined in presence of the Daughters Not communication or opening eyes OBJECTIVE: Vital Signs-as noted below Exam: General-Minimal SOB at rest Eyes-normal ENT-normal Neck-supple Lungs-Decreased breath sound bilaterally Minimal crackles at the bases Heart-Regular,no murmur Abdomen-Benign,no masses,bowel sound present Extremities-Trace edema bilaterally Neuro-AA Pleasantly confused Lab data as noted below. ASSESSMENT & PLAN: Current Issues:::Patient has been put on Comfort care only Respiratory failure 2/2 pneumonia and ARDS Altered mental status Acute systolic heart failure with critically low EF presumed <10% Severe sepsis JEFFERY on CKD Critical but remains stable :Palliative Care on Board Discussed with the Family members Worse today -continue comfort care Keep comfortable Talked to the family members Hospital course so far as mentioned below: This 72-year-old female with dementia, presents with severe sepsis from multifocal pneumonia. 1. Severe sepsis with lactic acid 3.5, elevated white count, multifocal pneumonia on CAT scan, hypotension, hypoxia and tachycardia. The patient is status post central line at right internal jugular, received 1.5 liters fluid bolus in the ER. Cannot give aggressive fluids as the patient's EF is only 20-25%. We will continue IV fluids ns@100ml/hr, and if necessary, we will start on pressors. She has a recent history of urinary tract infection with enterococcus.Will treat with IV doxycycline, Zosyn and vancomycin. patinet is dnr/dni. reepat lactic acid was still elevated at 4.0 10/31/17 patient was having resp distress bed side echo done by critical care showed ef 10%.BP on lower side fluids were stopped and a dose of Lasix given patient now also on cardiogenic shock on sepsis. Critical care d/w daughter about poor prognosis palliative care was consulted and daughter decided for comfort care only. All abx and medications wer stopped and was placed on comfort care with mprphine prn transferred to medical floor. 2. Hypernatremia. We are holding home diuretics. Getting the fluids as above. currently on comfort care 3. Hypokalemia and hypomagnesemia. replace. 4. Qt prolongation. We will repeat EKG.on comfort care. 5. History of chronic systolic heart failure with EF of only 20-25%, status post ICD. It was not interrogated last admission because of multiple comorbid conditions. Holding the diuretics as above. Blood pressure is low, we will hold the Toprol. currently on comfort care. 6. Colon cancer, status post resection. Colostomy tube is working okay. 7. Diabetes type 2. Last HgA1c was 8.5. On Lantus and NovoLog. We will monitor the blood sugars.Currently all meds stopped and on comfort care. 8. Acute renal failure on chronic kidney disease. Baseline creatinine about 1.1 to 1.2. Creatinine of 1.9 from above. Holding diuretics. On fluids. on comfort care. 10. History of atrial fibrillation, currently normal sinus rhythm. 12. Deep vein thrombosis prophylaxis. scds DISPOSITION on Comfort care Vital Signs: Date Time Temp Pulse Resp B/P (MAP) Pulse Ox O2 Delivery O2 Flow Rate FiO2 11/03/17 08:00 Oxymask 7.0 11/03/17 00:00 96 Oxymask 7.0 11/02/17 16:00 Oxymask 5.0
[2017-11-04] MEDS: MoRPHine SULFATE 2 MG/ML CARP IV PRN ×3 (07:41→20:21)
[2017-11-04] MEDS: CHECK SCOPOLAMINE PATCH PLACEMENT SCH ×3 (07:41→23:39)
--- NOTE | 2017-11-04 14:18 | Progress Note ---
Internal Med Progress Note Date of Service: Nov 04, 2017. Provider Documentation: SUBJECTIVE: The patient was seen and examined in presence of the Daughters Not communication or opening eyes Condition remains critical OBJECTIVE: Vital Signs-as noted below Exam: General-Minimal SOB at rest Eyes-closed ENT-normal Neck-supple Lungs-Decreased breath sound bilaterally transmitted sound Heart-Regular,no murmur Abdomen-Benign,no masses,bowel sound present Extremities-Trace edema bilaterally Neuro-Unresponsive Lab data as noted below. ASSESSMENT & PLAN: Current Issues:::Patient has been put on Comfort care only Respiratory failure 2/2 pneumonia and ARDS Altered mental status Acute systolic heart failure with critically low EF presumed <10% Severe sepsis JEFFERY on CKD Critical but remains stable :Palliative Care on Board Discussed with the Family members Worse today -continue comfort care Keep comfortable Talked to the family members Hospital course so far as mentioned below: This 72-year-old female with dementia, presents with severe sepsis from multifocal pneumonia. 1. Severe sepsis with lactic acid 3.5, elevated white count, multifocal pneumonia on CAT scan, hypotension, hypoxia and tachycardia. The patient is status post central line at right internal jugular, received 1.5 liters fluid bolus in the ER. Cannot give aggressive fluids as the patient's EF is only 20-25%. We will continue IV fluids ns@100ml/hr, and if necessary, we will start on pressors. She has a recent history of urinary tract infection with enterococcus.Will treat with IV doxycycline, Zosyn and vancomycin. patinet is dnr/dni. reepat lactic acid was still elevated at 4.0 10/31/17 patient was having resp distress bed side echo done by critical care showed ef 10%.BP on lower side fluids were stopped and a dose of Lasix given patient now also on cardiogenic shock on sepsis. Critical care d/w daughter about poor prognosis palliative care was consulted and daughter decided for comfort care only. All abx and medications wer stopped and was placed on comfort care with mprphine prn transferred to medical floor. 2. Hypernatremia. We are holding home diuretics. Getting the fluids as above. currently on comfort care 3. Hypokalemia and hypomagnesemia. replace. 4. Qt prolongation. We will repeat EKG.on comfort care. 5. History of chronic systolic heart failure with EF of only 20-25%, status post ICD. It was not interrogated last admission because of multiple comorbid conditions. Holding the diuretics as above. Blood pressure is low, we will hold the Toprol. currently on comfort care. 6. Colon cancer, status post resection. Colostomy tube is working okay. 7. Diabetes type 2. Last HgA1c was 8.5. On Lantus and NovoLog. We will monitor the blood sugars.Currently all meds stopped and on comfort care. 8. Acute renal failure on chronic kidney disease. Baseline creatinine about 1.1 to 1.2. Creatinine of 1.9 from above. Holding diuretics. On fluids. on comfort care. 10. History of atrial fibrillation, currently normal sinus rhythm. 12. Deep vein thrombosis prophylaxis. scds DISPOSITION on Comfort care Vital Signs: Date Time Temp Pulse Resp B/P (MAP) Pulse Ox O2 Delivery O2 Flow Rate FiO2 11/04/17 08:00 Oxymask 7.0 11/04/17 00:00 Oxymask 7.0 11/03/17 16:20 Oxymask 7.0
--- NOTE | 2017-11-05 17:18 | Discharge Summary ---
Discharge Summary Date of Service Nov 05, 2017. Discharge Summary Admission Date: Oct 30, 2017 at 10:48 Discharge Date: Nov 05, 2017 Discharge Disposition: Principal Diagnosis: Causes of :Pneumonia,Multiorgan Failure,JEFFERY Secondary Diagnoses/Problems: Please see H&P and Hospital Progress note Consultations: [employer] Admission Information HPI (per Admitting provider): DATE OF ADMISSION: 10/30/2017 CHIEF COMPLAINT: Altered mental status. HISTORY OF PRESENT ILLNESS: This is a 72-year-old female with past medical history significant for dementia, detention resident from [facility], history of cardiomyopathy with EF around 20-25%, history of colorectal carcinoma, status post resection and colostomy, hypertension, diabetes, history of falls and recurrent UTIs. She was in the hospital on 10/09/2017 for falls and UTI with enterococcus and was discharged back to [facility], and at [facility], as per daughter, last several days her dementia seemed to be getting progressed and worsened. Yesterday, daughter was called, the patient was having cough and temperature and was hypoxic and she was put on oxygen. And as she was not getting better, she was brought to the ER today. In the ER, she was found to be hypotensive, hypoxic and multifocal pneumonia. Daughter is okay with central lines and pressors but no intubation, no CPR. She is okay with, if needed, 1 or 2 shocks. The patient can tell her name, looks dry, obeys simple commands but does not answer any other questions. Denies any pain currently. Blood pressure was in the 70s when she came in. After fluid bolus, blood pressure is in the 90s. Could not obtain any other review of symptoms as the patient has dementia and somewhat altered currently. ALLERGIES: TO INVANZ, NICKEL. PAST MEDICAL HISTORY: As mentioned above. PAST SURGICAL HISTORY: Status post colectomy. FAMILY HISTORY: Significant for cancer. SOCIAL HISTORY: Former smoker. No drug use. Currently at detention. MEDICATIONS: The patient is on Lasix 20 mg p.o. daily p.r.n. for weight gain greater than 2 pounds, Toprol-XL 12.5 mg p.o. daily, Tylenol 1000 mg p.o. q. 8 hours p.r.n., clotrimazole 1% cream apply topically, folic acid 1 mg p.o. daily, insulin 5 units at bedtime, Insulin Humalog 10 units q.p.m. with supper, ipratropium bromide 0.5 mg inhalation q. 6 hours p.r.n. for shortness of breath and wheezing, magnesium oxide 400 mg p.o. daily, multivitamin 1 tablet daily, Aldactone 25 mg p.o. daily, terbinafine to apply topically at bedtime in bilateral feet, thiamine 100 mg p.o. b.i.d., trazodone 50 mg p.o. at bedtime, Effexor 100 mg p.o. daily. REVIEW OF SYSTEMS: Unobtainable at this time. PHYSICAL EXAMINATION: GENERAL: The patient is somewhat lethargic, oriented to name only. VITAL SIGNS: Temperature 36.6, pulse 90, respiratory rate 20, blood pressure when she came in was 78/51, currently 97/60, oxygen 96% on 3 liters. HEENT: No pallor, no icterus. Pupils equal, round and reactive to light. Oral mucosa dry. NECK: No JVD, no neck masses. CARDIOVASCULAR: S1, S2 heard, regular rate and rhythm, no murmur, no gallop. RESPIRATORY: Normal AP diameter. No accessory muscle use. No wheezing, no crackles appreciated. ABDOMEN: Soft. Bowel sounds present. Nontender. No distention. CENTRAL NERVOUS SYSTEM: Somewhat lethargic, oriented to name only, obeys simple commands. EXTREMITIES: No edema, no erythema. LABORATORY DATA: WBC 11.5, hemoglobin 16.8, hematocrit 49.8, platelets 104. Sodium 152, potassium 3.4, chloride 116, bicarbonate 25, BUN 43, creatinine 1.9, serum glucose 65. [id number]-kcym lactic acid 3.5. Calcium 9.7, ionized calcium 1.1, magnesium 1.7, total bilirubin 1.3, direct bilirubin 0.9, AST 46, ALT 35, alkaline phosphatase 123, total creatine kinase 31, CK-MB 1.4, troponin 0.16. PT 17.8, INR 1.7. Urinalysis negative. Influenza negative. CT of the head, interval development of parasinus disease, otherwise no significant change from the preceding examination. CT of the chest, no evidence of pulmonary embolus, multifocal consolidations in the lungs, most pronounced in right upper lobe, multifocal pneumonia, emphysema, cardiomegaly, subacute to chronic mild anterior wedge shape compression fracture at T12. EKG, sinus rhythm with a rate of 94, left bundle-branch block, QTC prolonged at 420. No acute ST changes seen. ASSESSMENT AND PLAN: This 72-year-old female with dementia, presents with severe sepsis from multifocal pneumonia. 1. Severe sepsis with lactic acid 3.5, elevated white count, multifocal pneumonia on CAT scan, hypotension, hypoxia and tachycardia. The patient is status post central line at right internal jugular, received 1.5 liters fluid bolus in the ER. Cannot give aggressive fluids as the patient's EF is only 20-25%. We will continue IV fluids ns@100ml/hr, and if necessary, we will start on pressors. She has a recent history of urinary tract infection with enterococcus.Will treat with IV doxycycline, Zosyn and vancomycin. Follow the cultures. Follow repeat lactic acid. Follow hemodynamics. The patient is DNR/DNI but okay for a couple of shocks if needed. Close monitoring in the ICU for now. 2. Hypernatremia. We are holding home diuretics. Getting the fluids as above. We will follow the labs. 3. Hypokalemia and hypomagnesemia. We will replace. 4. Qt prolongation. We will repeat EKG. 5. History of chronic systolic heart failure with EF of only 20-25%, status post ICD. It was not interrogated last admission because of multiple comorbid conditions. Holding the diuretics as above. Blood pressure is low, we will hold the Toprol. Monitor for any volume overload. 6. Colon cancer, status post resection. Colostomy tube is working okay. 7. Diabetes type 2. Last HgA1c was 8.5. On Lantus and NovoLog. We will monitor the blood sugars. 8. Acute renal failure on chronic kidney disease. Baseline creatinine about 1.1 to 1.2. Creatinine of 1.9 from above. Holding diuretics. On fluids. We will monitor the labs. 10. History of atrial fibrillation, currently normal sinus rhythm. 11. History of weakness, multifactorial. PT/OT when stable and the patient is a detention resident. 12. Deep vein thrombosis prophylaxis. Heparin subcu. DISPOSITION: Admit to ICU. Code status DNR. Social service to help with discharge planning. Total critical care time 40 minutes. Hospital Course Current Issues:::Patient has been put on Comfort care only Respiratory failure 2/2 pneumonia and ARDS Altered mental status Acute systolic heart failure with critically low EF presumed <10% Severe sepsis JEFFERY on CKD Critical but remains stable :Palliative Care on Board Discussed with the Family members Worse today -continue comfort care Keep comfortable Talked to the family members Hospital course so far as mentioned below: This 72-year-old female with dementia, presents with severe sepsis from multifocal pneumonia. 1. Severe sepsis with lactic acid 3.5, elevated white count, multifocal pneumonia on CAT scan, hypotension, hypoxia and tachycardia. The patient is status post central line at right internal jugular, received 1.5 liters fluid bolus in the ER. Cannot give aggressive fluids as the patient's EF is only 20-25%. We will continue IV fluids ns@100ml/hr, and if necessary, we will start on pressors. She has a recent history of urinary tract infection with enterococcus.Will treat with IV doxycycline, Zosyn and vancomycin. patinet is dnr/dni. reepat lactic acid was still elevated at 4.0 10/31/17 patient was having resp distress bed side echo done by critical care showed ef 10%.BP on lower side fluids were stopped and a dose of Lasix given patient now also on cardiogenic shock on sepsis. Critical care d/w daughter about poor prognosis palliative care was consulted and daughter decided for comfort care only. All abx and medications wer stopped and was placed on comfort care with mprphine prn transferred to medical floor. 2. Hypernatremia. We are holding home diuretics. Getting the fluids as above. currently on comfort care 3. Hypokalemia and hypomagnesemia. replace. 4. Qt prolongation. We will repeat EKG.on comfort care. 5. History of chronic systolic heart failure with EF of only 20-25%, status post ICD. It was not interrogated last admission because of multiple comorbid conditions. Holding the diuretics as above. Blood pressure is low, we will hold the Toprol. currently on comfort care. 6. Colon cancer, status post resection. Colostomy tube is working okay. 7. Diabetes type 2. Last HgA1c was 8.5. On Lantus and NovoLog. We will monitor the blood sugars.Currently all meds stopped and on comfort care. 8. Acute renal failure on chronic kidney disease. Baseline creatinine about 1.1 to 1.2. Creatinine of 1.9 from above. Holding diuretics. On fluids. on comfort care. 10. History of atrial fibrillation, currently normal sinus rhythm. 12. Deep vein thrombosis prophylaxis. scds DISPOSITION on Comfort care Total time spent on discharge = 20 This includes examination of the patient, discharge planning, medication reconciliation, and communication with other providers. Discharge Instructions The patient Additional Copies To Moses Peterson M.D.
== END 2017-11-05 01:50 | disposition expired | DRG 871 ==
LOC: EDBD 07:38 → C.EDB 07:40 → C.MSICU 10:48 → ENRESERV 11:02 → C.4E 10-31 12:48
PROVIDERS: ADMIT Internal Medicine; ATTEND Internal Medicine
PROC: 05HM33Z Insertion of Infusion Device into Right Internal Jugular Vein, Percutaneous Approach (ICD-10-PCS; principal; 2017-10-30)
DX: A41.9 Sepsis, unspecified organism (principal); R65.21 Severe sepsis with septic shock; J18.9 Pneumonia, unspecified organism; J96.01 Acute respiratory failure with hypoxia; I50.23 Acute on chronic systolic (congestive) heart failure; Z51.5 Encounter for palliative care; E87.0 Hyperosmolality and hypernatremia; N17.9 Acute kidney failure, unspecified; E87.2 Acidosis; I13.0 Hypertensive heart and chronic kidney disease with heart failure and stage 1 through stage 4 chronic kidney disease, or unspecified chronic kidney disease; I42.9 Cardiomyopathy, unspecified; R57.0 Cardiogenic shock; E87.6 Hypokalemia; E83.42 Hypomagnesemia; I45.81 Long QT syndrome; R13.10 Dysphagia, unspecified; I34.0 Nonrheumatic mitral (valve) insufficiency; E11.22 Type 2 diabetes mellitus with diabetic chronic kidney disease; N18.9 Chronic kidney disease, unspecified; I48.91 Unspecified atrial fibrillation; R53.1 Weakness; F03.90 Unspecified dementia, unspecified severity, without behavioral disturbance, psychotic disturbance, mood disturbance, and anxiety; Z66 Do not resuscitate; Z93.3 Colostomy status; Z90.49 Acquired absence of other specified parts of digestive tract; Z85.038 Personal history of other malignant neoplasm of large intestine; Z95.810 Presence of automatic (implantable) cardiac defibrillator; Z87.440 Personal history of urinary (tract) infections; Z91.81 History of falling; Z87.891 Personal history of nicotine dependence; Z79.4 Long term (current) use of insulin; Z79.899 Other long term (current) drug therapy; Z88.1 Allergy status to other antibiotic agents; Z91.09 Other allergy status, other than to drugs and biological substances